=== PATIENT | female | born 1990 | race Caucasian/White ===

== ENCOUNTER 2022-08-28 17:07 | Emergency (ER) | payer OTHER, SELFPAY ==
[2022-08-28 17:15] VITALS: BP 135/104; PULSE 88; RESP 20; TEMP 36.6; O2SAT 98
--- NOTE | 2022-08-28 17:23 | XR_ITS ---
The [address] [address] Patient Name: CHAZ OLIVEIRA MRN: [id number] date: 1990 Sex: F Assigned Patient Location: ER Current Patient Location: ED.MAIN Accession/Order Number: [id number] Exam Date: 08/28/2022 17:28 Report Date: 08/28/2022 18:13 At the request of: GARY CABAN Procedure: XR toe LT min 2V EXAM: XR toe LT min 2V HISTORY: second toe COMPARISON: None. TECHNIQUE: 3 views of the left toe FINDINGS and impression: there is dislocation of the second middle phalanx with surrounding soft tissue edema. There is dorsal and lateral dislocation of the second middle phalanx relative to the first phalanx. No definite fracture. Electronically authenticated by: PETRONA CARDOSO Date: 08/28/2022 18:13
--- NOTE | 2022-08-28 18:44 | XR_ITS ---
The [address] [address] Patient Name: CHAZ OLIVEIRA MRN: [id number] date: 1990 Sex: F Assigned Patient Location: ER Current Patient Location: ER Accession/Order Number: [id number] Exam Date: 08/28/2022 18:40 Report Date: 08/28/2022 20:30 At the request of: GARY CABAN Procedure: XR toe LT min 2V IMAGES REVIEWED: XR toe LT min 2V COMPARISON: X-ray earlier same day. CLINICAL INDICATION: POST REDUCTION FINDINGS/IMPRESSION: Status post interval successful reduction of previously seen dorsal dislocation of the second proximal interphalangeal joint. On the prior there was a questionable small bony fragment measuring approximately 3 mm adjacent to the lateral aspect of the head of the second proximal phalanx on the frontal view. Possibly corresponding with an ossicle seen along the plantar aspect of the second interphalangeal joint on the lateral view, it is unclear if this is a sesamoid or fracture fragment. Electronically authenticated by: ROD GARCIA Date: 08/28/2022 20:30
--- NOTE | 2022-08-28 19:02 | PC.NURSE ---
toe put back in place by PA without difficulty.
--- NOTE | 2022-08-28 19:05 | ED_ITS ---
HPI - Extremity Injury (Lower) General Chief Complaint: Extremity Injury, Lower Stated Complaint: LEFT LEG INJURY Time Seen by Provider: 08/28/22 18:55 Source: patient Mode of arrival: Wheelchair Limitations: no limitations History of Present Illness HPI Narrative: 31-year-old female presents with chief complaint of stubbing her right toe. Obvious deformity noted to the 2nd phalanx on the right foot. Injury occurred when she was walking, accidentally kicked a hot tub cover. Deformity noted to the 2nd phalanx on the right toe. Related Data Home Medications Medication Instructions Recorded Confirmed No Known Home Medications 08/28/22 08/28/22 Allergies Allergy/AdvReac Type Severity Reaction Status Date / Time No Known Drug Allergies Allergy Verified 08/28/22 17:18 Review of Systems ROS Narrative All Systems are negative except as noted/marked. All systems reviewed and otherwise negative Exam Narrative Exam Narrative: Nurses note and vital signs reviewed and patient is not hypoxic. General: The patient appears well and in no apparent distress. Patient is resting comfortably on cart. Skin: Warm, dry, no pallor noted. There is no rash noted. Head: Normocephalic, atraumatic Musculoskeletal: Right 2nd digit deformity, dislocation neurovascularly intact, remainder extremity is unremarkable. The patient has no evidence of calf tenderness, no pitting edema, symmetrical pulses noted bilaterally Neurological: A&O x4, normal speech Psychiatric: Cooperative Constitutional Vital Signs - 24 hr 08/28/22 17:15 Temperature 98 F Pulse Rate [Monitor] 88 Respiratory Rate 20 Blood Pressure [Left Arm] 135/104 H Pulse Oximetry 98 Oxygen Delivery Method Room Air Course Course Hospital Course: Patient presented here with obvious deformity to the right 2nd digit. I was able to easily reduce the digit. Extremities neurovascular intact before and after. 1st x-ray showed obvious dislocation. 2nd repeat x-ray shows a question of avulsion fracture. Patient was treated as a fracture. Postop shoe and ousmane tape were applied by nursing staff. Patient will follow-up with Dr. Woods. Medicated here with Zofran and one Vermillion. Discharged home with pain medicine. Vital Signs Vital signs: Vital Signs Temperature 98 F 08/28/22 17:15 Pulse Rate 88 08/28/22 17:15 Respiratory Rate 20 08/28/22 17:15 Blood Pressure 135/104 H 08/28/22 17:15 Pulse Oximetry 98 08/28/22 17:15 Oxygen Delivery Method Room Air 08/28/22 17:15 Temperature 98 F 08/28/22 17:15 Pulse Rate 88 08/28/22 17:15 Respiratory Rate 20 08/28/22 17:15 Blood Pressure 135/104 H 08/28/22 17:15 Pulse Oximetry 98 08/28/22 17:15 Oxygen Delivery Method Room Air 08/28/22 17:15 MDM - Extremity Injury (Lower) MDM Narrative Medical decision making narrative: Toe fracture, dislocation Differential Diagnosis Differential diagnosis: Likely fracture of toe Discharge Plan Discharge Chief Complaint: Extremity Injury, Lower Clinical Impression: Closed dislocation of toe, Fracture of toe Patient Disposition: Home, Self-Care Time of Disposition Decision: 19:44 Condition: Good Prescriptions / Home Meds: No Action No Known Home Medications Instructions: Toe Fracture (ED), P.R.I.C.E. Treatment (ED) Stand Alone Forms: Portal Instructions Referrals: DOREEN MEJIA [Primary Care Provider] - 1 week Follow Up Appointments: dr woods
[2022-08-28] MEDS: HYDROCODONE/ACETAMINOPHEN 5-325 MG TABLET 1 TAB PO (19:19)
[2022-08-28] MEDS: ONDANSETRON 4 MG RAPDIS TABLET SL (19:19)
== END 2022-08-28 20:03 | disposition home or self-care (01) ==
PROVIDERS: Emergency Provider Emergency Medicine Emergency Medical Services; PCP Family Medicine
DX: S92.522A Displaced fracture of middle phalanx of left lesser toe(s), initial encounter for closed fracture (principal); W22.8XXA Striking against or struck by other objects, initial encounter
CPT/HCPCS: 28515; 73660; 99283

== ENCOUNTER 2023-01-17 10:40 | Outpatient (OUT) | payer OTHER, SELFPAY ==
[2023-01-17 11:05] LABS: Basophils Percent Auto 0.5 % (0.2-2.0); Eosinophils Percent Auto 0.3 % (0.9-7.0); Hematocrit 40.1 % (36.0-48.0); Hemoglobin 13.4 g/dL (12.0-16.0); Immature Granulocytes Abs Auto 0.01 10^3/uL (0.00-0.03); Immature Granulocytes Pct Auto 0.2 % (0.0-0.5); Lymphocytes Absolute Auto 1.6 10^3/uL (1.2-3.8); Lymphocytes Percent Auto 24.6 % (20.5-60.0); Mean Corpuscular HGB Conc 33.4 g/dL (29.9-35.2); Mean Corpuscular Hemoglobin 29.6 pg (26.7-34.0); Mean Corpuscular Volume 88.5 fL (81.0-99.0); Monocytes Absolute Auto 0.5 10^3/uL (0.3-0.8); Monocytes Percent Auto 6.9 % (1.7-12.0); Neutrophils Absolute Auto 4.4 10^3/uL (1.4-6.5); Neutrophils Percent Auto 67.5 % (43.0-75.0); Platelet Count 242 10^3/uL (150-450); Red Blood Count 4.53 10^6/uL (4.20-5.40); Red Cell Distribution Width 11.9 % (11.0-15.0); White Blood Count 6.5 10^3/uL (4.0-11.0)
[2023-01-17 11:47] LABS: BUN Creatinine Ratio 13.7; Calcium 10.2 mg/dL (8.5-10.1); Chloride 101 mmol/L (98-107); Estimated GFR (African America >60 (>=60); Estimated GFR (Non-African Ame >60 (>=60); Glucose 105 mg/dL (74-106); Sodium 137 mmol/L (136-145); Thyroid Stimulating Hormone 1.026 uIU/mL (0.358-3.740)
== END 2023-01-17 10:41 | disposition home or self-care (01) ==
PROVIDERS: PCP Family Medicine; Visit Provider Family Medicine
DX: Z00.00 Encounter for general adult medical examination without abnormal findings (principal); R63.4 Abnormal weight loss
CPT/HCPCS: 36415; 80048; 84443; 85025

== ENCOUNTER 2023-03-29 13:42 | Emergency (ER) | payer OTHER, SELFPAY ==
[2023-03-29] VITALS (7 sets, daily range): BP systolic 115–143; BP diastolic 75–95; PULSE 56–67; RESP 12–20; TEMP 36.6–36.9; O2SAT 97–99; BMI 15.6; BMI 17.2
--- OUTSIDE RECORDS SUMMARY | 2023-03-29 14:00 | XMS_ITS | CCD ---
Author Name Unknown Address [address] [place] [address] Organization [facility] Care Team Providers Care Machine Clothing Replacer Name Role Phone DR MOISES FIGUEROA Attending Unavailable DR MOISES FIGUEROA Consulting Unavailable DR MOISES FIGUEROA Admitting Unavailable DR KASEY LOWE Primary Care Unavailable GEOVANNI ARREAGA Consulting Unavailable Kasey Lowe Unavailable Allergies Allergy Classification Reported Allergen(s) Allergy Type Date of Onset Reaction(s) Facility (2 sources) Levamisole Drug Allergy 10-21-2013 Unknown [facility] Repository (2 sources) Nalbuphine Drug Allergy 10-21-2013 Unknown [facility] Medications Completed/Discontinued Medications Medication Drug Class(es) Dates Sig (Normalized) Sig (Original) Ketorolac (1 source) Nonsteroidal Anti-inflammatory Drug, Cyclooxygenase Inhibitor Start: 12-15-2012 Toradol per 15 mg 23 Nov, 2012 60 mg Problems Active Problems Problem Classification Problem Date Documented Da te Episodic/Chronic Headache; including migraine (1 source) Headache; Translations: [Headache, Unspecified] Episodic Other nutritional; endocrine; and metabolic disorders (1 source) Hypercalcemia; Translations: [Hypercalcemia] Chronic Other nutritional; endocrine; and metabolic disorders (1 source) Hypercalcemia Chronic Urinary tract infections (1 source) Urinary tract infectious disease; Translations: [Urinary Tract Infection] Episodic Past or Other Problems Problem Classification Problem Date Documented Da te Episodic/Chronic E Codes: Fall (1 source) Unspecified fall, initial encounter; Translations: [UNSPECIFIED FALL INITIAL ENCOUNTER] Onset: 05-05-2020 Episodic Other injuries and conditions due to external causes (3 sources) Unspecified injury of left foot, initial encounter; Translations: [UNSPECIFIED INJURY LT FOOT INITIAL] Onset: 05-04-2020 Episodic Screening and history of mental health and substance abuse codes (1 source) Personal history of nicotine dependence; Translations: [PERSONAL HISTORY OF NICOTINE DEPEND] Onset: 05-05-2020 Episodic Sprains and strains (1 source) Unspecified sprain of left foot, initial encounter; Translations: [UNSPECIFIED SPRAIN LT FOOT INITIAL] Onset: 05-05-2020 Episodic Superficial injury; contusion (1 source) Contusion of left foot, initial encounter; Translations: [CONTUSION LEFT FOOT INITIAL ENC] Onset: 05-05-2020 Episodic Encounters Encounter Date Encounter Type Care Provider Facility Start: 01-17-2023 End: 01-17-2023 ambulatory Kasey Lowe Other [facility] Other Start: 01-17-2023 Telephone encounter Kasey Lowe [facility] Start: 05-04-2020 End: 05-04-[address] MOISES FIGUEROA Facility: Payers Date Payer Category Payer Unknown [id number] 1957 Private Health Insurance [id number] Unknown [id number] Social History Date Type Detail Facility Unknown if ever smoked [facility] Other Sex Assigned At Sex Assigned At Bir th [facility] Other Evaluation note 01-17-2023 Note Date & Type Note Facility 01-17-2023 Evaluation note Encounter Date Diagnosis Assessment Notes Dec, Serum calcium elevated (ICD-10 - E83.52) [facility] Other History general Narrative - Reported Note Date & Type Note Facility History general Narrative - Reported Type Medical History hx of migraines Surgical History tonsillectomy Surgical History tubal ligation Hospitalization History childbirth [facility] Other Summary Purpose Family History No Family History Records Found Advance Directives No Advanced Directives Records Found Additional Source Comments INFORMATION SOURCE (unrecogn ized section and content) DATE CREATED AUTHOR 09/26/2021 [facility] REASON FOR VISIT (unrecogniz ed section and content) labs FOR RECORDS PERTAINING TO PATIENTS WHO ARE OR HAVE BEEN ENROLLED IN A CHEMICAL DEPENDENCY/SUBSTANCEABUSE PROGRAM, SOME INFORMATION MAY BE OMITTED. This clinical summary was aggregated from multiple sources. Caution should be exercised in using it in the provision of clinical care. This summary normalizes information from multiple sources, and as a consequence, information in this document may materially change the coding, format and clinical context of patient data. In addition, data may be omitted in some cases. CLINICAL DECISIONS SHOULD BE BASED ON THE PRIMARY CLINICAL RECORDS. [facility]. provides no warranty or guarantee of the accuracy or completeness of information in this document.
--- NOTE | 2023-03-29 14:06 | XR_ITS ---
The [address] [address] Patient Name: CHAZ OLIVEIRA MRN: [id number] date: 1990 Sex: F Assigned Patient Location: ER Current Patient Location: ER Accession/Order Number: [id number] Exam Date: 03/29/2023 14:30 Report Date: 03/29/2023 14:49 At the request of: THA AWAD Procedure: XR chest 1V EXAMINATION: XR chest 1V HISTORY: chesst pain COMPARISON: No relevant comparison available. TECHNIQUE: AP portable FINDINGS: LUNGS: No significant pulmonary parenchymal abnormalities. VASCULATURE: No increased pulmonary vasculature. PLEURA: No pneumothorax, effusion, or pleural thickening. CARDIAC: No cardiomegaly or cardiac silhouette abnormality. MEDIASTINUM: No visible mass or adenopathy. BONES: No fracture or visible bone lesion. OTHER: Negative. XR/XR chest 1V IMPRESSION: No acute disease. Electronically authenticated by: DARSHANA ANN Date: 03/29/2023 14:49
--- NOTE | 2023-03-29 14:06 | ECG_ITS ---
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
[2023-03-29] MEDS: KETOROLAC TROMETHAMINE 30 MG/ML VIAL IVP (14:10)
[2023-03-29 14:12] LABS: Internal Control Within Normal Limits; Strep A Antigen Screen Negative
[2023-03-29 14:15] LABS: Influenza Virus A Antigen Negative; Influenza Virus B Antigen Negative; Internal Control Within Normal Limits
[2023-03-29 14:16] LABS: SARS-CoV-2 Ag NEGATIVE (NEGATIVE)
[2023-03-29] MEDS: 0.9 % SODIUM CHLORIDE 1,000 ML 1000 ML IV ×2 (14:30→15:41)
[2023-03-29] MEDS: ONDANSETRON PF 4 MG/2 ML VIAL IV (14:31)
[2023-03-29 15:37] LABS: Basophils Percent Auto 0.3 % (0.2-2.0); Eosinophils Percent Auto 0.3 % (0.9-7.0); Hemoglobin 13.1 g/dL (12.0-16.0); Immature Granulocytes Abs Auto 0.02 10^3/uL (0.00-0.03); Immature Granulocytes Pct Auto 0.2 % (0.0-0.5); Lymphocytes Absolute Auto 1.3 10^3/uL (1.2-3.8); Lymphocytes Percent Auto 14.5 % (20.5-60.0); Mean Corpuscular HGB Conc 33.6 g/dL (29.9-35.2); Mean Corpuscular Hemoglobin 30.1 pg (26.7-34.0); Mean Corpuscular Volume 89.7 fL (81.0-99.0); Mean Platelet Volume 11.1 fL (9.5-13.5); Monocytes Absolute Auto 0.8 10^3/uL (0.3-0.8); Monocytes Percent Auto 9.5 % (1.7-12.0); Neutrophils Absolute Auto 6.6 10^3/uL (1.4-6.5); Neutrophils Percent Auto 75.2 % (43.0-75.0); Platelet Count 340 10^3/uL (150-450); Red Blood Count 4.35 10^6/uL (4.20-5.40); Red Cell Distribution Width 12.7 % (11.0-15.0); White Blood Count 8.8 10^3/uL (4.0-11.0)
[2023-03-29 15:43] LABS: Alanine Aminotransferase 63 U/L (14-59); Albumin Globulin Ratio 1.2; Albumin Level 4.1 g/dL (3.4-5.0); Alkaline Phosphatase 66 U/L (46-116); Anion Gap 9.9; Aspartate Amino Transferase 63 U/L (15-37); BUN Creatinine Ratio 12.3; Bilirubin Total 0.7 mg/dL (0.2-1.0); Calcium 10.8 mg/dL (8.5-10.1); Carbon Dioxide 31.8 mmol/L (21.0-32.0); Chloride 101 mmol/L (98-107); Estimated GFR (African America >60 (>=60); Estimated GFR (Non-African Ame >60 (>=60); Globulin 3.4 g/dL; Glucose 97 mg/dL (74-106); Potassium 3.7 mmol/L (3.5-5.1); Sodium 139 mmol/L (136-145); Total Protein 7.5 g/dL (6.4-8.2)
[2023-03-29 15:45] LABS: Troponin I High Sensitivity <4.0 pg/mL (4.0-51.3)
[2023-03-29 15:58] LABS: Bilirubin Urine NEGATIVE (NEGATIVE); Blood Urine SMALL (NEGATIVE); Clarity Urine CLEAR (CLEAR); Color Urine LT. YELLOW (YELLOW); Glucose Urine UA NEGATIVE (NEGATIVE); HCG Qualitative Urine* NEGATIVE (NEGATIVE); Ketones Urine TRACE mg/dL (NEGATIVE); Leukocyte Esterase Urine NEGATIVE (NEGATIVE); Nitrite Urine NEGATIVE (NEGATIVE); Protein Urine NEGATIVE (NEG/TRACE); Urobilinogen Urine 0.2 EU/dL (0.2-1.0)
[2023-03-29 16:00] LABS: Urine Microscopic Indicated YES
[2023-03-29 16:05] LABS: Bacteria Urine NONE SEEN #/HPF (NONE SEEN); Cast Seen? NONE SEEN #/LPF (NONE SEEN); Crystals Seen? None Seen #/HPF (None Seen); Mucus Urine NONE SEEN (NONE SEEN); RBC Urine NONE SEEN #/HPF (0-2); Squamous Epithelial Cell Urine RARE #/LPF (NONE/RARE); WBC Urine 0-2 #/HPF (NONE SEEN)
[2023-03-29 16:06] LABS: Urine Culture Indicated NO
--- NOTE | 2023-03-29 16:09 | ED_ITS ---
Documented by User: Enedelia Frank 03/29/23 16:16 HPI - General Adult General Chief complaint: Upper Respiratory Infection Stated complaint: CHEST PAIN/ SHORTNESS OF BREATH Time Seen by Provider: 03/29/23 13:59 Source: patient Mode of arrival: walk-in Limitations: no limitations History of Present Illness HPI narrative: 32-year-old female presents here with a chief complaint of weakness, nausea vomiting and weight loss. She states she is felt horrible for last 3-4 days. She complains of bodyaches fevers or chills. She is generally healthy. She does appear to not feel well today. She is tearful. He states she's also felt chest tightness with her anxiety. His vital signs are stable she is afebrile. Related Data Previous Rx's Medication Instructions Recorded hydroxyzine pamoate 25 mg capsule 25 mg PO TID PRN anxiey #20 caps 03/29/23 (Vistaril) ondansetron 4 mg disintegrating 4 mg PO Q8H PRN nausea and 03/29/23 tablet vomiting 5 days #10 tabs Allergies Allergy/AdvReac Type Severity Reaction Status Date / Time No Known Drug Allergies Allergy Verified 03/29/23 14:01 Review of Systems ROS Narrative All Systems are negative except as noted/marked. PFSH PFSH Social History Smoking status: Current every day smoker Exam Narrative Exam Narrative: Nurses note and vital signs reviewed and patient is not hypoxic. General: The patient appears ill, weak Skin: Warm, dry, no pallor noted. There is no rash noted. Head: Normocephalic, atraumatic Eye: Normal conjunctiva, no drainage, EOMI. PERRL Ears, Nose, Mouth, and Throat: oral mucosa is moist. Nares patent. Mouth without vesicles. Ear canals patent. Tm's without Erythema Cardiovascular: Regular Rate and Rhythm Respiratory: Patient is in no distress, no accessory muscle use, lungs are clear to auscultation, no wheezing, rales or rhonchi Back: non-tender, no CVA tenderness bilaterally to percussion. GI: Normal bowel sounds, no tenderness to palpation, no masses appreciated. No rebound, guarding, or rigidity noted. Musculoskeletal: The patient has no evidence of calf tenderness, no pitting edema, symmetrical pulses noted bilaterally Neurological: A&O x4, normal speech Psychiatric: Cooperative Constitutional Vital Signs, click to edit/add: Last Vital Signs Temp 98.5 F 03/29/23 14:02 Pulse 56 L 03/29/23 15:00 Resp 20 03/29/23 15:00 BP 115/75 03/29/23 15:00 Pulse Ox 99 03/29/23 15:00 O2 Del Method Room Air 03/29/23 14:06 Course Vital Signs Vital signs: Vital Signs Temperature 97.8 F 03/29/23 13:47 Pulse Rate 67 03/29/23 13:47 Respiratory Rate 18 03/29/23 13:47 Blood Pressure 140/88 03/29/23 13:47 Pulse Oximetry 99 03/29/23 13:47 Oxygen Delivery Method Room Air 03/29/23 13:47 Temperature 98.5 F 03/29/23 14:02 Pulse Rate 56 L 03/29/23 15:00 Respiratory Rate 20 03/29/23 15:00 Blood Pressure 115/75 03/29/23 15:00 Pulse Oximetry 99 03/29/23 15:00 Oxygen Delivery Method Room Air 03/29/23 14:06 Medical Decision Making MDM Narrative Medical decision making narrative: Patient presents with a chief complaint nausea vomiting and chills. Coban swab influenza swabs are negative. Rapid strep and urinalyssis also obtained and negative. Upon arrival to the emergency room patient did appear ill not feeling well. IV was established she's been given 2 L IV fluids Zofran and Toradol. She looks much improved after fluids and medications. She states she does feel better. Although been discussing discharge with her patient is tearful and admits that she has had increased anxiety with weight loss over last several months. Patient denies suicidal or homicidal ideation. Patient be discharged home with a small prescription of Viistaril to help with anxiety and insomnia. She will follow-up with Dr. Lowe. Patient verbalizes understanding agrees with plan of care Differential Diagnosis Differential Diagnosis: uri, flu, covid, nausea and vomiting Medical Records Medical records reviewed: Yes I reviewed the patient's medical records Lab Data Lab results reviewed: Yes I reviewed the patient's lab results Labs: Lab Results 03/29/23 03/29/23 03/29/23 Range/Units 13:50 14:10 15:40 WBC 8.8 (4.0-11.0) 10^3/uL RBC 4.35 (4.20-5.40) 10^6/uL Hgb 13.1 (12.0-16.0) g/dL Hct 39.0 (36.0-48.0) % MCV 89.7 (81.0-99.0) fL MCH 30.1 (26.7-34.0) pg MCHC 33.6 (29.9-35.2) g/dL RDW 12.7 (11.0-15.0) % Plt Count 340 (150-450) 10^3/uL MPV 11.1 (9.5-13.5) fL Neut % (Auto) 75.2 H (43.0-75.0) % Lymph % (Auto) 14.5 L (20.5-60.0) % Dickens % (Auto) 9.5 (1.7-12.0) % Eos % (Auto) 0.3 L (0.9-7.0) % Baso % (Auto) 0.3 (0.2-2.0) % Neut # (Auto) 6.6 H (1.4-6.5) 10^3/uL Lymph # (Auto) 1.3 (1.2-3.8) 10^3/uL Dickens # (Auto) 0.8 (0.3-0.8) 10^3/uL Eos # (Auto) 0.0 (0.0-0.7) 10^3/uL Baso # (Auto) 0.0 (0.0-0.1) 10^3/uL Abs Immat Gran (auto) 0.02 (0.00-0.03) 10^3/uL Imm/Tot Granulo (auto) 0.2 (0.0-0.5) % Sodium 139 (136-145) mmol/L Potassium 3.7 (3.5-5.1) mmol/L Chloride 101 (98-107) mmol/L Carbon Dioxide 31.8 (21.0-32.0) mmol/L Anion Gap 9.9 BUN 8.0 (7.0-18.0) mg/dL Creatinine 0.65 (0.55-1.02) mg/dL Est GFR ( Amer) >60 (>=60) Est GFR (Non-Af Amer) >60 (>=60) BUN/Creatinine Ratio 12.3 Glucose 97 (74-106) mg/dL Calcium 10.8 H (8.5-10.1) mg/dL Total Bilirubin 0.7 (0.2-1.0) mg/dL AST 63 H (15-37) U/L ALT 63 H (14-59) U/L Alkaline Phosphatase 66 (46-116) U/L Troponin I High Sens <4.0 L (4.0-51.3) pg/mL Total Protein 7.5 (6.4-8.2) g/dL Albumin 4.1 (3.4-5.0) g/dL Globulin 3.4 g/dL Albumin/Globulin Ratio 1.2 Urine Color Lt. yellow (YELLOW) Urine Clarity Clear (CLEAR) Urine pH 7.0 (5.0-9.0) Ur Specific [place] 1.010 (1.005-1.025) Urine Protein Negative (NEG/TRACE) mg/dL Urine Glucose (UA) Negative (NEGATIVE) mg/dL Urine Ketones Trace A (NEGATIVE) mg/dL Urine Occult Blood Small A (NEGATIVE) Urine Nitrite Negative (NEGATIVE) Urine Bilirubin Negative (NEGATIVE) Urine Urobilinogen 0.2 (0.2-1.0) EU/dL Ur Leukocyte Esterase Negative (NEGATIVE) Urine RBC None seen (0-2) #/HPF Urine WBC 0-2 A (NONE SEEN) #/HPF Ur Squamous Epith Cells Rare (NONE/RARE) #/LPF Urine Crystals None seen (None Seen) #/HPF Urine Bacteria None seen (NONE SEEN) #/HPF Urine Casts None seen (NONE SEEN) #/LPF Urine Mucus None seen (NONE SEEN) Ur Culture Indicated? No Urine HCG, Qual Negative (NEGATIVE) SARS-CoV-2 (PCR) Negative (NEGATIVE) Influenza Type A Ag Negative Influenza Type B Ag Negative Streptococcus Screen Negative Imaging Data Chest x-ray: Attestation: I have reviewed the pertinent imaging results. Radiologist's impression: ITS Impressions Chest X-Ray 03/29/23 14:06 IMPRESSION: No acute disease. Electronically authenticated by: DARSHANA ANN Date: 03/29/2023 14:49 ECG Data Attestation: ?I have reviewed the pertinent ECG results. Interpretation: 1401 Sinus bradycardia with a rate of 55 bpm, ME interval 103 ms, QRS duration 80 ms, no STEMI Discharge Plan Discharge Chief Complaint: Upper Respiratory Infection Clinical Impression: Upper respiratory infection, Anxiety, Nausea & vomiting Patient Disposition: Home, Self-Care Time of Disposition Decision: 16:06 Condition: Good Prescriptions / Home Meds: New hydroxyzine pamoate [Vistaril] 25 mg capsule 25 mg PO TID PRN (Reason: anxiey) Qty: 20 0RF Rx Instructions: 1-2 every 8 hours anxiety/ insomnia ondansetron 4 mg tablet,disintegrating 4 mg PO Q8H PRN (Reason: nausea and vomiting) 5 Days Qty: 10 0RF Instructions: Upper Respiratory Infection (ED), Acute Nausea and Vomiting (ED), Anxiety (ED) Stand Alone Forms: Portal Instructions Referrals: Kasey Lowe MD [Primary Care Provider] - 1 week Discharge Date/Time: 03/29/23 17:05 Documented by User: True Grace MD 03/29/23 20:55 HPI - General Adult General Chief complaint: Upper Respiratory Infection Stated complaint: CHEST PAIN/ SHORTNESS OF BREATH Time Seen by Provider: 03/29/23 13:59 Related Data Previous Rx's Medication Instructions Recorded hydroxyzine pamoate 25 mg capsule 25 mg PO TID PRN anxiey #20 caps 03/29/23 (Vistaril) ondansetron 4 mg disintegrating 4 mg PO Q8H PRN nausea and 03/29/23 tablet vomiting 5 days #10 tabs Allergies Allergy/AdvReac Type Severity Reaction Status Date / Time No Known Drug Allergies Allergy Verified 03/29/23 14:01 PFSH PFS Social History Smoking status: Current every day smoker Exam Constitutional Vital Signs, click to edit/add: Last Vital Signs Temp 98.5 F 03/29/23 14:02 Pulse 56 L 03/29/23 15:00 Resp 20 03/29/23 15:00 BP 115/75 03/29/23 15:00 Pulse Ox 99 01/05/24 15:00 O2 Del Method Room Air 03/29/23 14:06 Course Vital Signs Vital signs: Vital Signs Temperature 97.8 F 03/29/23 13:47 Pulse Rate 67 03/29/23 13:47 Respiratory Rate 18 03/29/23 13:47 Blood Pressure 140/88 03/29/23 13:47 Pulse Oximetry 99 03/29/23 13:47 Oxygen Delivery Method Room Air 03/29/23 13:47 Temperature 98.5 F 03/29/23 14:02 Pulse Rate 56 L 03/29/23 15:00 Respiratory Rate 20 03/29/23 15:00 Blood Pressure 115/75 03/29/23 15:00 Pulse Oximetry 99 03/29/23 15:00 Oxygen Delivery Method Room Air 03/29/23 14:06 Medical Decision Making MDM Narrative Medical decision making narrative: Patient presents with a chief complaint nausea vomiting and chills. Coban swab influenza swabs are negative. Rapid strep and urinalyssis also obtained and negative. Upon arrival to the emergency room patient did appear ill not feeling well. IV was established she's been given 2 L IV fluids Zofran and Toradol. She looks much improved after fluids and medications. She states she does feel better. Although been discussing discharge with her patient is tearful and admits that she has had increased anxiety with weight loss over last several months. Patient denies suicidal or homicidal ideation. Patient be discharged home with a small prescription of Viistaril to help with anxiety and insomnia. She will follow-up with Dr. Lowe. Patient verbalizes understanding agrees with plan of care I, Dr Grace, have reviewed the above progress note and course of action in the ER; agree with the above. I have personally seen and evaluated this patient, gone over history and physical, and discussed disposition and treatment plan with the patient. Lab Data Labs: Lab Results 03/29/23 03/29/23 03/29/23 Range/Units 13:50 14:10 15:40 WBC 8.8 (4.0-11.0) 10^3/uL RBC 4.35 (4.20-5.40) 10^6/uL Hgb 13.1 (12.0-16.0) g/dL Hct 39.0 (36.0-48.0) % MCV 89.7 (81.0-99.0) fL MCH 30.1 (26.7-34.0) pg MCHC 33.6 (29.9-35.2) g/dL RDW 12.7 (11.0-15.0) % Plt Count 340 (150-450) 10^3/uL MPV 11.1 (9.5-13.5) fL Neut % (Auto) 75.2 H (43.0-75.0) % Lymph % (Auto) 14.5 L (20.5-60.0) % Dickens % (Auto) 9.5 (1.7-12.0) % Eos % (Auto) 0.3 L (0.9-7.0) % Baso % (Auto) 0.3 (0.2-2.0) % Neut # (Auto) 6.6 H (1.4-6.5) 10^3/uL Lymph # (Auto) 1.3 (1.2-3.8) 10^3/uL Dickens # (Auto) 0.8 (0.3-0.8) 10^3/uL Eos # (Auto) 0.0 (0.0-0.7) 10^3/uL Baso # (Auto) 0.0 (0.0-0.1) 10^3/uL Abs Immat Gran (auto) 0.02 (0.00-0.03) 10^3/uL Imm/Tot Granulo (auto) 0.2 (0.0-0.5) % Sodium 139 (136-145) mmol/L Potassium 3.7 (3.5-5.1) mmol/L Chloride 101 (98-107) mmol/L Carbon Dioxide 31.8 (21.0-32.0) mmol/L Anion Gap 9.9 BUN 8.0 (7.0-18.0) mg/dL Creatinine 0.65 (0.55-1.02) mg/dL Est GFR ( Amer) >60 (>=60) Est GFR (Non-Af Amer) >60 (>=60) BUN/Creatinine Ratio 12.3 Glucose 97 (74-106) mg/dL Calcium 10.8 H (8.5-10.1) mg/dL Total Bilirubin 0.7 (0.2-1.0) mg/dL AST 63 H (15-37) U/L ALT 63 H (14-59) U/L Alkaline Phosphatase 66 (46-116) U/L Troponin I High Sens <4.0 L (4.0-51.3) pg/mL Total Protein 7.5 (6.4-8.2) g/dL Albumin 4.1 (3.4-5.0) g/dL Globulin 3.4 g/dL Albumin/Globulin Ratio 1.2 Urine Color Lt. yellow (YELLOW) Urine Clarity Clear (CLEAR) Urine pH 7.0 (5.0-9.0) Ur Specific [place] 1.010 (1.005-1.025) Urine Protein Negative (NEG/TRACE) mg/dL Urine Glucose (UA) Negative (NEGATIVE) mg/dL Urine Ketones Trace A (NEGATIVE) mg/dL Urine Occult Blood Small A (NEGATIVE) Urine Nitrite Negative (NEGATIVE) Urine Bilirubin Negative (NEGATIVE) Urine Urobilinogen 0.2 (0.2-1.0) EU/dL Ur Leukocyte Esterase Negative (NEGATIVE) Urine RBC None seen (0-2) #/HPF Urine WBC 0-2 A (NONE SEEN) #/HPF Ur Squamous Epith Cells Rare (NONE/RARE) #/LPF Urine Crystals None seen (None Seen) #/HPF Urine Bacteria None seen (NONE SEEN) #/HPF Urine Casts None seen (NONE SEEN) #/LPF Urine Mucus None seen (NONE SEEN) Ur Culture Indicated? No Urine HCG, Qual Negative (NEGATIVE) SARS-CoV-2 (PCR) Negative (NEGATIVE) Influenza Type A Ag Negative Influenza Type B Ag Negative Streptococcus Screen Negative Imaging Data Chest x-ray: Radiologist's impression: ITS Impressions Chest X-Ray 03/29/23 14:06 IMPRESSION: No acute disease. Electronically authenticated by: DARSHANA ANN Date: 03/29/2023 14:49 Discharge Plan Discharge Chief Complaint: Upper Respiratory Infection Clinical Impression: Upper respiratory infection, Anxiety, Nausea & vomiting Patient Disposition: Home, Self-Care Time of Disposition Decision: 16:06 Condition: Good Prescriptions / Home Meds: New hydroxyzine pamoate [Vistaril] 25 mg capsule 25 mg PO TID PRN (Reason: anxiey) Qty: 20 0RF Rx Instructions: 1-2 every 8 hours anxiety/ insomnia ondansetron 4 mg tablet,disintegrating 4 mg PO Q8H PRN (Reason: nausea and vomiting) 5 Days Qty: 10 0RF Instructions: Upper Respiratory Infection (ED), Acute Nausea and Vomiting (ED), Anxiety (ED) Stand Alone Forms: Portal Instructions Referrals: Kasey Lowe MD [Primary Care Provider] - 1 week Discharge Date/Time: 03/29/23 17:05
[2023-03-30 16:04] LABS: SARS-CoV-2 NAA NOT DETECTED (NOT DETECTE)
== END 2023-03-29 17:05 | disposition home or self-care (01) ==
PROVIDERS: Physician Assistant; Emergency Provider Emergency Medicine; PCP Family Medicine
DX: R11.2 Nausea with vomiting, unspecified (principal); J06.9 Acute upper respiratory infection, unspecified; F41.9 Anxiety disorder, unspecified; F17.210 Nicotine dependence, cigarettes, uncomplicated; Z20.822 Contact with and (suspected) exposure to COVID-19
CPT/HCPCS: 36415; 71045; 80053; 81001; 84484; 84703; 85025; 87070; 87635; 87804; 87811; 87880; 93005; 96361; 96374; 96375; 99285; J1885; J2405

== ENCOUNTER 2023-04-15 11:51 | Outpatient (OUT) | payer OTHER, SELFPAY ==
--- OUTSIDE RECORDS SUMMARY | 2023-04-15 12:02 | XMS_ITS | CCD ---
Author Name Unknown Address [address] [place] [address] Organization [facility] Care Team Providers Care Operations Business Partner Name Role Phone DR MOISES FIGUEROA Attending Unavailable CAROLINA, DR MOISES Melissa Consulting Unavailable DR MOISES FIGUEROA Admitting Unavailable DR KASEY LOWE Primary Care Unavailable GEOVANNI ARREAGA Consulting Unavailable Kasey Lowe Unavailable KASEY LOWE Referring Unavailable Allergies Allergy Classification Reported Allergen(s) Allergy Type Date of Onset Reaction(s) Facility (7 sources) Levamisole Drug Allergy 10-21-2013 Unknown [facility] (7 sources) Nalbuphine Drug Allergy 10-21-2013 Unknown [facility] Medications Current Medications Medication Drug Class(es) Dates Sig (Normalized) Sig (Original) ALPRAZolam 0.25 mg oral tablet (3 sources) Benzodiazepine Start: 04-09-2023 take 1 tablet by mouth every twelve hours ALPRAZolam 0.25 MG 1 tablet Orally Twice a day for 5 days Mar, Active Start: 04-02-2023 take 1 tablet by sal th every twelve hours ALPRAZolam 0.25 MG 1 tablet Orally Twice a day for 5 days Mar, Active citalopram 20 mg oral tablet (5 sources) Serotonin Reuptake Inhibitor Start: 04-01-2023 take 1 tablet by mouth every twenty-four hours Citalopram Hydrobromide 20 MG 1 tablet Orally Once a day for 30 day(s) Mar, Active hydrOXYzine hydrochloride 25 mg oral tablet (5 sources) Antihistamine hydrOXYzine HCl 25 MG 1 tablet q 8 hrs prn Active ondansetron 4 mg disintegrating oral tablet (5 sources) Serotonin-3 Receptor Antagonist take 1 tablet by mouth every twenty-four hours Ondansetron 4 MG 1 tablet once a day Active Completed/Discontinued Medications Medication Drug Class(es) Dates Sig (Normalized) Sig (Original) Ketorolac (6 sources) Nonsteroidal Anti-inflammatory Drug, Cyclooxygenase Inhibitor Start: 12-15-2012 Toradol per 15 mg Nov, 60 mg Problems Active Problems Problem Classification Problem Date Documented Da te Episodic/Chronic Abdominal pain (1 source) Left upper quadrant pain Episodic Anxiety disorders (6 sources) Generalized anxiety disorder; Translations: [Generalized anxiety disorder] Chronic Headache; including migraine (6 sources) Headache; Translations: [Headache, Unspecified] Episodic Other nutritional; endocrine; and metabolic disorders (6 sources) Hypercalcemia; Translations: [Hypercalcemia] Chronic Other nutritional; endocrine; and metabolic disorders (1 source) Hypercalcemia Chronic Other nutritional; endocrine; and metabolic disorders (1 source) Abnormal weight loss Episodic Residual codes; unclassified (1 source) Illness, unspecified Episodic Urinary tract infections (6 sources) Urinary tract infectious disease; Translations: [Urinary Tract Infection] Episodic Viral infection (1 source) Viral infection, unspecified Episodic Past or Other Problems Problem Classification [...] LEFT FOOT INITIAL ENC] Onset: 05-05-2020 Episodic Results Test Name Value Interpretation Reference Range Facil ity CT ABDOMEN PELVIS W IV CONTR Sascha 04-10-2023 CT ABDOMEN PELVIS W IV CONTRAST Examination: CT ABDOMEN PELVIS W IV CONTRAST Indication: LUQ Abdominal pain, weight loss Technique: Multiple serial axial images was performed through the abdomen and pelvis utilizing 100cc of Isovue 300 and the oral administration of contrast. Images were reconstructed in the axial and coronal and sagittal planes. Comparison: No comparison is available. Findings: The visualized basal lungs show no focal parenchymal abnormalities. The liver shows no focal parenchymal abnormality. No intrahepatic biliary dilatation. The gallbladder, spleen, pancreas, adrenals, kidneys are unremarkable. Large and small bowel show no sign of obstruction. There is stool scattered throughout the large bowel. The appendix is visualized. No periappendiceal stranding. No diverticulitis. No free air. No free fluid. The visualized abdominal aorta is of normal size and caliber. No significant retroperitoneal adenopathy. Bladder shows no wall thickening. No bladder calculi. Surgical clips in the right adnexal region and one within the left lower quadrant subjacent to the iliac's. Visualized osseous structures are grossly unremarkable. IMPRESSION: Impression: UNREMARKABLE CT SCAN OF THE ABDOMEN AND PELVIS All CT scans at this facility use dose modulation, iterative reconstruction, and/or weight based dosing when appropriate to reduce radiation dose to as low as reasonably achievable. ELECTRONICALLY SIGNED BY: True Barton MD Normal Not Available Vital Signs Date Time Vital Sign Value Performing Clinician Facility 04-01-2023 10:15-0500 Body height 160.02 cm Kasey Lowe Other [facility] Other 04-01-2023 10:15-0500 Body mass index (BMI) [Ratio] 17.68 kg/m2 Kasey Lowe Other [facility] Other 04-01-2023 10:15-0500 Body temperature 98.1 [degF] Kasey Lowe Other [facility] Other 04-01-2023 10:15-0500 Body weight 45.27 kg Kasey Lowe Other [facility] Other 04-01-2023 10:15-0500 Diastolic blood pressure 99 mm[Hg] Kasey Lowe Other [facility] Other 04-01-2023 10:15-0500 Systolic blood pressure 150 mm[Hg] Kasey Lowe Other [facility] Other 03-29-2023 13:150500 Body height 160.02 cm Kasey Lowe Other [facility] Other Encounters Encounter Date Encounter Type Care Provider Facility Start: 04-11-2023 End: 04-11-2023 ambulatory Kasey Lowe Other [facility] Other Start: 04-11-2023 Telephone encounter Kasey Lowe [facility] Start: 04-10-2023 End: 04-11-2023 ambulatory KASEY LOWE Not Available Start: 04-09-2023 End: 04-09-2023 ambulatory Kasey Lowe Other [facility] Other Start: 04-09-2023 Telephone encounter Kasey Lowe [facility] Start: 04-02-2023 End: 04-02-2023 ambulatory Kasey Lowe Other [facility] Other Start: 04-02-2023 Telephone encounter Kasey Lowe [facility] Start: 04-01-2023 End: 04-01-2023 ambulatory Kasey Lowe Other [facility] Other Start: 04-01-2023 Office outpatient vi sit 25 minutes Kasey Lowe [facility] Start: 03-29-2023 (Televisit) Televisit Kasey Lowe [facility] Start: 03-29-2023 End: 03-29-2023 ambulatory Kasey Lowe Other [facility] Other Start: 01-17-2023 End: 01-17-2023 ambulatory Kasey Lowe Other [facility] Other Start: 01-17-2023 Telephone encounter Kasey Lowe [facility] Start: 05-04-2020 End: 05-04-[address] MOISES FIGUEROA Facility: Payers Date Payer Category Payer Unknown [id number] 1992 Unknown [id number] 1992 Unknown [id number] 1959 Private Health Insurance [id number] Social History Date Type Detail Facility Unknown if ever smoked [facility] Other Sex Assigned At Sex Assigned At Bir th [facility] Other Evaluation note 04-01-2023 Note Date & Type Note Facility 04-01-2023 Evaluation note Encounter Date Diagnosis Assessment Notes Mar, Viral illness (ICD-10 - B34.9) LFTs elevated, check monotest Mar, Weight loss, unintentional (ICD-10 - R63.4) pt concerned about cancer. recheck thryoid (checked and normal in Dec) and CT Mar, LUQ abdominal pain (ICD-10 - R10.12) r/o pancreatitis Mar, Anxiety, generalized (ICD-10 - F41.1) start med and f/u in 1 month if not sooner. [facility] Other Evaluation note 03-29-2023 Note Date & Type Note Facility 03-29-2023 Evaluation note Encounter Date Diagnosis Assessment Notes Mar, Illness (ICD-10 - R69) I cannot diagnosis Molly's various symptoms into a specific diagnosis or treatment. She feels very poorly. Agreed to have her take her to the ER directly. If she came to office, I would send her for testing anyways. We discussed differential including heart issues or even pneumonia with dehydration. Pt expresses understanding. [facility] Other Evaluation note 01-17-2023 Note Date & Type Note Facility 01-17-2023 Evaluation note Encounter Date Diagnosis Assessment Notes Dec, Serum calcium elevated (ICD-10 - E83.52) [facility] Other Evaluation note Note Date & Type Note Facility Evaluation note No Information Local Matters Other History general Narrative - Reported Note Date & Type Note Facility History general Narrative - Reported Type Medical History hx of migraines Surgical History tonsillectomy Surgical History tubal ligation Hospitalization History childbirth Merged With [facility] Other Summary Purpose Family History No Family History Records FoundNo Family History Records Found Advance Directives No Advanced Directives Records FoundNo Advanced Directives Records Found Additional Source Comments INFORMATION SOURCE (unrecogn ized section and content) DATE CREATED AUTHOR 09/26/2021 [facility] DATE CREATED AUTHOR AUTHOR'S ORGANIZ ATION 04/14/2023 [facility] EPIC REASON FOR VISIT (unrecogniz ed section and content) labsPOSSIBLE COVID , IS TEST ING [phone] up labsmessageRefillCT result FOR RECORDS PERTAINING TO PATIENTS WHO ARE [...] BE BASED ON THE PRIMARY CLINICAL RECORDS. [employer] provides no warranty or guarantee of the accuracy or completeness of information in this document.
[2023-04-15 13:03] LABS: Alanine Aminotransferase 66 U/L (14-59); Albumin Globulin Ratio 1.1; Albumin Level 3.9 g/dL (3.4-5.0); Alkaline Phosphatase 67 U/L (46-116); Aspartate Amino Transferase 73 U/L (15-37); BUN Creatinine Ratio 26.8; Bilirubin Total 0.4 mg/dL (0.2-1.0); Calcium 10.3 mg/dL (8.5-10.1); Carbon Dioxide 29.5 mmol/L (21.0-32.0); Chloride 103 mmol/L (98-107); Estimated GFR (African America >60 (>=60); Estimated GFR (Non-African Ame >60 (>=60); Globulin 3.5 g/dL; Glucose 74 mg/dL (74-106); Potassium 3.5 mmol/L (3.5-5.1); Sodium 141 mmol/L (136-145); Thyroid Stimulating Hormone 2.231 uIU/mL (0.358-3.740); Total Protein 7.4 g/dL (6.4-8.2)
[2023-04-15 13:39] LABS: Mono Screen NEGATIVE (NEGATIVE)
== END 2023-04-15 11:52 | disposition home or self-care (01) ==
LOC: LAB 11:52
PROVIDERS: PCP Family Medicine; Visit Provider Family Medicine
DX: B34.9 Viral infection, unspecified (principal); R63.4 Abnormal weight loss; R10.12 Left upper quadrant pain
CPT/HCPCS: 36415; 80053; 83690; 84443; 86308

== ENCOUNTER 2023-05-03 08:47 | Outpatient (OUT) | payer OTHER, SELFPAY ==
--- OUTSIDE RECORDS SUMMARY | 2023-05-03 08:51 | XMS_ITS | CCD ---
Author Name Unknown Address [address] [place] [address] Organization [facility] Care Team Providers Care Batter Mixer Name Role Phone DR MOISES FIGUEROA Attending Unavailable CAROLINA, DR MOISES Melissa Consulting Unavailable DR MOISES FIGUEROA Admitting Unavailable DR KASEY MEJIA Primary Care Unavailable GEOVANNI ARREAGA Consulting Unavailable Kasey Mejia Unavailable Michelle Jones Unavailable [phone] KASEY MEJIA Referring Unavailable MICHELLE JONES Referring Unavailab KASEY Emanuel Referring Unavailable SATHISH OROZCO Attending Unavaila ble Allergies Allergy Classification Reported Allergen(s) Allergy Type Date of Onset Reaction(s) Facility (13 sources) Levamisole Drug Allergy 10-21-2013 Unknown [facility] Repository (13 sources) Nalbuphine Drug Allergy 10-21-2013 Unknown [facility] Medications Current Medications Medication Drug Class(es) Dates Sig (Normalized) Sig (Original) ALPRAZolam 0.25 mg oral tablet (9 sources) Benzodiazepine Start: 04-20-2023 take 1 tablet by mouth every twelve hours ALPRAZolam 0.25 MG 1 tablet Orally Twice a day for 30 days Mar, Active Start: 04-15-2023 take 1 tablet by sal th every twelve hours ALPRAZolam 0.25 MG 1 tablet Orally Twice a day for 5 days Mar, Active Start: 04-09-2023 take 1 tablet by sal th every twelve hours ALPRAZolam 0.25 MG 1 tablet Orally Twice a day for 5 days Mar, Active Start: 04-02-2023 take 1 tablet by sal th every twelve hours ALPRAZolam 0.25 MG 1 tablet Orally Twice a day for 5 days Mar, Active citalopram 20 mg oral tablet (11 sources) Serotonin Reuptake Inhibitor Start: 04-01-2023 take 1 tablet by mouth every twenty-four hours Citalopram Hydrobromide 20 MG 1 tablet Orally Once a day for 30 day(s) Mar, Active hydrOXYzine hydrochloride 25 mg oral tablet (11 sources) Antihistamine hydrOXYzine HCl 25 MG 1 tablet q 8 hrs prn Active methylPREDNISolone 4 mg oral tablet (5 sources) Corticosteroid Start: 04-17-2023 methylPREDNISolone 4 MG as directed Orally daily for 6 days Mar, Active ondansetron 4 mg disintegrating oral tablet (11 sources) Serotonin-3 Receptor Antagonist take 1 tablet by mouth every twenty-four hours Ondansetron 4 MG 1 tablet once a day Active Completed/Discontinued Medications Medication Drug Class(es) Dates Sig (Normalized) Sig (Original) Ketorolac (12 sources) Nonsteroidal Anti-inflammatory Drug, Cyclooxygenase Inhibitor Start: 12-15-2012 Toradol per 15 mg Nov, 60 mg Problems Active Problems Problem Classification Problem Date Documented Da te Episodic/Chronic Abdominal pain (1 source) Left upper quadrant pain Episodic Anxiety disorders (12 sources) Generalized anxiety disorder; Translations: [Generalized anxiety disorder] Chronic Cardiac dysrhythmias (2 sources) Tachycardia, unspecified Episodic Headache; including migraine (7 sources) Headache; Translations: [Headache, Unspecified] Episodic Other eye disorders (1 source) Unspecified disorder of eye and adnexa Episodic Other nutritional; endocrine; and metabolic disorders (12 sources) Hypercalcemia; Translations: [Hypercalcemia] Chronic Other nutritional; endocrine; and metabolic disorders (1 source) Hypercalcemia Chronic Other nutritional; endocrine; and metabolic disorders (1 source) Abnormal weight loss Episodic Residual codes; unclassified (1 source) Illness, unspecified Episodic Thyroid disorders (6 sources) Hyperthyroidism; Translations: [Thyrotoxicosis, unspecified without thyrotoxic crisis or storm] Chronic Urinary tract infections (7 sources) Urinary tract infectious disease; Translations: [Urinary Tract Infection] Episodic Viral infection (1 source) Viral infection, unspecified Episodic Past or Other Problems Problem Classification Problem Date Documented Da te Episodic/Chronic E Codes: Fall (1 source) Unspecified fall, initial encounter; Translations: [UNSPECIFIED FALL INITIAL ENCOUNTER] Onset: 05-05-2020 Episodic Headache; including migraine (1 source) Headache; including migraine Other injuries and conditions due to external [...] LEFT FOOT INITIAL ENC] Onset: 05-05-2020 Episodic Unclassified (1 source) Sensation of lump in throat R09.A2 Results Test Name Value Interpretation Reference Range Facil ity CNOVon 04-26-2023 CNOV Office Visit (ENWSTR ) CHAZ EWING ([id number]) 1990 F Date Time Provider Department 04/26/23 9:20 AM SATHISH OROZCO ENWSCECILY During your visit today, we recorded the following information about you: Temperature Pulse Blood pressure Weight 99.5 degrees 103/minute 140/80 46.8 kg Height Last Period 1.588 m 04/22/23 Sathish Orozco MD 04/26/2023 1:50 PM Addendum [facility] Initial Clinic Visit Note Referring Physician: Kasey Mejia MD My final recommendations will be communicated back to the requesting physician by way of shared medical record or letter via US mail. Subjective: Chaz Ewing is a 32 year old female self referred here for evaluation of thyroid function. She is here with her today She had TSH done on 04/15/23 within normal range She also reports difficulty swallowing due to which an US thyroid was done and was normal She reports she was sent to Endocrinology to assess her thyroid as she reports they were not able to figure out what is causing her symptoms In Dec 2022, she started losing weight, soon she started noticing watering of eyes, also gets rashes on eyes as showed in picture on her phone (medial side of eye lids are red) Has intermittent palpitations, sometimes feeling of going to passing out and feels like she is going to . Intermittent chest pain for the last 2 weeks - once heart rate starts going up she has chest pain nothing that triggers or alleviates palpitations She has been experiencing high BP in the recent past, Reports sweating intermittently On further questioning, headaches reported She reports no fever or sore throat preceding the onset of palpitations. No thyroid labs checked at that time. Reports no pain in neck, but steroids (medrol dose pack) reduced palpitations- but since she is off of the steroids she started having palpitations again. 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 No current facility-administered medications on file prior to visit. PAST MEDICAL HISTORY: No past medical history on file. PAST SURGICAL HISTORY: No past surgical history on file. FAMILY HISTORY: No family history on file. 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 Alert and oriented x3, no acute distress Eyes: Anicteric sclera. Extraocular motions intact, no exophthalmos, no lid lag, no rash on eye lids Neck supple, no cervical lymphadenopathy Thyroid: normal size, normal texture, no palpable nodules Lungs: Breathing unlabored, clear to auscultation. No wheezing, rhonchi, rales Heart regular rate and rhythm Musculoskeletal: Muscular strength intact, No joint swelling, deformity, or tenderness Extremities without edema, no deformities Skin: no rashes/ erythema LAB: 04/15/2023 Thyroid Stimulating Hormone 2.231 uIU/mL Normal 0.358-3.740 Imaging: Ultrasound thyroid: 04/22/2023 12:43 PM: EXAMINATION: THYROID ULTRASOUND HISTORY: Dysphagia. Weight loss TECHNIQUE: Sonography and Doppler imaging of the thyroid was performed. Images were obtained and stored in a permanent archive. COMPARISON: None. RESULT: RIGHT LOBE: 5.2 x 1.5 x 1.4 cm; homogeneous echogenicity, expected vascular flow LEFT LOBE: 4.3 x 1.3 x 1.1 cm; homogeneous echogenicity, expected vascular flow ISTHMUS: 0.2 cm Nodules: None Lymph nodes: No enlarged cervical lymph nodes. IMPRESSION: Unremarkable thyroid ultrasound ASSESSMENT/PLAN: This is a 32 year old female who is here on recommended by her PCP, for evaluation of palpitations assuming secondary to thyroid issues. I discussed with her and her that her thyroid labs are normal (US thyroid was normal as noted above for dysphagia evaluation). I discussed that palpitations, sweating, weight loss can be associated with hyperthyroidism but labs will be abnormal in that case. ?if she had thyroiditis which resolved with medrol dose pack, but she should not have these symptoms after resolution of thyroiditis and labs normalized if the symptoms were at that time related to thyroid, and discussed the same with them. I discussed that these symptoms can be associated with a less commonly encountered condition - Pheo or PG- ordered testing- patient is on Xanax at this time, which might not significantly alter the levels like how beta blockers for palpitations or clonidine for HTN does, but advised patient that the labs are only significant if they (more content not included)... [facility] US THYROIDon 04-22-2023 US THYROID EXAMINATION: THYROID ULTRASOUND HISTORY: Dysphagia. Weight loss TECHNIQUE: Sonography and Doppler imaging of the thyroid was performed. Images were obtained and stored in a permanent archive. COMPARISON: None. RESULT: RIGHT LOBE: 5.2 x 1.5 x 1.4 cm; homogeneous echogenicity, expected vascular flow LEFT LOBE: 4.3 x 1.3 x 1.1 cm; homogeneous echogenicity, expected vascular flow ISTHMUS: 0.2 cm Nodules: None Lymph nodes: No enlarged cervical lymph nodes. IMPRESSION: Unremarkable thyroid ultrasound. Please note that description of thyroid nodules in this report is based on the 2017 Thyroid Imaging, Reporting and Data System (TI- RADS) established by the [employer] to help provide guidance regarding management of thyroid nodules based on their appearance. These are offered in an attempt to assist the referring physician in their decision process and help address the current over diagnosis of thyroid cancer. These guidelines are considered recommendations and guidance and do not represent rules or absolute standards of care ELECTRONICALLY SIGNED BY: Farhad Christopher MD Normal Not Available CT ABDOMEN PELVIS W IV CONTR Sascha [...] Time Vital Sign Value Performing Clinician Facility 04-29-2023 09:15-0500 Body height 160.02 cm Kasey Mejia Other [facility] Other 04-29-2023 09:15-0500 Body mass index (BMI) [Ratio] 18.63 kg/m2 Kasey Mejia Other [facility] Other 04-29-2023 09:15-0500 Body weight 47.72 kg Kasey Mejia Other [facility] Other 04-29-2023 09:15-0500 Diastolic blood pressure 86 mm[Hg] Kasey Mejia Other [facility] Other 04-29-2023 09:15-0500 Systolic blood pressure 132 mm[Hg] Kasey Mejia Other [facility] Other 04-17-2023 14:00-0500 Body height 160.02 cm Michelle Jones Other [facility] Other 04-17-2023 14:00-0500 Body mass index (BMI) [Ratio] 18.78 kg/m2 Michelle Robert Other [facility] Other 04-17-2023 14:00-0500 Body weight 48.08 kg Michelle Jones Other [facility] Other 04-17-2023 14:00-0500 Diastolic blood pressure 86 mm[Hg] Michelle Robert Other [facility] Other 04-17-2023 14:00-0500 Systolic blood pressure 138 mm[Hg] Michelle Jones Other [facility] Other 04-01-2023 10:15-0500 Body height 160.02 cm Kasey Mejia Other [facility] Other 04-01-2023 10:15-0500 Body mass index (BMI) [Ratio] 17.68 kg/m2 Kasey Mejia Other [facility] Other 04-01-2023 10:15-0500 Body temperature 98.1 [degF] Kasey Mejia Other [facility] Other 04-01-2023 10:15-0500 Body weight 45.27 kg Kasey Mejia Other [facility] Other 04-01-2023 10:15-0500 Diastolic blood pressure 99 mm[Hg] Kasey Mejia Other [facility] Other 04-01-2023 10:15-0500 Systolic blood pressure 150 mm[Hg] Kasey Mejia Other [facility] Other 03-29-2023 13:15-0500 Body height 160.02 cm Kasey Mejia Other [facility] Other Encounters Encounter Date Encounter Type Care Provider Facility Start: 04-29-2023 End: 04-29-2023 ambulatory Kasey Mejia Other [facility] Other Start: 04-29-2023 Office outpatient visit 15 minutes Kasey Mejia [facility] Start: 04-26-2023 End: 04-26-2023 ambulatory KASEY MEJIA Facility:[facility] Start: 04-23-2023 End: 04-23-2023 ambulatory Michelle Jones Other [facility] Other Start: 04-23-2023 Telephone encounter Michelle Jiménez her [facility] Start: 04-22-2023 End: 04-23-2023 ambulatory MICHELLE JONES Not Available Start: 04-20-2023 End: 04-20-2023 ambulatory Kasey Mejia Other [facility] Start: 04-20-2023 Telephone encounter Kasey Mejia [facility] Start: 04-17-2023 End: 04-17-2023 ambulatory Kasey Mejia Other [facility] Other Start: 04-17-2023 Office outpatient visit 15 minutes Michelle Robert [facility] Start: 04-17-2023 Telephone encounter Kasey Mejia [facility] Start: 04-15-2023 End: 04-15-2023 ambulatory Kasey Mejia Other [facility] Start: 04-15-2023 Telephone encounter Kasey Mejia [facility] Start: 04-11-2023 End: 04-11-2023 ambulatory Kasey Mejia Other [facility] Other Start: 04-11-2023 Telephone encounter Kasey Mejia [facility] Start: 04-10-2023 End: 04-11-2023 ambulatory KASEY MEJIA Not Available Start: 04-09-2023 End: 04-09-2023 ambulatory Kasey Mejia Other [facility] Start: 04-09-2023 Telephone encounter Kasey Mejia [facility] Start: 04-02-2023 End: 04-02-2023 ambulatory Kasey Mejia Other [facility] Start: 04-02-2023 Telephone encounter Kasey Mejia [facility] Start: 04-01-2023 End: 04-01-2023 ambulatory Kasey Mejia Other [facility] Start: 04-01-2023 Office outpatient visit 25 minutes Kasey Mejia [facility] Start: 03-29-2023 (Televisit) Televisit Kasey Meyers [facility] Start: 03-29-2023 End: 03-29-2023 ambulatory Kasey Mejia Other [facility] Start: 01-17-2023 End: 01-17-2023 ambulatory Kasey Mejia Other [facility] Start: 01-17-2023 Telephone encounter Kasey Mejia [facility] Start: 05-04-2020 End: 05-04-[address] MOISES FIGUEROA Facility:[facility] Payers Date Payer Category Payer Unknown [id number] 1990 Unknown [id number] 1990 Unknown [id number] 1990 Unknown [id number] 1957 Private Health Insurance [id number] Social History Date Type Detail Facility Unknown if ever smoked [facility] Other Sex Assigned At Sex Assigned At Bir th [facility] Other Evaluation note 04-29-2023 Note Date & Type Note Facility 04-29-2023 Evaluation note Encounter Date Diagnosis Assessment Notes Apr, Acute nonintractable headache, unspecified headache type (ICD-10 - R51.9) Discussed MRI - r/o tumor or other cause of L yarsani pain, L nasal congestion Apr, Tachycardia (ICD-10 - R00.0) Pt will complete the labs ordered by endocrinology. Discussed possible cardio referral, Will check holter to gather information on the intermittent tachycardia. [facility] Other Progress note 04-26-2023 Note Date & Type Note Facility 04-26-2023 Note HNO ID: [id number] Author: SATHISH OROZCO MD Service: ? Author Type: Physician Type: Progress Notes Filed: 04/26/2023 13:50 Note Text: [facility] Initial Clinic Visit Note Referring Physician: Kasey Mejia MD My final recommendations will be communicated back to the requesting physician by way of shared medical record or letter via US mail. Subjective: Chaz Ewing is a 32 year old female self referred here for evaluation of thyroid function. She is here with her today She had TSH done on 04/15/23 within normal range She also reports difficulty swallowing due to which an US thyroid was done and was normal She reports she was sent to Endocrinology to assess her thyroid as she reports they were not able to figure out what is causing her symptoms In Dec 2022, she started losing weight, soon she started noticing watering of eyes, also gets rashes on eyes as showed in picture on her phone (medial side of eye lids are red) Has intermittent palpitations, sometimes feeling of going to passing out and feels like she is going to . Intermittent chest pain for the last 2 weeks - once heart rate starts going up she has chest pain nothing that triggers or alleviates palpitations She has been experiencing high BP in the recent past, Reports sweating intermittently On further questioning, headaches reported She reports no fever or sore throat preceding the onset of palpitations. No thyroid labs checked at that time. Reports no pain in neck, but steroids (medrol dose pack) reduced palpitations- but since she is off of the steroids she started having palpitations again. 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 No current facility-administered medications on file prior to visit. PAST MEDICAL HISTORY: No past medical history on file. PAST SURGICAL HISTORY: No past surgical history on file. FAMILY HISTORY: No family history on file. 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 Alert and oriented x3, no acute distress Eyes: Anicteric sclera. Extraocular motions intact, no exophthalmos, no lid lag, no rash on eye lids Neck supple, no cervical lymphadenopathy Thyroid: normal size, normal texture, no palpable nodules Lungs: Breathing unlabored, clear to auscultation. No wheezing, rhonchi, rales Heart regular rate and rhythm Musculoskeletal: Muscular strength intact, No joint swelling, deformity, or tenderness Extremities without edema, no deformities Skin: no rashes/ erythema LAB: 04/15/2023 Thyroid Stimulating Hormone 2.231 uIU/mL Normal 0.358-3.740 Imaging: Ultrasound thyroid: 04/22/2023 12:43 PM: EXAMINATION: THYROID ULTRASOUND HISTORY: Dysphagia. Weight loss TECHNIQUE: Sonography and Doppler imaging of the thyroid was performed. Images were obtained and stored in a permanent archive. COMPARISON: None. RESULT: RIGHT LOBE: 5.2 x 1.5 x 1.4 cm; homogeneous echogenicity, expected vascular flow LEFT LOBE: 4.3 x 1.3 x 1.1 cm; homogeneous echogenicity, expected vascular flow ISTHMUS: 0.2 cm Nodules: None Lymph nodes: No enlarged cervical lymph nodes. IMPRESSION: Unremarkable thyroid ultrasound ASSESSMENT/PLAN: This is a 32 year old female who is here on recommended by her PCP, for evaluation of palpitations assuming secondary to thyroid issues. I discussed with her and her that her thyroid labs are normal (US thyroid was normal as noted above for dysphagia evaluation). I discussed that palpitations, sweating, weight loss can be associated with hyperthyroidism but labs will be abnormal in that case. ?if she had thyroiditis which resolved with medrol dose pack, but she should not have these symptoms after resolution of thyroiditis and labs normalized if the symptoms were at that time related to thyroid, and discussed the same with them. I discussed that these symptoms can be associated with a less commonly encountered condition - Pheo or PG- ordered testing- patient is on Xanax at this time, which might not significantly alter the levels like how beta blockers for palpitations or clonidine for HTN does, but advised patient that the labs are only significant if they are atleast 2 to 4 times above normal. Small elevations are not accounted for these conditions. She will get labs done close to where she lives- hence print outs of the orders given- they will fax the results to us when received Advised possible need for cardiology work up to evaluate palpitations if these labs are normal (more content not included)... [facility] Evaluation note 04-17-2023 Note Date & Type Note Facility 04-17-2023 Evaluation note Encounter Date Diagnosis Assessment Notes Mar, Hyperthyroidism (ICD-10 - E05.90) [facility] Other Evaluation note 04-17-2023 Note Date & Type Note Facility 04-17-2023 Evaluation note Encounter Date Diagnosis Assessment Notes 24 Yordy, 2024 Allergic eye reaction (ICD-10 - H57.9) Will treat as allergy related at this time based on PE findings. Therefore, no abx is indicated for tx. Will trial a medrol dose alhaji. Take medication as prescribed. Complete all doses of medication, even if sx are no longer present. Pt instructed to take medication with food. Informed pt that medication may make pt feel jittery, hungry and give you extra energy. Medication may also increase blood pressure and increase blood sugar. Pt also advised not to take NSAIDs while using steroids.Support husam care as directed. May take a daily antihistamine. Rest and push fluids. Pt understood and agreed to treatment plan. Mar, Sensation of lump in throat (ICD-10 - R09.A2) Due to symptoms will rule out cause due to an enlarge thyroid or thyroid nodule. Ordered faxed to [facility]. Will call with results and furthter recommendations. Pt verbalizes understanding and agrees to plan of care. Mar, Increased heart rate (ICD-10 - R00.0) [facility] Other Evaluation note 04-01-2023 Note Date & [...] f/u in 1 month if not sooner. [facility] Other Evaluation note 03-29-2023 Note Date & Type Note Facility 03-29-2023 Evaluation note Encounter Date Diagnosis Assessment Notes Mar, Illness (ICD-10 - R69) I cannot diagnosis Chaz's various symptoms into a specific diagnosis or treatment. She feels very poorly. Agreed to have her take her to the ER directly. If she came to office, I would send her for testing anyways. We discussed differential including heart issues or even pneumonia with dehydration. Pt expresses understanding. [facility] Other Evaluation note 01-17-2023 Note Date & Type Note Facility 01-17-2023 Evaluation note Encounter Date Diagnosis Assessment Notes Dec, Serum calcium elevated (ICD-10 - E83.52) [facility] Other Evaluation note Note Date & Type Note Facility Evaluation note No Information [facility] [employer] Other History general Narrative - Reported Note Date & Type Note Facility History general Narrative - Reported Type Medical History hx of migraines Surgical History tonsillectomy Surgical History tubal ligation Hospitalization History childbirth [facility] Other Summary Purpose Family History No Family History Records FoundNo Family History Records FoundNo Family History Records Found Advance Directives No Advanced Directives Records FoundNo Advanced Directives Records FoundNo Advanced Directives Records Found Reason for Referral Reason *FU 04/26 tachycar geovani, weight loss, eye problems, thyroid US pending. Diagnosis 1 Hyperthyroidism (E05 .90) Referral Organization [facility], [facility] charline Referring Provider First Name Kasey Referring Provider Last Name Mynor Referring Provider Specialty Family [facility] Referred Organization [facility] [place] Address [address] [place] [place] Referred Provider Specialty Endocrinolog y Referral Priority Routine General Notes Yuliana Mcwilliams 06:26:22 AM >received today, attachments made, referral form filled out, notes locked, referral faxed Additional Source Comments INFORMATION SOURCE (unrecogn ized section and content) DATE CREATED AUTHOR 09/26/2021 [facility] DATE CREATED AUTHOR AUTHOR'S ORGANIZ ATION 04/27/2023 [facility] EPIC DATE CREATED AUTHOR AUTHOR'S ORGANIZ ATION 04/27/2023 [facility] REASON FOR VISIT (unrecogniz ed section and content) labsPOSSIBLE COVID , IS TEST ING [phone] up labsmessageRefillCT resultrefillNo InformationthyroidEyes-Swollen, WateryUS resultssame symptoms, results from endocrine FOR RECORDS PERTAINING TO PATIENTS WHO ARE [...] BE BASED ON THE PRIMARY CLINICAL RECORDS. [facility]. provides no warranty or guarantee of the accuracy or completeness of information in this document.
--- NOTE | 2023-05-03 08:52 | MR_ITS ---
The [address] [address] Patient Name: CHAZ OLIVEIRA MRN: [id number] date: 1990 Sex: F Assigned Patient Location: MRI Current Patient Location: MRI Accession/Order Number: [id number] Exam Date: 05/03/2023 09:00 Report Date: 05/03/2023 10:00 At the request of: DOREEN MEJIA Procedure: MR head/brain wo con MRI BRAIN WITHOUT CONTRAST; 05/03/2023 9:00 AM EST History:Acute Nonintractable Headache R51.9 Comparison: 2006 . SEQUENCES: Per routine unenhanced protocol STUDY QUALITY: Good On this unenhanced examination, there is no distinct evidence of intracranial mass or mass effect effect. No midline shift. No evidence of unexpected paramagnetic substance deposition. No evidence of acute infarction. No restricted diffusion. No evidence of white matter disease. VESSELS: Signal voids are present in the major intracranial blood vessels. BRAIN VOLUME: Normal for age. VENTRICLES: No hydrocephalus. ORBITS: No acute findings. SELLA/ SUPRASELLAR: No acute findings at relatively thick sections. CP ANGLES: No acute findings at relatively thick sections. UPPER CERVICAL: No acute findings. PARANASAL SINUSES: No air-fluid levels. Areas of minimal mucosal disease in the ethmoids MASTOIDS: Essentially clear at MRI CALVARIUM: No acute findings. OTHER: None. MR/MR head/brain wo con IMPRESSION: 1. No evidence of acute intracranial process on this unenhanced exam as described. Electronically authenticated by: ELLIOTT PAYAN Date: 05/03/2023 10:00
== END 2023-05-03 08:48 | disposition home or self-care (01) ==
LOC: MRI 08:48
PROVIDERS: PCP Family Medicine; Visit Provider Family Medicine
DX: R51.9 Headache, unspecified (principal); R00.0 Tachycardia, unspecified
CPT/HCPCS: 70551

== ENCOUNTER 2023-05-06 12:33 | Outpatient (OUT) | payer OTHER, SELFPAY ==
--- OUTSIDE RECORDS SUMMARY | 2023-05-06 12:37 | XMS_ITS | CCD ---
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 Name Role Phone DR MOISES FIGUEROA Attending Unavailable CAROLINA, DR MOISES Melissa Consulting Unavailable DR MOISES FIGUEROA Admitting Unavailable DR KASEY MEJIA Primary Care Unavailable GEOVANNI ARREAGA Consulting Unavailable Kasey Mejia Unavailable Michelle Jones Unavailable KASEY MEJIA Referring Unavailable MICHELLE JONES Referring Unavailab KASEY Emanuel Referring Unavailable SATHISH OROZCO Attending Unavaila ble Allergies Allergy Classification Reported Allergen(s) Allergy Type Date of Onset Reaction(s) Facility (13 sources) Levamisole Drug Allergy 10-21-2013 Unknown [facility] Repository (13 sources) Nalbuphine Drug Allergy 10-21-2013 Unknown [facility] Medications Current Medications Medication Drug Class(es) [...] CNOV Office Visit (ENWSTR ) CHAZ EWING ([id number]) 1990 F Date Time Provider Department 04/26/23 [...] having palpitations again. 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 Normal [facility] US THYROIDon 04-22-2023 US THYROID EXAMINATION: [...] Data System (TI- RADS) established by the [employer] to help provide guidance [...] Body height 160.02 cm Kasey Mejia Other [facility] Other 04-29-2023 09:15-0500 Body mass index (BMI) [Ratio] 18.63 kg/m2 Kasey Mejia Other [facility] Other 04-29-2023 09:15-0500 Body weight 47.72 kg Kasey Mejia Other [facility] Other 04-29-2023 09:15-0500 Diastolic blood pressure 86 mm[Hg] Kasey Mejia Other [facility] Other 04-29-2023 09:15-0500 Systolic blood pressure 132 mm[Hg] Kasey Mejia Other [facility] Other 04-17-2023 14:00-0500 Body height 160.02 cm Michelle Jones Other [facility] Other 04-17-2023 14:00-0500 Body mass index (BMI) [Ratio] 18.78 kg/m2 Michelle Robert Other [facility] Other 04-17-2023 14:00-0500 Body weight 48.08 kg Michelle Jones Other [facility] Other 04-17-2023 14:00-0500 Diastolic blood pressure 86 mm[Hg] Michelle Robert Other [facility] Other 04-17-2023 14:00-0500 Systolic blood pressure 138 mm[Hg] Michelle Jones Other [facility] Other 04-01-2023 10:15-0500 Body height 160.02 cm Kasey Mejia Other [facility] Other 04-01-2023 10:15-0500 Body mass index (BMI) [Ratio] 17.68 kg/m2 Kasey Mejia Other [facility] Other 04-01-2023 10:15-0500 Body temperature 98.1 [degF] Kasey Mejia Other [facility] Other 04-01-2023 10:15-0500 Body weight 45.27 kg Kasey Mejia Other [facility] Other 04-01-2023 10:15-0500 Diastolic blood pressure 99 mm[Hg] Kasey Mejia Other [facility] Other 04-01-2023 10:15-0500 Systolic blood pressure 150 mm[Hg] Kasey Mejia Other [facility] Other 03-29-2023 13:15-0500 Body height 160.02 cm Kasey Mejia Other [facility] Other Encounters Encounter Date Encounter Type Care Provider Facility Start: 04-29-2023 End: 04-29-2023 ambulatory Kasey Mejia Other [facility] Other Start: 04-29-2023 Office outpatient visit 15 minutes Kasey Mejia [facility] Start: 04-26-2023 End: 04-26-2023 ambulatory KASEY MEJIA Facility:[facility] Start: 04-23-2023 End: 04-23-2023 ambulatory Michelle Jones Other [facility] Other Start: 04-23-2023 Telephone encounter Michelle Jiménez her [facility] Start: 04-22-2023 End: 04-23-2023 ambulatory MICHELLE JONES Not Available Start: 04-20-2023 End: 04-20-2023 ambulatory Kasey Mejia Other [facility] Other Start: 04-20-2023 Telephone encounter Kasey Mejia [facility] Start: 04-17-2023 End: 04-17-2023 ambulatory Kasey Mejia Other [facility] Other Start: 04-17-2023 Office outpatient visit 15 minutes Michelle Robert [facility] Start: 04-17-2023 Telephone encounter Kasey Mejia [facility] Start: 04-15-2023 End: 04-15-2023 ambulatory Kasey Mejia Other [facility] Other Start: 04-15-2023 Telephone encounter Kasey Mejia [facility] Start: 04-11-2023 End: 04-11-2023 ambulatory Kasey Mejia Other [facility] Other Start: 04-11-2023 Telephone encounter Kasey Mejia [facility] Start: 04-10-2023 End: 04-11-2023 ambulatory KASEY MEJIA Not Available Start: 04-09-2023 End: 04-09-2023 ambulatory Kasey Mejia Other [facility] Other Start: 04-09-2023 Telephone encounter Kasey Mejia [facility] Start: 04-02-2023 End: 04-02-2023 ambulatory Kasey Mejia Other [facility] Other Start: 04-02-2023 Telephone encounter Kasey Mejia [facility] Start: 04-01-2023 End: 04-01-2023 ambulatory Kasey Mejia Other [facility] Other Start: 04-01-2023 Office outpatient visit 25 minutes Kasey Mejia [facility] Start: 03-29-2023 (Televisit) Televisit Kasey Meyers [facility] Start: 03-29-2023 End: 03-29-2023 ambulatory Kasey Mejia Other [facility] Other Start: 01-17-2023 End: 01-17-2023 ambulatory Kasey Mejia Other [facility] Other Start: 01-17-2023 Telephone encounter Kasey Mejia [facility] Start: 05-04-2020 End: 05-04-[address] MOISES FIGUEROA Facility:[facility] Payers Date Payer Category Payer Unknown [id number] 1990 Unknown [id number] 1990 Unknown [id number] 1990 Unknown [id number] 1957 Private Health Insurance [id number] Social History Date Type Detail Facility Unknown if ever smoked [facility] Other Sex Assigned At Sex Assigned At Bir th [facility] Other Evaluation note 04-29-2023 Note Date & Type Note Facility 04-29-2023 Evaluation note Encounter Date Diagnosis Assessment Notes Apr, Acute nonintractable headache, unspecified headache type (ICD-10 - R51.9) Discussed MRI - r/o tumor or other cause of L adventism pain, L nasal congestion Apr, Tachycardia (ICD-10 - R00.0) Pt will complete the labs ordered by endocrinology. Discussed possible cardio referral, Will check holter to gather information on the intermittent tachycardia. [facility] Other Progress note 04-26-2023 Note Date & Type Note Facility 04-26-2023 Note HNO ID: [id number] Author: SATHISH ROOZCO MD Service: ? Author Type: Physician Type: [...] having palpitations again. 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 [facility] Evaluation note 04-17-2023 Note Date & Type Note Facility 04-17-2023 Evaluation note Encounter Date Diagnosis Assessment Notes Mar, Hyperthyroidism (ICD-10 - E05.90) [facility] Other Evaluation note 04-17-2023 Note Date & [...] Mar, Increased heart rate (ICD-10 - R00.0) [facility] Other Evaluation note 04-01-2023 Note Date & [...] f/u in 1 month if not sooner. [facility] Other Evaluation note 03-29-2023 Note Date & [...] even pneumonia with dehydration. Pt expresses understanding. [facility] Other Evaluation note 01-17-2023 Note Date & Type Note Facility 01-17-2023 Evaluation note Encounter Date Diagnosis Assessment Notes Dec, Serum calcium elevated (ICD-10 - E83.52) [facility] Other Evaluation note Note Date & Type Note Facility Evaluation note No Information [facility] Other History general Narrative - Reported Note Date & Type Note Facility History general Narrative - Reported Type Medical History hx of migraines Surgical History tonsillectomy Surgical History tubal ligation Hospitalization History childbirth [facility] Other Summary Purpose Family History No Family History Records FoundNo Family History Records FoundNo Family History Records Found Advance Directives No Advanced Directives Records FoundNo Advanced Directives Records FoundNo Advanced Directives Records Found Reason for Referral Reason *FU 04/26 tachycar geovani, weight loss, eye problems, thyroid US pending. Diagnosis 1 Hyperthyroidism (E05 .90) Referral Organization [facility] Referring Provider First Name Kasey Referring Provider Last Name Mynor Referring Provider Specialty Family [facility] Referred Organization [facility] [place] [address] [place] Referred Provider Specialty Endocrinolog y Referral Priority Routine General Notes Yuliana Mcwilliams 06:26:22 AM >received today, attachments made, referral form filled out, notes locked, referral faxed Additional Source Comments INFORMATION SOURCE (unrecogn ized section and content) DATE CREATED AUTHOR 09/26/2021 [facility] DATE CREATED AUTHOR AUTHOR'S ORGANIZ ATION 04/27/2023 [facility] EPIC DATE CREATED AUTHOR AUTHOR'S ORGANIZ ATION 04/27/2023 [facility] REASON FOR VISIT (unrecogniz ed section and content) labsPOSSIBLE COVID , IS TEST ING [phone] up labsmessageRefillCT resultrefillNo InformationthyroidEyes-Swollen, WateryUS resultssame symptoms, [...] BE BASED ON THE PRIMARY CLINICAL RECORDS. [facility]. provides no warranty or guarantee of the accuracy or completeness of information in this document.
--- NOTE | 2023-05-06 12:56 | CA_ITS ---
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: : 1990 Requested By: DOREEN MEJIA Order Number: [id number] Reading MD: IVONNE STAPLES Interpretive Statements Predominant rhythm is sinus with average rate of 92 bpm Tachycardia - max rate of 182 bpm (sinus tachycardia) - longest episode of 2hour 2min 15sec with rates between 116-158bpm Bradycardia - min rate of 48 bpm - longest episode of 50sec with rates between 53-59 bpm Ventricular ectopy - 22 total (< 1%) - 22 PVC AV block - 1 episode of Type I AV block Patient triggered events:26 - no symptoms recorded - associated with rates of 134, 100, 103, 110, 143, 104, 109, 140, 121, 107, 127, 111, 144. 119, 145, 126, 121, 123, 126, 112 and 131 w/ remainder NSR. Impression: Predominant rhythm is sinus with average rate of 92 bpm Fastest rate of 182 bpm and slowest rate of 48 bpm 22 PVC 1 episode of second degree AV block, type I ST elevation noted on 05/12/23 at 0342 Electronically Signed On 05-22-2023 7:25:18 EST by IVONNE STAPLES
== END 2023-05-06 12:34 | disposition home or self-care (01) ==
LOC: CARD 12:34
PROVIDERS: PCP Family Medicine; Visit Provider Family Medicine
DX: R51.9 Headache, unspecified (principal); R00.0 Tachycardia, unspecified
CPT/HCPCS: 93246

== ENCOUNTER 2023-05-10 10:42 | Outpatient (OUT) | payer OTHER, SELFPAY ==
[2023-05-10 13:14] LABS: Erythrocyte Sedimentation Rate 3 mm/hr (<=20)
[2023-05-11 06:08] LABS: C-Reactive Protein, Cardiac 0.19 mg/L (0.00-3.00)
[2023-05-13 15:12] LABS: ANA Direct Negative (Negative)
== END 2023-05-10 10:43 | disposition home or self-care (01) ==
LOC: LAB 10:44
PROVIDERS: PCP Family Medicine; Visit Provider Family Medicine
DX: M35.9 Systemic involvement of connective tissue, unspecified (principal)
CPT/HCPCS: 36415; 85652; 86038; 86140

== ENCOUNTER 2023-05-17 22:51 | Emergency (ER) | payer OTHER, SELFPAY ==
--- OUTSIDE RECORDS SUMMARY | 2023-05-17 23:01 | XMS_ITS | CCD ---
Author Name Unknown Address [address] [place] [id number] Organization [facility] Care Team Providers Care Magento Developer Name Role Phone CAROLINA, DR MOISES Melissa Attending Unavailable CAROLINA, DR MOISES Melissa Consulting Unavailable DR MOISES FIGUEROA Admitting Unavailable DR KASEY MEJIA Primary Care Unavailable GEOVANNI ARREAGA Consulting Unavailable Kasey Mejia Unavailable Michelle Jones Unavailable [phone] KASEY MEJIA Referring Unavailable SATHISH OROZCO Attending Unavaila KASEY Hansen Referring Unavailable MICHELLE JONES Referring Unavailab MOHSEN Hernandez Attending Unavailable Allergies Allergy Classification Reported Allergen(s) Allergy Type Date of Onset Reaction(s) Facility (14 sources) Levamisole Drug Allergy 10-21-2013 Unknown [facility] Repository (14 sources) Nalbuphine Drug Allergy 10-21-2013 Unknown [facility] Rep[facility] (1 source) Nalbuphine Drug Allergy 05-10-[address] [facility] (1 source) Promethazine Drug Allergy 05-10-[address] [facility] Medications Current Medications Medication Drug Class(es) Dates Sig (Normalized) Sig (Original) ALPRAZolam 0.25 mg oral tablet (11 sources) Benzodiazepine Start: 05-10-2023 take 1 tablet by mouth twice daily Alprazolam Active 1 TAB PO Twice daily May 10, 2023 12:00am [employer] tablet Orally Twice a day; Note: Source Status: Refill; Refills: 0; Qty: 60 Tablet; Provider: Mynor Bettencourt Start: 04-20-2023 take 1 tablet by sal th every [...] Mar, Active citalopram 20 mg oral tablet (13 sources) Serotonin Reuptake Inhibitor Start: 05-10-2023 take 1 tablet by mouth once daily Citalopram Active 20 MG PO Daily May 10, 2023 12:00am [employer] tablet Orally Once a day; Note: Source Status: Taking; Provider: Mynor Bettencourt Start: 04-01-2023 take 1 tablet by sal th every twenty-four hours Citalopram Hydrobromide 20 MG 1 tablet Orally Once a day for 30 day(s) Mar, Active hydrOXYzine hydrochloride 25 mg oral tablet (13 sources) Antihistamine Start: 05-10-2023 take 1 tablet by mouth every eight hours as needed Hydroxyzine Hcl Active 25 MG PO Every 8 hours May 10, 2023 12:00am [employer] tablet q 8 hrs prn; Note: Source Status: Taking; Provider: Robert Martinez ( ) hydrOXYzine HCl 25 MG 1 tablet q 8 hrs prn Active Methylprednisolone (7 sources) Corticosteroid Start: 05-10-2023 take 1 mg by mouth once daily Methylprednisolone Active MG PO Daily May 10, 2023 12:00am FreeTextSig: as directed Orally daily; Note: Source Status: Start; Refills: 0; Provider: Robert Lynne Start: 04-17-2023 methylPREDNISo lone 4 MG as directed Orally daily for 6 days Mar, Active ondansetron 4 mg disintegrating oral tablet (13 sources) Serotonin-3 Receptor Antagonist Start: 05-10-2023 take 1 tablet by mouth once daily Ondansetron Active 4 MG PO Daily May 10, 2023 12:00am [employer] tablet once a day; Note: Source Status: Taking; Provider: Robert Martniez ( ) take 1 tablet by sal th every twenty-four hours Ondansetron 4 MG 1 tablet once a day Active Completed/Discontinued Medications Medication Drug Class(es) Dates Sig (Normalized) Sig (Original) Ketorolac (13 sources) Nonsteroidal Anti-inflammatory Drug, Cyclooxygenase Inhibitor Start: 12-15-2012 Toradol per 15 mg Nov, 60 mg Problems Active Problems Problem Classification Problem Date Documented Da te Episodic/Chronic Abdominal pain (1 source) Left upper quadrant pain Episodic Anxiety disorders (13 sources) Generalized anxiety disorder; Translations: [Generalized anxiety disorder] Chronic Cardiac dysrhythmias (2 sources) Tachycardia, unspecified Episodic Headache; including migraine (7 sources) Headache; Translations: [Headache, Unspecified] Episodic Other eye disorders (1 source) Unspecified disorder of eye and adnexa Episodic Other gastrointestinal disorders (1 source) Swallowing finding; Translations: [Dysphagia, unspecified] 05-10-2023 Episodic Other gastrointestinal disorders (1 source) Dysphagia, unspecified; Translations: [Dysphagia, unspecified] 05-10-2023 Episodic Other nutritional; endocrine; and metabolic disorders (13 sources) Hypercalcemia; Translations: [Hypercalcemia] Chronic Other nutritional; endocrine; and metabolic disorders (1 source) Hypercalcemia Chronic Other nutritional; endocrine; and metabolic disorders (1 source) Abnormal weight loss Episodic Residual codes; unclassified (1 source) Illness, unspecified Episodic Systemic lupus erythematosus and connective tissue disorders (2 sources) Autoimmune connective tissue disorder; 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 She takes care of [employer], denies any work related stress REVIEW OF [...] HISTORY: Lives with She takes care of [employer] PHYSICAL EXAM: BP 140/80 Pulse 103 Temp [...] if they (more content not included)... Normal [facility] US THYROIDon 04-22-2023 US THYROID EXAMINATION: [...] Data System (TI- RADS) established by the [employer] to help provide guidance [...] Time Vital Sign Value Performing Clinician Facility 05-10-2023 10:15-0500 Body height 160.02 cm [facility] 05-10-2023 10:01-0500 Body mass index (BMI) [Ratio] 19.1 kg/m2 [facility] 05-10-2023 10:01-0500 Body weight 49.12 kg [facility] 05-10-2023 10:01-0500 Diastolic blood pressure 98 mm[Hg] [facility] 05-10-2023 10:01-0500 Heart rate 98 /min [facility] 05-10-2023 10:01-0500 Systolic blood pressure 134 mm[Hg] [facility] 04-29-2023 09:15-0500 Body height 160.02 cm Kasey Mejia Other [facility] Other 04-29-2023 09:15-0500 Body mass index (BMI) [Ratio] 18.63 kg/m2 Kasey Mejia Other [facility] Other 04-29-2023 09:15-0500 Body weight 47.72 kg Kasey Mejia Other [facility] Other 04-29-2023 09:15-0500 Diastolic blood pressure 86 mm[Hg] aKsey Mejia Other [facility] Other 04-29-2023 09:15-0500 Systolic blood pressure 132 mm[Hg] Kasey Mejia Other [facility] Other 04-17-2023 14:00-0500 Body height 160.02 cm Michelle Jones Other [facility] 04-17-2023 14:00-0500 Body mass index (BMI) [Ratio] 18.78 kg/m2 Michelle Jones Other [facility] Other 04-17-2023 14:00-0500 Body weight 48.08 kg Michelle Jones Other [facility] 04-17-2023 14:00-0500 Diastolic blood pressure 86 mm[Hg] Michelle Jones Other [facility] 04-17-2023 14:00-0500 Systolic blood pressure 138 mm[Hg] Michelle Jones Other [facility] 04-01-2023 10:15-0500 Body height 160.02 cm Kasey Mejia Other [facility] 04-01-2023 10:15-0500 Body mass index (BMI) [Ratio] 17.68 kg/m2 Kasey Mejia Other [facility] Other 04-01-2023 10:15-0500 Body temperature 98.1 [degF] Kasey Mejia Other [facility] Other 04-01-2023 10:15-0500 Body weight 45.27 kg Kasey Mejia Other [facility] Other 04-01-2023 10:15-0500 Body weight 45.26 kg [facility] 04-01-2023 10:15-0500 Diastolic blood pressure 99 mm[Hg] Kasey Mejia Other [facility] 04-01-2023 10:15-0500 Systolic blood pressure 150 mm[Hg] Kasey Mejia Other [facility] 03-29-2023 13:15-0500 Body height 160.02 cm Kasey Mejia Other [facility] Encounters Encounter Date Encounter Type Care Provider Facility Start: 05-13-2023 End: 05-13-2023 ambulatory MOHSEN REDDZIO Not Available Start: 05-10-2023 End: 05-10-2023 ambulatory [facility] Work Phone: Start: 05-10-2023 End: 05-10-2023 Patient encounter procedure [facility] Work Phone: Start: 05-03-2023 End: 05-03-2023 ambulatory Kasey Mjeia Other [facility] Other Start: 05-03-2023 Telephone encounter Kasey Mejia [facility] Start: 04-29-2023 End: 04-29-2023 ambulatory Kasey Mejia Other [facility] Other Start: 04-29-2023 Office outpatient visit 15 minutes Kasey Mejia [facility] Start: 04-26-2023 End: 04-26-2023 ambulatory KASEY MEJIA Facility:[facility] Start: 04-23-2023 End: 04-23-2023 ambulatory Michelle Robert Other [facility] Other Start: 04-23-2023 Telephone encounter Michelle Jessy ovalles [facility] Start: 04-22-2023 End: 04-23-2023 ambulatory MICHELLE A ROBERT Not Available Start: 04-20-2023 End: 04-20-2023 ambulatory Kasey Mejia Other [facility] Other Start: 04-20-2023 Telephone encounter Kasey Mejia [facility] Start: 04-17-2023 End: 04-17-2023 ambulatory Kasey Mejia Other [facility] Other Start: 04-17-2023 Office outpatient visit 15 minutes Michelle Jones [facility] Start: 04-17-2023 Telephone encounter Kasey Mejia [facility] Start: 04-17-2023 End: 04-17-2023 Patient encounter procedure [facility]- Start: 04-15-2023 End: 04-15-2023 ambulatory Kasey Mejia Other [facility] Other Start: 04-15-2023 Telephone encounter Kasey Mejia [facility] Start: 04-11-2023 End: 04-11-2023 ambulatory Kasey Mejia Other [facility] Other Start: 04-11-2023 Telephone encounter Kasey Mejia [facility] Start: 04-10-2023 End: 04-11-2023 ambulatory KASEY MEJIA Not Available Start: 04-09-2023 End: 04-09-2023 ambulatory Kasey Mejia Other [facility] Other Start: 04-09-2023 Telephone encounter Kasey Mejia [facility] Start: 04-02-2023 End: 04-02-2023 ambulatory Kasey Mejia Other [facility] Other Start: 04-02-2023 Telephone encounter Kasey Mynor [facility] Start: 04-01-2023 End: 04-01-2023 ambulatory Kasey Mejia Other [facility] Other Start: 04-01-2023 Office outpatient visit 25 minutes Kasey Mejia [facility] Start: 04-01-2023 End: 04-01-2023 Patient encounter procedure [facility] Work Phone: Start: 03-29-2023 (Televisit) Televisit Kasey Mejia [facility] Start: 03-29-2023 End: 03-29-2023 ambulatory Kasey Mejia Other [facility] Other Start: 03-29-2023 End: 03-29-2023 Patient encounter procedure [facility] Work Phone: Start: 01-17-2023 End: 01-17-2023 ambulatory Kasey Mejia Other [facility] Other Start: 01-17-2023 Telephone encounter Kasey Mejia [facility] Start: 05-04-2020 End: 05-04-[address] MOISES FIGUEROA Facility: Plan of Treatment Date Care Activity Detail Author Cefuroxime free [Mas s/volume] in Serum or Plasma [facility] Payers Date Payer Category Payer Unknown [id number] 1990 Unknown [id number] 2.16.84 [id number] 1990 Unknown [id number] 2.16.84 [id number] 1990 Unknown [id number] 2.16.84 [id number] 1990 Unknown [id number] 2.16.84 [id number] 1957 Private Health Insurance [id number] Medicaid [employer] [id number] Private Health Insurance [id number] Self-pay Self Pay [id number] Social History Date Type Detail Facility Unknown if ever smoked [facility] Other Sex Assigned At Sex Assigned At Bir th [facility] Other Start: 05-09-2023 Tobacco smoking status NHIS Smoker (finding) [facility] Start: 1990 Sex Assigned At Female F [facility] Evaluation note 04-29-2023 Note Date & Type Note Facility 04-29-2023 Evaluation note Encounter Date Diagnosis Assessment Notes Apr, Acute nonintractable headache, unspecified headache type (ICD-10 - R51.9) Discussed MRI - r/o tumor or other cause of L spiritism pain, L nasal congestion Apr, Tachycardia (ICD-10 - R00.0) Pt will complete the labs ordered by endocrinology. Discussed possible cardio referral, Will check holter to gather information on the intermittent tachycardia. [facility] Other Progress note 04-26-2023 Note Date & Type Note Facility 04-26-2023 Note HNO ID: [id number] Author: SATHISH OROZCO MD Service: ? Author [...] having palpitations again. She takes care of [employer], denies any work related stress REVIEW OF [...] HISTORY: Lives with She takes care of [employer] PHYSICAL EXAM: BP 140/80 Pulse 103 Temp [...] labs are normal (more content not included)... [facility] Evaluation note 04-17-2023 Note Date & Type Note Facility 04-17-2023 Evaluation note Encounter Date Diagnosis Assessment Notes Mar, Hyperthyroidism (ICD-10 - E05.90) [facility] Other Evaluation note 04-17-2023 Note Date & Type Note Facility 04-17-2023 Evaluation note Encounter Date Diagnosis Assessment Notes Mar, Allergic eye reaction (ICD-10 - H57.9) Will [...] to NOMs. [facility] call with [facility] and [facility]. Pt verbalizes understanding and agrees to plan of care. Mar, Increased heart rate (ICD-10 - R00.0) [facility] Other Evaluation note 04-01-2023 Note Date & [...] f/u in 1 month if not sooner. [facility] Other Evaluation note 03-29-2023 Note Date & [...] even pneumonia with dehydration. Pt expresses understanding. [facility] Other Evaluation note 01-17-2023 Note Date & Type Note Facility 01-17-2023 Evaluation note Encounter Date Diagnosis Assessment Notes Dec, Serum calcium elevated (ICD-10 - E83.52) [facility] Other Evaluation note Note Date & Type Note Facility Evaluation note No Information [facility] [facility] Other Evaluation note Note Date & Type Note Facility Evaluation note Diagnosis Onset Date Autoimmune connective tissue disorder acute Swallowing dysfunction [facility] Work Phone: History general Narrative - Reported Note Date & Type Note Facility History general Narrative - Reported Type Medical History hx of migraines Surgical History tonsillectomy Surgical History tubal ligation Hospitalization History childbirth [facility] Other Summary Purpose Family History No Family History Records Found Relationship Condition Age at Onset Recorded Date/T mignon father Hypertension Unknown Advance Directives No Advanced Directives Records Found Advance Directive Response Recorded Date/ Time Advance Directives No April 9:53am Reason for Referral Reason *FU 04/26 tachycar geovani, weight loss, eye problems, thyroid US pending. Diagnosis 1 Hyperthyroidism (E05 .90) Referral Organization [facility] Hetal olivier Referring Provider First Name Kasey Referring Provider Last Name Mynor Referring Provider Specialty Family [facility] Referred Organization [facility] Referred Address [address] [place], [place],[address] Referred Provider Specialty Endocrinolog y Referral Priority Routine General Notes Yuliana Mcwilliams 06:26:22 AM >received today, attachments made, referral form filled out, notes locked, referral faxed Chief Complaint and Reason for Visit Chief Complaint Possible Covid , Is Testing [phone] Follow Up Labs Eyes-Swollen, Watery On-Going Symptoms Reason for Visit Autoimmune connectiv e tissue disorder Swallowing dysfunction Additional Source Comments INFORMATION SOURCE (unrecogn ized section and content) DATE CREATED AUTHOR 09/26/2021 [facility] DATE CREATED AUTHOR AUTHOR'S ORGANIZ ATION 04/27/2023 [facility] DATE CREATED AUTHOR AUTHOR'S ORGANIZ ATION 05/14/2023 [facility] EPIC REASON FOR VISIT (unrecogniz ed section and content) labsPOSSIBLE COVID , IS TEST ING [phone] up labsmessageRefillCT resultrefillNo InformationthyroidEyes-Swollen, WateryUS resultssame symptoms, results from endocrineMRI Care Teams (unrecognized sec tion and content) Team Status: Active Member Role Status Dates Enedelia Walker MD Primary Care Provider Active Team Status: Inactive Member Role Status Dates Kasey Mejia MD Attending Provider Active St art: March 29, 2023 End: March 29, 2023 Team Status: Inactive Member Role Status Dates Kasey Mejia MD Attending Provider Active St art: April 01, 2023 End: April 01, 2023 Team Status: Inactive Member Role Status Dates Michelle Jones APRN [employer] Attending Provider Act husam Start: April 17, 2023 End: April 17, 2023 Team Status: Inactive Member Role Status Dates Enedelia Walker MD Primary Care Provider Active S tart: May 10, 2023 End: May 10, 2023 Kasey Mejia MD Attending Provider Active St art: May 10, 2023 End: May 10, 2023 Goals (unrecognized section and content) Goals may be documented in a n alternate section FOR RECORDS PERTAINING TO PATIENTS WHO ARE [...] BE BASED ON THE PRIMARY CLINICAL RECORDS. [employer] [facility]. provides no warranty or guarantee of the accuracy or completeness of information in this document.
[2023-05-17 23:08] VITALS: BP 159/104; PULSE 100; RESP 18; TEMP 36.4; O2SAT 100; BMI 20.2
[2023-05-17 23:14] VITALS: O2SAT 100
--- NOTE | 2023-05-17 23:15 | CT_ITS ---
The [address] [address] Patient Name: CHAZ OLIVEIRA MRN: [id number] date: 1990 Sex: F Assigned Patient Location: ER Current Patient Location: ER Accession/Order Number: [id number] Exam Date: 05/17/2023 23:30 Report Date: 05/18/2023 00:18 At the request of: BANDAR MÉNDEZ Procedure: CT soft tissue neck w con EXAM: CT soft tissue neck w con HISTORY: dysphagia COMPARISON: None. TECHNIQUE: CT neck with contrast. Axial scans with reformatted coronal and sagittal images. FINDINGS: No mass or adenopathy noted. Scattered small lymph nodes. Normal-appearing tissues in the tongue, nasopharynx and peritonsillar area. Salivary glands unremarkable. Subcutaneous tissues homogeneous without stranding or inflammation or fluid. Normal enhancement of vascular structures. Lower neck including larynx and thyroid are unremarkable. Normal-appearing epiglottis, no airway encroachment. No foreign body. No abnormality in the area of the esophagus. Visualized brain sinuses unremarkable. Orbital tissues unremarkable. Upper chest and mediastinum unremarkable. CT/CT soft tissue neck w con IMPRESSION: Negative study. No mass or foreign body noted. No airway encroachment. Electronically authenticated by: TALHA DIAZ Date: 05/18/2023 00:18
--- NOTE | 2023-05-17 23:15 | PC.NURSE ---
pt denies having anything stuck in throat, states just feels like this. pt drinking water and keeping this down and able to finish complete sentences with no problem.
--- NOTE | 2023-05-17 23:22 | ED.GENADUL1 ---
HPI - General Adult General Chief complaint: Upper Respiratory Infection Stated complaint: Difficulty Swallowing Time Seen by Provider: 05/17/23 23:00 Source: patient Mode of arrival: walk-in History of Present Illness HPI narrative: Patient states that for the last two months she has been experiencing the sensation of something caught in the middle of her throat. She is able to eat and drink and keep food and fluid down. She occasionally has the sensation that food or pills get stuck but never vomits. She said that her mouth is dry . She admits to pain with swallowing not in the back of my throat but deep down . She said that she has been eating a healthy amount of food and drinking lots and lots of water . On questioning she admits to reflux type symptoms but has never had EGD and has never been prescribed PPI. She tried to schedule with an ENT but has not been able to be seen - Dr De La Garza' office has yet to call her back to schedule an appointment. Her told me that the patient sometimes will get a racing heart when this sensation is at its worse. She takes medication for anxiety but sometimes she feels like she is going to pass out when her heart races. Patient is frustrated because she has experienced numerous issues for which her PCP has been getting out-patient testing. Holter monitor for tachycardia and near-syncope. CT abd/pelvis due to elevated liver enzymes. Numerous blood tests. None of them are revealing the cause of the patient's symptoms. And meanwhile the patient has increased thirst, dry mouth and frequent urination without evidence of diabetes. Related Data Previous Rx's Medication Instructions Recorded hydroxyzine pamoate 25 mg capsule 25 mg PO TID PRN anxiey #20 caps 03/29/23 (Vistaril) ondansetron 4 mg disintegrating 4 mg PO Q8H PRN nausea and 03/29/23 tablet vomiting 5 days #10 tabs pantoprazole 40 mg tablet,delayed 40 mg PO DAILY 4 weeks #28 tabs 05/18/23 release (Protonix) Allergies Allergy/AdvReac Type Severity Reaction Status Date / Time No Known Drug Allergies Allergy Verified 03/29/23 14:01 [facility] Social History Smoking status: Current every day smoker Exam Narrative Exam Narrative: Nurses notes and vital signs reviewed and patient is not hypoxic. afebrile General: Well-appearing and in no apparent distress. Skin: Warm, dry, no pallor noted. Head: Normocephalic, atraumatic. Neck: Supple, non-tender. No palpable mass or cervical lymphadenopathy. Eye: Pupils are equal, round and EOMI. No scleral icterus. Ears, Nose, Mouth, and Throat: TM are clear, no posterior oropharynx erythema or nasal mucosal hypertrophy, uvula is mid-line. Oral mucosa is slightly dry. Cardiovascular: Tachycardia. Respiratory: No accessory muscle use or respiratory distress. Lungs are clear to auscultation, no wheezing, rales or rhonchi GI: Abdomen is soft, non-distended. Normal bowel sounds. No tenderness to palpation. No rebound, guarding, or rigidity noted. Neurological: A&O x4. No cranial nerve dysfunction observed. No truncal ataxia. Moves all extremities. Sensation intact. Psychiatric: Cooperative and interactive. Normal mood and affect. Constitutional Vital Signs, click to edit/add: Last Vital Signs Temp 97.5 F L 05/17/23 23:08 Pulse 100 H 05/17/23 23:08 Resp 18 05/17/23 23:08 BP 132/80 05/17/23 23:59 Pulse Ox 100 05/17/23 23:14 O2 Del Method Room Air 05/17/23 23:14 Course Vital Signs Vital signs: Vital Signs Temperature 97.5 F L 05/17/23 23:08 Pulse Rate 100 H 05/17/23 23:08 Respiratory Rate 18 05/17/23 23:08 Blood Pressure 159/104 H 05/17/23 23:08 Pulse Oximetry 100 05/17/23 23:08 Temperature 97.5 F L 05/17/23 23:08 Pulse Rate 100 H 05/17/23 23:08 Respiratory Rate 18 05/17/23 23:08 Blood Pressure 132/80 05/17/23 23:59 Pulse Oximetry 100 05/17/23 23:14 Oxygen Delivery Method Room Air 05/17/23 23:14 Medical Decision Making MDM Narrative Medical decision making narrative: Peripheral IV established. The patient ordered to receive a liter of normal saline IV fluid and IV Solu-Medrol. She was sent for CT scanning of the soft tissue of the neck with IV contrast. CT ST neck was unremarkable. Patient given GI cocktail before discharge. Patient and I talked at length in the presence of her about causes of dysphagia and also potential causes of her other symptoms. I gave her reassurance that Dr Lowe is ordering the correct tests and encouraged her that hopefully she will get some answers soon. She was referred to Dr Caballero for follow up for possible EGD to evaluate her dysphagia and was prescribed Protonix in the meantime. ED return if she develops intractable vomiting or any other worrisome symptoms. Imaging Data ct soft tissue neck: Attestation: I have reviewed the pertinent imaging results. Radiologist's impression: ITS Impressions Soft Tissue Neck CT 05/17/23 23:15 IMPRESSION: Negative study. No mass or foreign body noted. No airway encroachment. Electronically authenticated by: TALHA DIAZ Date: 05/18/2023 00:18 Discharge Plan Discharge Chief Complaint: Upper Respiratory Infection Clinical Impression: Dysphagia Patient Disposition: Home, Self-Care Time of Disposition Decision: 00:55 Prescriptions / Home Meds: New pantoprazole [Protonix] 40 mg tablet,delayed release (DR/EC) 40 mg PO DAILY 28 Days Qty: 28 0RF No Action hydroxyzine pamoate [Vistaril] 25 mg capsule 25 mg PO TID PRN (Reason: anxiey) Qty: 20 0RF Rx Instructions: 1-2 every 8 hours anxiety/ insomnia ondansetron 4 mg tablet,disintegrating 4 mg PO Q8H PRN (Reason: nausea and vomiting) 5 Days Qty: 10 0RF Instructions: Dysphagia (ED) Stand Alone Forms: Portal Instructions Referrals: Kasey Lowe MD [Primary Care Provider] - 1 week Yassine Caballero MD [Physician] - As soon as possible
[2023-05-17] MEDS: 0.9 % SODIUM CHLORIDE 1,000 ML 1000 ML IV (23:57)
[2023-05-17] MEDS: METHYLPREDNISOLONE SOD SUCC PF 125 MG/2 ML VIAL IVP (23:57)
[2023-05-17 23:59] VITALS: BP 132/80
[2023-05-18] MEDS: lidocaine HCL 15 ML, MAG HYDROX/ALUMINUM HYD/SIMETH 30 ML, HYOSCYAMINE SULFATE 0.25 MG PO (01:11)
[2023-05-18 01:25] VITALS: BP 133/82; PULSE 87; RESP 16; O2SAT 100
== END 2023-05-18 01:26 | disposition home or self-care (01) ==
PROVIDERS: Emergency Provider Emergency Medicine; PCP Family Medicine
DX: R13.10 Dysphagia, unspecified (principal); F41.9 Anxiety disorder, unspecified; F17.200 Nicotine dependence, unspecified, uncomplicated
CPT/HCPCS: 70491; 96374; 99284; J2930; Q9967

== ENCOUNTER 2023-05-22 12:49 | Outpatient (OUT) | payer OTHER, SELFPAY ==
--- NOTE | 2023-05-22 12:56 | US_ITS ---
Patient Name: CHAZ OLIVEIRA MR#: [id number] : 1990 Exam Date: 05/22/2023 Ordering Doctor: DR Josh Rojas . RADIOLOGY REPORT PROCEDURE: MM TOMOSYNTHESIS DIAGNOSTIC BI, 05/22/2023, 13:00 US BREAST BI LIMITED, 05/22/2023, 13:19 COMPARISON: None. INDICATIONS: fibrocystic breast disease, mass of left and right breast Calculator Name NCI Breast Cancer Risk Assessment Tool 5 Year Breast Cancer Risk Not Applicable. Lifetime Breast Cancer Risk Not Applicable. Personal Breast Cancer No Personal Ovarian Cancer No Treatments None Family Cancers Grandmother-maternal with breast cancer at age 40. LOCATION: [facility] BREAST COMPOSITION: Extremely dense, which lowers the sensitivity of mammography. FINDINGS: DIAGNOSTIC CATEGORY 2--BENIGN FINDING: Extremely dense nodular parenchymal pattern limits diagnostic sensitivity. RIGHT BREAST: No significant suspicious finding. No mammographic or ultrasound abnormality to correspond to patient's palpable abnormality upper-outer quadrant, mid breast LEFT BREAST: No significant suspicious finding. In the region of the patient's palpable abnormality, a normal-appearing rib was observed by ultrasound. No additional mammographic or ultrasound abnormality to correspond to the patient's palpable abnormality, upper inner quadrant, posterior breast. RECOMMENDATIONS: CLINICAL EVALUATION. PLEASE NOTE: A NORMAL MAMMOGRAM DOES NOT EXCLUDE THE POSSIBILITY OF BREAST CANCER. A CLINICALLY SUSPICIOUS PALPABLE LUMP SHOULD BE BIOPSIED. Dictated by: José Miguel Melgar MD on 05/22/2023 at 13:39 Approved by: José Miguel Melgar MD on 05/22/2023 at 13:42
--- OUTSIDE RECORDS SUMMARY | 2023-05-22 13:12 | XMS_ITS | CCD ---
Author Name Unknown Address [address] [place] [address] Organization [facility] Care Team Providers Care Battery Starter Name Role Phone DR MOISES FIGUEROA Attending Unavailable CAROLINA, DR MOISES Melissa Consulting Unavailable CAROLINA, DR MOISES Melissa Admitting Unavailable DR KASEY MEJIA Primary Care Unavailable GEOVANNI ARREAGA Consulting Unavailable Kasey Mejia Unavailable Michelle Jones Unavailable KASEY MEJIA Referring Unavailable SATHISH OROZCO Attending Unavaila ble KASEY MEJIA Referring Unavailable MICHELLE JONES Referring Unavailab MOHSEN Hernandez Attending Unavailable Allergies Allergy Classification Reported Allergen(s) Allergy Type Date of Onset Reaction(s) Facility (14 sources) Levamisole Drug Allergy 10-21-2013 Unknown [facility] (14 sources) Nalbuphine Drug Allergy 10-21-2013 Unknown [facility] (1 source) Nalbuphine Drug Allergy 05-10-2023 [facility] (1 source) Promethazine Drug Allergy 05-10-2023 [facility] Medications Current Medications Medication Drug Class(es) [...] day; Note: Source Status: Taking; Provider: Robert Martinez ( ) take 1 tablet by sal [...] Test Name Value Interpretation Reference Range Facil itte JACOVon 04-26-2023 [facility] Office Visit (ENWSTR ) CHAZ EWING ([id number]) 1990 F Date Time Provider Department 04/26/23 9:20 AM SATHISH OROZCO During your visit today, we recorded the [...] having palpitations again. She takes care of [employer], denies any work related stress REVIEW OF [...] HISTORY: Lives with She takes care of [employer] PHYSICAL EXAM: BP 140/80 Pulse 103 Temp [...] if they (more content not included)... Normal [facility] US THYROIDon 04-22-2023 US THYROID EXAMINATION: [...] Data System (TI- RADS) established by the [place] [employer] to help provide guidance [...] Facility 05-10-2023 10:15-0500 Body height 160.02 cm [facility] 05-10-2023 10:01-0500 Body mass index (BMI) [Ratio] 19.1 kg/m2 [facility] 05-10-2023 10:01-0500 Body weight 49.12 kg [facility] 05-10-2023 10:01-0500 Diastolic blood pressure 98 mm[Hg] [facility] 05-10-2023 10:01-0500 Heart rate 98 /min [facility] 05-10-2023 10:01-0500 Systolic blood pressure 134 mm[Hg] [facility] 04-29-2023 09:15-0500 Body height 160.02 cm Kasey Mejia Other [facility] [employer] Other 04-29-2023 09:15-0500 Body mass index (BMI) [Ratio] 18.63 kg/m2 Kasey Mejia Other [facility] [employer] Other 04-29-2023 09:15-0500 Body weight 47.72 kg Kasey Mejia Other [facility] [employer] Other 04-29-2023 09:15-0500 Diastolic blood pressure 86 mm[Hg] Kasey Mejia Other [facility] [employer] Other 04-29-2023 09:15-0500 Systolic blood pressure 132 mm[Hg] Kasey Mejia Other [facility] [employer] Other 04-17-2023 14:00-0500 Body height 160.02 cm Michelle Jones Other [facility] 04-17-2023 14:00-0500 Body mass index (BMI) [Ratio] 18.78 kg/m2 Michelle Jones Other [facility] [employer] Other 04-17-2023 14:00-0500 Body weight 48.08 kg Michelle Jones Other [facility] 04-17-2023 14:00-0500 Diastolic blood pressure 86 mm[Hg] Michelle Jones Other [facility] 04-17-2023 14:00-0500 Systolic blood pressure 138 mm[Hg] Michelle Jones Other [facility] 04-01-2023 10:15-0500 Body height 160.02 cm Kasey Mejia Other [facility] 04-01-2023 10:15-0500 Body mass index (BMI) [Ratio] 17.68 kg/m2 Kasey Mejia Other [employer] Other 04-01-2023 10:15-0500 Body temperature 98.1 [degF] Kasey Mejia Other [employer] Other 04-01-2023 10:15-0500 Body weight 45.27 kg Kasey Mejia Other [employer] Other 04-01-2023 10:15-0500 Body weight 45.26 kg [facility] 04-01-2023 10:15-0500 Diastolic blood pressure 99 mm[Hg] Kasey Mejia Other [facility] 04-01-2023 10:15-0500 Systolic blood pressure 150 mm[Hg] Kasey Mejia Other [facility] 03-29-2023 13:15-0500 Body height 160.02 cm Kasey Mejia Other [facility] Encounters Encounter Date Encounter Type Care Provider Facility Start: 05-13-2023 End: 05-13-2023 ambulatory MOHSEN EDEN Not Available Start: 05-10-2023 End: 05-10-2023 ambulatory [facility] Work Phone: Start: 05-10-2023 End: 05-10-2023 Patient encounter procedure [facility] Work Phone: Start: 05-03-2023 End: 05-03-2023 ambulatory Kasey Mejia Other [employer] Other Start: 05-03-2023 Telephone encounter Kasey Mejia [facility] Start: 04-29-2023 End: 04-29-2023 ambulatory Kasey Mejia Other [employer] Other Start: 04-29-2023 Office outpatient visit 15 minutes Kasey Mejia [facility] Start: 04-26-2023 End: 04-26-2023 ambulatory KASEY MEJIA Facility:[facility] Start: 04-23-2023 End: 04-23-2023 ambulatory Michelle Robert Other [employer] Other Start: 04-23-2023 Telephone encounter Michelle Jessy ovalles [facility] Start: 04-22-2023 End: 04-23-2023 ambulatory MICHELLE A ROBERT Not Available Start: 04-20-2023 End: 04-20-2023 ambulatory Ksaey Mejia Other [employer] Other Start: 04-20-2023 Telephone encounter Kasey Mejia [facility] Start: 04-17-2023 End: 04-17-2023 ambulatory Kasey Mejia Other [employer] Other Start: 04-17-2023 Office outpatient visit 15 minutes Michelle Robert [facility] Start: 04-17-2023 Telephone encounter Kasey Mynor [facility] Start: 04-17-2023 End: 04-17-2023 Patient encounter procedure [facility]- Start: 04-15-2023 End: 04-15-2023 ambulatory Kasey Mejia Other [employer] Other Start: 04-15-2023 Telephone encounter Kasey Mynor [facility] Start: 04-11-2023 End: 04-11-2023 ambulatory Kasey Mejia Other [employer] Other Start: 04-11-2023 Telephone encounter Kasey Mynor [facility] Start: 04-10-2023 End: 04-11-2023 ambulatory KASEY MEJIA Not Available Start: 04-09-2023 End: 04-09-2023 ambulatory Kasey Mejia Other [employer] Other Start: 04-09-2023 Telephone encounter Kasey Mejia [facility] Start: 04-02-2023 End: 04-02-2023 ambulatory Kasey Mejia Other [employer] Other Start: 04-02-2023 Telephone encounter Kasey Mynor [facility] Start: 04-01-2023 End: 04-01-2023 ambulatory Kasey Mejia Other [employer] Other Start: 04-01-2023 Office outpatient visit 25 minutes Kasey Mejia [facility] Start: 04-01-2023 End: 04-01-2023 Patient encounter procedure [facility] Work Phone: Start: 03-29-2023 (Televisit) Televisit Kasey Mejia [facility] Start: 03-29-2023 End: 03-29-2023 ambulatory Kasey Mejia Other [employer] Other Start: 03-29-2023 End: 03-29-2023 Patient encounter procedure [facility] Work Phone: Start: 01-17-2023 End: 01-17-2023 ambulatory Kasey Mejia Other [employer] Other Start: 01-17-2023 Telephone encounter Kasey Mejia [facility] Start: 05-04-2020 End: 05-04-[address] MOISES FIGUEROA Facility: Plan of Treatment Date Care Activity Detail Author Cefuroxime free [Mas s/volume] in Serum or Plasma [facility] Payers Date Payer Category Payer Unknown [id number] 1990 Unknown [id number] [id number] [id number] 1990 Unknown [id number] [id number] 1990 Unknown [id number] [id number] [id number] 1990 Unknown [id number] 1957 Private Health Insurance [id number] Medicaid [employer] [id number] Private Health Insurance [id number] Self-pay Self Pay [id number] Social History Date Type Detail Facility Unknown if ever smoked [employer] Other Sex Assigned At Sex Assigned At Bir th [employer] Other Start: 05-09-2023 Tobacco smoking status NHIS Smoker (finding) [facility] Start: 1990 Sex Assigned At Female F [facility] Evaluation note 04-29-2023 Note Date & Type Note Facility 04-29-2023 Evaluation note Encounter Date Diagnosis Assessment Notes Apr, Acute nonintractable headache, unspecified headache type (ICD-10 - R51.9) Discussed MRI - r/o tumor or other cause of L christian pain, L nasal congestion Apr, Tachycardia (ICD-10 - R00.0) Pt will complete the labs ordered by [facility]. Discussed possible cardio referral, Will check holter to gather information on the intermittent tachycardia. [employer] Other Progress note 04-26-2023 Note Date & Type Note Facility 04-26-2023 Note HNO ID: [id number] Author: SATHISH OROZCO MD Service: ? Author [...] having palpitations again. She takes care of [employer], denies any work related stress REVIEW OF [...] HISTORY: Lives with She takes care of [employer] PHYSICAL EXAM: BP 140/80 Pulse 103 Temp [...] labs are normal (more content not included)... [facility] Evaluation note 04-17-2023 Note Date & Type Note Facility 04-17-2023 Evaluation note Encounter Date Diagnosis Assessment Notes Mar, Hyperthyroidism (ICD-10 - E05.90) [employer] Other Evaluation note 04-17-2023 Note Date & [...] to NOMs. [facility]. Pt verbalizes understanding and agrees to plan of care. Mar, Increased heart rate (ICD-10 - R00.0) [employer] Other Evaluation note 04-01-2023 Note Date & [...] f/u in 1 month if not sooner. [employer] Other Evaluation note 03-29-2023 Note Date & [...] even pneumonia with dehydration. Pt expresses understanding. 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 [facility] Work Phone: History general Narrative - Reported Note Date & Type Note Facility History general Narrative - Reported Type Medical History hx of migraines Surgical History tonsillectomy Surgical History tubal ligation Hospitalization History childbirth [employer] Other Summary Purpose Family History No Family History Records Found Relationship Condition Age at Onset Recorded Date/T mignon father Hypertension Unknown Advance Directives No Advanced Directives Records Found Advance Directive Response Recorded Date/ Time Advance Directives No April 9:53am Reason for Referral Reason *FU 04/26 tachycar geovani, weight loss, eye problems, thyroid US pending. Diagnosis 1 Hyperthyroidism (E05 .90) Referral Organization [facility] charline Referring Provider First Name Kasey Referring Provider Last Name Mynor Referring Provider Specialty Family [facility] Referred Organization [facility] Referred Address [address] [place], [place],[address] Referred Provider Specialty Endocrinolog y Referral Priority Routine General Notes Yuliana Mcwilliams 06:26:22 AM >received today, attachments made, referral form filled out, notes locked, referral faxed Chief Complaint and Reason for Visit Chief Complaint Possible Covid , Is Testing [phone] Follow Up Labs Eyes-Swollen, Watery On-Going Symptoms Reason for Visit Autoimmune connectiv e tissue disorder Swallowing dysfunction Additional Source Comments INFORMATION SOURCE (unrecogn ized section and content) DATE CREATED AUTHOR 09/26/2021 [facility] DATE CREATED AUTHOR AUTHOR'S ORGANIZ ATION 04/27/2023 [facility] DATE CREATED AUTHOR AUTHOR'S ORGANIZ ATION 05/14/2023 [facility] EPIC REASON FOR VISIT (unrecogniz [...] Member Role Status Dates Michelle Jones APRN CREPING MACHINE OPERATOR HELPER-C Attending Provider Act husam Start: April 17, [...] BE BASED ON THE PRIMARY CLINICAL RECORDS. [facility]. provides no warranty or guarantee of the accuracy or completeness of information in this document.
== END 2023-05-22 12:50 | disposition home or self-care (01) ==
LOC: MAMMO 12:50
PROVIDERS: PCP Family Medicine; Visit Provider Obstetrics & Gynecology
DX: N60.19 Diffuse cystic mastopathy of unspecified breast (principal); N63.20 Unspecified lump in the left breast, unspecified quadrant; N63.10 Unspecified lump in the right breast, unspecified quadrant; N64.9 Disorder of breast, unspecified; Z80.3 Family history of malignant neoplasm of breast
CPT/HCPCS: 76642; 77066; G0279

== ENCOUNTER 2023-06-10 09:30 | Outpatient (OUT) | payer OTHER, SELFPAY ==
--- NOTE | 2023-06-10 09:37 | FL_ITS ---
[address] [address] Patient Name: CHAZ OLIVEIRA MRN: [id number] date: 1990 Sex: F Assigned Patient Location: [place] Current Patient Location: [place] Accession/Order Number: [id number] Exam Date: 06/10/2023 09:50 Report Date: 06/10/2023 11:12 At the request of: ALTHEA UMANA Procedure: FL barium swallow EXAMINATION: FL barium swallow, FL cineradiography HISTORY: dysphagia R13.14 COMPARISON: No relevant comparison available. TECHNIQUE: A swallowing evaluation was performed with fluoroscopy in the usual manner. Standard level fluoroscopic mode of operation utilized. FINDINGS: ORAL PHASE: Normal deglutition. PHARYNGEAL PHASE: Normal swallowing. ASPIRATION: None. STRUCTURE: Normal. No visible obstruction, stricture, or dilatation. OTHER: Negative. FL/FL barium swallow IMPRESSION: Normal exam Electronically authenticated by: DARSHANA ANN Date: 06/10/2023 11:12
--- OUTSIDE RECORDS SUMMARY | 2023-06-10 09:49 | XMS_ITS | CCD ---
Author Name Unknown Address [address] [place] [address] Organization [facility] Care Team Providers Care Almond Grinder Name Role Phone DR MOISES FIGUEROA Attending Unavailable CAROLINA, DR MOISES Melissa Consulting Unavailable CAROLINA, DR MOISES Melissa Admitting Unavailable DR KASEY MEJIA Primary Care Unavailable GEOVANNI ARREAGA Consulting Unavailable Kasey Mejia Unavailable Michelle Jones Unavailable KASEY MEJIA Referring Unavailable SATHISH OROZCO Attending Unavaila ble KASEY MEJIA Referring Unavailable MICHELLE JONES Referring Unavailab MOHSEN Hernandez Attending Unavailable THERESE BARBER Attending Unavailable KIMMY SMITH Referring Unavailable Allergies Allergy Classification Reported Allergen(s) Allergy Type Date of Onset Reaction(s) Facility (14 sources) Levamisole Drug Allergy 10-21-2013 Unknown [facility] Rep[facility] (14 sources) Nalbuphine Drug Allergy 10-21-2013 Unknown [facility] Rep[facility] (1 source) Nalbuphine Drug Allergy 05-10-2023 [...] Refills: 0; Qty: 60 Tablet; Provider: Mynor Bettnecourt Start: 04-20-2023 take 1 tablet by sal [...] CNOV Office Visit (ENWSTR ) CHAZ EWING ([id number]) 1990 F Date Time Provider Department 04/26/23 [...] having palpitations again. She takes care of Verisim, denies any work related stress REVIEW OF [...] HISTORY: Lives with She takes care of Verisim PHYSICAL EXAM: BP 140/80 Pulse 103 Temp [...] if they (more content not included)... Normal [facility] US THYROIDon 04-22-2023 US THYROID EXAMINATION: THYROID [...] Data System (TI- RADS) established by the [employer] to help provide guidance [...] Facility 05-10-2023 10:15-0500 Body height 160.02 cm [facility] 05-10-2023 10:01-0500 Body mass index (BMI) [Ratio] 19.1 kg/m2 [facility] 05-10-2023 10:01-0500 Body weight 49.12 kg [facility] 05-10-2023 10:01-0500 Diastolic blood pressure 98 mm[Hg] [facility] 05-10-2023 10:01-0500 Heart rate 98 /min [facility] 05-10-2023 10:01-0500 Systolic blood pressure 134 mm[Hg] [facility] 04-29-2023 09:15-0500 Body height 160.02 cm Kasey Mejia Other [facility] Project [facility] Other 04-29-2023 09:15-0500 Body mass index (BMI) [Ratio] 18.63 kg/m2 Kasey Mejia Other [facility] Project [facility] Other 04-29-2023 09:15-0500 Body weight 47.72 kg Kasey Mejia Other [facility] Project [facility] Other 04-29-2023 09:15-0500 Diastolic blood pressure 86 mm[Hg] Kasey Mejia Other [facility] Project [facility] Other 04-29-2023 09:15-0500 Systolic blood pressure 132 mm[Hg] Kasey Mejia Other [facility] Project Manager Other 04-17-2023 14:00-0500 Body height 160.02 cm Michelle Jones Other [facility] 04-17-2023 14:00-0500 Body mass index (BMI) [Ratio] 18.78 kg/m2 Michelle Jones Other [facility] Project Manager Other 04-17-2023 14:00-0500 Body weight 48.08 kg Michelle Jones Other [facility] 04-17-2023 14:00-0500 Diastolic blood pressure 86 mm[Hg] Michelle Jones Other [facility] 04-17-2023 14:00-0500 Systolic blood pressure 138 mm[Hg] Michelle Jones Other [facility] 04-01-2023 10:15-0500 Body height 160.02 cm Kasey Mejia Other [facility] 04-01-2023 10:15-0500 Body mass index (BMI) [Ratio] 17.68 kg/m2 Kasey Mejia Other [facility] Other 04-01-2023 10:15-0500 Body temperature 98.1 [degF] Kasey Mejia Other [facility] Other 04-01-2023 10:15-0500 Body weight 45.27 kg Kasey Mejia Other [facility] Other 04-01-2023 10:15-0500 Body weight 45.26 kg [facility] 04-01-2023 10:15-0500 Diastolic blood pressure 99 mm[Hg] Kasey Mejia Other [facility] 04-01-2023 10:15-0500 Systolic blood pressure 150 mm[Hg] Kasey Mejia Other [facility] 03-29-2023 13:15-0500 Body height 160.02 cm Kasey Mejia Other [facility] Encounters Encounter Date Encounter Type Care Provider Facility Start: 05-23-2023 End: 05-23-2023 ambulatory THERESE M SUNIL Not Available Start: 05-13-2023 End: 05-13-2023 ambulatory MOHSEN HARMON Not Available Start: 05-10-2023 End: 05-10-2023 ambulatory [facility] Work Phone: Start: 05-10-2023 End: 05-10-2023 Patient encounter procedure [facility] Work Phone: Start: 05-03-2023 End: 05-03-2023 ambulatory Kasey Mejia Other [facility] Other Start: 05-03-2023 Telephone encounter Kasey Mejia [facility] Start: 04-29-2023 End: 04-29-2023 ambulatory Kasey Mejia Other [facility] Other Start: 04-29-2023 Office outpatient visit 15 minutes Kasey Mejia [facility] Start: 04-26-2023 End: 04-26-2023 ambulatory KASEY MEJIA Facility:[facility] Start: 04-23-2023 End: 04-23-2023 ambulatory Michelle Jones Other [facility] Other Start: 04-23-2023 Telephone encounter Michelle Jessy ovalles [facility] Start: 04-22-2023 End: 04-23-2023 ambulatory MICHELLE JONES Not Available Start: 04-20-2023 End: 04-20-2023 ambulatory Kasey Mejia Other [facility] Other Start: 04-20-2023 Telephone encounter Kasey Mejia [facility] Start: 04-17-2023 End: 04-17-2023 ambulatory Kasey Mejia Other [facility] Other Start: 04-17-2023 Office outpatient visit 15 minutes Michelle Robert [facility] Start: 04-17-2023 Telephone encounter Kasey Mejia [facility] Start: 04-17-2023 End: 04-17-2023 Patient encounter procedure [facility]- Start: 04-15-2023 End: 04-15-2023 ambulatory Kasey Mejia Other [facility] Other Start: 04-15-2023 Telephone encounter Kasey Mejia [facility] Start: 04-11-2023 End: 04-11-2023 ambulatory Kasey Mejia Other [facility] Other Start: 04-11-2023 Telephone encounter Kasey Mejia [facility] Start: 04-10-2023 End: 04-11-2023 ambulatory KASEY MEJIA Not Available Start: 04-09-2023 End: 04-09-2023 ambulatory Kasey Mynor Other [facility] Other Start: 04-09-2023 Telephone encounter Kasey Mynor [facility] Start: 04-02-2023 End: 04-02-2023 ambulatory Kasey Mejia Other [facility] Other Start: 04-02-2023 Telephone encounter Kasey Mynor [facility] Start: 04-01-2023 End: 04-01-2023 ambulatory Kasey Mejia Other [facility] Other Start: 04-01-2023 Office outpatient visit 25 minutes Kasey Mejia [facility] Start: 04-01-2023 End: 04-01-2023 Patient encounter procedure [facility] Work Phone: Start: 03-29-2023 (Televisit) Televisit Kasey Mynor [facility] Start: 03-29-2023 End: 03-29-2023 ambulatory Kasey Mynor Other [facility] Other Start: 03-29-2023 End: 03-29-2023 Patient encounter procedure [facility] Work Phone: Start: 01-17-2023 End: 01-17-2023 ambulatory Kasey Mynor Other [facility] Other Start: 01-17-2023 Telephone encounter Kasey Mynor [facility] Start: 05-04-2020 End: 05-04-[address] MOISES FIGUEROA Facility:[facility] Plan of Treatment Date Care Activity Detail Author Cefuroxime free [Mas s/volume] in Serum or Plasma [facility] enter [facility] Payers Date Payer Category Payer Private Health Insurance [id number] 2023 Unknown [id number] 2. [id number] 1990 Unknown [id number] 2.16.84 [id number] 1990 Unknown [id number] 2.16.84 [id number] 1990 Unknown [id number] 2.16.84 [id number] 1990 Unknown [id number] 2.16.84 [id number] 1990 Unknown [id number] 2.16.84 [id number] 1957 Private Health Insurance [id number] Medicaid [employer] [id number] Private Health Insurance [id number] Self-pay Self Pay [id number] Social History Date Type Detail Facility Unknown if ever smoked [facility] Other Sex Assigned At Sex Assigned At Bir th [facility] Other Start: 05-09-2023 Tobacco smoking status NHIS Smoker (finding) [facility] Start: 1990 Sex Assigned At Female F [facility] Evaluation note 04-29-2023 Note Date & Type Note Facility 04-29-2023 Evaluation note Encounter Date Diagnosis Assessment Notes Apr, Acute nonintractable headache, unspecified headache type (ICD-10 - R51.9) Discussed MRI - r/o tumor or other cause of L roman catholic pain, L nasal congestion Apr, Tachycardia (ICD-10 - R00.0) Pt will complete the labs ordered by [facility]. Discussed possible cardio referral, Will check holter to gather information on the intermittent tachycardia. [facility] Other Progress note 04-26-2023 Note Date & Type Note Facility 04-26-2023 Note HNO ID: [id number] Author: SATHISH OROZCO MD Service: ? Author [...] having palpitations again. She takes care of Verisim, denies any work related stress REVIEW OF [...] HISTORY: Lives with She takes care of Verisim PHYSICAL EXAM: BP 140/80 Pulse 103 Temp [...] labs are normal (more content not included)... [facility] Evaluation note 04-17-2023 Note Date & Type Note Facility 04-17-2023 Evaluation note Encounter Date Diagnosis Assessment Notes Mar, Hyperthyroidism (ICD-10 - E05.90) [facility] Other Evaluation note 04-17-2023 Note Date & [...] Mar, Increased heart rate (ICD-10 - R00.0) [facility] Other Evaluation note 04-01-2023 Note Date & [...] f/u in 1 month if not sooner. [facility] Other Evaluation note 03-29-2023 Note Date & [...] even pneumonia with dehydration. Pt expresses understanding. 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 [facility] Work Phone: History general Narrative - Reported Note Date & Type Note Facility History general Narrative - Reported Type Medical History hx of migraines Surgical History tonsillectomy Surgical History tubal ligation Hospitalization History childbirth [facility] Other Summary Purpose Family History No Family History Records Found Relationship Condition Age at Onset Recorded Date/T mignon father Hypertension Unknown Advance Directives No Advanced Directives Records Found Advance Directive Response Recorded Date/ Time Advance Directives No April 9:53am Reason for Referral Reason *FU 04/26 tachycar geovani, weight loss, eye problems, thyroid US pending. Diagnosis 1 Hyperthyroidism (E05 .90) Referral Organization [facility] Hetal olivier Referring Provider First Name Kasey Referring Provider Last Name Mynor Referring Provider Specialty Family [facility] cine Referred Organization [facility] Referred Address [address] [place], [place],[address] Referred Provider Specialty Endocrinolog y Referral Priority Routine General Notes Yuliana Mcwilliams 06:26:22 AM >received today, attachments made, referral form filled out, notes locked, referral faxed Chief Complaint and Reason for Visit Chief Complaint Possible Covid , Is Testing [id number] Follow Up Labs Eyes-Swollen, Watery On-Going Symptoms Reason for Visit Autoimmune connectiv e tissue disorder Swallowing dysfunction Additional Source Comments INFORMATION SOURCE (unrecogn ized section and content) DATE CREATED AUTHOR 09/26/2021 [facility] DATE CREATED AUTHOR AUTHOR'S ORGANIZ ATION 04/27/2023 [facility] DATE CREATED AUTHOR AUTHOR'S ORGANIZ ATION 05/26/2023 [facility] EPIC REASON FOR VISIT (unrecogniz ed section and content) labsPOSSIBLE COVID , IS TEST ING [id number] up labsmessageRefillCT resultrefillNo InformationthyroidEyes-Swollen, WateryUS resultssame symptoms, [...] Member Role Status Dates Michelle Jones APRN [employer] Attending Provider Act husam Start: April 17, [...] BE BASED ON THE PRIMARY CLINICAL RECORDS. [facility] [employer] [facility]. provides no warranty or guarantee of the accuracy or completeness of information in this document.
== END 2023-06-10 09:31 | disposition home or self-care (01) ==
LOC: FL 09:32
PROVIDERS: PCP Family Medicine; Visit Provider Otolaryngology
DX: R13.14 Dysphagia, pharyngoesophageal phase (principal)
CPT/HCPCS: 74220; 76120

== ENCOUNTER 2023-06-11 20:31 | Outpatient (REF) | payer OTHER, SELFPAY ==
--- OUTSIDE RECORDS SUMMARY | 2023-06-11 20:36 | XMS_ITS | CCD ---
Author Organization [facility] Care Team Providers Care Trimming Machine Set Up Operator Name Role Phone DR MOISES FIGUEROA Attending [...] sources) Levamisole Drug Allergy 10-21-2013 Unknown [facility] (14 sources) Nalbuphine Drug Allergy 10-21-2013 Unknown [facility] (1 source) Nalbuphine Drug Allergy 05-10-2023 [facility] (1 source) Promethazine Drug Allergy 05-10-2023 [facility] Medications Current Medications Medication Drug Class(es) Dates [...] CNOV Office Visit (ENWSTR ) CHAZ EWING ([id number]) 1990 F Date Time Provider Department 04/26/23 [...] having palpitations again. She takes care of Aireum, denies any work related stress REVIEW OF [...] HISTORY: Lives with She takes care of Aireum PHYSICAL EXAM: BP 140/80 Pulse 103 Temp [...] Data System (TI- RADS) established by the [employer] to help provide guidance [...] Facility 05-10-2023 10:15-0500 Body height 160.02 cm [facility] 05-10-2023 10:01-0500 Body mass index (BMI) [Ratio] 19.1 kg/m2 [facility] 05-10-2023 10:01-0500 Body weight 49.12 kg [facility] 05-10-2023 10:01-0500 Diastolic blood pressure 98 mm[Hg] [facility] 05-10-2023 10:01-0500 Heart rate 98 /min [facility] 05-10-2023 10:01-0500 Systolic blood pressure 134 mm[Hg] [facility] 04-29-2023 09:15-0500 Body height 160.02 cm Kasey Mejia Other [facility] Other 04-29-2023 09:15-0500 Body mass index (BMI) [Ratio] 18.63 kg/m2 Kasey Mejia Other [facility] Other 04-29-2023 09:15-0500 Body weight 47.72 kg Kasey Mejia Other [facility] Other 04-29-2023 09:15-0500 Diastolic blood pressure 86 mm[Hg] Kasey Mejia Other [facility] Other 04-29-2023 09:15-0500 Systolic blood pressure 132 mm[Hg] Kasey Mejia Other [facility] Other 04-17-2023 14:00-0500 Body height 160.02 cm Michelle Jones Other [facility] 04-17-2023 14:00-0500 Body mass index (BMI) [Ratio] 18.78 kg/m2 Michelle Jones Other [facility] Other 04-17-2023 14:00-0500 Body weight 48.08 kg Michelle Jones Other [facility] 04-17-2023 14:00-0500 Diastolic blood pressure 86 mm[Hg] Michelle Jones Other [facility] 04-17-2023 14:00-0500 Systolic blood pressure 138 mm[Hg] Michelle Jones Other [facility] 04-01-2023 10:15-0500 Body height 160.02 cm Kasey Mejia Other [facility] 04-01-2023 10:15-0500 Body mass index (BMI) [Ratio] 17.68 kg/m2 Kasey Mejia Other [facility] Other 04-01-2023 10:15-0500 Body temperature 98.1 [degF] Kasey Mejia Other [facility] Other 04-01-2023 10:15-0500 Body weight 45.27 kg Kasey Mejia Other [facility] Other 04-01-2023 10:15-0500 Body weight 45.26 kg [facility] 04-01-2023 10:15-0500 Diastolic blood pressure 99 mm[Hg] Kasey Mejia Other [facility] 04-01-2023 10:15-0500 Systolic blood pressure 150 mm[Hg] Kasey Mejia Other [facility] 03-29-2023 13:15-0500 Body height 160.02 cm Kasey Mejia Other [facility] Encounters Encounter Date Encounter Type Care Provider Facility Start: 05-23-2023 End: 05-23-2023 ambulatory THERESE Maribel BARBER Not Available Start: 05-13-2023 End: 05-13-2023 ambulatory MOHSEN HARMON Not Available Start: 05-10-2023 End: 05-10-2023 ambulatory [facility] Work Phone: Start: 05-10-2023 End: 05-10-2023 Patient encounter procedure [facility] Work Phone: Start: 05-03-2023 End: 05-03-2023 ambulatory Kasey Mejia Other [facility] Other Start: 05-03-2023 Telephone encounter Kasey Mejia [facility] Start: 04-29-2023 End: 04-29-2023 ambulatory Kasey Mejia Other [facility] Other Start: 04-29-2023 Office outpatient visit 15 minutes Kasey Mejia [facility] Start: 04-26-2023 End: 04-26-2023 ambulatory KASEY MEJIA Facility:[facility] Start: 04-23-2023 End: 04-23-2023 ambulatory Michelle Robert Other [facility] Other Start: 04-23-2023 Telephone encounter Michelle Jessy ovalles [facility] Start: 04-22-2023 End: 04-23-2023 ambulatory MICHELLE A ROBERT Not Available Start: 04-20-2023 End: 04-20-2023 ambulatory Kasey Mejia Other [facility] Other Start: 04-20-2023 Telephone encounter Kasey Mejia [facility] Start: 04-17-2023 End: 04-17-2023 ambulatory Kasey Mejia Other [facility] Other Start: 04-17-2023 Office outpatient visit 15 minutes Michelleguillaume Jones [facility] Start: 04-17-2023 Telephone encounter Kasey Mejia [facility] Start: 04-17-2023 End: 04-17-2023 Patient encounter procedure [facility] Start: 04-15-2023 End: 04-15-2023 ambulatory Kasey Mejia Other [facility] Other Start: 04-15-2023 Telephone encounter Kasey Mejia [facility] Start: 04-11-2023 End: 04-11-2023 ambulatory Kasey Mejia Other [facility] Other Start: 04-11-2023 Telephone encounter Kasey Mejia [facility] Start: 04-10-2023 End: 04-11-2023 ambulatory KASEY MEJIA Not Available Start: 04-09-2023 End: 04-09-2023 ambulatory Kasey Mejia Other [facility] Other Start: 04-09-2023 Telephone encounter Kasey Mejia [facility] Start: 04-02-2023 End: 04-02-2023 ambulatory Kasey Mejia Other [facility] Other Start: 04-02-2023 Telephone encounter Kasey Meija [facility] Start: 04-01-2023 End: 04-01-2023 ambulatory Kasey Mejia Other [facility] Other Start: 04-01-2023 Office outpatient visit 25 minutes Kasey Mejia [facility] Start: 04-01-2023 End: 04-01-2023 Patient encounter procedure [facility] Work Phone: Start: 03-29-2023 (Televisit) Televisit Kasey Mejia [facility] Start: 03-29-2023 End: 03-29-2023 ambulatory Kasey Mejia Other [facility] Other Start: 03-29-2023 End: 03-29-2023 Patient encounter procedure [facility] Work Phone: Start: 01-17-2023 End: 01-17-2023 ambulatory Kasey Mejia Other [facility] Other Start: 01-17-2023 Telephone encounter Kasey Mejia [facility] Start: 05-04-2020 End: 05-04-[address] MOISES FIGUEROA Facility: Plan of Treatment Date Care Activity Detail Author Cefuroxime free [Mas s/volume] in Serum or Plasma [facility] Payers Date Payer Category Payer Private Health Insurance [id number] 2023 Unknown [id number] 1990 Unknown [id number] 2.16.84 [id number] 1990 Unknown [id number] 2.16.84 [id number] 1990 Unknown [id number] 2.16.84 [id number] 1990 Unknown [id number] 2.16.84 [id number] 1990 Unknown [id number] 2.16.84 [id number] 1957 Private Health Insurance [id number] Medicaid [employer] [id number] Private Health Insurance [id number] Self-pay Self Pay [id number] Social History Date Type Detail Facility Unknown if ever smoked [facility] Other Sex Assigned At Sex Assigned At Bir th [facility] Other Start: 05-09-2023 Tobacco smoking status DEIS Smoker (finding) [facility] Start: 1990 Sex Assigned At Female F [facility] Evaluation note 04-29-2023 Note Date & Type Note Facility 04-29-2023 Evaluation note Encounter Date Diagnosis Assessment Notes Apr, Acute nonintractable headache, unspecified headache type (ICD-10 - R51.9) Discussed MRI - r/o tumor or other cause of L uatsdin pain, L nasal congestion Apr, Tachycardia (ICD-10 - R00.0) Pt will complete the labs ordered by [facility]. Discussed possible cardio referral, Will check holter to gather information on the intermittent tachycardia. [facility] Other Progress note 04-26-2023 Note Date & Type Note Facility 04-26-2023 Note HNO ID: [id number] Author: SATHISH OROZCO MD Service: ? Author [...] having palpitations again. She takes care of Aireum, denies any work related stress REVIEW OF [...] HISTORY: Lives with She takes care of Aireum PHYSICAL EXAM: BP 140/80 Pulse 103 Temp [...] Assessment Notes Mar, Hyperthyroidism (ICD-10 - E05.90) [facility] Other Evaluation note 04-17-2023 Note Date & [...] Mar, Increased heart rate (ICD-10 - R00.0) [facility] Other Evaluation note 04-01-2023 Note Date & [...] f/u in 1 month if not sooner. [facility] Other Evaluation note 03-29-2023 Note Date & [...] even pneumonia with dehydration. Pt expresses understanding. 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 [facility] Work Phone: History general Narrative - Reported Note Date & Type Note Facility History general Narrative - Reported Type Medical History hx of migraines Surgical History tonsillectomy Surgical History tubal ligation Hospitalization History childbirth [facility] Other Summary Purpose Family History No Family History Records Found Relationship Condition Age at Onset Recorded Date/T mignon father Hypertension Unknown Advance Directives No Advanced Directives Records Found Advance Directive Response Recorded Date/ Time Advance Directives No April 9:53am Reason for Referral Reason *FU 04/26 tachycar geovani, weight loss, eye problems, thyroid US pending. Diagnosis 1 Hyperthyroidism (E05 .90) Referral Organization Counts include [facility] beds at the [facility] charline Referring Provider First Name Kasey Referring Provider Last Name Mynor Referring Provider Specialty Family [facility] Referred Organization [facility] Referred Address [address] [place], [place],[address] Referred Provider Specialty Endocrinolog y Referral Priority Routine General Notes Yuliana Mcwilliams 06:26:22 AM >received today, attachments made, referral form filled out, notes locked, referral faxed Chief Complaint and Reason for Visit Chief Complaint Possible Covid , Is Testing [phone] Follow Up Labs Eyes-Swollen, Watery On-Going Symptoms Reason for Visit Autoimmune connectiv e tissue disorder Swallowing dysfunction Additional Source Comments INFORMATION SOURCE (unrecogn ized section and content) DATE CREATED AUTHOR 09/26/2021 [facility] DATE CREATED AUTHOR AUTHOR'S ORGANIZ ATION 04/27/2023 [facility] DATE CREATED AUTHOR AUTHOR'S ORGANIZ ATION 05/26/2023 [facility] REASON FOR VISIT (unrecogniz ed section and content) labsPOSSIBLE COVID , IS TEST ING [id number] up labsmessageRefillCT resultrefillNo InformationthyroidEyes-Swollen, WateryUS resultssame symptoms, [...] Member Role Status Dates Michelle Jones APRN TRANSFER OPERATOR-C Attending Provider Act husam Start: April 17, [...] BE BASED ON THE PRIMARY CLINICAL RECORDS. [employer] provides no warranty or guarantee of the accuracy or completeness of information in this document.
[2023-06-15 03:08] LABS: Age Gdln ACOG Testing Note (.); HPV Aptima Positive (Negative); HPV Genotype 16 Negative (Negative); HPV Genotype 18,45 Negative (Negative); IGP, Aptima HPV, rfx 16/18,45 Note (.)
== END 2023-06-11 20:32 | disposition home or self-care (01) ==
LOC: LAB 20:31
PROVIDERS: PCP Family Medicine; Visit Provider Obstetrics & Gynecology
DX: Z01.419 Encounter for gynecological examination (general) (routine) without abnormal findings (principal)
CPT/HCPCS: 87624; G0145

== ENCOUNTER 2023-07-04 12:10 | Outpatient (OUT) | payer OTHER, SELFPAY ==
--- OUTSIDE RECORDS SUMMARY | 2023-07-04 12:31 | XMS_ITS | CCD ---
Author Organization [facility] Care Team Providers Care Kennel Staff Member Name Role Phone DR MOISES FIGUEROA Attending Unavailable CAROLINA, DR MOISES Melissa Consulting Unavailable CAROLINA, DR MOISES Melissa Admitting Unavailable JACKIE, DR KASEY Bettencourt Primary Care Unavailable GEOVANNI ARREAGA Consulting Unavailable Kasey Mejia Unavailable Michelle Jones Unavailable KASEY MEJIA Referring Unavailable SATHISH OROZCO Attending Unavaila KASEY Hansen Referring Unavailable MICHELLE JONES Referring Unavailab MOHSEN Hernandez Attending Unavailable THERESE BARBER Attending Unavailable KIMMY SMITH Referring Unavailable ALTHEA UMANA Attending Unavailable KASEY MEJIA Referring Unavailable MOHSEN HARMON Attending Unavailable MD Kasey Mejia Primary Care Provider MD Mariah Hardin Attending Provider Mariah Hardin Attending Unavailable Mariah Hardin Admitting Unavailable Kasey Mejia Primary Care Unavailable Allergies Allergy Classification Reported Allergen(s) Allergy Type Date of Onset Reaction(s) Facility (14 sources) Levamisole Drug Allergy 10-21-2013 Unknown [facility] Repository (14 sources) Nalbuphine Drug Allergy 10-21-2013 Unknown [facility] (5 sources) Nalbuphine; Translations: [nalbuphine] Drug Allergy 05-10-2023 [facility] (5 sources) Promethazine; Translations: [promethazine] Drug Allergy 05-10-2023 [facility] Medications Current Medications Medication Drug Class(es) Dates Sig (Normalized) Sig (Original) ALPRAZolam 0.25 mg oral tablet (20 sources) Benzodiazepine Start: 05-10-2023 End: 06-19-2023 take 0.25 mg by mouth twice daily Alprazolam Active 0.25 MG PO Twice daily 40 June 19, 2023 4:40pm Start: 04-20-2023 take 1 tablet by sal [...] a day for 5 days Mar, Active famotidine 20 mg oral tablet (3 sources) Histamine-2 Receptor Antagonist Start: 06-03-2023 take 20 mg by mouth once daily at bedtime Famotidine Active 20 MG PO Daily at bedtime June 03, 2023 12:00am pantoprazole 40 mg delayed release oral tablet (5 sources) Proton Pump Inhibitor Start: 06-13-2023 End: 06-13-2023 take 40 mg by mouth once Pantoprazole Active 40 MG PO Once June 13, 2023 12:50pm propranolol hydrochloride 10 mg oral tablet (2 sources) beta-Adrenergic Radha Start: 06-13-2023 take 10 mg by mouth twice daily Propranolol Active 10 MG PO Twice daily 60 June 13, 2023 12:00am Completed/Discontinued Medications Medication Drug Class(es) Dates Sig (Normalized) Sig (Original) citalopram 20 mg oral tablet (16 sources) Serotonin Reuptake Inhibitor Start: 05-10-2023 End: 06-03-2023 take 1 tablet by mouth once daily Citalopram Discontinued 20 MG PO Daily May 10, 2023 1:00am June 03, 2023 9:39am FreeTextSi tablet Orally Once a day; Note: Source Status: Taking; Provider: Jackie Bettencourt Start: 04-01-2023 take 1 tablet by sal th every twenty-four hours Citalopram Hydrobromide 20 MG 1 tablet Orally Once a day for 30 day(s) Mar, Active hydrOXYzine hydrochloride 25 mg oral tablet (16 sources) Antihistamine Start: 05-10-2023 End: 06-03-2023 take 1 tablet by mouth every eight hours as needed Hydroxyzine Hcl Discontinued 25 MG PO Every 8 hours May 10, 2023 1:00am June 03, 2023 9:39am [employer]TextSi tablet q 8 hrs prn; Note: Source Status: Taking; Provider: Robert Martinez ( ) hydrOXYzine HCl 25 MG 1 tablet q 8 hrs prn Active Ketorolac (13 sources) Nonsteroidal Anti-inflammatory Drug, Cyclooxygenase Inhibitor Start: 12-15-2012 Toradol per 15 mg Nov, 60 mg Methylprednisolone (10 sources) Corticosteroid Start: 05-10-2023 End: 06-03-2023 take 1 mg by mouth once daily Methylprednisolone Discontinued MG PO Daily May 10, 2023 1:00am June 03, 2023 9:38am FreeTextSig: as directed Orally daily; Note: Source Status: Start; Refills: 0; Provider: Robert Lynne Start: 05-10-2023 take 1 mg by mouth o nce daily Methylprednisolone Active MG PO Daily May 10, 2023 12:00am FreeTextSig: as directed Orally daily; Note: Source Status: Start; Refills: 0; Provider: Robert Lynne Start: 04-17-2023 methylPREDNISo lone 4 MG as directed Orally daily for 6 days Mar, Active ondansetron 4 mg disintegrating oral tablet (16 sources) Serotonin-3 Receptor Antagonist Start: 05-10-2023 End: 06-13-2023 take 1 tablet by mouth once daily Ondansetron Discontinued 4 MG PO Daily May 10, 2023 1:00am June 13, 2023 9:33am FreeTextSi tablet once a day; Note: Source Status: Taking; Provider: Robert Martinez ( ) take 1 tablet by sal th every twenty-four hours Ondansetron 4 MG 1 tablet once a day Active Problems Active Problems Problem Classification Problem Date Documented Da te Episodic/Chronic Abdominal pain (1 source) Left upper quadrant pain Episodic Anxiety disorders (17 sources) Generalized anxiety disorder; Translations: [Generalized anxiety disorder] Chronic Cardiac dysrhythmias (10 sources) Tachycardia, unspecified; Translations: [Tachycardia] Onset: 06-13-2023 Episodic Headache; including migraine (7 sources) Headache; Translations: [Headache, Unspecified] Episodic Heart valve disorders (3 sources) Heart murmur; Translations: [Cardiac murmur, unspecified] 06-13-2023 Episodic Other eye disorders (1 source) Unspecified disorder of eye and adnexa Episodic Other gastrointestinal disorders (4 sources) Swallowing finding; Translations: [Dysphagia, unspecified] 05-10-2023 Episodic Other gastrointestinal disorders (5 sources) Dysphagia, unspecified; Translations: [Dysphagia, unspecified] 05-10-2023 Episodic Other nutritional; endocrine; and metabolic disorders (13 sources) Hypercalcemia; Translations: [Hypercalcemia] Chronic Other nutritional; endocrine; and metabolic disorders (1 source) Hypercalcemia Chronic Other nutritional; endocrine; and metabolic disorders (5 sources) Abnormal weight loss; Translations: [Loss of weight] Episodic Other nutritional; endocrine; and metabolic disorders (3 sources) Unintentional weight loss; Translations: [Abnormal weight loss] 05-13-2023 Episodic Residual codes; unclassified (1 source) Illness, unspecified Episodic Systemic lupus erythematosus and connective tissue disorders (12 sources) Autoimmune connective tissue disorder; 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 Human papilloma virus 16+18+ 31+33+35+39+45+51+52+56+58+59+66+68 DNA [Presence] in [place] 06-11-2023 HPV 16+18+31+33+35+39+45+ 51+52+56+58+59+66+68 DNA Probe+sig amp Ql (Cvx) Positive Negative [facility] Comment on above: This nucleic acid am plification test detects fourteen high- risk HPV types (16,18,31,33,35,39,45,51,52,56,58,59,66,68)without differentiation. No Panel Informationon 06-10 HPV Genotype 18/45 (PCR) Negative Negative [facility] Comment on above: Performed at: =G - [facility] [address] [id number] Director: Cyndi Ramírez MD, Phone: [phone] at: WB - [facility] [address] [id number] Director: Cyndi Ramírez MD, Phone: [phone] HPV High Risk Other Comment Note . [facility] Comment on above: TESTS RESULT FLAG UN ITS REF RANGE LAB D IAGNOSIS: 02 NEGATIVE FOR INTRAEPITHELIAL LESION OR MALIGNANCY.Specimen adequacy: 02 Satisfactory for evaluation. Endocervical and/or squamous metaplastic cells (endocervical component) are present.Performed by: 02 Brittany Romero, Mergers And Acquisitions Attorney ([facility]). 02Note: Note 02 The Pap smear is a screening test designed to aid in the detection of premalignant and malignant conditions of the uterine cervix. It is not a diagnostic procedure and should not be used as the sole means of detecting cervical cancer. Both false-positive and false-negative reports do occur.Test Methodology: Note 02 This liquid based ThinPrep(R) pap test was screened with the use of an image guided system.HPV Genotype Reflex Note 02 Criteria met, see HPV Genotype results. ---- FLAG LEGEND: L-Low Normal,H-High Normal,LL-Alert Low,HH-Alert High <-Panic Low,>-Panic High,A-Abnormal,AA-Critical Abnormal ----Performed at:02 WB [facility] [address] [place] [address] Cyndi Ramírez MD, Reference Lab Test Patient Age Note . [facility] Comment on above: TESTS RESULT FLAG UN ITS REF RANGE LAB Clinician Provided Cytology Information Source.............Cervix;Endocervix No. of containers..01 ThinPrep VialAge Jeffo SAMMIE Yesica... FLAG LEGEND: L-Low Normal,H-High Normal,LL-Alert Low,HH-Alert High <-Panic Low,>-Panic High,A-Abnormal,AA-Critical Abnormal ----Performed at:01 =G [facility] [address] [address] Cyndi Ramírez MD, Laboratory - Hematology and Cell countson 05-10-2023 ESR (Bld) [Velocity] 3 mm/h <=20 [facility] No Panel Informationon 05-10 Cardiac C-Reactive Protein 0.19 mg/L 0.00-3.[address] [facility] Comment on above: Relative Risk for Fu ture Cardiovascular Event Low <1.00 Average 1.00 - 3.00 High >3.00Performed at: [email or web address] - [facility] [address] [id number] Director: Ryan Richardson PhD, Phone: [phone] Serum or plasma free cefurox mignon measurement (mass/volume)on 05-10-2023 Cefuroxime free [Mass/Vol] Negative Negative [facility] Comment on above: Performed at: [email or web address] - [facility] [address] [id number] Director: Ryan Richardson PhD, Phone: [phone] CNOVon 04-26-2023 CNOV Office Visit (ENWSTR ) CHAZ OLIVEIRA ([id number]) 1990 F Date Time Provider Department 04/26/23 [...] or letter via US mail. Subjective: Chaz Oliveira is a 32 year old female self [...] having palpitations again. 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 Normal [facility] US THYROIDon 04-22-2023 US THYROID EXAMINATION: THYROID [...] Data System (TI- RADS) established by the [employer] to help provide guidance [...] Time Vital Sign Value Performing Clinician Facility 06-13-2023 09:45-0400 Diastolic blood pressure 76 mm[Hg] MD Kasey Mejia Work Phone: [facility] 06-13-2023 09:45-0400 Heart rate 106 /min MD Kasey Mejia Work Phone: [facility] 06-13-2023 09:45-0400 Systolic blood pressure 138 mm[Hg] MD Kasey Mejia Work Phone: [facility] 06-13-2023 09:39-0400 Body height 160.02 cm MD Kasey Mejia Work Phone: [facility] 06-13-2023 09:39-0400 Body mass index (BMI) [Ratio] 20.5 kg/m2 MD Kasey Mejia Work Phone: [facility] 06-13-2023 09:39-0400 Body weight 52.61 kg MD Kasey Mejia Work Phone: [facility] 06-13-2023 09:39-0400 Respiratory rate 18 /min MD Kasey Mejia Work Phone: [facility] 06-13-2023 09:39-0400 SaO2% (BldA) [Mass fraction] 99 % MD Kasey Mejia Work Phone: [facility] 06-03-2023 09:32-0400 Body height 160.02 cm MD Kasey Mejia Work Phone: [facility] 06-03-2023 09:32-0400 Body mass index (BMI) [Ratio] 20.5 kg/m2 MD Kasey Mejia Work Phone: [facility] 06-03-2023 09:32-0400 Body weight 52.73 kg MD Kasey Mejia Work Phone: [facility] 06-03-2023 09:32-0400 Diastolic blood pressure 90 mm[Hg] MD Kasey Mejia Work Phone: [facility] 06-03-2023 09:32-0400 Heart rate 111 /min MD Kasey Mejia Work Phone: [facility] 06-03-2023 09:32-0400 Systolic blood pressure 132 mm[Hg] MD Kasey Mejia Work Phone: [facility] 05-10-2023 10:15-0500 Body height 160.02 cm [facility] 05-10-2023 10:01-0500 Body mass index (BMI) [Ratio] 19.1 kg/m2 [facility] 05-10-2023 10:01-0500 Body weight 49.12 kg [facility] 05-10-2023 10:01-0500 Diastolic blood pressure 98 mm[Hg] [facility] 05-10-2023 10:01-0500 Heart rate 98 /min [facility] 05-10-2023 10:01-0500 Systolic blood pressure 134 mm[Hg] [facility] 04-29-2023 09:15-0500 Body height 160.02 cm Kasey Mejia Other [facility] [place] Other 04-29-2023 09:15-0500 Body mass index (BMI) [Ratio] 18.63 kg/m2 Kasey Mejia Other [employer] [facility] [place] Other 04-29-2023 09:15-0500 Body weight 47.72 kg Kasey Mejia Other [employer] [facility] [place] Other 04-29-2023 09:15-0500 Diastolic blood pressure 86 mm[Hg] Kasey Mejia Other [employer] [facility] [place] Other 04-29-2023 09:15-0500 Systolic blood pressure 132 mm[Hg] Kasey Mejia Other [facility] [place] Other 04-17-2023 14:00-0500 Body height 160.02 cm Michelle Robert Other [facility] 04-17-2023 14:00-0500 Body mass index (BMI) [Ratio] 18.78 kg/m2 Michelle Robert Other [facility] [place] Other 04-17-2023 14:00-0500 Body weight 48.08 kg Michelle Robert Other [facility] 04-17-2023 14:00-0500 Diastolic blood pressure 86 mm[Hg] Michelle Robert Other [facility] 04-17-2023 14:00-0500 Systolic blood pressure 138 mm[Hg] Michelle Robert Other [facility] 04-01-2023 10:15-0500 Body height 160.02 cm Kasey Mejia Other [facility] 04-01-2023 10:15-0500 Body mass index (BMI) [Ratio] 17.68 kg/m2 Kasey Mejia Other [facility] [place] Other 04-01-2023 10:15-0500 Body temperature 98.1 [degF] Kasey Mejia Other [facility] [place] Other 04-01-2023 10:15-0500 Body weight 45.27 kg Kasey Mejia Other [facility] [place] Other 04-01-2023 10:15-0500 Body weight 45.26 kg [facility] 04-01-2023 10:15-0500 Diastolic blood pressure 99 mm[Hg] Kasey Mejia Other [facility] 04-01-2023 10:15-0500 Systolic blood pressure 150 mm[Hg] Kasey Mejia Other [facility] 03-29-2023 13:15-0500 Body height 160.02 cm Kasey Mejia Other [facility] Encounters Encounter Date Encounter Type Care Provider Facility Start: 06-21-2023 End: 06-21-2023 ambulatory MD Kasey Mejia Work Phone: [facility] Work Phone: Start: 06-21-2023 End: 06-21-2023 Patient encounter procedure MD Kasey Mejia Work Phone: [facility] Work Phone: Start: 06-13-2023 End: 06-13-2023 ambulatory Mariah Wilfred Facility:[facility] Start: 06-13-2023 End: 06-13-2023 ambulatory MD Kasey Mejia Work Phone: [facility] Work Phone: Start: 06-13-2023 End: 06-13-2023 Patient encounter procedure MD Kasey Mejia Work Phone: [facility] Work Phone: Start: 06-11-2023 End: 06-11-2023 ambulatory MOHSEN HARMON Not Available Start: 06-11-2023 Non-patient / Non-visit MD Kasey Mejia Work Phone: [facility] Work Phone: Start: 06-03-2023 End: 06-03-2023 Patient encounter procedure MD Kasey Mejia Work Phone: [facility] Work Phone: Start: 05-28-2023 End: 05-28-2023 ambulatory ALTHEA UMANA Not Available Start: 05-23-2023 End: 05-23-2023 ambulatory THERESE BARBER Not Available Start: 05-20-2023 Non-patient / Non-visit MD Kasey Mejia Work Phone: [facility] Work Phone: Start: 05-13-2023 End: 05-13-2023 ambulatory MOHSEN HARMON Not Available Start: 05-10-2023 End: 05-10-2023 ambulatory [facility] Work Phone: Start: 05-10-2023 End: 05-10-2023 Patient encounter procedure [facility] Work Phone: Start: 05-03-2023 End: 05-03-2023 ambulatory Kasey Mejia Other [employer] Other Start: 05-03-2023 Telephone encounter Kasey Mejia [facility] Start: 04-29-2023 End: 04-29-2023 ambulatory Kasey Mejia Other [employer] Other Start: 04-29-2023 Office outpatient visit 15 minutes Kasey Mejia [facility] Start: 04-26-2023 End: 04-26-2023 ambulatory KASEY MEJIA Facility:[facility] Start: 04-23-2023 End: 04-23-2023 ambulatory Michelle Jones Other [employer] Other Start: 04-23-2023 Telephone encounter Michelle Jiménez her [facility] Start: 04-22-2023 End: 04-23-2023 ambulatory MIHCELLE JONES Not Available Start: 04-20-2023 End: 04-20-2023 ambulatory Kasey Mejia Other [employer] Other Start: 04-20-2023 Telephone encounter Kasey Mejia [facility] Start: 04-17-2023 End: 04-17-2023 ambulatory Kasey Mejia Other [employer] Other Start: 04-17-2023 Office outpatient visit 15 minutes Michelle Jones [facility] Start: 04-17-2023 Telephone encounter Kaseyguy Mejia [facility] Start: 04-17-2023 End: 04-17-2023 Patient encounter procedure [facility]- Start: 04-15-2023 End: 04-15-2023 ambulatory Kasey Mejia Other [employer] Other Start: 04-15-2023 Telephone encounter Kasey Mejia [facility] Start: 04-11-2023 End: 04-11-2023 ambulatory Kasey Mejia Other [employer] Other Start: 04-11-2023 Telephone encounter Kasey Mejia [facility] Start: 04-10-2023 End: 04-11-2023 ambulatory KASEY MEJIA Not Available Start: 04-09-2023 End: 04-09-2023 ambulatory Kasey Mejia Other [employer] Other Start: 04-09-2023 Telephone encounter Kasey Jackie [facility] Start: 04-02-2023 End: 04-02-2023 ambulatory Kasey Mejia Other [employer] Other Start: 04-02-2023 Telephone encounter Kasey Jackie [facility] Start: 04-01-2023 End: 04-01-2023 ambulatory Kasey Mejia Other [employer] Other Start: 04-01-2023 Office outpatient visit 25 minutes Kasey Mejia [facility] Start: 04-01-2023 End: 04-01-2023 Patient encounter procedure [facility] Work Phone: Start: 03-29-2023 (Televisit) Televisit Kasey Mejia [facility] Start: 03-29-2023 End: 03-29-2023 ambulatory Kasey Mejia Other [employer] Other Start: 03-29-2023 End: 03-29-2023 Patient encounter procedure [facility] Work Phone: Start: 01-17-2023 End: 01-17-2023 ambulatory Kasey Mejia Other [employer] Other Start: 01-17-2023 Telephone encounter Kasey Mejia [facility] Start: 05-04-2020 End: 05-04-[address] MOISES FIGUEROA Facility: Plan of Treatment Date Care Activity Detail Author Start: 06-13-2023 EKG 12 channel panel [facility] Start: 06-03-2023 Patient referral [facility] Work Phone: Cefuroxime free [Mas s/volume] in Serum or Plasma [facility] Patient referral [facility] Work Phone: [facility] Payers Date Payer Category Payer Self-pay [id number] 2023 Private Health Insurance [id number] 2023 Unknown [id number] 1990 Unknown [id number] 1990 Unknown [id number] .16.84 [id number] 1992 Unknown [id number] .16.84 [id number] 1992 Unknown [id number] .16.84 [id number] 1992 Unknown [id number] .16.84 [id number] 1992 Unknown [id number] 2.16.84 [id number] 1990 Unknown [id number] 2.16.84 [id number] 1959 Private Health Insurance [id number] Medicaid [employer] [id number] Private Health Insurance [id number] Unknown [id number] 2.16.8 [id number] Social History Date Type Detail Facility Unknown if ever smoked [facility] [place] Other Sex Assigned At Sex Assigned At Bir th [facility] [place] Other Start: 05-09-2023 Tobacco smoking status [facility] Smoker (finding) [facility] Start: 1990 Sex Assigned At Female F [facility] Start: 06-13-2023 Tobacco smoking status [facility] Ex-smoker (finding) [facility] Clinical Notes 01-17-2023 to 04-29-2023 Note Date & Type Note Facility 04-29-2023 Evaluation note Encounter Date Diagnosis Assessment Notes Apr, Acute nonintractable headache, unspecified headache type (ICD-10 - R51.9) Discussed MRI - r/o tumor or other cause of L yazidi pain, L nasal congestion Apr, Tachycardia (ICD-10 - R00.0) Pt will complete the labs ordered by [facility]. Discussed possible cardio referral, Will check holter to gather information on the intermittent tachycardia. [employer] [facility] [place] Other 02-02-2024 NoteHNO ID: [id number] Author: SATHISH OROZCO MD Service: ? Author Type: Physician Type: Progress Notes Filed: 04/26/2023 13:50 Note Text: [facility] Initial Clinic Visit Note Referring Physician: Kasey Mejia MD My final recommendations will be communicated back to the requesting physician by way of shared medical record or letter via US mail. Subjective: Chaz Oliveira is a 32 year old female self [...] having palpitations again. She takes care of [employer], denies any work related stress REVIEW OF [...] HISTORY: Lives with She takes care of [employer] PHYSICAL EXAM: BP 140/80 Pulse 103 Temp [...] these labs are normal (more content not included)...[facility] 04-17-2023 Evaluation note* Encounter Date Diagnosis Assessment Notes Treatment Notes Treatment Clinical Notes Mar, Hyperthyroidism (ICD-10 - E05.90) [employer] Other 01-24-2024 Evaluation note* Encounter Date Diagnosis Assessment Notes Treatment Notes Treatment Clinical Notes Mar, Allergic eye reaction (ICD-10 - [...] advised not to take NSAIDs while using steroids.Supportive care as directed. May take a daily antihistamine. Rest and push fluids. Pt understood and agreed to treatment plan. Mar, Sensation of lump in throat (ICD-10 - R09.A2) Due to symptoms will rule out cause due to an enlarge thyroid or thyroid nodule. Ordered faxed to [facility]. Will call with results and [facility]. Pt verbalizes understanding and agrees to plan of care. Mar, Increased heart rate (ICD-10 - R00.0) [employer] Other 01-08-2024 Evaluation note* Encounter Date Diagnosis Assessment Notes Treatment Notes Treatment Clinical Notes Mar, Viral illness (ICD-10 - B34.9) LFTs elevated, check monotest Mar, Weight loss, unintentional (ICD-10 - R63.4) pt concerned about cancer. recheck thryoid (checked and normal in Dec) and CT Mar, LUQ abdominal pain (ICD-10 - R10.12) r/o pancreatitis Mar, Anxiety, generalized (ICD-10 - F41.1) start med and f/u in 1 month if not sooner. [employer] Other 01-05-2024 Evaluation note* Encounter Date Diagnosis Assessment Notes Treatment Notes Treatment Clinical Notes Mar, Illness (ICD-10 - R69) I cannot diagnosis Chaz's various symptoms into a specific diagnosis or treatment. She feels very poorly. Agreed to have her take her to the ER directly. If she came to office, I would send her for testing anyways. We discussed differential including heart issues or even pneumonia with dehydration. Pt expresses understanding. [employer] Other [id number] Evaluation note* Encounter Date Diagnosis Assessment Notes Treatment Notes Treatment Clinical Notes Dec, Serum calcium elevated (ICD-10 - E83.52) [employer] Other Evaluation noteNo [facility] [place] Other Evaluation note* Diagnosis Onset Date Resolution Status Autoimmune connective tissue disorder acute Swallowing dysfunction acute [facility] Work Phone: Evaluation note* Diagnosis Onset Date Resolution Status Autoimmune connective tissue disorder acute Swallowing dysfunction acute Weight loss, non-intentional acute Autoimmune connective tissue disorder acute Tachycardia acute [facility] Work Phone: Evaluation note* Diagnosis Onset Date Resolution Status Autoimmune connective tissue disorder acute Swallowing dysfunction acute Weight loss, non-intentional acute Autoimmune connective tissue disorder acute Tachycardia acute Anxiety, generalized acute Autoimmune connective tissue disorder acute Cardiac murmur acute Swallowing dysfunction acute Tachycardia acute Weight loss, non-intentional acute [facility] Work Phone: History general Narrative - Reported* Type Description Date Medical History hx of migraines Surgical History tonsillectomy Surgical History tubal ligation Hospitalization History childbirth [facility] [place] Other Summary Purpose Family History Relationship Condition Age at Onset Recorded Date/T mignon father Hypertension Unknown Advance Directives Advance Directive Response Recorded Date/ Time Advance Directives No April 9:53am Advance Directive Response Recorded Date/ Time Advance Directives No April 10:53am Reason for Referral Reason *FU 04/26 tachycar geovani, weight loss, eye problems, thyroid US pending. Diagnosis 1 Hyperthyroidism (E05 .90) Referral Organization [facility] charline Referring Provider First Name Kasey Referring Provider Last Name Jackie Referring Provider Specialty Family [facility] Referred Organization [facility] Referred Address [address] [place], [place],[address] Referred Provider Specialty Endocrinolog y Referral Priority Routine General Notes Yuliana Mcwilliams 06:26:22 AM >received today, attachments made, referral form filled out, notes locked, referral faxed Chief Complaint and Reason for Visit Chief Complaint Possible Covid , Is Testing [phone] Follow Up Labs Eyes-Swollen, Watery On-Going Symptoms Reason for Visit Autoimmune connectiv e tissue disorder Swallowing dysfunction Chief Complaint Possible Covid , Is Testing [phone] Follow Up Labs Eyes-Swollen, Watery On-Going Symptoms Amb Documentation FOLLOW UP Tachycardia Reason for Visit Autoimmune connectiv e tissue disorder Swallowing dysfunction Weight loss, non-intentional Autoimmune connective tissue disorder Tachycardia Chief Complaint Possible Covid , Is Testing [phone] Follow Up Labs Eyes-Swollen, Watery On-Going Symptoms Amb Documentation FOLLOW UP Tachycardia R00.0 R01.1 M35.9 Reason for Visit Autoimmune connectiv e tissue disorder Swallowing dysfunction Weight loss, non-intentional Autoimmune connective tissue disorder Tachycardia Anxiety, generalized Autoimmune connective tissue disorder Cardiac murmur Swallowing dysfunction Tachycardia Weight loss, non-intentional Additional Source Comments INFORMATION SOURCE (unrecogn ized section and content) DATE CREATED AUTHOR 09/26/2021 [facility] DATE CREATED AUTHOR AUTHOR'S ORGANIZ ATION 04/27/2023 [facility] DATE CREATED AUTHOR AUTHOR'S ORGANIZ ATION 06/12/2023 [facility] DATE CREATED AUTHOR AUTHOR'S ORGANIZ ATION 06/16/2023 [facility] REASON FOR VISIT (unrecogniz ed section and content) labsPOSSIBLE COVID , IS TEST ING [id number] up labsmessageRefillCT resultrefillNo InformationthyroidEyes-Swollen, WateryUS resultssame symptoms, results from endocrineMRI Care Teams (unrecognized sec tion and content) Team Status: Active Member Role Status Dates Kasey Mejia MD Primary Care Provider Active Team Status: Inactive Member Role Status Dates Kasey Mejia MD Attending Provider Active St art: March 29, 2023 End: March 29, 2023 Team Status: Inactive Member Role Status Dates Kasey Mejia MD Attending Provider Active St art: April 01, 2023 End: April 01, 2023 Team Status: Inactive Member Role Status Dates Michelle Jones APRN [employer] Attending Provider Act husam Start: April 17, 2023 End: April 17, 2023 Team Status: Inactive Member Role Status Dates Enedelia Walker MD Primary Care Provider Active S tart: May 10, 2023 End: May 10, 2023 Kasey Mejia MD Attending Provider Active St art: May 10, 2023 End: May 10, 2023 Team Status: Active Member Role Status Dates Enedelia Walker MD Primary Care Provider Active S tart: May 20, 2023 MYLENE Stephens Attending Provider Active Start : May 20, 2023 Team Status: Inactive Member Role Status Dates Kasey Mejia MD Primary Care Provide r, Attending Provider Active Start: June 03, 2023 End: June 03, 2023 Team Status: Inactive Member Role Status Dates Kasey Mejia MD Primary Care Provider Active Start: June 13, 2023 End: June 13, 2023 Mariah Hardin MD Attending Provider Active Sta rt: June 13, 2023 End: June 13, 2023 Team Status: Active Member Role Status Dates Kasey Mejai MD Primary Care Provider Active Start: June 13, 2023 Mariah Hardin MD Attending Provider Active Sta rt: June 13, 2023 Team Status: Active Member Role Status Dates Enedelia Walker MD Primary Care Provider Active Team Status: Active Member Role Status Dates Kasey Mejia MD Primary Care Provide r, Attending Provider Active Start: June 11, 2023 Team Status: Inactive Member Role Status Carlos Mejia MD Primary Care Provider Active Start: June 21, 2023 End: June 21, 2023 Mariah Hardin MD Attending Provider Active Sta rt: June 21, 2023 End: June 21, 2023 Goals (unrecognized section and content) Goals [...] BE BASED ON THE PRIMARY CLINICAL RECORDS. [facility]. provides no warranty or guarantee of the accuracy or completeness of information in this document.
[2023-07-04 12:47] LABS: Basophils Percent Auto 0.5 % (0.2-2.0); Eosinophils Absolute Auto 0.1 10^3/uL (0.0-0.7); Eosinophils Percent Auto 1.5 % (0.9-7.0); Hematocrit 35.8 % (36.0-48.0); Hemoglobin 12.2 g/dL (12.0-16.0); Immature Granulocytes Abs Auto 0.01 10^3/uL (0.00-0.03); Immature Granulocytes Pct Auto 0.1 % (0.0-0.5); Lymphocytes Absolute Auto 1.6 10^3/uL (1.2-3.8); Lymphocytes Percent Auto 19.2 % (20.5-60.0); Mean Corpuscular HGB Conc 34.1 g/dL (29.9-35.2); Mean Corpuscular Hemoglobin 29.6 pg (26.7-34.0); Mean Corpuscular Volume 86.9 fL (81.0-99.0); Monocytes Absolute Auto 0.5 10^3/uL (0.3-0.8); Monocytes Percent Auto 6.2 % (1.7-12.0); Neutrophils Percent Auto 72.5 % (43.0-75.0); Platelet Count 251 10^3/uL (150-450); Red Blood Count 4.12 10^6/uL (4.20-5.40); Red Cell Distribution Width 11.9 % (11.0-15.0); White Blood Count 8.3 10^3/uL (4.0-11.0)
[2023-07-04 13:48] LABS: Percent Iron Saturation 10.9 %
[2023-07-04 13:52] LABS: Free T4 0.85 ng/dL (0.76-1.46)
[2023-07-04 13:57] LABS: Anion Gap 12.9; Carbon Dioxide 27.1 mmol/L (21.0-32.0); Chloride 105 mmol/L (98-107); Estimated GFR (African America >60 (>=60); Estimated GFR (Non-African Ame >60 (>=60); Glucose 108 mg/dL (74-106); Sodium 141 mmol/L (136-145); Thyroid Stimulating Hormone 1.348 uIU/mL (0.358-3.740)
== END 2023-07-04 12:11 | disposition home or self-care (01) ==
LOC: LAB 12:10
PROVIDERS: PCP Family Medicine
DX: R01.1 Cardiac murmur, unspecified (principal); R00.0 Tachycardia, unspecified; R63.4 Abnormal weight loss; F41.1 Generalized anxiety disorder
CPT/HCPCS: 36415; 80048; 83540; 83550; 84439; 84443; 85025

== ENCOUNTER 2023-07-05 22:28 | Emergency (ER) | payer OTHER, SELFPAY ==
[2023-07-05] VITALS (8 sets, daily range): BP systolic 146; BP diastolic 97; PULSE 68–84; TEMP 36.6; O2SAT 97–100; BMI 20.7
--- OUTSIDE RECORDS SUMMARY | 2023-07-05 22:40 | XMS_ITS | CCD ---
Author Organization [facility] Care Team Providers Care Blade Aligner Name Role Phone DR MOISES FIGUEROA Attending [...] Hardin Attending Provider Mariah Hardin Attending Unavailable Kasey Mejia Primary Care Unavailable Mariah Hardin Admitting Unavailable Mariah Hardin Attending Unavailable Kasey Mejia Primary Care Unavailable Mariah Hardin Admitting Unavailable Allergies Allergy Classification Reported Allergen(s) Allergy Type Date of Onset Reaction(s) Facility (14 sources) Levamisole Drug Allergy 10-21-2013 Unknown [facility] Repository (14 sources) Nalbuphine Drug Allergy 10-21-2013 Unknown [facility]ository (5 sources) Nalbuphine; Translations: [nalbuphine] Drug Allergy 05-10-2023 [facility] (5 sources) Promethazine; Translations: [promethazine] Drug Allergy 05-10-2023 [facility] Medications Current Medications Medication Drug Class(es) Dates [...] Translations: [Headache, Unspecified] Episodic Heart valve disorders (4 sources) Heart murmur; Translations: [Cardiac murmur, unspecified] Onset: 06-21-2023 06-13-2023 Episodic Other eye disorders (1 source) [...] Systemic lupus erythematosus and connective tissue disorders (13 sources) Autoimmune connective tissue disorder; 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, unspecified] Onset: 06-21-2023 05-10-2023 Chronic Thyroid disorders (7 sources) Hyperthyroidism; [...] Test Name Value Interpretation Reference Range Facility [facility] echo transthoracicon [facility] echo transthoracic [facility] [place] [address] Echocardiogram Signed Patient: Chaz Oliveira MR#: [id number] : 1990 Acct:[id number] Age/Sex: 32 / F ADM Date: 06/21/23 Loc: Room: Type: [facility] Attending Dr: Mariah Hardin MD Ordering Provider: Mariah Hardin MD Date of Service: 06/21/23 [facility] echo transthoracic: R00.0 - Tachycardia, unspecified Copies to: MD Marcelo Brooks MD Weight: 115 lb Performed By: NORY Jasso BSA: 1.5 m2 BP: 117/93 mmHg HR: 98 Reason For Study: R00.0 - Tachycardia, unspecified History: vape use Interpretation Summary Mild concentric left ventricular hypertrophy. Ejection Fraction = 60-65%. A variety of Doppler measurements indicate normal left ventricular diastolic function. Procedure/Quality: A two-dimensional transthoracic echocardiogram with color flow and Doppler was performed. The study was technically good in quality. Left Ventricle: The left ventricular size is normal. Mild concentric left ventricular hypertrophy. Ejection Fraction = 60-65%. A variety of Doppler measurements indicate normal left ventricular diastolic function. No left ventricular thrombus or mass is seen. Left Atrium: The left atrium appears normal in size. The atrial septum appears normal. Right Atrium: The right atrium appears normal in size. Right Ventricle: The right ventricular size, thickness and function are normal. Aortic Valve: The aortic valve is normal in structure and function. Mitral Valve: The mitral valve is normal in structure. Tricuspid Valve: The tricuspid valve is normal in structure and function. Pulmonic Valve: The pulmonic valve is not well visualized. Arteries: The aortic root is normal size. The aortic arch was visualized and no abnormalities were seen. Pericardium/Pleura: No pericardial effusion seen. There is no pleural effusion. IVC/Hepatic Veins: The inferior vena cava is normal in size, with a normal collapsibility index. Measurements with Normals IVSd: 1.3 cm (0.7-1.1 cm)LVIDd: 3.7 cm (3.7-5.4 cm) LVPWd: 1.2 cm (0.7-1.1 cm)LVIDs: 2.6 cm (2.3-3.6 cm) LA dimension: 2.6 cm (2.3-4.0 cm)Ao root diam: 2.6 cm(2.0-3.6 cm) asc Aorta Diam: 2.9 cm(2.1-3.4cm) Doppler with Normals LV V1 max: 99.4 cm/sec (0.7-1.7m/s)MV E max alex: 75.0 cm/sec(0.8-1.3m/s) MV A max alex: 76.3 cm/sec(0.0-0.0m/s) MV E/A: 0.98 (<1.5) MMode/2D Measurements Calculations TAPSE: 2.4 cm FS: 30.6 % Ao root area: LVOT diam: 2.0 cm RV S Alex: EDV(Teich): 5.4 cm2 LVOT area: 3.0 cm2 11.7 cm/sec 59.4 ml ESV(Teich): 24.4 ml EF(Teich): 58.9 % __ LVLd ap4: 7.2 cm SV(MOD-sp4): LAV(MOD-sp4): LA A2 area: 8.1 cm2 EDV(MOD-sp4): 33.5 ml 15.1 ml 56.5 ml LAV(MOD-sp2): LA A4 area: 9.3 cm2 LVLs ap4: 5.7 cm 14.5 ml LA length (vol): ESV(MOD-sp4): 4.4 cm 23.0 ml LA vol: 14.6 ml EF(MOD-sp4): 59.3 % LA vol index: 9.7 ml/m2 Doppler Measurements Calculations MV dec time: E/E' lat: MV dec slope: Ao V2 max: 0.14 sec 6.1 126.9 cm/sec E/E' med: 546.0 cm/sec2 Ao max P.4 mmHg 7.1 Ao mean P.1 mmHg Ao V2 mean: 98.7 cm/sec Ao V2 VTI: 22.4 cm ROBER(I,D): 2.6 cm2 ROBER(V,D): 2.4 cm2 __ LV V1 max P.0 mmHg LV V1 mean P.3 mmHg LV V1 mean: 70.8 cm/sec LV V1 VTI: 19.4 cm Transcribed By: SCV Performed At: 06/21/23 1253 Signed By: Marcelo Hazel MD 06/21/23 1634 Normal [facility] ECG 12 lead ECGon 06-13-2023 ECG 12 lead ECG [facility] [place] [address] Electrocardiograph Report Signed Patient: Chaz Oliveira MR#: [id number] : 1990 Acct:[id number] Age/Sex: 32 / F ADM Date: 06/13/23 Loc: EKGCARDIO Room: Type: [facility] Attending Dr: Mariah Hardin MD Ordering Provider: Mariah Hardin MD Date of Service: 06/13/23 ECG/ECG 12 lead ECG: R00.0 - Tachycardia, unspecified Copies to: Test Reason : Blood Pressure : / mmHG Vent. Rate : 088 BPM Atrial Rate : 088 BPM P-R Int : 152 ms QRS Dur : 086 ms QT Int : 344 ms P-R-T Axes : 065 068 067 degrees QTc Int : 416 ms Normal sinus rhythm Normal ECG No previous ECGs available Confirmed by Presley Ceja ([id number]) on 07/03/2023 5:46:47 PM Referred By: Electronically Signed By:Presley Ceja Transcribed By: MUS Signed By Presley Ceja MD 07/03/23 1746 Normal [facility] Human papilloma virus 16 DNA [Presence] in Cervix by Probe with signal amplificationon 06-11-2023 HPV 16 DNA Probe+sig amp Ql (Cvx) Negative Negative [facility] Human papilloma virus 16+18+ 31+33+35+39+45+51+52+56+58+59+66+68 DNA [Presence] in [place] 06-11-2023 HPV 16+18+31+33+35+39+45+ 51+52+56+58+59+66+68 DNA Probe+sig amp Ql (Cvx) Positive Negative [facility] Comment on above: This nucleic acid am plification test detects fourteen high- risk HPV types (16,18,31,33,35,39,45,51,52,56,58,59,66,68)without differentiation. No Panel Informationon 06-10 HPV Genotype 18/45 (PCR) Negative Negative [facility] Comment on above: Performed at: =G - [facility] [address] [id number] Director: Cyndi Ramírez MD, Phone: [phone] at: WB - [facility] [address] [id number] Director: Cyndi Ramírez MD, Phone: [phone] HPV High Risk Other Comment Note . [facility] Comment on above: TESTS RESULT FLAG UN ITS REF RANGE LAB D IAGNOSIS: 02 NEGATIVE FOR INTRAEPITHELIAL LESION OR MALIGNANCY.Specimen adequacy: 02 Satisfactory for evaluation. Endocervical and/or squamous metaplastic cells (endocervical component) are present.Performed by: 02 Brittany Romero, Prep Person ([facility]). 02Note: Note 02 The Pap [...] High <-Panic Low,>-Panic High,A-Abnormal,AA-Critical Abnormal ----Performed at:[address] [address] Cyndi Ramírez MD, Reference Lab Test Patient Age Note . [facility] Comment on above: TESTS RESULT FLAG UN ITS REF RANGE LAB Clinician Provided Cytology Information Source.............Cervix;Endocervix No. of containers..01 ThinPrep VialAge Jeffchad ANDREWOG Yesica... 30-65 FLAG LEGEND: L-Low Normal,H-High Normal,LL-Alert Low,HH-Alert High <-Panic Low,>-Panic High,A-Abnormal,AA-Critical Abnormal ----Performed at:01 =[facility] [employer] [address] [address] Cyndi Ramírez MD, Laboratory - Hematology and Cell countson 05-10-2023 ESR (Bld) [Velocity] 3 mm/h <=20 [facility] No Panel Informationon 05-10 Cardiac C-Reactive Protein 0.19 mg/L 0.00-3.00 [facility] Comment on above: Relative Risk for Fu ture Cardiovascular Event Low <1.00 Average 1.00 - 3.00 High >3.00Performed at: [employer] [id number] Director: Ryan Richardson PhD, Phone: [phone] Serum or plasma free cefurox mignon measurement (mass/volume)on 05-10-2023 Cefuroxime free [Mass/Vol] Negative Negative [facility] Comment on above: Performed at: [employer] [address] [id number] Director: Ryan Richardson PhD, Phone: [phone] CNOVon 04-26-2023 CNOV Office Visit (ENWSTR ) CHAZ OLIVEIRA ([id number]) 1990 F Date Time Provider Department 04/26/23 [...] HISTORY: Lives with She takes care of [employer] PHYSICAL EXAM: BP 140/80 Pulse 103 Temp [...] if they (more content not included)... Normal [facility] US THYROIDon 04-22-2023 US THYROID EXAMINATION: [...] Data System (TI- RADS) established by the [employer] to help provide guidance [...] 76 mm[Hg] MD Kasey Mejia Work Phone: [facility] 06-13-2023 09:45-0400 Heart rate 106 /min MD Kasey Mejia Work Phone: [facility] 06-13-2023 09:45-0400 Systolic blood pressure 138 mm[Hg] MD Kasey Mejia Work Phone: [facility] 06-13-2023 09:39-0400 Body height 160.02 cm MD Kasey Mejia Work Phone: [facility] 06-13-2023 09:39-0400 Body mass index (BMI) [Ratio] 20.5 kg/m2 MD Kasey Mejia Work Phone: [facility] 06-13-2023 09:39-0400 Body weight 52.61 kg MD Kasey Mejia Work Phone: [facility] 06-13-2023 09:39-0400 Respiratory rate 18 /min MD Kasey Mejia Work Phone: [facility] 06-13-2023 09:39-0400 SaO2% (BldA) [Mass fraction] 99 % MD Kasey Mejia Work Phone: [facility] 06-03-2023 09:32-0400 Body height 160.02 cm MD Kasey Mejia Work Phone: [facility] 06-03-2023 09:32-0400 Body mass index (BMI) [Ratio] 20.5 kg/m2 MD Kasey Mejia Work Phone: [facility] 06-03-2023 09:32-0400 Body weight 52.73 kg MD Kasey Mejia Work Phone: [facility] 06-03-2023 09:32-0400 Diastolic blood pressure 90 mm[Hg] MD Kasey Mejia Work Phone: [facility] 06-03-2023 09:32-0400 Heart rate 111 /min MD Kasey Mejia Work Phone: [facility] 06-03-2023 09:32-0400 Systolic blood pressure 132 mm[Hg] MD Kasey Mejia Work Phone: [facility] 05-10-2023 10:15-0500 Body height 160.02 cm [facility] 05-10-2023 10:01-0500 Body mass index (BMI) [Ratio] 19.1 kg/m2 [facility] 05-10-2023 10:01-0500 Body weight 49.12 kg [facility] 05-10-2023 10:01-0500 Diastolic blood pressure 98 mm[Hg] [facility] 05-10-2023 10:01-0500 Heart rate 98 /min [facility] 05-10-2023 10:01-0500 Systolic blood pressure 134 mm[Hg] [facility] 04-29-2023 09:15-0500 Body height 160.02 cm Kasey Mejia Other [facility] [employer] Other 04-29-2023 09:15-0500 Body mass index (BMI) [Ratio] 18.63 kg/m2 Kasey Mejia Other [employer] [facility] [employer] Other 04-29-2023 09:15-0500 Body weight 47.72 kg Kasey Mejia Other [employer] [facility] [employer] Other 04-29-2023 09:15-0500 Diastolic blood pressure 86 mm[Hg] Kasey Mejia Other [employer] [facility] [employer] Other 04-29-2023 09:15-0500 Systolic blood pressure 132 mm[Hg] Kasey Mejia Other [employer] Other 04-17-2023 14:00-0500 Body height 160.02 cm Michelle Floresadarsh Other [facility] 04-17-2023 14:00-0500 Body mass index (BMI) [Ratio] 18.78 kg/m2 Michelle Floresadarsh Other [facility] [employer] Other 04-17-2023 14:00-0500 Body weight 48.08 kg Michelle Floresadarsh Other [facility] 04-17-2023 14:00-0500 Diastolic blood pressure 86 mm[Hg] Michelle Robert Other [facility] 04-17-2023 14:00-0500 Systolic blood pressure 138 mm[Hg] Michelle Robert Other [facility] 04-01-2023 10:15-0500 Body height 160.02 cm Kasey Mejia Other [facility] 04-01-2023 10:15-0500 Body mass index (BMI) [Ratio] 17.68 kg/m2 Kasey Mejia Other [employer] [facility] [employer] Other 04-01-2023 10:15-0500 Body temperature 98.1 [degF] Kasey Mejia Other [employer] Other 04-01-2023 10:15-0500 Body weight 45.27 kg Kasey Mejia Other [employer] Other 04-01-2023 10:15-0500 Body weight 45.26 kg [facility] 04-01-2023 10:15-0500 Diastolic blood pressure 99 mm[Hg] Kasey Mejia Other [facility] 04-01-2023 10:15-0500 Systolic blood pressure 150 mm[Hg] Kasey Mejia Other [facility] 03-29-2023 13:15-0500 Body height 160.02 cm Kasey Mejia Other [facility] Encounters Encounter Date Encounter Type Care Provider Facility Start: 06-21-2023 End: 06-21-2023 ambulatory [facility] Facility:[facility] Start: 06-21-2023 End: 06-21-2023 ambulatory MD Kasey Mejia Work Phone: [facility] Work Phone: Start: 06-21-2023 End: 06-21-2023 Patient encounter procedure MD Kasey Mejia Work Phone: [facility] Work Phone: Start: 06-13-2023 End: 06-13-2023 ambulatory [facility] Facility:[facility] Start: 06-13-2023 End: 06-13-2023 ambulatory MD Kasey Mejia Work Phone: [facility] Work Phone: Start: 06-13-2023 End: 06-13-2023 Patient encounter procedure MD Kasey Mejia Work Phone: [facility] Work Phone: Start: 06-11-2023 End: 06-11-2023 ambulatory MOHSEN EDEN Not Available Start: 06-11-2023 Non-patient / Non-visit MD Kasey Mejia Work Phone: [facility] Work Phone: Start: 06-03-2023 End: 06-03-2023 Patient encounter procedure MD Kasey Mejia Work Phone: [facility] Work Phone: Start: 05-28-2023 End: 05-28-2023 ambulatory ALTHEA UMANA Not Available Start: 05-23-2023 End: 05-23-2023 ambulatory THERESE BARBER Not Available Start: 05-20-2023 Non-patient / Non-visit MD Kasey Mejia Work Phone: [facility] Work Phone: Start: 05-13-2023 End: 05-13-2023 ambulatory MOHSEN HARMON Not Available Start: 05-10-2023 End: 05-10-2023 ambulatory [facility] Work Phone: Start: 05-10-2023 End: 05-10-2023 Patient encounter procedure [facility] Work Phone: Start: 05-03-2023 End: 05-03-2023 ambulatory Kasey Mejia Other [employer] Other Start: 05-03-2023 Telephone encounter Kasey Mejia [facility] Start: 04-29-2023 End: 04-29-2023 ambulatory Kasey Mejia Other [employer] Other Start: 04-29-2023 Office outpatient visit 15 minutes Kasey Mejia [facility] Start: 04-26-2023 End: 04-26-2023 ambulatory KASEY MEJIA Facility:[facility] Start: 04-23-2023 End: 04-23-2023 ambulatory Michelle Jones Other [employer] Other Start: 04-23-2023 Telephone encounter Michelle Jiménez her [facility] Start: 04-22-2023 End: 04-23-2023 ambulatory MICHELLE JONES Not Available Start: 04-20-2023 End: 04-20-2023 ambulatory Kasey Mejia Other [employer] Other Start: 04-20-2023 Telephone encounter Kasey Mejia [facility] Start: 04-17-2023 End: 04-17-2023 ambulatory Kasey Jackie Other [employer] Other Start: 04-17-2023 Office outpatient visit 15 minutes Michelle Robert [facility] Start: 04-17-2023 Telephone encounter Kasey Mejia [facility] Start: 04-17-2023 End: 04-17-2023 Patient encounter procedure [facility]- Start: 04-15-2023 End: 04-15-2023 ambulatory Kasey Jackie Other [employer] Other Start: 04-15-2023 Telephone encounter Kasey Mejia [facility] Start: 04-11-2023 End: 04-11-2023 ambulatory Kasey Jackie Other [facility] Other Start: 04-11-2023 Telephone encounter Kasey Mejia [facility] Start: 04-10-2023 End: 04-11-2023 ambulatory KASEY JACKIE Not Available Start: 04-09-2023 End: 04-09-2023 ambulatory Kasey Jackie Other [employer] Other Start: 04-09-2023 Telephone encounter Kasey Mejia [facility] Start: 04-02-2023 End: 04-02-2023 ambulatory Kasey Jackie Other [facility] Other Start: 04-02-2023 Telephone encounter Kasey Mejia [facility] Start: 04-01-2023 End: 04-01-2023 ambulatory Kasey Jackie Other [employer] Other Start: 04-01-2023 Office outpatient visit 25 minutes Kasey Mejia [facility] Start: 04-01-2023 End: 04-01-2023 Patient encounter procedure [facility] Work Phone: Start: 03-29-2023 (Televisit) Televisit Kasey Meyers [facility] Start: 03-29-2023 End: 03-29-2023 ambulatory Kasey Mejia Other [employer] Other Start: 03-29-2023 End: 03-29-2023 Patient encounter procedure [facility] Work Phone: Start: 01-17-2023 End: 01-17-2023 ambulatory Kasye Mejia Other [employer] Other Start: 01-17-2023 Telephone encounter Kasey Mejia [facility] Start: 05-04-2020 End: 05-04-[address] MOISES FIGUEROA Facility: Plan of Treatment Date Care Activity Detail Author Start: 06-13-2023 EKG 12 channel panel [facility] Start: 06-03-2023 Patient referral [facility] Work Phone: Cefuroxime free [Mas s/volume] in Serum or Plasma [facility] Patient referral [facility] Work Phone: US Heart Transthoracic [facility] Payers Date Payer Category Payer Self-pay [id number] 2023 Private Health Insurance [id number] 2023 Unknown [id number] 2. [id number] 1990 Unknown [id number] 2.16.84 [id number] 1990 Unknown [id number] 2.16.84 [id number] 1990 Unknown [id number] 2.16.84 [id number] 1990 Unknown [id number] 2.16.84 [id number] 1990 Unknown [id number] 2.16.84 [id number] 1990 Unknown [id number] 2.16.84 [id number] 1990 Unknown [id number] 2.16.84 [id number] 1957 Private Health Insurance [id number] Medicaid [employer] [id number] Private Health Insurance [id number] Unknown [id number] 2.16.8 [id number] Unknown [id number] 2.16.8 [id number] Social History Date Type Detail Facility Unknown if ever smoked [facility] Other Sex Assigned At Sex Assigned At Bir th [employer] Other Start: 05-09-[address] [facility] Smoker (finding) [facility] Start: 1990 Sex Assigned At Female F [facility] Start: 06-13-[address] [facility] Ex-smoker (finding) [facility] Clinical Notes 01-17-2023 to 04-29-2023 Note Date & Type Note Facility 04-29-2023 Evaluation note Encounter Date Diagnosis Assessment Notes Apr, Acute nonintractable headache, unspecified headache type (ICD-10 - R51.9) Discussed MRI - r/o tumor or other cause of L episcopalian pain, L nasal congestion Apr, Tachycardia (ICD-10 - R00.0) Pt will complete the labs ordered by [facility]. Discussed possible cardio referral, Will check holter to gather information on the intermittent tachycardia. [employer] Other 02-02-2024 NoteHNO ID: [id number] Author: SATHISH OROZCO MD Service: ? Author [...] having palpitations again. 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 Will call with results and [facility]. Pt verbalizes understanding and agrees to plan of care. Mar, Increased heart rate (ICD-10 - R00.0) [facility] Other 01-08-2024 Evaluation note* Encounter Date Diagnosis [...] f/u in 1 month if not sooner. [facility] Other 01-05-2024 Evaluation note* Encounter Date Diagnosis [...] even pneumonia with dehydration. Pt expresses understanding. [employer] Other [id number] Evaluation note* Encounter Date Diagnosis Assessment Notes Treatment Notes Treatment Clinical Notes Dec, Serum calcium elevated (ICD-10 - E83.52) [employer] Other Evaluation noteNo [employer] Other Evaluation note* Diagnosis Onset Date Resolution Status Autoimmune connective tissue disorder acute Swallowing dysfunction acute [facility] Work Phone: Evaluation note* Diagnosis Onset Date Resolution Status Autoimmune connective tissue disorder acute Swallowing dysfunction acute Weight loss, non-intentional acute Autoimmune connective tissue disorder acute Tachycardia acute [facility] Work Phone: Evaluation note* Diagnosis Onset Date Resolution Status Autoimmune connective tissue disorder acute Swallowing dysfunction acute Weight loss, non-intentional acute Autoimmune connective tissue disorder acute Tachycardia acute Anxiety, generalized acute Autoimmune connective tissue disorder acute Cardiac murmur acute Swallowing dysfunction acute Tachycardia acute Weight loss, non-intentional acute [facility] Work Phone: History general Narrative - Reported* Type Description Date Medical History hx of migraines Surgical History tonsillectomy Surgical History tubal ligation Hospitalization History childbirth [employer] Other Summary Purpose Family History No Family [...] Diagnosis 1 Hyperthyroidism (E05 .90) Referral Organization [facility] charline Referring Provider First Name Kasey Referring Provider Last Name Jackie Referring Provider Specialty Family [facility] Referred Organization [facility] Referred Address [address] [place], [place],[address] Referred Provider Specialty Endocrinolog y Referral Priority [...] DATE CREATED AUTHOR AUTHOR'S ORGANIZ ATION 04/27/2023 [facility] DATE CREATED AUTHOR AUTHOR'S ORGANIZ ATION 06/12/2023 [facility] EPIC DATE CREATED AUTHOR AUTHOR'S ORGANIZ ATION 07/05/2023 [facility] REASON FOR VISIT (unrecogniz ed section and content) labsPOSSIBLE COVID , IS TEST ING [id number] up labsmessageRefillCT resultrefillNo InformationthyroidEyes-Swollen, WateryUS resultssame symptoms, [...] Member Role Status Dates Michelle Jones APRN NIGHT AUDITORMaikel Attending Provider Act husam Start: April 17, 2023 End: April 17, 2023 Team Status: Inactive Member Role Status Carlos Walker MD Primary Care Provider Active S [...] 2023 Team Status: Active Member Role Status Carlos Mejia MD Primary Care Provider Active Start: June 13, 2023 Mariah Hardin MD Attending Provider Active Sta rt: June 13, 2023 Team Status: Active Member Role Status Carlos Walker MD Primary Care Provider Active Team [...] BE BASED ON THE PRIMARY CLINICAL RECORDS. [employer] [facility]. provides no warranty or guarantee of the accuracy or completeness of information in this document.
--- NOTE | 2023-07-05 22:46 | ED.GENADUL1 ---
HPI HPI - General Adult General Chief complaint: Chest Pain Stated complaint: cp Time Seen by Provider: 07/05/23 22:41 Source: patient Mode of arrival: walk-in Limitations: no limitations History of Present Illness HPI narrative: presents complaining of tachycardia. States recurrent problem for past 4 months. Followed by cardiology and was started on Inderal. States heart was racing again tonight at home. Arrives here and the tachycardia has resolved. Also complains of constipation. No vomiting or diarrhea. Last BM this AM but was small Related Data Home Medications ?Medication ?Instructions ?Recorded ?Confirmed alprazolam 0.25 mg tablet 0.25 mg PO BID PRN anxiety 07/05/23 07/05/23 famotidine 20 mg tablet 20 mg PO DAILY 07/05/23 07/05/23 propranolol 10 mg tablet 10 mg PO Q12H 07/05/23 07/05/23 Previous Rx's ?Medication ?Instructions ?Recorded pantoprazole 40 mg tablet,delayed 40 mg PO DAILY 4 weeks #28 tabs 05/18/23 release (Protonix) Allergies Allergy/AdvReac Type Severity Reaction Status Date / Time No Known Drug Allergies Allergy Verified 07/05/23 22:30 Opioid HPI Opioid Management Most Recent Opioid Data: No Data to Display Review of Systems ROS Status of ROS 10 or more systems reviewed and unremarkable except as noted in history and below PFSH PFSH Social History Smoking status: Current every day smoker Exam Constitutional Vital Signs, click to edit/add: Last Vital Signs Temp 97.8 F 07/05/23 22:31 Pulse 70 07/05/23 23:50 Resp 18 07/05/23 22:31 BP 146/97 H 07/05/23 22:32 Pulse Ox 99 07/05/23 23:50 O2 Del Method Room Air 07/05/23 22:31 Common normals: no apparent distress, average body habitus, oriented x3, no limitations, healthy appearing, alert and well nourished [facility] Common normals: normocephalic and head/scalp atraumatic Eye Common normals: EOMs intact bilaterally and conjunctivae normal Respiratory Common normals: normal respiratory effort, no retractions, no use of accessory muscles and clear to auscultation bilaterally Cardio Common normals: regular rate, regular rhythm, S1 normal heart sound and S2 normal heart sound GI Common normals: Normal to inspection, nondistended, normoactive bowel sounds present, soft to palpation and non-tender Extremity Common normals: normal to inspection and full ROM Neuro Common normals: oriented x3, CN's II-XII intact bilaterally, moves all extremities and no focal motor deficits Psych Mood and affect: anxious Course Vital Signs Vital signs: Vital Signs Temperature 97.8 F 07/05/23 22:31 Pulse Rate 84 07/05/23 22:31 Respiratory Rate 18 07/05/23 22:31 Blood Pressure 146/97 H 07/05/23 22:31 Pulse Oximetry 100 07/05/23 22:31 Oxygen Delivery Method Room Air 07/05/23 22:31 Temperature 97.8 F 07/05/23 22:31 Pulse Rate 70 07/05/23 23:50 Respiratory Rate 18 07/05/23 22:31 Blood Pressure 146/97 H 07/05/23 22:32 Pulse Oximetry 99 07/05/23 23:50 Oxygen Delivery Method Room Air 07/05/23 22:31 Medical Decision Making MDM Narrative Medical decision making narrative: presents with concern for tachycardia. States heart rate was rapid at home. Normal heart rate here. She was also concerned about constipation. EKG with incomplete RBBB and NSR. Cardiac troponin not detectable. cxray and abdominal films neg. Normal stool burden. 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 controls specialist Lab Data Labs: Lab Results 07/05/23 Range/Units 23:01 WBC 6.1 (4.0-11.0) 10^3/uL RBC 3.86 L (4.20-5.40) 10^6/uL Hgb 11.3 L (12.0-16.0) g/dL Hct 33.7 L (36.0-48.0) % MCV 87.3 (81.0-99.0) fL MCH 29.3 (26.7-34.0) pg MCHC 33.5 (29.9-35.2) g/dL RDW 12.0 (11.0-15.0) % Plt Count 208 (150-450) 10^3/uL MPV 11.1 (9.5-13.5) fL Neut % (Auto) 49.1 (43.0-75.0) % Lymph % (Auto) 35.4 (20.5-60.0) % [place] % (Auto) 12.0 (1.7-12.0) % Eos % (Auto) 2.5 (0.9-7.0) % Baso % (Auto) 0.7 (0.2-2.0) % Neut # (Auto) 3.0 (1.4-6.5) 10^3/uL Lymph # (Auto) 2.2 (1.2-3.8) 10^3/uL [place] # (Auto) 0.7 (0.3-0.8) 10^3/uL Eos # (Auto) 0.2 (0.0-0.7) 10^3/uL Baso # (Auto) 0.0 (0.0-0.1) 10^3/uL Abs Immat Gran (auto) 0.02 (0.00-0.03) 10^3/uL Imm/Tot Granulo (auto) 0.3 (0.0-0.5) % Sodium 140 (136-145) mmol/L Potassium 3.9 (3.5-5.1) mmol/L Chloride 105 (98-107) mmol/L Carbon Dioxide 28.1 (21.0-32.0) mmol/L Anion Gap 10.8 BUN 9.0 (7.0-18.0) mg/dL Creatinine 0.57 (0.55-1.02) mg/dL Est GFR ( Amer) >60 (>=60) Est GFR (Non-Af Amer) >60 (>=60) BUN/Creatinine Ratio 15.8 Glucose 102 (74-106) mg/dL Calcium 10.0 (8.5-10.1) mg/dL Troponin I High Sens <4.0 L (4.0-51.3) pg/mL Discharge Plan Discharge Stand Alone Forms: Portal Instructions Chief Complaint: Chest Pain Clinical Impression: Tachycardia Patient Disposition: Home, Self-Care Prescriptions / Home Meds: No Action pantoprazole [Protonix] 40 mg tablet,delayed release (DR/EC) 40 mg PO DAILY 28 Days Qty: 28 0RF alprazolam 0.25 mg tablet 0.25 mg PO BID PRN (Reason: anxiety) famotidine 20 mg tablet 20 mg PO DAILY propranolol 10 mg tablet 10 mg PO Q12H Print Language: Hungarian Instructions: Tachycardia (ED) Additional Instructions: follow up with your project controls specialist Referrals: Kasey Lowe MD [Primary Care Provider] - 1 week
--- NOTE | 2023-07-05 22:53 | ECG_ITS ---
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
--- NOTE | 2023-07-05 22:53 | XR_ITS ---
The [address] [address] Patient Name: CHAZ OLIVEIRA MRN: [id number] date: 1990 Sex: F Assigned Patient Location: ER Current Patient Location: ER Accession/Order Number: [id number] Exam Date: 07/05/2023 23:40 Report Date: 07/06/2023 00:03 At the request of: CANDY DENNIS Procedure: XR abdomen min 2V XR abdomen min 2V 07/05/2023 11:40 PM EDT CLINICAL INDICATION: Constipation COMPARISON: CT abdomen and pelvis 12/04/2017 TECHNIQUE: Supine and erect AP view of abdomen and pelvis FINDINGS: There are no tubes or implants noted. No definite free intraperitoneal air, portal venous gas or pneumatosis intestinalis. Small foci of air seen in the left upper quadrant and a supine view likely represent small foci of air seen in the left upper quadrant likely represent gas within the stomach. No dilated small bowel loops are identified. The regional bones are within normal limits. XR/XR abdomen min 2V IMPRESSION: Nonspecific bowel gas pattern. Small foci of air seen in the left upper quadrant and a supine view likely represent small foci of air seen in the left upper quadrant likely represent gas within the stomach. Unremarkable stool burden. CT for further evaluation as clinically warranted. Electronically authenticated by: MAGALYS GONZALEZ Date: 07/06/2023 00:03
--- NOTE | 2023-07-05 22:53 | XR_ITS ---
The [place] [id number] Patient Name: CHAZ OLIVEIRA MRN: [id number] date: 1990 Sex: F Assigned Patient Location: ER Current Patient Location: ER Accession/Order Number: [id number] Exam Date: 07/05/2023 23:40 Report Date: 07/05/2023 23:59 At the request of: CANDY DENNIS Procedure: XR chest 1V XR chest 1V 07/05/2023 11:40 PM EDT CLINICAL INDICATION: Tachycardia COMPARISON: 03/29/2023 TECHNIQUE: Portable semiupright AP view of the chest. FINDINGS: There are no tubes or implants noted. The cardiomediastinal silhouette and pulmonary vasculature are within normal limits. No focal parenchymal opacities. No pneumothorax or pleural effusion. No displaced rib fractures. Osseous structures demonstrate degenerative changes. Soft tissues are grossly normal. XR/XR chest 1V IMPRESSION: No acute cardiopulmonary abnormality. Electronically authenticated by: MAGALYS GONZALEZ Date: 07/05/2023 23:59
[2023-07-05 23:09] LABS: Basophils Percent Auto 0.7 % (0.2-2.0); Eosinophils Absolute Auto 0.2 10^3/uL (0.0-0.7); Eosinophils Percent Auto 2.5 % (0.9-7.0); Hematocrit 33.7 % (36.0-48.0); Hemoglobin 11.3 g/dL (12.0-16.0); Immature Granulocytes Abs Auto 0.02 10^3/uL (0.00-0.03); Immature Granulocytes Pct Auto 0.3 % (0.0-0.5); Lymphocytes Absolute Auto 2.2 10^3/uL (1.2-3.8); Lymphocytes Percent Auto 35.4 % (20.5-60.0); Mean Corpuscular HGB Conc 33.5 g/dL (29.9-35.2); Mean Corpuscular Hemoglobin 29.3 pg (26.7-34.0); Mean Corpuscular Volume 87.3 fL (81.0-99.0); Mean Platelet Volume 11.1 fL (9.5-13.5); Monocytes Absolute Auto 0.7 10^3/uL (0.3-0.8); Neutrophils Percent Auto 49.1 % (43.0-75.0); Platelet Count 208 10^3/uL (150-450); Red Blood Count 3.86 10^6/uL (4.20-5.40); White Blood Count 6.1 10^3/uL (4.0-11.0)
[2023-07-05 23:26] LABS: Anion Gap 10.8; BUN Creatinine Ratio 15.8; Carbon Dioxide 28.1 mmol/L (21.0-32.0); Chloride 105 mmol/L (98-107); Estimated GFR (African America >60 (>=60); Estimated GFR (Non-African Ame >60 (>=60); Glucose 102 mg/dL (74-106); Potassium 3.9 mmol/L (3.5-5.1); Sodium 140 mmol/L (136-145); Troponin I High Sensitivity <4.0 pg/mL (4.0-51.3)
== END 2023-07-06 00:26 | disposition home or self-care (01) ==
PROVIDERS: Emergency Provider Internal Medicine; PCP Family Medicine
DX: R00.0 Tachycardia, unspecified (principal); Z79.899 Other long term (current) drug therapy; F17.210 Nicotine dependence, cigarettes, uncomplicated
CPT/HCPCS: 36415; 71045; 74019; 80048; 84484; 85025; 93005; 99285

== ENCOUNTER 2023-08-12 09:34 | Outpatient (OUT) | payer OTHER, SELFPAY ==
[2023-08-13 12:12] LABS: Lyme Total Antibody CIA Negative (Negative)
[2023-08-14 07:13] LABS: QuantiFERON-TB Gold Plus Negative (Negative)
== END 2023-08-12 09:35 | disposition home or self-care (01) ==
LOC: LAB 09:36
PROVIDERS: PCP Family Medicine; Visit Provider Internal Medicine
DX: R63.4 Abnormal weight loss (principal); J40 Bronchitis, not specified as acute or chronic; K21.9 Gastro-esophageal reflux disease without esophagitis; A69.29 Other conditions associated with Lyme disease
CPT/HCPCS: 36415; 86480; 86618

== ENCOUNTER 2024-01-28 11:12 | Outpatient (OUT) | payer OTHER, SELFPAY ==
--- OUTSIDE RECORDS SUMMARY | 2024-01-28 11:23 | XMS_ITS | CCD ---
Author Organization [facility]Sym[facility] Care Team Providers Care Foundry Manager Name Role Phone DR MOISES CLEMONS Attending Unavailable CAROLINA, DR MOISES Melissa Consulting Unavailable DR MOISES CLEMONS Admitting Unavailable DR DOREEN MEJIA Primary Care Unavailable GEOVANNI ARREAGA Consulting Unavailable Doreen Mejia Unavailable Michelle Jones Unavailable MD Doreen Mejia Primary Care Provider [phone] MD Mariah Hardin Attending Provider DOREEN MEJIA Referring Unavailable MICHELLE JONES Referring Unavailab MOHSEN Hernandez Attending Unavailable THERESE BARBER Attending Unavailable KIMMY SMITH Referring Unavailable ALTHEA UMANA Attending Unavailable DOREEN MEJIA Referring Unavailable MOHSEN HARMON Attending Unavailable ALTHEA UMANA Attending Unavailable Doreen Mejia MD Unavailable Doreen Mejia MD Unavailable [phone] Doreen Mejia MD Primary Care Provider MD Mariah Hardin Referring Provider SATHISH OROZCO Referring Unavaila DOREEN Hansen Primary Care Unavailable , RANJITH Attending Unavailable DOREEN MEJIA Referring Unavailable DOREEN MEJIA Primary Care Unavailable SATHISH OROZCO Attending Unavaila DOREEN Hansen Referring Unavailable MD Doreen Mejia Primary Care Provider MD Mariah Hardin Attending Provider [phone] Mariah Hardin Attending Unavailable Mariah Hardin Admitting Unavailable Doreen Mejia Primary Care Unavailable Mariah Hardin Attending Unavailable Doreen Mejia Primary Care Unavailable Mariah Hardin Admitting Unavailable Mariah Hardin Attending Unavailable Mariah Hardin Referring Unavailable Mariah Hardin Admitting Unavailable Doreen Mejia Primary Care Unavailable Mariah Hardin Admitting Unavailable Mariah Hardin Attending Unavailable Doreen Mejia Primary Care Unavailable MARIAH HARDIN Referring Unavailab le GENERIC PROVIDER, NO ASSIGNED PCP Primary Care Unavailable Allergies Allergy Classification Reported Allergen(s) Allergy Type Date of Onset Reaction(s) Facility (16 sources) Levamisole Drug Allergy 4 Unknown [facility] Repository (14 sources) Nalbuphine Drug Allergy 4 Unknown [facility] Repository (15 sources) Nalbuphine; Translations: [NALBUPHINE] Drug Allergy 4 [facility], Other: See [facility] (15 sources) Promethazine; Translations: [PROMETHAZINE] Drug Allergy 4 [facility] (1 source) Levamisole; Translations: [LEVAMISOLE] Drug Allergy 4 [facility] Repository (1 source) ALLERGIES NOT ON FILE; Translations: [ALLERGIES NOT ON FILE] Propensity to adverse reactions (disorder) [facility] Repository Medications Current Medications Medication Drug Class(es) Dates Sig (Normalized) Sig (Original) busPIRone hydrochloride 10 mg oral tablet (1 source) Start: 01-21-2024 take 10 mg by mouth twice daily Buspirone Active 10 MG PO Twice daily 60 January 21, 2024 12:00am propranolol hydrochloride 20 mg oral tablet (20 sources) beta-Adrenergic Radha Start: 08-09-2023 End: 12-10-2023 take 20 mg by mouth three times daily Propranolol Active 20 MG PO Three times daily 270 90 December 10, 2023 11:38am Start: 07-12-2023 take 1 tablet by sal th every twelve hours propranolol (INDERAL) 20 mg tablet Take 1 tablet by mouth every 12 hours. 0 07/12/2023 Active Start: 07-12-2023 End: 07-12-2023 take 10 mg by mouth twice daily Propranolol Discontinu ed 10 MG PO Twice daily July 12, 2023 9:11am July 12, 2023 10:03am Start: 07-12-2023 End: 08-09-2023 take 20 mg by mouth twice daily Propranolol Discontinu ed 20 MG PO Twice daily 180 90 July 12, 2023 12:00am August 09, 2023 10:18am Start: 07-04-2023 End: 07-12-2023 take 20 mg by mouth once daily at bedtime Propranolol Discontinued 20 MG PO Daily at bedtime 60 July 04, 2023 8:39am July 12, 2023 9:11am Start: 06-13-2023 End: 07-04-2023 take 10 mg by mouth twice daily Propranolol Discontinu ed 10 MG PO Twice daily 60 June 13, 2023 12:00am July 04, 2023 8:42am Completed/Discontinued Medications Medication Drug Class(es) Dates Sig (Normalized) Sig (Original) ALPRAZolam 0.25 mg oral tablet (20 sources) Benzodiazepine Start: 04-20-2023 End: 07-17-2023 take 1 tablet by mouth every twelve hours ALPRAZolam (XANAX) 0.25 mg tablet Take 1 tablet by mouth every 12 hours. 0 04/20/2023 07/17/2023 Discontinued Start: 04-02-2023 End: 01-14-2024 take 0.25 mg by mouth twice daily Alprazolam Discontinued 0.25 MG PO Twice daily 60 30 May 20, 2023 1:00am June 19, 2023 4:42pm Azithromycin (7 sources) Macrolide Antimicrobial Start: 07-08-2023 End: 07-12-2023 Azithromycin Discontinued 0 PO .COMPLEX July 08, 2023 12:00am July 12, 2023 9:10am For 250 mg dose pack: take 500 mg today (day 1), then 250 mg for 4 days (days 2-5) PO Start: 07-08-2023 Azithromycin A ctive 0 PO .COMPLEX July 08, 2023 12:00am For 250 mg dose pack: take 500 mg today (day 1), then 250 mg for 4 days (days 2-5) PO citalopram 20 mg oral tablet (20 sources) Serotonin Reuptake Inhibitor Start: 05-10-2023 End: 06-03-2023 take 1 tablet by mouth once daily Citalopram Discontinued 20 MG PO Daily May 10, 2023 1:00am June 03, 2023 9:39am FreeTextSi tablet Orally Once a day; Note: Source Status: Taking; Provider: Mynor Bettencourt Start: 04-01-2023 End: 07-17-2023 citalopram (CELEXA) 20 mg ta blet Take by mouth every 24 hours. 0 04/01/2023 07/17/2023 Discontinued Start: 04-01-2023 take 1 tablet by sal th every twenty-four hours Citalopram Hydrobromide 20 MG 1 tablet Orally Once a day for 30 day(s) Mar, Active famotidine 20 mg oral tablet (11 sources) Histamine-2 Receptor Antagonist Start: 05-28-2023 End: 07-17-2023 take 20 mg by mouth once daily at bedtime Famotidine Discontinued 20 MG PO Daily at bedtime June 03, 2023 12:00am July 08, 2023 1:29pm hydrOXYzine hydrochloride 25 mg oral tablet (20 sources) Antihistamine Start: 05-10-2023 End: 06-03-2023 take 1 tablet by mouth every eight hours as needed Hydroxyzine Hcl Discontinued 25 MG PO Every 8 hours May 10, 2023 1:00am June 03, 2023 9:39am FreeTextSi tablet q 8 hrs prn; Note: Source Status: Taking; Provider: Robert Martinez ( ) Start: 03-29-2023 End: 07-17-2023 take 1 capsule by mouth every eight hours as needed hydrOXYzine pamoate (VISTARIL) 25 mg capsule TAKE 1 TO 2 CAPSULES BY MOUTH EVERY 8 HOURS NEEDED FOR ANXIETY/ INSOMNIA 0 03/29/2023 07/17/2023 Discontinued hydrOXYzine HCl 25 MG 1 tablet q 8 hrs prn Active Ketorolac (13 sources) Nonsteroidal Anti-inflammatory Drug, Cyclooxygenase Inhibitor Start: 12-15-2012 Toradol per 15 mg Nov, 60 mg Methylprednisolone (20 sources) Corticosteroid Start: 09-16-2023 End: 01-09-2024 Methylprednisolone Discontinued 0 PO per package directions September 16, 2023 12:00am January 09, 2024 9:05am PO PER PKG DIR for 6 days Start: 09-16-2023 Methylpredniso lone Active 0 PO per package directions September 16, 2023 12:00am PO PER PKG DIR for 6 days Start: 05-10-2023 End: 06-03-2023 take 1 mg [...] Refills: 0; Provider: Robert Lynne Start: 04-17-2023 End: 07-17-2023 methylPREDNISolone (MEDROL D OSE-PACK) 4 mg Dose-Pack TAKE 6 TABLETS ON DAY 1 DIRECTED ON PACKAGE AND DECREASE BY 1 TAB EACH DAY FOR A TOTAL OF 6 DAYS 0 04/17/2023 07/17/2023 Discontinued Start: 04-17-2023 methylPREDNISo lone 4 MG as directed Orally daily for 6 days Mar, Active 24 hr metoprolol succinate 100 mg extended release oral tablet (3 sources) beta-Adrenergic Radha Start: 08-12-2023 End: 09-16-2023 take 100 mg by mouth once Metoprolol Succinate Discontinued 100 MG PO Once 1 August 12, 2023 12:00am September 16, 2023 12:01pm one hour prior to testing. ondansetron 4 mg disintegrating oral tablet (20 sources) Serotonin-3 Receptor Antagonist Start: 05-10-2023 End: 06-13-2023 take 1 tablet by mouth once daily Ondansetron Discontinued 4 MG PO Daily May 10, 2023 1:00am June 13, 2023 9:33am FreeTextSi tablet once a day; Note: Source Status: Taking; Provider: Robert Martinez ( ) Start: 03-29-2023 End: 07-17-2023 take 1 tablet by mouth every eight hours as needed for nausea and vomiting ondansetron orally disintegrating (ZOFRAN ODT) 4 mg disintegrating tablet DISSOLVE 1 TABLET UNDER TONGUE EVERY 8 HOURS NEEDED FOR NAUSEA AND VOMITING FOR 5 DAYS 0 03/29/2023 07/17/2023 Discontinued take 1 tablet by sal th every twenty-four hours Ondansetron 4 MG 1 tablet once a day Active pantoprazole 40 mg delayed release oral tablet (20 sources) Proton Pump Inhibitor Start: 05-18-2023 End: 01-06-2024 take 40 mg by mouth once Pantoprazole Discontinued 40 MG PO Once June 13, 2023 12:00am June 13, 2023 12:50pm Problems Active Problems Problem Classification Problem Date Documented Da te Episodic/Chronic Abdominal pain (1 source) Left upper quadrant pain Episodic Anxiety disorders (20 sources) Generalized anxiety disorder; Translations: [Generalized anxiety disorder] Chronic Cardiac dysrhythmias (20 sources) Tachycardia, unspecified; Translations: [Tachycardia] Onset: Episodic Chronic obstructive pulmonary disease and bronchiectasis (14 sources) Bronchitis; Translations: [Bronchitis, not specified as acute or chronic] 07-09-2023 Episodic Esophageal disorders (14 sources) Laryngopharyngeal reflux; Translations: [Gastro-esophageal reflux disease without esophagitis] 07-09-2023 Chronic Headache; including migraine (7 sources) Headache; Translations: [Headache, Unspecified] Episodic Heart valve disorders (20 sources) Heart murmur; Translations: [Cardiac murmur, unspecified] Onset: 4 06-13-2023 Episodic Malaise and fatigue (1 source) Malaise and fatigue; Translations: [Other malaise] 07-17-2023 Episodic Nonspecific chest pain (5 sources) Other chest pain; Translations: [Other chest pain] Onset: 4 08-09-2023 Episodic Other and ill-defined heart disease (4 sources) Cardiomegaly; Translations: [Cardiomegaly] Onset: 4 08-09-2023 Chronic Other eye disorders (1 source) Unspecified disorder of eye and adnexa Episodic Other eye disorders (2 sources) Disorder of eyelid; Translations: [Unspecified disorder of eyelid] 09-18-2023 Episodic Other gastrointestinal disorders (11 sources) Swallowing finding; Translations: [Dysphagia, unspecified] 05-10-2023 Episodic Other gastrointestinal disorders (19 sources) Dysphagia, unspecified; Translations: [Dysphagia, unspecified] 05-10-2023 Episodic Other infections; including parasitic (4 sources) Other conditions associated with Lyme disease; Translations: [Lyme Disease] 08-09-2023 Episodic Other nutritional; endocrine; and metabolic disorders (13 sources) Hypercalcemia; Translations: [Hypercalcemia] Chronic Other nutritional; endocrine; and metabolic disorders (1 source) Hypercalcemia Chronic Other nutritional; endocrine; and metabolic disorders (20 sources) Abnormal weight loss; Translations: [Loss of weight] Onset: 4 Episodic Other nutritional; endocrine; and metabolic disorders (10 sources) Unintentional weight loss; Translations: [Abnormal weight loss] 05-13-2023 Episodic Residual codes; unclassified (1 source) Illness, unspecified Episodic Systemic lupus erythematosus and connective tissue disorders (20 sources) Autoimmune connective tissue disorder; 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, unspecified] Onset: 4 05-10-2023 Chronic Thyroid disorders (7 sources) Hyperthyroidism; [...] Test Name Value Interpretation Reference Range Facility CT heart angio w/scoreon CT heart angio w/score [facility] [place] [address] [place], [place] [id number] CT Scan Report Signed Patient: Molly Oliveira MR#: [id number] : 1990 Acct:[id number] Age/Sex: 32 / F ADM Date: 09/20/23 Loc: CT Room: Type: [facility] Attending Dr: Mariah Hardin MD Copies to: Mariah Hardin MD Ordering Provider: Mariah Hardin MD Date of Service: 09/20/23 CT/CT heart angio w/score: R01.1 - Cardiac murmur, unspecified CLINICAL INDICATION: Patient Age: 32 years Patient Gender: Female Indication: Evaluation of coronary arteries for atherosclerosis or coronary anomalies TECHNIQUE: Image Acquisition: A i[employer] View 128 was used for data acquisition. Bolus tracking in the descending aorta with a threshold of 150 HU media was performed. Immediately afterwards, ECG synchronized Cardiac CT was then performed from cardiac base to apex using Trigger Method: retrospective gating with ECG tube current modulation. A total of 80 mL of Omnipaque 350 mgl/mL contrast media was administered at 5 mL/sec followed by a saline flush using a biphasic injection protocol. Tube voltage 100 kVp. Heart rate was controlled with metoprolol, as needed. Coronary vasodilation was facilitated with sublingual nitroglycerin. The average heart rate at the time of acquisition was 54 bpm and regular. Image Reconstruction: Transaxial images were reconstructed at 0.63 mm slice thickness. Data was reviewed interactively on an advanced workstation capable of 2 and 3 dimensional displays in all conventional reconstruction formats including multiplanar reformations, maximum intensity projections, curved multiplanar reformations, and volume rendered reconstructions. Selected routine images displaying relevant coronary anatomy and pathology were saved and sent to PACS. Complications: None Technical Quality: Overall image quality is Excellent. Coronary artery opacification is Excellent and the images are free of significant artifact. Total DLP (Dose-Length Product): 694 mGy.cm). (9.7 mSv). Please note: The reported value represents the total of one or more individual components during the CT acquisition on this date and at this time, and as such, the same value may appear in more than one CT report depending on the interpreting/reporting physicians. FINDINGS: -CT Coronary Calcium Scoring- LMA= 0 LAD= 0 LCX= 0 RCA= 0 Total calcium score = 0 using the AJ-130 method. Other Calcification: No other significant intracardiac calcification. -Coronary CT Angiography- Coronary Arteries: The coronaries have normal origin and proximal course. Note: Stenosis is reported as maximum percentage diameter stenosis. Stenosis grading is reported using the following scheme. Quantitative Stenosis Grading: CAD-RADS 0: 0% - No visible stenosis CAD-RADS 1: 1-24% - Minimal stenosis CAD-RADS 2: 25-49% - Mild stenosis CAD-RADS 3: 50-69% - Moderate stenosis CAD-RADS 4A: 70-99% - Severe stenosis in 1-2 vessels CAD-RADS 4B: Left main >50%, or 3 vessel >70% CAD-RADS 5: 100% - Occluded Left Main: CAD-RADS 0: The left main bifurcates into the left anterior descending artery and left circumflex artery. The left main has no visible stenosis. LAD: CAD-RADS 0. The LAD courses along the anterior interventricular grove as it gives off diagonal arteries. No significant stenosis of the LAD. LCx and Obtuse Marginals: CAD-RADS 0. The left circumflex courses along the left AV groove as it gives off obtuse marginal arteries. No significant stenosis of the left circumflex artery. RCA: CAD-RADS 0. The right coronary artery originates from the right cusp and courses along the right AV groove as it gives off acute marginal arteries. Distally provides the right PDA. No significant stenosis of the RCA. The coronary arterial system is right dominant. Non Coronary Cardiac Findings: Normal cardiac chamber sizes. Unremarkable pericardium. Normal interatrial and interventricular septum, aortic valve, mitral valve. Visually normal LVEF > 55%. Extra Cardiac Structures: The pulmonary veins and imaged central veins are unremarkable. Partially imaged thoracic aorta and pulmonary arteries are unremarkable. See radiologist report for chest CT interpretation. CT/CT heart angio w/score IMPRESSION: 1. No coronary calcification with an Agatston score = CAC score of 0 using the AJ-130 method. 2. No evidence of epicardial coronary artery disease. 3. CAD-RADS 0: Management recommendations: Reassurance. Consider non-atherosclerotic causes of chest pain. 4. Normal cardiac chamber sizes. Visually normal LVEF >55%. Impression dictated by: Presley Ceja M.D.09/20/2023 4:34 PM Dictation Location: [id number] Transcribed By: QUINTIN 09/20/23 1634 Dictated By: Presley Ceja MD (more content not included)... Normal [facility] MR CARDIAC MORPHOLOGY AND FU NCTION W AND WO IV CONTRASTon 09-13-2023 MR CARDIAC MORPHOLOGY AND FUNCTION W AND WO IV CONTRAST Interpreted By: Danilo Lazo, STUDY: MR CARDIAC MORPHOLOGY AND FUNCTION W AND WO IV CONTRAST; MR CARDIAC RESONANCE IMAGING FOR VELOCITY FLOW MAPPING; 09/13/2023 11:28 am INDICATION: Signs/Symptoms:UNINTENDE D WEIGHT LOSS BRONCHITIS TACHYCARDIA; Signs/Symptoms:Tachycard ia. This study is performed to assess myocardial viability and damage, and to quantitate left ventricular and valvular function. COMPARISON: None. ACCESSION NUMBER(S): [id number]; [id number] ORDERING CLINICIAN: MARIAH HARDIN TECHNIQUE: Briones 1.5 Mary Kate MRI scanner. Turbo spin echo and balanced steady state free precession (bSSFP) imaging for anatomic definition. Dynamic cine bSSFP for cardiac chamber and wall-motion analysis, and valvular analysis. Flow quantification sequences for hemodynamics. Delayed gadolinium enhancement analysis after injection of 22 mL Dotarem. FINDINGS: CARDIAC CHAMBERS Normal atrioventricular and ventriculoarterial concordance LEFT ATRIUM Normal size (Area-18.2 cm2) RIGHT ATRIUM Normal size (Area-15.2 cm2) INTERATRIAL SEPTUM Intact. LEFT VENTRICLE The left ventricle is normal in size and shape, and has normal global systolic function. There are no segmental wall motion abnormalities. Quantitative left ventricular functional values are as follows: EDV = 128 cc; EDVi = 82 cc/m2 ESV = 57 cc; ESVi = 37 cc/m2 Stroke volume = 71 cc; SVi = 46 cc/m2 LVEF = 56 % Absolute Cardiac Output = 3.98 l/min.; COi = 2.56 l/min/m2 LV mass = 115 gm; LVMi = 74 gm/m2 *Santy SILVA et al. Normalized left ventricular systolic and diastolic function by steady state free precession cardiovascular magnetic resonance. J Cardiovasc Magn Reson 2006; 8:417-26. Delayed-enhancement imaging reveals uniformly nulled myocardium, signifying that there has been no prior ischemic myocardial damage. There is also no definite evidence of interstitial fibrosis to suggest an infiltrative process. RIGHT VENTRICLE The right ventricle appears normal in size, shape, and has normal qualitative systolic function. No segmental wall motion abnormalities. EDV = 131 cc; EDVi = 84 cc/m2 ESV = 68 cc; ESVi = 44 cc/m2 Stroke volume = 63 cc; SVi = 40 cc/m2 RVEF = 48 % Absolute Cardiac Output = 3.52 l/min.; COi = 2.26 l/min/m2 No abnormal delayed enhancement in the myocardium. INTERVENTRICULAR SEPTUM Intact. AORTIC VALVE There is no aortic regurgitation. Flow quantification through the ascending aorta: Forward volume =78 cc/beat Reverse volume = 0 cc/beat Net forward volume = 78 cc/beat Aortic regurgitant fraction = 0 % MITRAL VALVE There is no mitral regurgitation. TRICUSPID VALVE There is qualitative no tricuspid regurgitation. THORACIC AORTA The thoracic aorta appears normal in course, caliber, and contour. There is no evidence for acute aortic pathology. The arch vessel branching pattern is normal. All the arch branch vessels appear widely patent in their proximal portions. PULMONARY ARTERIES The central pulmonary arteries appear normal. SYSTEMIC AND PULMONARY VEINS Normal systemic venous and pulmonary venous return. The SVC and IVC are of normal caliber. Normal pulmonary venous anatomy. CHEST The chest wall is normal. No significant lymphadenopathy or mass is seen in limited images of the mediastinum. Limited imaging through the lungs reveals no gross abnormalities. No pleural effusion. UPPER ABDOMEN Limited imaging through the upper abdomen reveals no abnormalities of the visualized organs. IMPRESSION: 1. The left ventricle is normal in size, shape, and has normal global systolic function. LVEF = 56%. There are no segmental wall motion abnormalities. Quantitative values are as noted above. The right ventricle is normal in size, shape, and has low normal to mildly reduced global systolic function. RVEF = 48%. There are no segmental wall motion abnormalities. Quantitative values are as noted above. 2. There are no findings to suggest prior ischemic damage or an infiltrative process. 3. Normal aortic, mitral, and tricuspid valve function. MACRO: None Signed by: Danilo Lazo 09/13/2023 1:23 PM Dictation workstation: [id number] [facility] MR CARDIAC RESONANCE IMAGING FOR VELOCITY FLOW MAPPINGon 09-13-2023 MR CARDIAC RESONANCE IMAGING FOR VELOCITY FLOW MAPPING Interpreted By: Danilo Lazo, STUDY: MR CARDIAC MORPHOLOGY AND FUNCTION W AND WO IV CONTRAST; MR CARDIAC RESONANCE IMAGING FOR VELOCITY FLOW MAPPING; 09/13/2023 11:28 am INDICATION: Signs/Symptoms:UNINTENDE D WEIGHT LOSS BRONCHITIS TACHYCARDIA; Signs/Symptoms:Tachycard ia. This study is performed to assess myocardial viability and damage, and to quantitate left ventricular and valvular function. COMPARISON: None. ACCESSION NUMBER(S): [id number]; [id number] ORDERING CLINICIAN: MARIAH HARDIN TECHNIQUE: Briones 1.5 Mary Kate MRI scanner. Turbo spin echo and balanced steady state free precession (bSSFP) imaging for anatomic definition. Dynamic cine bSSFP for cardiac chamber and wall-motion analysis, and valvular analysis. Flow quantification sequences for hemodynamics. Delayed gadolinium enhancement analysis after injection of 22 mL Dotarem. FINDINGS: CARDIAC CHAMBERS Normal atrioventricular and ventriculoarterial concordance LEFT ATRIUM Normal size (Area-18.2 cm2) RIGHT ATRIUM Normal size (Area-15.2 cm2) INTERATRIAL SEPTUM Intact. LEFT VENTRICLE The left ventricle is normal in size and shape, and has normal global systolic function. There are no segmental wall motion abnormalities. Quantitative left ventricular functional values are as follows: EDV = 128 cc; EDVi = 82 cc/m2 ESV = 57 cc; ESVi = 37 cc/m2 Stroke volume = 71 cc; SVi = 46 cc/m2 LVEF = 56 % Absolute Cardiac Output = 3.98 l/min.; COi = 2.56 l/min/m2 LV mass = 115 gm; LVMi = 74 gm/m2 *Santy AM et al. Normalized left ventricular systolic and diastolic function by steady state free precession cardiovascular magnetic resonance. J Cardiovasc Magn Reson 2006; 8:417-26. Delayed-enhancement imaging reveals uniformly nulled myocardium, signifying that there has been no prior ischemic myocardial damage. There is also no definite evidence of interstitial fibrosis to suggest an infiltrative process. RIGHT VENTRICLE The right ventricle appears normal in size, shape, and has normal qualitative systolic function. No segmental wall motion abnormalities. EDV = 131 cc; EDVi = 84 cc/m2 ESV = 68 cc; ESVi = 44 cc/m2 Stroke volume = 63 cc; SVi = 40 cc/m2 RVEF = 48 % Absolute Cardiac Output = 3.52 l/min.; COi = 2.26 l/min/m2 No abnormal delayed enhancement in the myocardium. INTERVENTRICULAR SEPTUM Intact. AORTIC VALVE There is no aortic regurgitation. Flow quantification through the ascending aorta: Forward volume =78 cc/beat Reverse volume = 0 cc/beat Net forward volume = 78 cc/beat Aortic regurgitant fraction = 0 % MITRAL VALVE There is no mitral regurgitation. TRICUSPID VALVE There is qualitative no tricuspid regurgitation. THORACIC AORTA The thoracic aorta appears normal in course, caliber, and contour. There is no evidence for acute aortic pathology. The arch vessel branching pattern is normal. All the arch branch vessels appear widely patent in their proximal portions. PULMONARY ARTERIES The central pulmonary arteries appear normal. SYSTEMIC AND PULMONARY VEINS Normal systemic venous and pulmonary venous return. The SVC and IVC are of normal caliber. Normal pulmonary venous anatomy. CHEST The chest wall is normal. No significant lymphadenopathy or mass is seen in limited images of the mediastinum. Limited imaging through the lungs reveals no gross abnormalities. No pleural effusion. UPPER ABDOMEN Limited imaging through the upper abdomen reveals no abnormalities of the visualized organs. IMPRESSION: 1. The left ventricle is normal in size, shape, and has normal global systolic function. LVEF = 56%. There are no segmental wall motion abnormalities. Quantitative values are as noted above. The right ventricle is normal in size, shape, and has low normal to mildly reduced global systolic function. RVEF = 48%. There are no segmental wall motion abnormalities. Quantitative values are as noted above. 2. There are no findings to suggest prior ischemic damage or an infiltrative process. 3. Normal aortic, mitral, and tricuspid valve function. MACRO: None Signed by: Danilo Lazo 09/13/2023 1:23 PM Dictation workstation: [id number] [facility] [place] 08-16-2023 NADINE Telephone (ENWSTR) -------- MOLLY OLIVEIRA ([id number]) 1990 F Date Time Provider Department 08/16/23 GUSTABO SATHISHALANIS BUCHANAN During your visit today, we recorded the following information about you: Sybil aMtta RN 08/16/2023 10:04 AM Signed Left message to return call to office. This is to let patient know the following message from Dr. Orozco: Hi, Labs reviewed for patient. Let her know that the metanephrine levels are slightly higher than normal, but not significantly. We spoke on her visit about few medications causing levels to go up and I see that she started propranolol before doing labs which can cause that. Please correct me if this is incorrect. If she has any questions or concerns, please advise her to follow up Thanks, Dr. Tiffanie Matta RN August 16, 2023 10:03 AM Michelle Pinon MA 08/16/2023 10:32 AM Signed Relayed message as below. Patient voiced understanding and had no further questions. Michelle Pinon MA Allergies As of Date: 08/16/2023 Noted Allergy Reaction LEVAMISOLE 10/21/2013 16 - Unknown NALBUPHINE 10/21/2013 4 - Hives 14 - Other: See Comments PROMETHAZINE 07/12/2023 4 - Hives Date Reviewed: 07/17/2023 Reviewed by: Jenise Medina MA - Fully Assessed Reason for Visit: Results [95] Prescriptions as of 08/16/2023 - pantoprazole DR (PROTONIX) 40 mg tablet TAKE 1 TABLET BY MOUTH EVERY DAY FOR 4 WEEKS - ALPRAZolam (XANAX) 0.25 mg tablet Twice daily - propranolol (INDERAL) 20 mg tablet Take 1 tablet by mouth every 12 hours. Problem List As Of Date: 08/16/2023 (None) Encounter Status:Closed by SYBIL MATTA on 08/16/23 Normal [facility] Blood Mycobacterium tubercul osis tuberculin stimulated gamma interferon detectionon 08-12-2023 M. tuberculosis tuberculin stim IFN-g Ql (Bld) Comment . [facility] Comment on above: QuantiFERON-TB Gold Plus is a qualitative indirect test forM tuberculosis infection (including disease) and isintended for use in conjunction with risk assessment,radiography, and other medical and diagnostic evaluations.The QuantiFERON-TB Gold Plus result is determined bysubtracting the Nil value from either TB antigen (Ag)value. The Mitogen tube serves as a control for the test. M. tuberculosis tuberculin stim IFN-g Ql (Bld) 0.05 [IU]/mL . [facility] M. tuberculosis tuberculin stim IFN-g Ql (Bld) 0.06 [IU]/mL . [facility] Blood mitogen stimulated brady ma interferon measurement (units/volume)on 08-12-2023 Mitogen stimulated gamma interferon Qn (Bld) >10.00 [IU]/mL . [facility] Borrelia burgdorferi IgG+IgM Ab [Presence] in Serum by Immunoassayon 08-12-2023 B. burgdorferi IgG+IgM IA Ql (S) Negative Negative [facility] Comment on above: Lyme antibodies not detected. Reflex testing is notindicated.No laboratory evidence of infection with B. burgdorferi(Lyme disease). Negative results may occur in patientsrecently infected (less than or equal to 14 days) with B.burgdorferi. If recent infection is suspected, repeattesting on a new sample collected in 7 to 14 days isrecommended.Performed at: [facility] [place], [place] [id number] Director: Ryan Richardson PhD, Phone: [phone] Mycobacterium tuberculosis s timulated gamma interferon [Interpretation] in Blood Qualon 08-12-2023 M. tuberculosis stim IFN-g Ql (Bld) [Interp] Negative Negative [facility] Comment on above: No response to M tub erculosis antigens detected.Infection with M tuberculosis is unlikely, but high riskindividuals should be considered for additional testing(ATS/IDSA/CDC Clinical Practice Guidelines, 2017). Thereference range is an Antigen minus Nil result of <0.35IU/mL.Chemiluminescence immunoassay methodologyPerformed at: [facility] [place], [place] [id number] Director: Ryan Richardson PhD, Phone: [phone] No Panel Informationon 08-11 TB Test (QFT) Incubation See comment . [facility] Comment on above: Incubation performed . Reference Range: . Whole blood measurement of M ycobacterium tuberculosis stimulated gamma interferon relon 08-12-2023 M. tuberculosis stim IFN-g by CD4+ CD8+ T-cells corrected for background Qn (Bld) 0.09 [IU]/mL . [facility] STR cardiac stress/regularon 07-29-2023 STR cardiac stress/regular [facility] [place] [address] Cardiac Stress Test Signed Patient: Molly Oliveira MR#: [id number] : 1990 Acct:[id number] Age/Sex: 32 / F ADM Date: 07/29/23 Loc: Room: Type: [facility] Attending Dr: Mariah Hardin MD Copies to: MD Oseas Brooks MD Ordering Provider: Mariah Hardin MD Date of Service: 07/29/23 STR/STR cardiac stress/regular: R00.0 - Tachycardia, unspecified REFERRING PHYSICIAN: Mariah Hardin MD REASON FOR STUDY: Tachycardia. PROCEDURE: The patient underwent graded exercise stress test with the Navin protocol. She was able to exercise for a total of 10 minutes 51 seconds, achieving workload of 13.1 METS. Maximum heart rate was 190 beats per minute, corresponding to 100% of maximum predicted heart rate. Maximum blood pressure was 144/88. The test terminated secondary to fatigue. During the test, the patient described vague atypical chest pain and palpitation.which improved with exercise, but returned into recovery. Baseline ECG showed normal sinus rhythm. No ST-T changes. At peak exercise, no diagnostic changes were seen. CONCLUSION: 1. Graded exercise stress test without diagnostic ST-T changes for ischemia. 2. No provoked arrhythmia. 3. The patient reported atypical chest pain during early stage of stress and during recovery, but reported improvement at peak exercise, clearly atypical. 4. Appropriate hemodynamic response to exercise. 5. Good exercise tolerance. 6. Normal heart rate recovery phase. 7. This is considered a low-risk stress test. Transcribed By: SOREN 07/29/232019 Dictated By: Oseas Hess MD 07/29/23 1536 Signed By: 07/30/23 0918 Normal [facility] CNCOon 07-18-2023 CNCO Letter Text Normal [facility] CATECHOLAMINES FRAon 024 CATECHOLAMINE INTERPRETATION PLASMA See Note Normal [facility] Comment on above: Order Comment: Speci men Type: BLOOD SPECIMEN Ordering Facility: [facility] Address: [address] [place] [address] Result Comment: INTE RPRETIVE INFORMATION: Catecholamines Panel, Plasma Small increases in catecholamines (less than 2 times the upper reference limit) are usually the result of physiological stimuli, drugs, or improper specimen collection. Significant elevation of one or more catecholamines (2 or more times the upper reference limit) is associated with an increased probability of a neuroendocrine tumor. Measurement of plasma or urine fractionated metanephrines provides better diagnostic sensitivity than measurement of catecholamines. Lower catecholamine concentrations are observed in specimens collected from supine adults. To convert to picograms per milliliter (pg/mL), multiply the reported concentration for Dopamine by 0.153, Epinephrine by 0.183, and Norepinephrine by 0.169. Access complete set of age- and/or gender-specific reference intervals for this test in the [facility] Test Directory ([employer]). This test was developed and its performance characteristics determined by [facility]. It has not been cleared or approved by the US Food and Drug Administration. This test was performed in a CLIA certified laboratory and is intended for clinical purposes. Performed By: [facility] [address] [place] [address] Cargo Worker: Carlton Rodriguez MD, PhD CLIA Number: [id number] Performed By: #### 2 9374-6, 01956-5, 01262-4, 41071-2, 01330-4, 77181-0, 27360-6, 59485-2 #### [facility] CLIA [id number] [address] [place] [address] [id number] [place] [address] [place] DOPAMINE <130 Normal <=240 [facility] Comment on above: Order Comment: Speci men Type: BLOOD SPECIMEN Ordering Facility: [facility] Address: [address] [place] [address] Result Comment: INTE RPRETIVE INFORMATION: Dopamine Seated (15 min) less than or equal to 240 pmol/L Supine (30 min) less than or equal to 240 pmol/L Performed By: #### 2 9374-6, 84084-5, 20302-6, 35508-2, 64128-2, 33514-2, 25261-7, 58574-6 #### [facility] CLIA [id number] [address] [place] [address] [place] EPINEPHRINE (P) 309 pmol/L Normal <=330 [facility] Comment on above: Order Comment: Speci men Type: BLOOD SPECIMEN Ordering Facility: [facility] Address: [address] [place] [address] Result Comment: INTE RPRETIVE INFORMATION:Epinephrine Seated (15 min) less than or equal to 330 pmol/L Supine (30 min) less than or equal to 265 pmol/L Performed By: #### 2 9374-6, 62862-0, 82121-7, 31079-8, 28018-1, 77849-3, 09587-4, 95157-9 #### [facility] CLIA [id number] [address] [place] [address] [place] NOREPINEPHRINE 3139 pmol/L Normal 0166-0062 [facility] Comment on above: Order Comment: Speci men Type: BLOOD SPECIMEN Ordering Facility: [facility] Address: [address] [place] [address] Result Comment: INTE RPRETIVE INFORMATION: Norepinephrine Seated (15 min) 1050 - 4800 pmol/L Supine (30 min) 680 - 3100 pmol/L Performed By: #### 2 9374-6, 45823-6, 26116-4, 79081-9, 68679-6, 93936-3, 89033-6, 82410-0 #### [facility] CLIA [id number] [address] [place] [address] [place] CK SerPl-cCncon 07-17-2023 CK [Catalytic activity/Vol] 43 U/L Normal 42-196 [facility] Comment on above: Order Comment: Speci men Type: BLOOD SPECIMEN Ordering Facility: [facility] Address: [address] [place], [place] [id number] Performed By: #### 2 9374-6, 33865-0, 31755-9, 37456-7, 56266-5, 53581-6, 05649-8, 12781-8 #### [facility] CLIA [id number] [address] [place] [address] [id number] [id number] [place] CNCOon 07-17-2023 CNCO Letter Text Normal [facility] CNOVon 07-17-2023 CNOV Office Visit (RHEUIN ) -------- MOLLY OLIVEIRA ([id number]) 1990 F Date Time Provider Department 07/17/23 12:00 PM RANJITH MIGUEL During your visit today, we recorded the following information about you: Pulse Blood pressure Weight 74/minute 132/84 54 kg Ranjith Miguel MD 07/17/2023 12:35 PM Signed Rheumatology CONSULTATION Date of Service: 07/17/[address] Doreen Mejia MD for an opinion regarding assessment for a rheum condition. My final recommendations will be communicated back to the requesting physician by way of shared medical record or letter via US mail [facility] [id number] chief complaint Assess for rheum condition Multiple complaints No outside records I have reviewed the patient's medical record in detail. HPI: 32 year old female She has been seeing multiple doctors since . This is her last step. She is here for a w/up for rheum disease. She feels cold Her hands get pale and bluish but not in sequence. She has eye sicca. She sees patient care director, uses drops. She has iron deficiency anemia. She has racing heart. She is on a medication. She has a lot of fatigue. She has dysphagia and dry mouth, she is dizzy. She has GERD. Grandmother had arthritis Mother thyroid Father kidney disease Outside labs on her phone 07/16 Nl wsr/crp Kishor neg Cbc cmp ok Tsh ok Patient reports No Raynauds, No photosensitivity, Yes oral sores, Yes sicca syndrome, No alopecia, No eye inflammation, No psoriasis, No inflammatory bowel disease History reviewed. No pertinent past medical history. PAST SURGICAL HISTORY Procedure Laterality Date TONSILLECTOMY AND ADENOIDECTOMY There is no problem list on file for this patient. Social History Tobacco Use Smoking status: Former Types: Cigarettes Smokeless tobacco: Never Vaping Use Vaping Use: Some days Substances: Nicotine Devices: Disposable Substance Use Topics Alcohol use: Yes Comment: socially Drug use: Not Currently FAMILY HISTORY Problem Relation Age of Onset Thyroid Mother Hypertension Father Kidney Disease Father Diabetes Maternal Grandmother Thyroid Cancer Paternal Grandmother Current Outpatient Medications Medication Sig pantoprazole DR (PROTONIX) 40 mg tablet TAKE 1 TABLET BY MOUTH EVERY DAY FOR 4 WEEKS ALPRAZolam (XANAX) 0.25 mg tablet Twice daily propranolol (INDERAL) 20 mg tablet Take 1 tablet by mouth every 12 hours. No current facility-administered medications for this visit. ALLERGIES Allergen Reactions Levamisole Unknown Nalbuphine Hives, Other: See Comments Promethazine Hives REVIEW OF SYSTEMS Skin: negative for rash, itching, hair and nail chainges. Resp: No cough, hemoptysis, asthma, recent chest infection, wheezing Cardio: palpitations racing GI: dysphagia or odynophagia, dry mouth : No burning with urination, blood in urine or incontinence Musculoskeletal: Morning stiffness, no and Joint Pain no Energy: low Fatigue: in am Neuro: Numbness or tingling of hands and dizzy Psych: negative Carmelo: anemia, weight loss Endo: negative, had TSH checked, no DM PHYSICAL EXAMINATION: BP 132/84 Pulse 74 Wt 119 lb 0.8 oz (54.0kg) LMP 04/22/2023 General appearance: Well appearing, alert, in no acute distress, well-hydrated, well nourished. Skin: Skin color, texture, turgor normal, no suspicious rashes or lesions Neck: Supple, no adenopathy Back: no pain to palpation, good flexion and extension Lungs: Lungs clear to auscultation. No wheezing, rhonchi, rales Heart: RRR without murmur Abdomen: soft, NT, no masses Extremities: no edema Musculoskeletal: no synovitis Neuro: Gait normal. No muscle weakness. Sensation grossly intact. Impression (M35.00) Sicca, unspecified type (HCC) (primary encounter diagnosis) (R53.81, R53.83) Malaise and fatigue Comment: eyes and mouth/most likely nonspecific Doubt has Sjogren's with nl esr and neg KISHOR Will check full serologic panel Plan: RHEUMATOID FACTOR, CCP ANTIBODY IGG, ANTI KENDRA ID, DNA AB DS + CONF BLD, CREATINE KINASE/CK Rv prn results pending I spent a total of 45 minutes on the date of the service which included preparing to see the patient, [id number] patient care, completing clinical documentation, obtaining and/or reviewing separately obtained history, performing a medically appropriate examination, counseling and educating the patient/family/caregiver , and ordering medications, tests, or procedures. Ranjith Miguel MD Referring Provider: DOREEN MEJIA [[id number]] Allergies As of Date: 07/17/2023 Noted Allergy Reaction LEVAMISOLE 10/21/2013 16 - Unknown NALBUPHINE 10/21/2013 4 - Hives 14 - Other: See Comments PROMETHAZINE 07/12/2023 4 - Hives Date Reviewed: 07/17/2023 Reviewed by: Jenise Medina MA - Fully Assessed Reason for Visit: Consult [173 (more content not included)... Normal [facility] Centromere Ab IF Ql (S)on Centromere Ab Qn (S) <0.2 Normal <1.0 [facility] Comment on above: Order Comment: Speci men Type: BLOOD SPECIMEN Ordering Facility: [facility] Address: [address] [place] [address] Result Comment: Anti -centromere antibody is used as in aid in diagnosis of systemic sclerosis. Clinical correlation is required. Test Methodology: Multiplex flow immunoassay. Performed By: #### 2 9374-6, 32846-2, 30171-6, 10178-1, 89116-8, 85018-9, 18294-9, 87116-2 #### [facility] CLIA [id number] [address] [place] [address] [place] CENTROMERE AB QUAL Negative Normal Negative [facility] Comment on above: Order Comment: Speci men Type: BLOOD SPECIMEN Ordering Facility: [facility] Address: [address] [place] [address] Performed By: #### 2 9374-6, 11323-9, 98722-0, 11052-4, 11014-5, 55985-6, 39002-9, 16261-1 #### [facility] CLIA [id number] [address] [place] [address] [place] Chromatin Ab Qnon 07-17-2023 CHROMATIN AB QUAL Negative Normal Negative [facility] Comment on above: Order Comment: Speci men Type: BLOOD SPECIMEN Ordering Facility: [facility] Address: [address] [place] [address] Performed By: #### 2 9374-6, 62745-8, 44932-3, 42051-2, 34755-5, 57665-2, 53076-1, 51347-4 #### [facility] CLIA [id number] [address] [place] [address] [place] Chromatin Ab SerPl-aCncon Chromatin Ab Qn <0.2 Normal <1.0 [facility] Comment on above: Order Comment: Speci men Type: BLOOD SPECIMEN Ordering Facility: [facility] Address: [address] [place] [address] Result Comment: Test Methodology: Multiplex flow immunoassay. Performed By: #### 2 9374-6, 48720-0, 98918-0, 01438-6, 74355-0, 19410-2, 14348-0, 31973-2 #### [facility] CLIA [id number] [address] [place] [address] [place] Cyclic citrullinated peptide IgG Qnon 07-17-2023 CCP ANTIBODY IGG QUALITATIVE Negative Normal Negative [facility] Comment on above: Order Comment: Speci men Type: BLOOD SPECIMEN Ordering Facility: [facility] Address: [address] [place] [address] Performed By: #### 2 9374-6, 02241-1, 89598-6, 10094-7, 97145-6, 17175-4, 89957-9, 65841-1 #### [facility] CLIA [id number] [address] [place] [address] [place] DNA double strand Ab IA Qn ( S)on 07-17-2023 DNA ANTIBODY 9 IU/mL Normal <=200 [facility] Comment on above: Order Comment: Speci men Type: BLOOD SPECIMEN Ordering Facility: [facility] Address: [address] [place] [address] Result Comment: Nega tive: <200 IU/mL Equivocal: 201-300 IU/mL Moderate Positive: 301-800 IU/mL Strong Positive: >801 IU/mL Performed By: #### 3 2677-7 #### [facility] CLIA [id number] [address] [place] [address] [place] DNA ANTIBODY QUALITATIVE INTERPRETATION Negative Normal Negative [facility] Comment on above: Order Comment: Speci men Type: BLOOD SPECIMEN Ordering Facility: [facility] Address: [address] [place] [address] Performed By: #### 3 2677-7 #### [facility] CLIA [id number] [address] [place] [address] [place] KENDRA Jo1 Ab Ser-aCncon 2023 Lizzeth-1 extractable nuclear Ab Qn (S) <0.2 Normal <1.0 [facility] Comment on above: Order Comment: Speci men Type: BLOOD SPECIMEN Ordering Facility: [facility] Address: [address] [place] [address] Performed By: #### 2 9374-6, 74513-4, 06740-2, 83924-5, 29957-8, 55221-8, 68514-3, 70770-1 #### [facility] CLIA [id number] [address] [place] [address] [place] KENDRA DIRECTOR TALENT ACQUISITION Ab Ser-aCncon 2023 Ribonucleoprotein extractable nuclear Ab Qn (S) <0.2 Normal <1.0 [facility] Comment on above: Order Comment: Speci men Type: BLOOD SPECIMEN Ordering Facility: [facility] Address: [address] [place] [address] Performed By: #### 2 9374-6, 75403-2, 66756-7, 92870-3, 82142-0, 01412-1, 28247-1, 45721-3 #### [facility] CLIA [id number] [address] [place] [address] [place] Ribonucleoprotein extractable nuclear Ab Qn (S) 0.4 AI Normal <1.0 [facility] Comment on above: Order Comment: Speci men Type: BLOOD SPECIMEN Ordering Facility: [facility] Address: [address] [place] [address] Performed By: #### 2 9374-6, 97880-2, 42887-8, 33532-0, 87905-7, 70131-9, 57895-8, 38433-5 #### [facility] CLIA [id number] [address] [place] [address] [place] KENDRA SM IgG Ser-aCncon 2023 Clemons extractable nuclear IgG Qn (S) <0.2 Normal <1.0 [facility] Comment on above: Order Comment: Speci men Type: BLOOD SPECIMEN Ordering Facility: [facility] Address: [address] [place] [address] Performed By: #### 2 9374-6, 09159-7, 20320-0, 38176-3, 41507-0, 76283-9, 92025-2, 81136-1 #### [facility] CLIA [id number] [address] [place] [address] [place] KENDRA SS-A Ab Ser-aCncon 07-16 Sjogrens syndrome-A extractable nuclear Ab Qn (S) <0.2 Normal <1.0 [facility] Comment on above: Order Comment: Specjossie coronado Type: BLOOD SPECIMEN Ordering Facility: [facility] Address: [address] [place] [address] Result Comment: Test Methodology: Multiplex flow immunoassay. Performed By: #### 2 9374-6, 16020-3, 90766-9, 04653-0, 98659-4, 08783-7, 58819-5, 31086-7 #### [facility] CLIA [id number] [address] [place] [address] [place] KENDRA SS-B Ab Ser-aCncon 07-16 Sjogrens syndrome-B extractable nuclear Ab Qn (S) <0.2 Normal <1.0 [facility] Comment on above: Order Comment: Sylvia coronado Type: BLOOD SPECIMEN Ordering Facility: [facility] Address: [address] [place] [address] Result Comment: Anti -SSB (anti-La) antibody is used as an aid in diagnosis of a variety of systemic autoimmune diseases, especially for Sjogren's syndrome and systemic lupus erythematosus. Clinical correlation is required. Test Methodology: Multiplex flow immunoassay. Performed By: #### 2 9374-6, 39270-2, 17129-7, 72667-5, 86373-9, 50562-5, 82428-3, 63068-1 #### [facility] CLIA [id number] [address] [place] [address] [place] Lizzeth-1 extractable nuclear Ab Qn (S)on 07-17-2023 LIZZETH 1 ANTIBODY QUAL Negative Normal Negative [facility] Comment on above: Order Comment: Slyvia coronado Type: BLOOD SPECIMEN Ordering Facility: [facility] Address: [address] [place] [address] Result Comment: Anti -LIZZETH-1 antibody is used as an aid in diagnosis of polymyositis and dermatomyositis especially with pulmonary involvement. A negative result cannot rule out polymyositis or dermatomyositis. Clinical correlation is required. Test Methodology: Multiplex flow immunoassay. Performed By: #### 2 9374-6, 24989-5, 47282-6, 25567-6, 85291-3, 41436-6, 86079-7, 66010-0 #### [facility] CLIA [id number] [address] [place] [address] [place] Laboratory - Chemistry and C hemistry - challengeon 07-17-2023 CK [Catalytic activity/Vol] 43 U/L 42-196 [facility] METANEPHRINES, FREE PLASMAon 07-17-2023 METANEPHRINE, PLASMA 66 pg/mL Normal 12-67 [facility] Comment on above: Order Comment: Speci men Type: BLOOD SPECIMEN Ordering Facility: [facility] Address: [address] [place] [address] Result Comment: Refe rence Ranges: Hypertensive adult > or = 18 yrs old: 12-72 pg/mL Normotensive adult > or = 18 yrs old: 12-67 pg/mL Normotensive children < 18 yrs old: 10-95 pg/mL Performed By: #### 2 9374-6, 26054-0, 38362-0, 24033-0, 18797-6, 46818-1, 87560-0, 16665-5 #### [facility] CLIA [id number] [address] [place] [address] [place] NORMETANEPHRINE, PLASMA 174 pg/mL High 18-101 [facility] Comment on above: Order Comment: Sylvia men Type: BLOOD SPECIMEN Ordering Facility: [facility] Address: [address] [place] [address] Result Comment: Refe rence Ranges: Hypertensive adult > or = 18 yrs old: 24-145 pg/mL Normotensive adult > or = 18 yrs old: 18-101 pg/mL Normotensive children < 18 yrs old: 22-83 pg/mL Methyldopa may cause false elevation of normetanephrine levels in this assay. If patient is on methyldopa, interpret results with caution. Performed By: #### 2 9374-6, 03067-6, 90580-4, 91217-9, 51382-7, 89172-2, 47804-1, 33742-6 #### [facility] CLIA [id number] [address] [place] [address] [place] No Panel Informationon 07-16 Anti-Centromere Ab Interpretation Negative Negative [facility] Anti-Double Strand DNA Antibody 9 [IU]/mL <=200 [facility] Comment on above: Negative: <200 IU/mL Equivocal: 201-300 IU/mLModerate Positive: 301-800 IU/mLStrong Positive: >801 IU/mL Anti-ds DNA IgG Ab (Crithidia) Negative Negative [facility] Anti-Clemons Antibody Interpretation Negative Negative [facility] Comment on above: Anti-Sm (Clemons) anti body is used as an aid in diagnosis of systemic lupus erythematosus and its presence is associated with renal disease. A negative result cannot rule out systemic lupus erythematosus. Clinical correlation is required. Test Methodology: Multiplex flow immunoassay. Chromatin Qualitative Negative Negative [facility] Cyclic Citrullinated Peptide IgG Ab <15 Units <20 [facility] Cyclic Citrullinated Peptide Interp Negative Negative [facility] LIZZETH-1 Antibody Interpretation Negative Negative [facility] Comment on above: Anti-LIZZETH-1 antibody i s used as an aid in diagnosis of polymyositis and dermatomyositis especially with pulmonary involvement. A negative result cannot rule out polymyositis or dermatomyositis. Clinical correlation is required.Test Methodology: Multiplex flow immunoassay. Miscellaneous Test Comment See Note [facility] Comment on above: INTERPRETIVE INFORMA TION: Catecholamines Panel, PlasmaSmall increases in catecholamines (less than 2 times the upper reference limit) are usually the result of physiological stimuli, drugs, or improper specimen collection. Significant elevation of one or more catecholamines (2 or more times the upper reference limit) is associated with an increased probability of a neuroendocrine tumor. Measurement of plasma or urine fractionated metanephrines provides better diagnostic sensitivity than measurement of catecholamines.Lower catecholamine concentrations are observed in specimens collected from supine adults. To convert to picograms per milliliter (pg/mL), multiply the reported concentration for Dopamine by 0.153, Epinephrine by 0.183, and Norepinephrine by 0.169.Access complete set of age- and/or gender-specific reference intervals for this test in the [facility] Laboratory Test Directory (DeepRockDrive).This test was developed and its performance characteristics determined by [facility]. It has not been cleared or approved by the [place] Food and Drug Administration. This test was performed in a CLIA certified laboratory and is intended for clinical purposes.Performed By: [facility] [place] [address] [id number] Director: Carlton Rodriguez MD, PhDCLIA Number: [id number] Plasma Normetanephrine 174 pg/mL 18-101 [facility] Comment on above: Reference Ranges:Hyp ertensive adult > or = 18 yrs old: 24-145 pg/mLNormotensive adult > or = 18 yrs old: 18-101 pg/mLNormotensive children < 18 yrs old: 22-83 pg/mLMethyldopa may cause false elevation of normetanephrine levels in this assay. If patient is on methyldopa, interpret results with caution. DIRECTOR TALENT ACQUISITION Antibody <0.2 AI <1.0 [facility] DIRECTOR TALENT ACQUISITION Antibody Interpretation Negative Negative [facility] Scl-70 (Scleroderma) Antibody <0.2 AI <1.0 [facility] Comment on above: Scl-70/Scleroderma a ntibody test is used as an aid in diagnosis of systemic sclerosis especially the diffuse cutaneous form. A negative result cannot rule out systemic sclerosis. The final interpretation should consider clinical picture and other test results such as anti-centromere antibody. Test Methodology: Multiplex flow immunoassay. Scl-[address] [facility] SS-A Antibody Interpretation Negative Negative [facility] SS-B Antibody Interpretation Negative Negative [facility] Plasma epinephrine measureme nt (mass/volume)on 07-17-2023 EPINEPHrine (P) [Mass/Vol] 309 pmol/L <=330 [facility] Comment on above: INTERPRETIVE INFORMA TION:EpinephrineSeated (15 min) less than or equal to 330 pmol/LSupine (30 min) less than or equal to 265 pmol/L Plasma norepinephrine measur ement (mass/volume)on 07-17-2023 Norepinephrine (P) [Mass/Vol] 3139 pmol/L 7146-2284 [facility] Comment on above: INTERPRETIVE INFORMA TION: NorepinephrineSeated (15 min) 1050 - 4800 pmol/LSupine (30 min) 680 - 3100 pmol/L Rheumatoid fact SerPl-aCncon 07-17-2023 Rheumatoid factor Qn [IU]/mL Normal <16 [facility] Comment on above: Order Comment: Sylvia coronado Type: BLOOD SPECIMEN Ordering Facility: [facility] Address: [address] [place] [address] Performed By: #### 2 9374-6, 43555-2, 25834-1, 39298-1, 69036-3, 64788-8, 26356-4, 75336-6 #### [facility] CLIA [id number] [address] [place] [address] [place] Ribonucleoprotein extractabl e nuclear Ab Qn (S)on 07-17-2023 ANTI-DIRECTOR TALENT ACQUISITION QUAL Negative Normal Negative [facility] Comment on above: Order Comment: Speci ivonne Type: BLOOD SPECIMEN Ordering Facility: [facility] Address: [address] [place] [address] Performed By: #### 2 9374-6, 48757-6, 35830-2, 86810-2, 15900-5, 84455-7, 49116-3, 95195-5 #### [facility] CLIA [id number] [address] [place] [address] [place] RIBOSOMAL DIRECTOR TALENT ACQUISITION QUAL Negative Normal Negative [facility] Comment on above: Order Comment: Sylvia coronado Type: BLOOD SPECIMEN Ordering Facility: [facility] Address: [address] [place] [address] Result Comment: Anti -Ribosomal RNA (Ribosomal P) antibody is used as an aid in diagnosis of systemic autoimmune diseases especially systemic lupus erythematosus and mixed connective tissue disease. Cross-reactivity with Anti-clemons antibody is not uncommon. Clinical correlation is required. Test Methodology: Multiplex flow immunoassay. Performed By: #### 2 9374-6, 89966-6, 09890-2, 52995-3, 92141-0, 91941-5, 63930-5, 89957-5 #### [facility] CLIA [id number] [address] [place] [address] [place] Ribosomal P Ab [Units/volume ] in Serumon 07-17-2023 Ribosomal P Ab Qn (S) Negative Negative [facility] Comment on above: Anti-Ribosomal RNA ( Ribosomal P) antibody is used as an aid in diagnosis of systemic autoimmune diseases especially systemic lupus erythematosus and mixed connective tissue disease. Cross-reactivity with Anti-clemons antibody is not uncommon. Clinical correlation is required. Test Methodology: Multiplex flow immunoassay. SCL-70 extractable nuclear I gG IA Qn (S)on 07-17-2023 SCLERODERMA AB QUAL Negative Normal Negative [facility] Comment on above: Order Comment: Speci men Type: BLOOD SPECIMEN Ordering Facility: [facility] Address: [address] [place] [address] Performed By: #### 2 9374-6, 30409-3, 38786-5, 21186-7, 51093-0, 13204-0, 06494-7, 72534-1 #### [facility] CLIA [id number] [address] [place] [address] [place] SCLERODERMA IGG AB <0.2 Normal <1.0 [facility] Comment on above: Order Comment: Jci ivonne Type: BLOOD SPECIMEN Ordering Facility: [facility] Address: [address] [place] [address] Result Comment: Scl- 70/Scleroderma antibody test is used as an aid in diagnosis of systemic sclerosis especially the diffuse cutaneous form. A negative result cannot rule out systemic sclerosis. The final interpretation should consider clinical picture and other test results such as anti-centromere antibody. Test Methodology: Multiplex flow immunoassay. Performed By: #### 2 9374-6, 71938-3, 92811-7, 16057-1, 70433-0, 44617-0, 83193-1, 42727-0 #### [facility] CLIA [id number] [address] [place] [address] [place] Serum Lizzeth-1 extractable nucle ar antibody assay (units/volume)on 07-17-2023 Lizzeth-1 extractable nuclear Ab Qn (S) <0.2 AI <1.0 [facility] Serum Sjogrens syndrome-A ex tractable nuclear antibody assay (units/volume)on 07-17-2023 Sjogrens syndrome-A extractable nuclear Ab Qn (S) <0.2 AI <1.0 [facility] Comment on above: Test Methodology: Mu ltiplex flow immunoassay. Serum Sjogrens syndrome-B ex tractable nuclear antibody assay (units/volume)on 07-17-2023 Sjogrens syndrome-B extractable nuclear Ab Qn (S) <0.2 AI <1.0 [facility] Comment on above: Anti-SSB (anti-La) a ntibody is used as an aid in diagnosis of a variety of systemic autoimmune diseases, especially for Sjogren's syndrome and systemic lupus erythematosus. Clinical correlation is required. Test Methodology: Multiplex flow immunoassay. Serum Clemons extractable nucl ear antigen (KENDRA) antibody assay (units/volume)on 07-17-2023 Clemons extractable nuclear Ab Qn (S) <0.2 AI <1.0 [facility] Serum centromere protein B a ntibody assay (units/volume)on 07-17-2023 Centromere protein B Ab Qn (S) <0.2 AI <1.0 [facility] Comment on above: Anti-centromere anti body is used as in aid in diagnosis of systemic sclerosis. Clinical correlation is required. Test Methodology: Multiplex flow immunoassay. Serum or plasma chromatin an tibody assay (units/volume)on 07-17-2023 Chromatin Ab Qn <0.2 [address] <[address]0 [facility] Comment on above: Test Methodology: Mu ltiplex flow immunoassay. Serum or plasma dopamine dorie surement (mass/volume)on 07-17-2023 DOPamine [Mass/Vol] <130 pmol/L <=240 [facility] Comment on above: INTERPRETIVE INFORMA TION: DopamineSeated (15 min) less than or equal to 240 pmol/LSupine (30 min) less than or equal to 240 pmol/L Serum or plasma free metanep hrine measurement (mass/volume)on 07-17-2023 Metanephrine Free [Mass/Vol] 66 pg/mL [facility] Comment on above: Reference Ranges:Hyp ertensive adult > or = 18 yrs old: 12-72 pg/mLNormotensive adult > or = 18 yrs old: 12-67 pg/mLNormotensive children < 18 yrs old: 10-95 pg/mL Serum or plasma rheumatoid f actor measurement (units/volume)on 07-17-2023 Rheumatoid factor Qn [IU]/mL <16 [facility] Sjogrens syndrome-A extracta ble nuclear Ab Qn (S)on 07-17-2023 SSA ANTIBODY QUAL Negative Normal Negative [facility] Comment on above: Order Comment: Speci men Type: BLOOD SPECIMEN Ordering Facility: [facility] Address: [address] [place] [address] Performed By: #### 2 9374-6, 50186-6, 92022-7, 06554-0, 33423-6, 10948-1, 79286-2, 03449-2 #### [facility] CLIA [id number] [address] [place] [address] [place] Sjogrens syndrome-B extracta ble nuclear Ab Qn (S)on 07-17-2023 SSB ANTIBODY QUAL Negative Normal Negative [facility] Comment on above: Order Comment: Sylvia coornado Type: BLOOD SPECIMEN Ordering Facility: [facility] Address: [address] [place] [address] Performed By: #### 2 9374-6, 31970-5, 07139-9, 85039-0, 04108-7, 01070-8, 90932-0, 94002-5 #### [facility] CLIA [id number] [address] [place] [address] [place] Clemons extractable nuclear Ig G Qn (S)on 07-17-2023 SM ANTIBODY QUAL Negative Normal Negative [facility] Comment on above: Order Comment: Sylvia coronado Type: BLOOD SPECIMEN Ordering Facility: [facility] Address: [address] [place] [address] Result Comment: Anti -Sm (Clemons) antibody is used as an aid in diagnosis of systemic lupus erythematosus and its presence is associated with renal disease. A negative result cannot rule out systemic lupus erythematosus. Clinical correlation is required. Test Methodology: Multiplex flow immunoassay. Performed By: #### 2 9374-6, 37814-5, 45114-6, 88443-1, 01403-2, 39692-3, 60070-6, 26430-2 #### [facility] CLIA [id number] [address] [place] [address] [place] cCP IgG SerPl-aCncon 024 Cyclic citrullinated peptide IgG Qn <15 Normal <20 [facility] Comment on above: Order Comment: Speci men Type: BLOOD SPECIMEN Ordering Facility: [facility] Address: [address] [place] [address] Performed By: #### 2 9374-6, 78716-9, 70569-5, 75930-1, 62164-0, 33728-0, 73698-2, 95983-3 #### [facility] CLIA [id number] [address] [place] [address] [place] Basophils Auto (Bld) [#/Vol] on 07-05-2023 Basophils (Bld) [#/Vol] 0.0 10 3/uL 0.0-0.1 [facility] Basophils/100 WBC Auto (Bld) on 07-05-2023 Basophils/100 WBC (Bld) 0.7 % 0.2-2.0 [facility] Eosinophils/100 WBC Auto (Bl d)on 07-05-2023 Eosinophils/100 WBC (Bld) 2.5 % 0.9-7.0 [facility] Erythrocyte distribution wid th Auto (RBC) [Ratio]on 07-05-2023 Erythrocyte distribution width (RBC) [Ratio] 12.0 % 11.0-15.0 [facility] Estimated glomerular filtrat ion rate (GFR) non- Americanon 07-05-2023 GFR/1.73 sq M.predicted among non-blacks MDRD (S/P/Bld) [Vol rate/Area] mL/min/{1.73_m2} >=60 [facility] Hematocrit Auto (Bld) [Volum e fraction]on 07-05-2023 Hematocrit (Bld) [Volume fraction] 33.7 % 36.0-48.0 [facility] Hemoglobin [Mass/volume] in Bloodon 07-05-2023 Hemoglobin (Bld) [Mass/Vol] 11.3 g/dL 12.0-16.0 [facility] Laboratory - Chemistry and C hemistry - challengeon 07-05-2023 Calcium [Mass/Vol] 10.0 mg/dL 8.5-10.1 [facility] Chloride [Moles/Vol] 105 mmol/L 98-107 [facility] CO2 [Moles/Vol] 28.1 mmol/L 21.0-32.0 [facility] Creatinine [Mass/Vol] 0.57 mg/dL 0.55-1.02 [facility] GFR/1.73 sq M.predicted MDRD (S/P/Bld) [Vol rate/Area] mL/min/{1.73_m2} >=60 [facility] Glucose [Mass/Vol] 102 mg/dL 74-106 [facility] Potassium [Moles/Vol] 3.9 mmol/L 3.5-5.1 [facility] Sodium [Moles/Vol] 140 mmol/L 136-145 [facility] Urea nitrogen [Mass/Vol] 9.0 mg/dL 7.0-18.0 [facility] Urea nitrogen/Creatinine [Mass ratio] 15.8 mg/mg [facility] - Hematology and Cell countson 07-05-2023 Immature granulocytes/100 WBC (Bld) 0.3 % 0.0-0.5 [facility] Leukocytes [#/volume] correc josefa for nucleated erythrocytes in Blood by Automated counon 07-05-2023 WBC corrected for nucl RBC Auto (Bld) [#/Vol] 6.1 10 3/uL 4.0-11.0 [facility] Lymphocytes Auto (Bld) [#/Vo l]on 07-05-2023 Lymphocytes (Bld) [#/Vol] 2.2 10 3/uL 1.2-3.8 [facility] Lymphocytes/100 WBC Auto (Bl d)on 07-05-2023 Lymphocytes/100 WBC (Bld) 35.4 % 20.5-60.0 [facility] MCH Auto (RBC) [Entitic mass ]on 07-05-2023 MCH (RBC) [Entitic mass] 29.3 pg 26.7-34.0 [facility] MCHC Auto (RBC) [Mass/Vol]on 07-05-2023 MCHC (RBC) [Mass/Vol] 33.5 g/dL 29.9-35.2 [facility] MCV Auto (RBC) [Entitic vol] on 07-05-2023 MCV (RBC) [Entitic vol] 87.3 fL 81.0-99.0 [facility] Monocytes Auto (Bld) [#/Vol] on 07-05-2023 Monocytes (Bld) [#/Vol] 0.7 10 3/uL 0.3-0.8 [facility] Monocytes/100 WBC Auto (Bld) on 07-05-2023 Monocytes/100 WBC (Bld) 12.0 % 1.7-12.0 [facility] Neutrophils Auto (Bld) [#/Vo l]on 07-05-2023 Neutrophils (Bld) [#/Vol] 3.0 10 3/uL 1.4-6.5 [facility] Neutrophils/100 WBC Auto (Bl d)on 07-05-2023 Neutrophils/100 WBC (Bld) 49.1 % 43.0-75.0 [facility] No Panel Informationon 07-04 Eosinophils # (Auto) 0.2 10 3/uL 0.0-0.7 [facility] Immature Granulocyte # (Auto) 0.02 10 3/uL 0.00-0.03 [facility] Troponin I High Sensitivity <4.0 pg/mL 4.0-51.3 [facility] Comment on above: CUT-OFF POINTS HAVE BEEN ESTABLISHED BASED ON THE FOURTHUNIVERSAL DEFINITION OF MYOCARDIAL INFARCTION. THE UPPERREFERENCE LIMIT (URL) OF TROPONIN, DEFINED THE 99THPERCENTILE OF cTnI DISTRIBUTION IN A REFERENCE POPULATION,HAS BEEN CONFIRMED THE DECISION THRESHOLD FOR MIDIAGNOSIS.99TH PERCENTILE = 51.4 PG/MLNOTE: HIGH-SENSITIVITY TROPONIN ASSAY IS NOT INTENDED TO BEUSED IN ISOLATION BUT SHOULD BE INTERPRETED IN CONJUNCTIONWITH OTHER DIAGNOSTIC AND CLINICAL INFORMATION. Platelet mean volume Auto (B ld) [Entitic vol]on 07-05-2023 Platelet mean volume (Bld) [Entitic vol] 11.1 fL 9.5-13.5 [facility] Platelets Auto (Bld) [#/Vol] on 07-05-2023 Platelets (Bld) [#/Vol] 208 10 3/uL 150-450 [facility] RBC Auto (Bld) [#/Vol]on RBC (Bld) [#/Vol] 3.86 10 6/uL 4.20-5.40 [facility] Serum or plasma anion gap de terminationon 07-05-2023 Anion gap [Moles/Vol] 10.8 mmol/L Fi [facility] Basophils Auto (Bld) [#/Vol] on 07-04-2023 Basophils (Bld) [#/Vol] 0.0 10 3/uL 0.0-0.1 [facility] Basophils/100 WBC Auto (Bld) on 07-04-2023 Basophils/100 WBC (Bld) 0.5 % 0.2-2.0 [facility] Eosinophils/100 WBC Auto (Bl d)on 07-04-2023 Eosinophils/100 WBC (Bld) 1.5 % 0.9-7.0 [facility] Erythrocyte distribution wid th Auto (RBC) [Ratio]on 07-04-2023 Erythrocyte distribution width (RBC) [Ratio] 11.9 % 11.0-15.0 [facility] Estimated glomerular filtrat ion rate (GFR) non- Americanon 07-04-2023 GFR/1.73 sq M.predicted among non-blacks MDRD (S/P/Bld) [Vol rate/Area] mL/min/{1.73_m2} >=60 [facility] Hematocrit Auto (Bld) [Volum e fraction]on 07-04-2023 Hematocrit (Bld) [Volume fraction] 35.8 % 36.0-48.0 [facility] Hemoglobin [Mass/volume] in Bloodon 07-04-2023 Hemoglobin (Bld) [Mass/Vol] 12.2 g/dL 12.0-16.0 [facility] Iron binding capacity [Mass/ volume] in Serum or Plasmaon 07-04-2023 Iron binding capacity [Mass/Vol] 422.0 ug/dL 250.0-450.0 [facility] Iron saturation [Mass Fracti on] in Serum or Plasmaon 07-04-2023 Iron saturation [Mass fraction] 10.9 % [facility] - Chemistry and C hemistry - challengeon 07-04-2023 Calcium [Mass/Vol] 10.0 mg/dL 8.5-10.1 [facility] Chloride [Moles/Vol] 105 mmol/L 98-107 [facility] CO2 [Moles/Vol] 27.1 mmol/L 21.0-32.0 [facility] Creatinine [Mass/Vol] 0.55 mg/dL 0.55-1.02 [facility] Free T4 [Mass/Vol] 0.85 ng/dL 0.76-1.46 [facility] GFR/1.73 sq M.predicted MDRD (S/P/Bld) [Vol rate/Area] mL/min/{1.73_m2} >=60 [facility] Glucose [Mass/Vol] 108 mg/dL 74-106 [facility] Iron [Mass/Vol] 46.0 ug/dL 50.0-170.0 [facility] Potassium [Moles/Vol] 4.0 mmol/L 3.5-5.1 [facility] Sodium [Moles/Vol] 141 mmol/L 136-145 [facility] TSH Qn 1.348 m[IU]/L 0.358-3.740 [facility] Urea nitrogen [Mass/Vol] 11.0 mg/dL 7.0-18.0 [facility] Urea nitrogen/Creatinine [Mass ratio] 20.0 mg/mg [facility] - Hematology and Cell countson 07-04-2023 Immature granulocytes/100 WBC (Bld) 0.1 % 0.0-0.5 [facility] Leukocytes [#/volume] correc josefa for nucleated erythrocytes in Blood by Automated counon 07-04-2023 WBC corrected for nucl RBC Auto (Bld) [#/Vol] 8.3 10 3/uL 4.0-11.0 [facility] Lymphocytes Auto (Bld) [#/Vo l]on 07-04-2023 Lymphocytes (Bld) [#/Vol] 1.6 10 3/uL 1.2-3.8 [facility] Lymphocytes/100 WBC Auto (Bl d)on 07-04-2023 Lymphocytes/100 WBC (Bld) 19.2 % 20.5-60.0 [facility] MCH Auto (RBC) [Entitic mass ]on 07-04-2023 MCH (RBC) [Entitic mass] 29.6 pg 26.7-34.0 [facility] MCHC Auto (RBC) [Mass/Vol]on 07-04-2023 MCHC (RBC) [Mass/Vol] 34.1 g/dL 29.9-35.2 [facility] MCV Auto (RBC) [Entitic vol] on 07-04-2023 MCV (RBC) [Entitic vol] 86.9 fL 81.0-99.0 [facility] Monocytes Auto (Bld) [#/Vol] on 07-04-2023 Monocytes (Bld) [#/Vol] 0.5 10 3/uL 0.3-0.8 [facility] Monocytes/100 WBC Auto (Bld) on 07-04-2023 Monocytes/100 WBC (Bld) 6.2 % 1.7-12.0 [facility] Neutrophils Auto (Bld) [#/Vo l]on 07-04-2023 Neutrophils (Bld) [#/Vol] 6.0 10 3/uL 1.4-6.5 [facility] Neutrophils/100 WBC Auto (Bl d)on 07-04-2023 Neutrophils/100 WBC (Bld) 72.5 % 43.0-75.0 [facility] No Panel Informationon 07-03 Eosinophils # (Auto) 0.1 10 3/uL 0.0-0.7 [facility] Immature Granulocyte # (Auto) 0.01 10 3/uL 0.00-0.03 [facility] Platelet mean volume Auto (B ld) [Entitic vol]on 07-04-2023 Platelet mean volume (Bld) [Entitic vol] 11.0 fL 9.5-13.5 [facility] Platelets Auto (Bld) [#/Vol] on 07-04-2023 Platelets (Bld) [#/Vol] 251 10 3/uL 150-450 [facility] RBC Auto (Bld) [#/Vol]on RBC (Bld) [#/Vol] 4.12 10 6/uL 4.20-5.40 [facility] Serum or plasma anion gap de terminationon 07-04-2023 Anion gap [Moles/Vol] 12.9 mmol/L [facility] ECH echo transthoracicon [facility] echo transthoracic [facility] [place] [address] Echocardiogram Signed Patient: Molly Oliveira MR#: [id number] : 1990 Acct:[id number] Age/Sex: 32 / F ADM Date: 06/21/23 Loc: Room: Type: [facility] Attending Dr: Mariah Hardin MD Ordering Provider: Mariah Hardin MD Date of Service: 06/21/23 [facility] echo transthoracic: R00.0 - Tachycardia, unspecified Copies [...] V1 max: 99.4 cm/sec (0.7-1.7m/s)MV E max jillian: 75.0 cm/sec(0.8-1.3m/s) MV A max jillian: 76.3 cm/sec(0.0-0.0m/s) MV E/A: 0.98 (<1.5) MMode/2D Measurements Calculations TAPSE: 2.4 cm FS: 30.6 % Ao root area: LVOT diam: 2.0 cm RV S Jillian: EDV(Teich): 5.4 cm2 LVOT area: 3.0 cm2 [...] Marcelo Hazel MD 06/21/23 1634 Normal [facility] ECG 12 lead ECGon 06-13-2023 ECG 12 lead ECG [facility] [place] [address] Electrocardiograph Report Signed Patient: Molly Oliveira MR#: [id number] : 1990 Acct:[id number] Age/Sex: 32 / F ADM Date: 06/13/23 [...] previous ECGs available Confirmed by Presley Ceja ([id number]) on 07/03/2023 5:46:47 PM Referred By: Electronically Signed By:Presley Ceja Transcribed By: MUS Signed By Presley Ceja MD 07/03/23 1746 Normal [facility] Human papilloma virus 16 DNA [Presence] in Cervix by Probe with signal amplificationon 06-11-2023 HPV 16 DNA Probe+sig amp Ql (Cvx) Negative Negative [facility] Human papilloma virus 16+18+ 31+33+35+39+45+51+52+56+58+59+66+68 DNA [Presence] in [place] 06-11-2023 HPV 16+18+31+33+35+39+45+ 51+52+56+58+59+66+68 DNA Probe+sig amp Ql (Cvx) Positive Negative [facility] Comment on above: This nucleic acid am plification test detects fourteen high- risk HPV types (16,18,31,33,35,39,45,51,52,56,58,59,66,68)without differentiation. No Panel Informationon 06-10 HPV Genotype 18/45 (PCR) Negative Negative [facility] Comment on above: Performed at: =G - L [facility] [address] [id number] Director: Cyndi Ramírez MD, Phone: [phone] at: WB - [facility] [address] [id number] Director: Cyndi Ramírez MD, Phone: [phone] HPV High Risk Other Comment Note . [facility] Comment on above: TESTS RESULT FLAG UN ITS REF RANGE LAB D IAGNOSIS: 02 NEGATIVE FOR INTRAEPITHELIAL LESION OR MALIGNANCY.Specimen adequacy: 02 Satisfactory for evaluation. Endocervical and/or squamous metaplastic cells (endocervical component) are present.Performed by: 02 Brittany Romero, Record Clerk ([facility]). 02Note: Note 02 The Pap smear is [...] High <-Panic Low,>-Panic High,A-Abnormal,AA-Critical Abnormal ----Performed at:[address] [facility] [place] [address] Cyndi Ramírez MD, Reference Lab Test Patient Age Note . [facility] Comment on above: TESTS RESULT FLAG UN ITS REF RANGE LAB Clinician Provided Cytology Information Source.............Cervix;Endocervix No. of containers..01 ThinPrep VialAge Saman COCHRAN Yesica... 30-65 01 FLAG LEGEND: L-Low Normal,H-High Normal,LL-Alert Low,HH-Alert High <-Panic Low,>-Panic High,A-Abnormal,AA-Critical Abnormal ----Performed at:01 =G [facility] [address] [address] Cyndi Ramírez MD, Laboratory - Hematology and Cell countson 05-10-2023 ESR (Bld) [Velocity] 3 mm/h <=20 [facility] No Panel Informationon 05-10 Cardiac C-Reactive Protein 0.19 mg/L 0.00-3.00 [facility] Comment on above: Relative Risk for Fu ture Cardiovascular Event Low <1.00 Average 1.00 - 3.00 High >3.00Performed at: [employer] [facility] [id number] Director: Ryan Richardson PhD, Phone: [phone] Serum or plasma free cefurox mignon measurement (mass/volume)on 05-10-2023 Cefuroxime free [Mass/Vol] Negative Negative [facility] Comment on above: Performed at: [employer] [id number] [place], [place] [id number] Director: Ryan Richardson PhD, Phone: [phone] CNOVon 04-26-2023 CNOV Office Visit (ENWSTR ) -------- MOLLY OLIVEIRA ([id number]) 1990 F Date Time Provider Department 04/26/23 9:20 AM SATHISH OROZCOWSCECILY During your visit today, we recorded the following information about you: Temperature Pulse Blood pressure Weight 99.5 degrees 103/minute 140/80 46.8 kg Height Last Period 1.588 m 04/22/23 Sathish Orozco MD 04/26/2023 1:50 PM Addendum [facility] Initial Clinic Visit Note Referring Physician: Doreen Mejia MD My final recommendations will be communicated back to the requesting physician by way of shared medical record or letter via US mail. 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 Normal [facility] US THYROIDon 04-22-2023 US THYROID EXAMINATION: THYROID [...] Data System (TI- RADS) established by the [employer] [employer] to help provide guidance [...] Time Vital Sign Value Performing Clinician Facility 01-21-2024 10:44-0400 Body height 160.02 cm [facility] 01-21-2024 10:44-0400 Body mass index (BMI) [Ratio] 24.6 kg/m2 [facility] 01-21-2024 10:44-0400 Body weight 63.04 kg [facility] 01-21-2024 10:44-0400 Diastolic blood pressure 80 mm[Hg] [facility] 01-21-2024 10:44-0400 Heart rate 63 /min [facility] 01-21-2024 10:44-0400 Systolic blood pressure 122 mm[Hg] [facility] 01-09-2024 09:10-0400 Body height 160.02 cm [facility] 01-09-2024 09:10-0400 Body mass index (BMI) [Ratio] 24.4 kg/m2 [facility] 01-09-2024 09:10-0400 Body weight 62.59 kg [facility] 01-09-2024 09:10-0400 Diastolic blood pressure 70 mm[Hg] [facility] 01-09-2024 09:10-0400 Heart rate 66 /min [facility] 01-09-2024 09:10-0400 Respiratory rate 18 /min [facility] 01-09-2024 09:10-0400 Systolic blood pressure 110 mm[Hg] [facility] 09-16-2023 11:57-0400 Body height 167.64 cm MD Doreen Mejia Work Phone: [facility] 09-16-2023 11:57-0400 Body mass index (BMI) [Ratio] 19.7 kg/m2 MD Doreen Mejia Work Phone: [facility] 09-16-2023 11:57-0400 Body weight 55.33 kg MD Doreen Mejia Work Phone: [facility] 09-16-2023 11:57-0400 Diastolic blood pressure 82 mm[Hg] MD Doreen Mejia Work Phone: [facility] 09-16-2023 11:57-0400 Heart rate 69 /min MD Doreen Mejia Work Phone: [facility] 09-16-2023 11:57-0400 Systolic blood pressure 121 mm[Hg] MD Doreen Mejia Work Phone: [facility] 08-09-2023 09:26-0400 Body height 160.02 cm MD Doreen Mejia Work Phone: [facility] 08-09-2023 09:26-0400 Body mass index (BMI) [Ratio] 21 kg/m2 MD Doreen Mejia Work Phone: [facility] 08-09-2023 09:26-0400 Body weight 53.97 kg MD Doreen Mejia Work Phone: [facility] 08-09-2023 09:26-0400 Diastolic blood pressure 70 mm[Hg] MD Doreen Mejia Work Phone: [facility] 08-09-2023 09:26-0400 Heart rate 77 /min MD Doreen Mejia Work Phone: [facility] 08-09-2023 09:26-0400 Respiratory rate 18 /min MD Doreen Mejia Work Phone: [facility] 08-09-2023 09:26-0400 SaO2% (BldA) [Mass fraction] 99 % MD Doreen Mejia Work Phone: [facility] 08-09-2023 09:26-0400 Systolic blood pressure 110 mm[Hg] MD Doreen Mejia Work Phone: [facility] 07-17-2023 11:58-0400 Body mass index (BMI) [Ratio] 21.43 kg/m2 Ranjith Miguel MD Work Phone: [facility] 07-17-2023 11:58-0400 Body weight 54 kg Ranjith Miguel MD Work Phone: [facility] 07-17-2023 11:58-0400 Diastolic blood pressure 84 mm[Hg] Ranjith Miguel MD Work Phone: [facility] 07-17-2023 11:58-0400 Heart rate 74 /min Ranjith Miguel MD Work Phone: [facility] 07-17-2023 11:58-0400 Systolic blood pressure 132 mm[Hg] Ranjith Miguel MD Work Phone: [facility] 07-12-2023 09:13-0400 Body height 160.02 cm MD Doreen Mejia Work Phone: [facility] 07-12-2023 09:13-0400 Body mass index (BMI) [Ratio] 21 kg/m2 MD Doreen Mejia Work Phone: [facility] 07-12-2023 09:13-0400 Body weight 53.97 kg MD Doreen Mejia Work Phone: [facility] 07-12-2023 09:13-0400 Diastolic blood pressure 74 mm[Hg] MD Doreen Mejia Work Phone: [facility] 07-12-2023 09:13-0400 Heart rate 83 /min MD Doreen Mejia Work Phone: [facility] 07-12-2023 09:13-0400 Respiratory rate 18 /min MD Doreen Mejia Work Phone: [facility] 07-12-2023 09:13-0400 SaO2% (BldA) [Mass fraction] 97 % MD Doreen Mejia Work Phone: [facility] 07-12-2023 09:13-0400 Systolic blood pressure 118 mm[Hg] MD Doreen Mejia Work Phone: [facility] 07-08-2023 13:06-0400 Body height 160.02 cm MD Doreen Mejia Work Phone: [facility] 07-08-2023 13:06-0400 Body mass index (BMI) [Ratio] 20.5 kg/m2 MD Doreen Mejia Work Phone: [facility] 07-08-2023 13:06-0400 Body temperature 98.6 [degF] MD Doreen Mejia Work Phone: [facility] 07-08-2023 13:06-0400 Body weight 52.38 kg MD Doreen Mejia Work Phone: [facility] 07-08-2023 13:06-0400 Diastolic blood pressure 91 mm[Hg] MD Doreen Mejia Work Phone: [facility] 07-08-2023 13:06-0400 Heart rate 86 /min MD Doreen Mejia Work Phone: [facility] 07-08-2023 13:06-0400 Systolic blood pressure 133 mm[Hg] MD Doreen Mejia Work Phone: [facility] 06-13-2023 09:45-0400 Diastolic blood pressure 76 mm[Hg] MD Doreen Mejia Work Phone: [facility] 06-13-2023 09:45-0400 Heart rate 106 /min MD Doreen Mejia Work Phone: [facility] 06-13-2023 09:45-0400 Systolic blood pressure 138 mm[Hg] MD Doreen Mejia Work Phone: [facility] 06-13-2023 09:39-0400 Body height 160.02 cm MD Doreen Mejia Work Phone: [facility] 06-13-2023 09:39-0400 Body mass index (BMI) [Ratio] 20.5 kg/m2 MD Doreen Mejia Work Phone: [facility] 06-13-2023 09:39-0400 Body weight 52.61 kg MD Doreen Mejia Work Phone: [facility] 06-13-2023 09:39-0400 Respiratory rate 18 /min MD Doreen Mejia Work Phone: [facility] 06-13-2023 09:39-0400 SaO2% (BldA) [Mass fraction] 99 % MD Doreen Mejia Work Phone: [facility] 06-03-2023 09:32-0400 Body height 160.02 cm MD Doreen Mejia Work Phone: [facility] 06-03-2023 09:32-0400 Body mass index (BMI) [Ratio] 20.5 kg/m2 MD Doreen Mejia Work Phone: [facility] 06-03-2023 09:32-0400 Body weight 52.73 kg MD Doreen Mejia Work Phone: [facility] 06-03-2023 09:32-0400 Diastolic blood pressure 90 mm[Hg] MD Doreen Mejia Work Phone: [facility] 06-03-2023 09:32-0400 Heart rate 111 /min MD Doreen Mejia Work Phone: [facility] 06-03-2023 09:32-0400 Systolic blood pressure 132 mm[Hg] MD Doreen Mejia Work Phone: [facility] 05-10-2023 10:15-0500 Body height 160.02 cm [facility] 05-10-2023 10:01-0500 Body mass index (BMI) [Ratio] 19.1 kg/m2 [facility] 05-10-2023 10:01-0500 Body weight 49.12 kg [facility] 05-10-2023 10:01-0500 Diastolic blood pressure 98 mm[Hg] [facility] 05-10-2023 10:01-0500 Heart rate 98 /min [facility] 05-10-2023 10:01-0500 Systolic blood pressure 134 mm[Hg] [facility] 04-29-2023 09:15-0500 Body height 160.02 cm Doreen Mejia Other [employer] Other 04-29-2023 09:15-0500 Body mass index (BMI) [Ratio] 18.63 kg/m2 Doreen Mejia Other [employer] Other 04-29-2023 09:15-0500 Body weight 47.72 kg Doreen Mejia Other [employer] Other 04-29-2023 09:15-0500 Diastolic blood pressure 86 mm[Hg] Doreen Mejia Other [employer] Other 04-29-2023 09:15-0500 Systolic blood pressure 132 mm[Hg] Doreen Mejia Other [employer] [facility] [employer] Other 04-17-2023 14:00-0500 Body height 160.02 cm Michelle Jones Other [facility] 04-17-2023 14:00-0500 Body mass index (BMI) [Ratio] 18.78 kg/m2 Michelle Jones Other [facility] [employer] Other 04-17-2023 14:00-0500 Body weight 48.08 kg Michelle Jones Other [facility] 04-17-2023 14:00-0500 Diastolic blood pressure 86 mm[Hg] Michelle Jones Other [facility] 04-17-2023 14:00-0500 Systolic blood pressure 138 mm[Hg] Michelle Jones Other [facility] 04-01-2023 10:15-0500 Body height 160.02 cm Doreen Mejia Other [facility] 04-01-2023 10:15-0500 Body mass index (BMI) [Ratio] 17.68 kg/m2 Doreen Mejia Other [facility] [employer] Other 04-01-2023 10:15-0500 Body temperature 98.1 [degF] Doreen Mejia Other [facility] [employer] Other 04-01-2023 10:15-0500 Body weight 45.27 kg Doreen Mejia Other [facility] [employer] Other 04-01-2023 10:15-0500 Body weight 45.26 kg [facility] 04-01-2023 10:15-0500 Diastolic blood pressure 99 mm[Hg] Doreen Mejia Other [facility] 04-01-2023 10:15-0500 Systolic blood pressure 150 mm[Hg] Doreen Mejia Other [facility] 03-29-2023 13:15-0500 Body height 160.02 cm Doreen Mejia Other [facility] Encounters Encounter Date Encounter Type Care Provider Facility Start: 01-21-2024 End: 01-21-2024 ambulatory [facility] Work Phone: Start: 01-21-2024 End: 01-21-2024 Patient encounter procedure [facility] Work Phone: Start: 01-09-2024 End: 01-09-2024 ambulatory [facility] Work Phone: Start: 01-09-2024 End: 01-09-2024 Patient encounter procedure [facility] Work Phone: Start: 09-20-2023 End: 09-20-2023 ambulatory Mariah Hardin Facility:[facility] Start: 09-16-2023 End: 09-16-2023 ambulatory MD Doreen Mejia Work Phone: [facility] Work Phone: Start: 09-16-2023 End: 09-16-2023 Patient encounter procedure MD Doreen Mejia Work Phone: [facility] Work Phone: Start: 09-13-2023 End: 09-13-2023 ambulatory [facility] Start: 08-16-2023 Telephone encounter Sathish Orozco MD Work Phone: Endocrinology Comment on above: Results Start: 08-12-2023 Non-patient / Non-visit MD Doreen Mejia Work Phone: [facility] Work Phone: Start: 08-09-2023 End: 08-09-2023 ambulatory MD Doreen Mejia Work Phone: [facility] Work Phone: Start: 08-09-2023 End: 08-09-2023 Patient encounter procedure MD Doreen Mejia Work Phone: [facility] Work Phone: Start: 07-29-2023 End: 07-29-2023 Patient encounter procedure MD Doreen Mejia Work Phone: [facility] Work Phone: Start: 07-29-2023 End: 07-29-2023 ambulatory MD Doreen Mejia Work Phone: [facility] Work Phone: Start: 07-17-2023 End: 07-17-2023 ambulatory RANJITH MODEL Facility[facility] Start: 07-17-2023 Non-patient / Non-visit MD Doreen Mejia Work Phone: [facility] Work Phone: Start: 07-17-2023 End: 07-17-2023 Patient encounter procedure Ranjith Miguel MD Work Phone: Rheumatology Comment on above: Sicca, unspecified t ype (HCC) (Primary Dx); Malaise and fatigue Start: 07-12-2023 End: 07-12-2023 ambulatory MD Doreen Mejia Work Phone: [facility] Work Phone: Start: 07-12-2023 End: 07-12-2023 Patient encounter procedure MD Doreen Mejia Work Phone: [facility] Work Phone: Start: 07-09-2023 End: 07-09-2023 ambulatory ALTHEA UMANA Not Available Start: 07-08-2023 End: 07-08-2023 ambulatory MD Doreen Mejia Work Phone: [facility] Work Phone: Start: 07-08-2023 End: 07-08-2023 Patient encounter procedure MD Doreen Mejia Work Phone: [facility] Work Phone: Start: 07-05-2023 Non-patient / Non-visit MD Doreen Mejia Work Phone: [facility] Work Phone: Start: 07-04-2023 Non-patient / Non-visit MD Doreen Mejia Work Phone: [facility] Work Phone: Start: 06-21-2023 End: 06-21-2023 Patient encounter procedure MD Doreen Mejia Work Phone: [facility] Work Phone: Start: 06-21-2023 End: 06-21-2023 ambulatory MD Doreen Mejia Work Phone: [facility] Work Phone: Start: 06-13-2023 End: 06-13-2023 ambulatory MD Doreen Mejia Work Phone: [facility] Work Phone: Start: 06-13-2023 End: 06-13-2023 Patient encounter procedure MD Doreen Mejia Work Phone: [facility] Work Phone: Start: 06-11-2023 End: 06-11-2023 ambulatory MOHSEN EDEN Not Available Start: 06-11-2023 Non-patient / Non-visit MD Doreen Mejia Work Phone: [facility] Work Phone: Start: 06-03-2023 End: 06-03-2023 Patient encounter procedure MD Doreen Mejia Work Phone: [facility] Work Phone: Start: 05-28-2023 End: 05-28-2023 ambulatory ALTHEA UMANA Not Available Start: 05-23-2023 End: 05-23-2023 ambulatory THERESE BARBER Not Available Start: 05-20-2023 Non-patient / Non-visit MD Doreen Mejia Work Phone: [facility] Work Phone: Start: 05-13-2023 End: 05-13-2023 ambulatory MOHSEN EDEN Not Available Start: 05-10-2023 End: 05-10-2023 ambulatory [facility] Work Phone: Start: 05-10-2023 End: 05-10-2023 Patient encounter procedure [facility] Work Phone: Start: 05-03-2023 End: 05-03-2023 ambulatory Doreen Mejia Other [facility] [employer] Other Start: 05-03-2023 Telephone encounter Doreen Mejia [facility] Start: 04-29-2023 End: 04-29-2023 ambulatory Doreen Mejia Other [employer] Other Start: 04-29-2023 Office outpatient visit 15 minutes Doreen Mejia [facility] Start: 04-26-2023 End: 04-26-2023 ambulatory SATHISH OROZCO Facility[facility] Start: 04-23-2023 End: 04-23-2023 ambulatory Michelle Jones Other [employer] Other Start: 04-23-2023 Telephone encounter Michelle Jessy ovalles [facility] Start: 04-22-2023 End: 04-23-2023 ambulatory MICHELLE JONES Not Available Start: 04-20-2023 End: 04-20-2023 ambulatory Doreen Mejia Other [employer] Other Start: 04-20-2023 Telephone encounter Doreen Mejia [facility] Start: 04-17-2023 End: 04-17-2023 ambulatory Doreen Mejia Other [employer] Other Start: 04-17-2023 Office outpatient visit 15 minutes Michelle Robert [facility] Start: 04-17-2023 Telephone encounter Doreen Mejia [facility] Start: 04-17-2023 End: 04-17-2023 Patient encounter procedure [facility]- Start: 04-15-2023 End: 04-15-2023 ambulatory Doreen Mejia Other [employer] Other Start: 04-15-2023 Telephone encounter Doreen Mejia [facility] Start: 04-11-2023 End: 04-11-2023 ambulatory Doreen Mejia Other [employer] Other Start: 04-11-2023 Telephone encounter Doreen Mejia [facility] Start: 04-10-2023 End: 04-11-2023 ambulatory DOREEN MEJIA Not Available Start: 04-09-2023 End: 04-09-2023 ambulatory Doreen Mejia Other [employer] Other Start: 04-09-2023 Telephone encounter Doreen Mynor [facility] Start: 04-02-2023 End: 04-02-2023 ambulatory Doreen Mynor Other [employer] Other Start: 04-02-2023 Telephone encounter Doreen Mynor [facility] Start: 04-01-2023 End: 04-01-2023 ambulatory Doreen Mynor Other [employer] Other Start: 04-01-2023 Office outpatient visit 25 minutes Doreen Mejia [facility] Start: 04-01-2023 End: 04-01-2023 Patient encounter procedure [facility] Work Phone: Start: 03-29-2023 (Televisit) Televisit Doreen Mejia [facility] Start: 03-29-2023 End: 03-29-2023 ambulatory Doreen Mynor Other [employer] Other Start: 03-29-2023 End: 03-29-2023 Patient encounter procedure [facility] Work Phone: Start: 01-17-2023 End: 01-17-2023 ambulatory Doreen Mejia Other [employer] Other Start: 01-17-2023 Telephone encounter Doreen Mynor [facility] Start: 05-04-2020 End: 05-04-[address] MOISES CLEMONS Facility: Plan of Treatment Date Care Activity Detail Author Start: 11-24-2023 Influenza vaccination Influenz a Vaccine (Season Ended) [facility] Start: 07-17-2023 End: 10-16-2023 Creatine kinase [Enzymatic activity/volume] in Serum or Plasma [facility] Comment on above: Expected: 07/17/2023 , Expires: 10/16/2023 Start: 07-17-2023 End: 07-16-2024 Cyclic citrullinated peptide IgG Ab [Units/volume] in Serum or Plasma [facility] Comment on above: Expected: 07/17/2023 , Expires: 07/16/2024 Start: 07-17-2023 End: 10-16-2023 DNA double strand Ab [Units/volume] in Serum by Immunoassay [facility] Comment on above: Expected: 07/17/2023 , Expires: 10/16/2023 Start: 07-17-2023 End: 10-16-2023 Extractable nuclear Ab panel - Serum [facility] Comment on above: Expected: 07/17/2023 , Expires: 10/16/2023 Start: 07-17-2023 End: 07-16-2024 Rheumatoid factor [Units/volume] in Serum or Plasma [facility] Work Phone: Comment on above: Expected: 07/17/2023 , Expires: 07/16/2024 Start: 06-13-2023 EKG 12 channel panel [facility] Start: 06-03-2023 Patient referral [facility] Work Phone: Start: 03-25-2023 Behavioral Health Screening Behavioral Health Screening [facility] Start: 11-23-2022 Covid-19 Vaccine ( season) Covid-19 Vaccine () [facility] Start: 2022 Screening for malign ant neoplasm of cervix HPV Testing [facility] Start: 2013 Screening for malign ant neoplasm of cervix Pap Testing [facility] Start: 11-19-2011 Hepatitis B Vaccine (1 of 3 - 19+ 3-dose series) Hepatitis B Vaccine (1 of 3 - 19+ 3-dose series) [facility] Start: 11-19-2011 Urine microalbumin profile DTaP,Tdap,Td Vaccine (1 - Tdap) [facility] Start: 2010 Hepatitis C screening Hepatitis C Sc reening [facility] Start: 2010 HIV screening HIV Screening [facility] Cardiovascular stres s testing [facility] Cefuroxime free [Mass/volume] in Serum or Plasma [facility] Patient referral [facility] Work Phone: [facility] Payers Date Payer Category Payer Self-pay [id number] 2023 Private Health Insurance [id number] 2023 Private Health Insurance [facility] SUREST [id number] 2023-Present [phone] [address] [place] [address] PPO [id number] 2021 Unknown [id number] 1990 Unknown [id number]. 593 1990 Unknown [id number] [id number]. 1259 1990 Unknown [id number] [id number]. 1259 1990 Unknown [id number] [id number]. 1259 1990 Unknown [id number] 2.16.840.1.222389.3.579.2. 1259 1990 Unknown [id number] 2.16.840.1.409379.3.579.2. 1259 1990 Unknown [id number] 2.16.840.1.047281.3.579.2. 1259 1990 Unknown [id number] 2.16.840.1.601856.3.579.2. 1259 1990 Unknown [id number] [id number]. 1246 1957 Private Health Insurance [id number] Medicaid [id number] Private Health Insurance [id number] Unknown [id number]. 531 Unknown [id number] [id number]. 531 Unknown [id number] [id number]. 531 Unknown [id number]. 531 Social History Date Type Detail Facility Unknown if ever smoked [facility] [employer] Other Start: 04-26-2023 End: 07-17-[address] [facility] [employer] Other Start: 05-09-2023 Tobacco smoking status [facility] Smoker (finding) [facility] Start: 1990 Sex Assigned At Female F [facility] Start: 06-13-2023 End: 01-09-2024 Tobacco smoking status [facility] Ex-smoker (finding) [facility] History of tobacco use Cigarette Smoker [facility] Start: 04-26-2023 Tobacco use and exposure Smokeless tobacco non-user [facility] Start: 07-17-2023 Alcohol intake Current drinke r of alcohol (finding) [facility] Start: 04-26-2023 End: 07-17-2023 History of Social function [facility] National Score (1-100), lower number is lower risk 61 [facility] Start: 04-26-2023 Alcohol Comment socially [facility] Start: 1990 Sex Assigned At Not on file C [facility] Clinical Notes 01-17-2023 to 08-16-2023 Telephone Encounter - Michelle Pinon MA - 08/16/2023 10:30 AM EDTTelephone Encounter - Michelle Pinon MA - 08/16/2023 10:30 AM Ranjith Costello MD - 07/17/2023 11:52 AM EDT Note Date & Type Note Facility 08-16-2023 Telephone encounter Note Relayed message as below. Patient voiced understanding and had no further questions. Michelle Pinon MA [facility] 08-16-2023 Miscellaneous Notes Relayed message as below. Patient voiced understanding and had no further questions. Michelle Pinon MA Left message to return call to office. This is to let patient know the following message from Dr. Orozco: Hi, Labs reviewed for patient. Let her know that the metanephrine levels are slightly higher than normal, but not significantly. We spoke on her visit about few medications causing levels to go up and I see that she started propranolol before doing labs which can cause that. Please correct me if this is incorrect. If she has any questions or concerns, please advise her to follow up Thanks, Dr. Tiffanie Matta RN August 16, 2023 10:03 AM documented in this encounter [facility] 08-16-2023 Telephone encounter Note Left message to return call to office. This is to let patient know the following message from Dr. Orozco: Hi, Labs reviewed for patient. Let her know that the metanephrine levels are slightly higher than normal, but not significantly. We spoke on her visit about few medications causing levels to go up and I see that she started propranolol before doing labs which can cause that. Please correct me if this is incorrect. If she has any questions or concerns, please advise her to follow up ThanksDr. Tiffanie RN August 16, 2023 10:03 AM [facility] 07-17-2023 Note HNO ID: [id number] Author: RANJITH MIGUEL MD Service: ? Author Type: Physician Type: Progress Notes Filed: 07/17/2023 12:35 Note Text: Rheumatology CONSULTATION Date of Service: 07/17/[address] Doreen Mejia MD for an opinion regarding assessment for a rheum condition. My final recommendations will be communicated back to the requesting physician by way of shared medical record or letter via US mail [address] [facility] [id number] chief complaint Assess for rheum condition Multiple complaints No outside records I have reviewed the patient's medical record in detail. HPI: 32 year old female She has been seeing multiple doctors since . This is her last step. She is here for a w/up for rheum disease. She feels cold Her hands get pale and bluish but not in sequence. She has eye sicca. She sees patient care director, uses drops. She has iron deficiency anemia. She has racing heart. She is on a medication. She has a lot of fatigue. She has dysphagia and dry mouth, she is dizzy. She has GERD. Grandmother had arthritis Mother thyroid Father kidney disease Outside labs on her phone 07/16 Nl wsr/crp Kishor neg Cbc cmp ok Tsh ok Patient reports No Raynauds, No photosensitivity, Yes oral sores, Yes sicca syndrome, No alopecia, No eye inflammation, No psoriasis, No inflammatory bowel disease History reviewed. No pertinent past medical history. PAST SURGICAL HISTORY Procedure Laterality Date TONSILLECTOMY AND ADENOIDECTOMY There is no problem list on file for this patient. Social History Tobacco Use Smoking status: Former Types: Cigarettes Smokeless tobacco: Never Vaping Use Vaping Use: Some days Substances: Nicotine Devices: Disposable Substance Use Topics Alcohol use: Yes Comment: socially Drug use: Not Currently FAMILY HISTORY Problem Relation Age of Onset Thyroid Mother Hypertension Father Kidney Disease Father Diabetes Maternal Grandmother Thyroid Cancer Paternal Grandmother Current Outpatient Medications Medication Sig pantoprazole DR (PROTONIX) 40 mg tablet TAKE 1 TABLET BY MOUTH EVERY DAY FOR 4 WEEKS ALPRAZolam (XANAX) 0.25 mg tablet Twice daily propranolol (INDERAL) 20 mg tablet Take 1 tablet by mouth every 12 hours. No current facility-administered medications for this visit. ALLERGIES Allergen Reactions Levamisole Unknown Nalbuphine Hives, Other: See Comments Promethazine Hives REVIEW OF SYSTEMS Skin: negative for rash, itching, hair and nail chainges. Resp: No cough, hemoptysis, asthma, recent chest infection, wheezing Cardio: palpitations racing GI: dysphagia or odynophagia, dry mouth : No burning with urination, blood in urine or incontinence Musculoskeletal: Morning stiffness, no and Joint Pain no Energy: low Fatigue: in am Neuro: Numbness or tingling of hands and dizzy Psych: negative Carmelo: anemia, weight loss Endo: negative, had TSH checked, no DM PHYSICAL EXAMINATION: BP 132/84 Pulse 74 Wt 119 lb 0.8 oz (54.0kg) LMP 04/22/2023 General appearance: Well appearing, alert, in no acute distress, well-hydrated, well nourished. Skin: Skin color, texture, turgor normal, no suspicious rashes or lesions Neck: Supple, no adenopathy Back: no pain to palpation, good flexion and extension Lungs: Lungs clear to auscultation. No wheezing, rhonchi, rales Heart: RRR without murmur Abdomen: soft, NT, no masses Extremities: no edema Musculoskeletal: no synovitis Neuro: Gait normal. No muscle weakness. Sensation grossly intact. Impression (M35.00) Sicca, unspecified type (HCC) (primary encounter diagnosis) (R53.81, R53.83) Malaise and fatigue Comment: eyes and mouth/most likely nonspecific Doubt has Sjogren's with nl esr and neg KISHOR Will check full serologic panel Plan: RHEUMATOID FACTOR, CCP ANTIBODY IGG, ANTI KENDRA ID, DNA AB DS + CONF BLD, CREATINE KINASE/CK Rv prn results pending I spent a total of 45 minutes on the date of the service which included preparing to see the patient, [id number] patient care, completing clinical documentation, obtaining and/or reviewing separately obtained history, performing a medically appropriate examination, counseling and educating the patient/family/caregiver, and ordering medications, tests, or procedures. Ranjith Miguel MD [facility] 07-17-2023 History of Presen t illness Narrative Images from the original note were not included. Rheumatology CONSULTATION Date of Service: 07/17/[address] Doreen Mejia MD for an opinion regarding assessment for a rheum condition. My final recommendations will be communicated back to the requesting physician by way of shared medical record or letter via US mail [address] [facility] [id number] chief complaint Assess for rheum condition Multiple complaints No outside records I have reviewed the patient's medical record in detail. HPI: 32 year old female She has been seeing multiple doctors since . This is her last step. She is here for a w/up for rheum disease. She feels cold Her hands get pale and bluish but not in sequence. She has eye sicca. She sees patient care director, uses drops. She has iron deficiency anemia. She has racing heart. She is on a medication. She has a lot of fatigue. She has dysphagia and dry mouth, she is dizzy. She has GERD. Grandmother had arthritis Mother thyroid Father kidney disease Outside labs on her phone 07/16 Nl wsr/crp Kishor neg Cbc cmp ok Tsh ok Patient reports No Raynauds, No photosensitivity, Yes oral sores, Yes sicca syndrome, No alopecia, No eye inflammation, No psoriasis, No inflammatory bowel disease History reviewed. No pertinent past medical history. PAST SURGICAL HISTORY Procedure Laterality Date TONSILLECTOMY & ADENOIDECTOMY <AGE 14 There is no problem list on file for this patient. Social History Tobacco Use Smoking status: Former Types: Cigarettes Smokeless tobacco: Never Vaping Use Vaping Use: Some days Substances: Nicotine Devices: Disposable Substance Use Topics Alcohol use: Yes Comment: socially Drug use: Not Currently FAMILY HISTORY Problem Relation Age of Onset Thyroid Mother Hypertension Father Kidney Disease Father Diabetes Maternal Grandmother Thyroid Cancer Paternal Grandmother Current Outpatient Medications Medication Sig pantoprazole DR (PROTONIX) 40 mg tablet TAKE 1 TABLET BY MOUTH EVERY DAY FOR 4 WEEKS ALPRAZolam (XANAX) 0.25 mg tablet Twice daily propranolol (INDERAL) 20 mg tablet Take 1 tablet by mouth every 12 hours. No current facility-administered medications for this visit. ALLERGIES Allergen Reactions Levamisole Unknown Nalbuphine Hives, Other: See Comments Promethazine Hives REVIEW OF SYSTEMS Skin: negative for rash, itching, hair and nail chainges. Resp: No cough, hemoptysis, asthma, recent chest infection, wheezing Cardio: palpitations racing GI: dysphagia or odynophagia, dry mouth : No burning with urination, blood in urine or incontinence Musculoskeletal: Morning stiffness, no and Joint Pain no Energy: low Fatigue: in am Neuro: Numbness or tingling of hands and dizzy Psych: negative Carmelo: anemia, weight loss Endo: negative, had TSH checked, no DM PHYSICAL EXAMINATION: BP 132/84 Pulse 74 Wt 119 lb 0.8 oz (54.0kg) LMP 04/22/2023 General appearance: Well appearing, alert, in no acute distress, well-hydrated, well nourished. Skin: Skin color, texture, turgor normal, no suspicious rashes or lesions Neck: Supple, no adenopathy Back: no pain to palpation, good flexion and extension Lungs: Lungs clear to auscultation. No wheezing, rhonchi, rales Heart: RRR without murmur Abdomen: soft, NT, no masses Extremities: no edema Musculoskeletal: no synovitis Neuro: Gait normal. No muscle weakness. Sensation grossly intact. Impression (M35.00) Sicca, unspecified type (HCC) (primary encounter diagnosis) (R53.81, R53.83) Malaise and fatigue Comment: eyes and mouth/most likely nonspecific Doubt has Sjogren's with nl esr and neg KISHOR Will check full serologic panel Plan: RHEUMATOID FACTOR, CCP ANTIBODY IGG, ANTI KENDRA ID, DNA AB DS + CONF BLD, CREATINE KINASE/CK Rv prn results pending I spent a total of 45 minutes on the date of the service which included preparing to see the patient, [id number] patient care, completing clinical documentation, obtaining and/or reviewing separately obtained history, performing a medically appropriate examination, counseling and educating the patient/family/caregiver, and ordering medications, tests, or procedures. Ranjith Miguel MD documented in this encounter [facility] 04-29-2023 Evaluation note Encounter Date Diagnosis Assessment Notes Apr, Acute nonintractable headache, unspecified headache type (ICD-10 - R51.9) Discussed MRI - r/o tumor or other cause of L bahai pain, L nasal congestion Apr, Tachycardia (ICD-10 - R00.0) Pt will complete the labs ordered by [facility]in[facility]. Discussed possible cardio referral, Will check holter to gather information on the intermittent tachycardia. [facility] Other 02-02-2024 NoteHNO ID: [id number] Author: SATHISH OROZCO MD Service: ? Author Type: Physician Type: Progress Notes Filed: 04/26/2023 13:50 Note Text: [facility] Initial Clinic Visit Note Referring Physician: Doreen Mejia MD My final recommendations will be communicated back to the requesting physician by way of shared medical record or letter via US mail. Subjective: Molly Oliveira is a 32 year old female [...] having palpitations again. She takes care of [employer], denies any work related stress REVIEW OF [...] HISTORY: Lives with She takes care of [employer] PHYSICAL EXAM: BP 140/80 Pulse 103 Temp [...] these labs are normal (more content not included)...[facility] 04-17-2023 Evaluation note* Encounter Date Diagnosis Assessment Notes Treatment Notes Treatment Clinical Notes Mar, Hyperthyroidism (ICD-10 - E05.90) [facility] Other 01-24-2024 Evaluation note* Encounter Date Diagnosis [...] Mar, Increased heart rate (ICD-10 - R00.0) [facility] Other 01-08-2024 Evaluation note* Encounter Date Diagnosis [...] f/u in 1 month if not sooner. [facility] Other 01-05-2024 Evaluation note* Encounter Date Diagnosis [...] even pneumonia with dehydration. Pt expresses understanding. [facility] Other 10-26-2023 Evaluation note* Encounter Date Diagnosis Assessment Notes Treatment Notes Treatment Clinical Notes Dec, Serum calcium elevated (ICD-10 - E83.52) [facility] Other Evaluation noteNo InformationNort [place] Other Evaluation note* Diagnosis Onset Date Resolution Status Autoimmune connective tissue disorder acute Swallowing dysfunction acute [facility] Work Phone: Evaluation note* Diagnosis Onset Date Resolution Status Autoimmune connective tissue disorder acute Swallowing dysfunction acute Weight loss, non-intentional acute Autoimmune connective tissue disorder acute Tachycardia acute [facility] Work Phone: Evaluation note* Diagnosis Onset Date Resolution Status Autoimmune connective tissue disorder acute Swallowing dysfunction acute Weight loss, non-intentional acute Autoimmune connective tissue disorder acute Tachycardia acute Anxiety, generalized acute Autoimmune connective tissue disorder acute Cardiac murmur acute Swallowing dysfunction acute Tachycardia acute Weight loss, non-intentional acute [facility] Work Phone: Evaluation note* Diagnosis Onset Date Resolution Status Autoimmune connective tissue disorder acute Swallowing dysfunction acute Weight loss, non-intentional acute Autoimmune connective tissue disorder acute Tachycardia acute Anxiety, generalized acute Autoimmune connective tissue disorder acute Cardiac murmur acute Swallowing dysfunction acute Tachycardia acute Weight loss, non-intentional acute Bronchitis acute LPRD (laryngopharyngeal reflux disease) acute Tachycardia acute Anxiety, generalized acute Autoimmune connective tissue disorder acute Cardiac murmur acute Swallowing dysfunction acute Tachycardia acute Weight loss, non-intentional acute [facility] Work Phone: Evaluation note* Diagnosis Sicca, unspecified type (HCC)- Primary Malaise and fatigue Other malaise and fatigue documented in this encounter [facility] Diagnosis Onset Date Resolution Status Autoimmune connective tissue disorder acute Tachycardia acute Anxiety, generalized acute Autoimmune connective tissue disorder acute Cardiac murmur acute Swallowing dysfunction acute Tachycardia acute Weight loss, non-intentional acute Bronchitis acute LPRD (laryngopharyngeal reflux disease) acute Tachycardia acute Anxiety, generalized acute Autoimmune connective tissue disorder acute Cardiac murmur acute Swallowing dysfunction acute Tachycardia acute Weight loss, non-intentional acute Bronchitis acute LPRD (laryngopharyngeal reflux disease) acute Weight loss, non-intentional acute Lyme carditis noneactive [facility] Work Phone: Evaluation note* Diagnosis Onset Date Resolution Status Bronchitis acute LPRD (laryngopharyngeal reflux disease) acute Tachycardia acute Anxiety, generalized acute Autoimmune connective tissue disorder acute Cardiac murmur acute Swallowing dysfunction acute Tachycardia acute Weight loss, non-intentional acute Anxiety, generalized acute Autoimmune connective tissue disorder acute Bronchitis acute Cardiac murmur acute LPRD (laryngopharyngeal reflux disease) acute Swallowing dysfunction acute Tachycardia acute Weight loss, non-intentional acute Lyme carditis noneactive LVH (left ventricular hypertrophy) noneactive Chest pressure noneactive [facility] Work Phone: Evaluation note* Diagnosis Onset Date Resolution Status Anxiety, generalized acute Autoimmune connective tissue disorder acute Bronchitis acute Cardiac murmur acute LPRD (laryngopharyngeal reflux disease) acute Swallowing dysfunction acute Tachycardia acute Weight loss, non-intentional acute Lyme carditis noneactive LVH (left ventricular hypertrophy) noneactive Chest pressure noneactive [facility] Work Phone: History general Narrative - Reported* Type Description Date Medical History hx of migraines Surgical History tonsillectomy Surgical History tubal ligation Hospitalization History childbirth [facility] Other Summary Purpose Family History Relationship Condition Age at Onset Recorded Date/T mignon father Hypertension Unknown Advance Directives Advance Directive Response Recorded Date/ Time Advance Directives No April 9:53am Advance Directive Response Recorded Date/ Time Advance Directives No April 10:53am Reason for Referral Reason *FU 04/26 tachycar geovani, weight loss, eye problems, thyroid US pending. Diagnosis 1 Hyperthyroidism (E05 .90) Referral Organization [facility] charline Referring Provider First Name Doreen Referring Provider Last Name Mynor Referring Provider Specialty [facility] Referred Organization [facility] Referred Address [address] [place] [address] [place], [place],[address] Referred Provider Specialty Endocrinolog y Referral Priority [...] murmur Swallowing dysfunction Tachycardia Weight loss, non-intentional Chief Complaint Eyes-Swollen, Watery On-Going Symptoms Amb Documentation FOLLOW UP Tachycardia R00.0 R01.1 M35.9 tbh er follow up Reason for Visit Autoimmune connectiv e tissue disorder Swallowing dysfunction Weight loss, non-intentional Autoimmune connective tissue disorder Tachycardia Anxiety, generalized Autoimmune connective tissue disorder Cardiac murmur Swallowing dysfunction Tachycardia Weight loss, non-intentional Chief Complaint Eyes-Swollen, Watery On-Going Symptoms Amb Documentation FOLLOW UP Tachycardia R00.0 R01.1 M35.9 tbh er follow up moved up appt from 07/[address] Mejia Reason for Visit Autoimmune connectiv e tissue disorder Swallowing dysfunction Weight loss, non-intentional Autoimmune connective tissue disorder Tachycardia Anxiety, generalized Autoimmune connective tissue disorder Cardiac murmur Swallowing dysfunction Tachycardia Weight loss, non-intentional Bronchitis LPRD (laryngopharyngeal reflux disease) Tachycardia Anxiety, generalized Autoimmune connective tissue disorder Cardiac murmur Swallowing dysfunction Tachycardia Weight loss, non-intentional Chief Complaint On-Going Symptoms Amb Documentation FOLLOW UP Tachycardia R00.0 R01.1 M35.9 tb er follow up moved up appt from 07/[address] Mejia R00.0 R07.9 Reason for Visit Autoimmune connectiv e tissue disorder Swallowing dysfunction Weight loss, non-intentional Autoimmune connective tissue disorder Tachycardia Anxiety, generalized Autoimmune connective tissue disorder Cardiac murmur Swallowing dysfunction Tachycardia Weight loss, non-intentional Bronchitis LPRD (laryngopharyngeal reflux disease) Tachycardia Anxiety, generalized Autoimmune connective tissue disorder Cardiac murmur Swallowing dysfunction Tachycardia Weight loss, non-intentional Chief Complaint Amb Documentation FOLLOW UP Tachycardia R00.0 R01.1 M35.9 tb er follow up moved up appt from 07/[address] Mejia R00.0 R07.9 4 Weeks Reason for Visit Autoimmune connectiv e tissue disorder Tachycardia Anxiety, generalized Autoimmune connective tissue disorder Cardiac murmur Swallowing dysfunction Tachycardia Weight loss, non-intentional Bronchitis LPRD (laryngopharyngeal reflux disease) Tachycardia Anxiety, generalized Autoimmune connective tissue disorder Cardiac murmur Swallowing dysfunction Tachycardia Weight loss, non-intentional Bronchitis LPRD (laryngopharyngeal reflux disease) Weight loss, non-intentional Lyme carditis Chief Complaint R00.0 R01.1 M35.9 tb er follow up moved up appt from 07/[address] Mejia R00.0 R07.9 4 Weeks puffy eyes for couple days Reason for Visit Bronchitis LPRD (laryngopharyngeal reflux disease) Tachycardia Anxiety, generalized Autoimmune connective tissue disorder Cardiac murmur Swallowing dysfunction Tachycardia Weight loss, non-intentional Anxiety, generalized Autoimmune connective tissue disorder Bronchitis Cardiac murmur LPRD (laryngopharyngeal reflux disease) Swallowing dysfunction Tachycardia Weight loss, non-intentional Lyme carditis LVH (left ventricular hypertrophy) Chest pressure Chief Complaint follow up Reason for Visit Anxiety, generalized Autoimmune connective tissue disorder Bronchitis Cardiac murmur LPRD (laryngopharyngeal reflux disease) Swallowing dysfunction Tachycardia Weight loss, non-intentional Lyme carditis LVH (left ventricular hypertrophy) Chest pressure Chief Complaint follow up Med f/u Reason for Visit Anxiety, generalized Autoimmune connective tissue disorder Bronchitis Cardiac murmur LPRD (laryngopharyngeal reflux disease) Swallowing dysfunction Tachycardia Weight loss, non-intentional Lyme carditis LVH (left ventricular hypertrophy) Chest pressure Additional Source Comments INFORMATION SOURCE (unrecogn ized section and content) DATE CREATED AUTHOR 09/26/2021 [facility] DATE CREATED AUTHOR AUTHOR'S ORGANIZ ATION 07/10/2023 [facility] DATE CREATED AUTHOR AUTHOR'S ORGANIZ ATION 08/18/2023 [facility] DATE CREATED AUTHOR AUTHOR'S ORGANIZ ATION 09/22/2023 [facility] DATE CREATED AUTHOR AUTHOR'S ORGANIZ ATION 10/24/2023 [facility] REASON FOR VISIT (unrecogniz ed section and content) Reason Comments Consult Reason Comments Results Care Teams (unrecognized sec tion and content) Team Status: Active Member Role Status Dates Doreen Mejia MD Primary Care Provider Active Team Status: Active Member Role Status Dates Enedelia Walker MD Primary Care Provider Active S tart: May 20, 2023 MYLENE Stephens Attending Provider Active Start : May 20, 2023 Team Status: Inactive Member Role Status Dates Doeren Mejia MD Primary Care Provide r, Attending Provider Active Start: June 03, 2023 End: June 03, 2023 Team Status: Active Member Role Status Dates Doreen Mejia MD Primary Care Provide r, Attending Provider Active Start: June 11, 2023 Team Status: Inactive Member Role Status Dates Doreen Mejia MD Primary Care Provider Active Start: June 13, 2023 End: June 13, 2023 Mariah Hardin MD Attending Provider Active Sta rt: June 13, 2023 End: June 13, 2023 Team Status: Inactive Member Role Status Dates Doreen Mejia MD Primary Care Provider Active Start: June 21, 2023 End: June 21, 2023 Mariah Hardin MD Attending Provider Active Sta rt: June 21, 2023 End: June 21, 2023 Team Status: Active Member Role Status Dates Doreen Mejia MD Primary Care Provider Active Start: July 04, 2023 Mariah Hardin MD Attending Provider Active Sta rt: July 04, 2023 Team Status: Active Member Role Status Dates Doreen Mejia MD Primary Care Provide r, Attending Provider Active Start: July 05, 2023 Team Status: Inactive Member Role Status Dates Doreen Mejia MD Primary Care Provide r, Attending Provider Active Start: July 08, 2023 End: July 08, 2023 Team Status: Inactive Member Role Status Dates Doreen Mejia MD Primary Care Provider Active Start: July 12, 2023 End: July 12, 2023 Mariah Hardin MD Attending Provider Active Sta rt: July 12, 2023 End: July 12, 2023 Team Status: Active Member Role Status Dates Doreen Mejia MD Primary Care Provider Active Start: July 17, 2023 Ranjith Miguel MD Attending Provider Active Start: July 17, 2023 Team Status: Inactive Member Role Status Dates Doreen Mejia MD Primary Care Provider Active Start: July 29, 2023 End: July 29, 2023 Mariah Hardin MD Attending Provider, Referring Provider Active Start: July 29, 2023 End: July 29, 2023 Team Status: Inactive Member Role Status Dates Doreen Mejia MD Primary Care Provider Active Start: August 09, 2023 End: August 09, 2023 Mariah Hardin MD Attending Provider Active Sta rt: August 09, 2023 End: August 09, 2023 Team Status: Inactive Member Role Status Dates Doreen Mejia MD Attending Provider Active St art: March 29, 2023 End: March 29, 2023 Team Status: Inactive Member Role Status Dates Doreen Mejia MD Attending Provider Active St art: April 01, 2023 End: April 01, 2023 Team Status: Inactive Member Role Status Dates Michelle Jones APRN COTA-C Attending Provider Act husam Start: April 17, 2023 End: April 17, 2023 Team Status: Inactive Member Role Status Dates Enedelia Walker MD Primary Care Provider Active S tart: May 10, 2023 End: May 10, 2023 Doreen Mejia MD Attending Provider Active St art: May 10, 2023 End: May 10, 2023 Team Status: Active Member Role Status Dates Doreen Mejia MD Primary Care Provider Active Start: June 13, 2023 Mariah Hardin MD Attending Provider Active Sta rt: June 13, 2023 Team Status: Active Member Role Status Dates Enedelia Walker MD Primary Care Provider Active 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 Start Date End Date Doreen Mejia MD [address] [place] [address] PCP - General Family Medicine 06/07/23 Doreen Mejia MD [address] [place] [address] Referring Family Medicine 04/21/23 Doreen Mejia MD [address] [place] [id number] Referring Family Medicine 06/07/23 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 [place] [address] [place] [id number] PCP - General Family Medicine 06/07/23 [place] [address] [place] [phone] Referring Family Medicine 04/21/23 Doreen Mejia MD [address] [place] [id number] Referring Family Medicine 06/07/23 Team Status: Active Member Role Status Dates Mariah Hardin MD [employer] Certified Concierge Active Doreen Mejia MD Primary Care Provider Active Team Status: Active Member Role Status Dates Doreen Mejia MD Primary Care Provider Active Start: August 12, 2023 Mariah Hardin MD Attending Provider Active Sta rt: August 12, 2023 Team Status: Inactive Member Role Status Dates Doreen Mejia MD Primary Care Provide r, Attending Provider Active Start: September 16, 2023 End: September 16, 2023 Team Status: Inactive Member Role Status Dates Doreen Mejia MD Primary Care Provider Active Start: January 09, 2024 End: January 09, 2024 Mariah Hardin MD Attending Provider Active Sta rt: January 09, 2024 End: January 09, 2024 Team Status: Inactive Member Role Status Dates Doreen Mejia MD Primary Care Provide r, Attending Provider Active Start: January 21, 2024 End: January 21, 2024 Goals (unrecognized section and content) Goals may be documented in a n alternate section Source Comments (unrecognize d section and content) In the event this informatio n is protected by the Federal Confidentiality of Alcohol and Drug Abuse Patient Records regulations: The Federal rules restrict any use of the information to criminally investigate or prosecute any alcohol or drug abuse patient.[facility] the event this information is protected by the Federal Confidentiality of Alcohol and Drug Abuse Patient Records regulations: The Federal rules restrict any use of the information to criminally investigate or prosecute any alcohol or drug abuse patient.[facility] FOR RECORDS PERTAINING TO PATIENTS WHO ARE [...] BE BASED ON THE PRIMARY CLINICAL RECORDS. [facility]. provides no warranty or guarantee of the accuracy or completeness of information in this document.
[2024-01-28 14:39] LABS: Anion Gap 13.5; BUN Creatinine Ratio 12.9; Calcium 10.1 mg/dL (8.5-10.1); Carbon Dioxide 27.6 mmol/L (21.0-32.0); Chloride 104 mmol/L (98-107); Cholesterol 203 mg/dL (<=200); Estimated GFR (African America >60 (>=60 mL/min/1.73m^2); Estimated GFR (Non-African Ame >60 (>=60 mL/min/1.73m^2); Glucose 84 mg/dL (74-106); HDL Cholesterol 67 mg/dL (40-60); Potassium 4.1 mmol/L (3.5-5.1); Sodium 141 mmol/L (136-145); Triglycerides 79 mg/dL (<=150); VLDL CHOLESTEROL 15.8 mg/dL
== END 2024-01-28 11:13 | disposition home or self-care (01) ==
LOC: LAB 11:13
PROVIDERS: PCP Family Medicine; Visit Provider Family Medicine
DX: Z00.00 Encounter for general adult medical examination without abnormal findings (principal)
CPT/HCPCS: 36415; 80048; 80061

== ENCOUNTER 2025-02-02 11:05 | Outpatient (OUT) | payer OTHER, SELFPAY ==
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
--- OUTSIDE RECORDS SUMMARY | 2025-02-02 11:14 | XMS_ITS | Clinical Summary ---
Author Organization [facility] Address [address] [place] [address] Care Team Providers Care Support Team Member Name Role Phone Kasey Lowe MD Primary Care Provider [phone] Allergies No known active allergies Medications MedicationSigDispense QuantityRefillsLast FilledStart DateEnd DateStatus ALPRAZolam (Xanax) 0.25 MG tablet Take 1 tablet by mouth every 12 (twelve) hours04/20/2023ctive pantoprazole (ProtoNix) 40 MG EC tablet TAKE 1 TABLET BY MOUTH EVERY DAY FOR 4 WEEKS05/18/2023ctive famotidine (Pepcid) 20 MG tablet Indications:LPRD (laryngopharyngeal reflux disease)Take 1 tablet (20 mg) by mouth at bedtime 90 tablet 05/28/2023ctive propranolol (Inderal) 10 MG tablet Take 10 mg by mouth in the morning and 10 mg before bedtime.07/04/2023ctive Active Problems ProblemNoted DateDiagnosed DateLPRD (laryngopharyngeal reflux disease)05/28/2023 Ypqszsbkfzpqlsq12/29/2024GAD (generalized anxiety disorder)05/23/2023ysphagia 05/23/2023 Family History Medical HistoryRelationNameCommentsHypertensionFatherCataractsMaternal GrandmotherAnnice robinsonMacular degenerationMaternal GrandmotherAnnice robinsonThyroid diseaseMotherLisaRelationNameStatusCommentsDaughterAliveFather AliveMaternal GrandmotherAnnice robinsonMotherLisaAliveSonAlive Social History Tobacco UseTypesPacks/DayYears UsedDateSmoking Tobacco: Every DayCigarettes Smokeless Tobacco: Never Tobacco Cessation:Ready to Q uit: Not Asked; Counseling Given: Not Answered Alcohol UseStandard Drinks/WeekCommentsNot Currently0 (1 standard drink = 0.6 oz pure alcohol)CommentsUnknownSex and Gender InformationValueDate Recorded Sex Assigned at AuilsOkubdu05/15/2024 9:55 AM ESTLegal TzoDxisal73/15/2023 11:14 PM EDTGender HpneyqzhZbxrpk07/15/2024 9:55 AM ESTSexual OrientationStraight 04/08/2023 9:55 AM EST Last Filed Vital Signs Vital SignReadingTime TakenCommentsBlood Sdylkngl408/4427307/09/2023 9:09 AM EDT Pulse--Temperature--Respiratory Rate--Oxygen Saturation--Inhaled Oxygen Concentration--Ouvjrw96 kg (119 lb)07/09/2023 9:09 AM RRETwclkf727 cm (5' 3 ) 07/09/2023 9:09 AM EDTBody Mass Index21.0807/09/2023 9:09 AM EDT Plan of Treatment Not on file Insurance Care Teams Team MemberRelationshipSpecialtyStart DateEnd Date Kasey Lowe MD PCP - [facility]05/20/23
--- OUTSIDE RECORDS SUMMARY | 2025-02-02 11:14 | XMS_ITS | Encounter Summary ---
Author Organization [facility] Address [address] [place] [address] Care Team Providers Care Industrial Hygiene Engineer Name Role Phone Kasey Lowe MD Primary Care Provider [phone] Encounter Details DateTypeDepartmentCare Team (Latest Contact Info)Pqniskcupme37/28/2024Clinisync Result Encounter [facility] External Department Unsolicited Josh Rojas, DO [address] [place] [place], [place] [id number] Social History Tobacco UseTypesPacks/DayYears UsedDateSmoking Tobacco: NeverSmokeless Tobacco: NeverCommentsUnknownSex and Gender InformationValueDate RecordedSex Assigned at BqnnhTmgtin70/15/2024 9:55 AM ESTLegal IcrRtxmgt80/15/2023 11:14 PM EDTGender HorfcffcZhfvac62/15/2024 9:55 AM ESTSexual OrientationStraight 04/08/2023 9:55 AM ESTdocumented as of this encounter Plan of Treatment Not on file documented as of this encounter Procedures Procedure NamePriorityDate/TimeAssociated DiagnosisCommentsMM TOMOSYNTHESIS DIAGNOSTIC BI05/22/2023 1:43 PM EST documented in this encounter Results * MM TOMOSYNTHESIS DIAGNOSTIC BI (05/22/2023 1:43 PM EST)Anatomical Region LateralityModalityOtherSpecimen (Source)Anatomical Location / Laterality Collection Method / VolumeCollection TimeReceived Time05/22/2023 1:43 PM EST Narrative 05/22/2023 1:44 PM EST [facility] ?[address] ? [place] [address] ? Mammography Report ? Signed ? Patient: STRECKER,MOLLY E ?MR#: [id number] ?? : 1990 ?Acct:[id number] ?? Age/Sex: 32 / F ?ADM Date: 05/22/ ?? Loc: MAMMO ? Attending Dr: Josh Rojas D.O. ? Ordering Physician: Josh Rojas D.O. ?Results: ? Date of Service: 05/22/23 ?Follow Up: ? Procedure(s): MM tomosynthesis diagnostic BI ?? Accession Number(s): [id number] ? cc: Kasey Lowe M.D.; Josh Rojas D.O. ? Patient Name: ? MOLLYJosse EWING ? MR#: [id number] ? : 1990 ? Exam Date: 05/22/2023 ?? Ordering Doctor: DR Josh Rojas . ? RADIOLOGY REPORT ? PROCEDURE: ? MM TOMOSYNTHESIS DIAGNOSTIC BI, 05/22/2023, 13:00 ?? US BREAST BI LIMITED, 05/22/2023, 13:19 ? COMPARISON: ? None. ? INDICATIONS: ? fibrocystic breast disease, mass of left and right breast ? Calculator Name ? NCI Breast Cancer Risk Assessment Tool ?? 5 Year Breast Cancer Risk ? Not Applicable. ?? Lifetime Breast Cancer Risk ? Not Applicable. ?? Personal Breast Cancer ?No ?? Personal Ovarian Cancer ? No ?? Treatments ? None ?? Family Cancers ? Grandmother-maternal with breast cancer at age 40. ? LOCATION: ? [facility] ? BREAST COMPOSITION: ? Extremely dense, which lowers the sensitivity of ?? mammography. ? FINDINGS: ? DIAGNOSTIC CATEGORY 2--BENIGN FINDING: ? Extremely dense nodular parenchymal pattern limits diagnostic sensitivity. ? RIGHT BREAST: ??No significant suspicious finding. ??No mammographic or ?? ultrasound abnormality to correspond to patient's palpable abnormality ?? upper-outer quadrant, mid breast ? LEFT BREAST: ??No significant suspicious finding. ??In the region of the ?? patient's palpable abnormality, a normal-appearing rib was observed by ?? ultrasound. ??No additional mammographic or ultrasound abnormality to ?? correspond to the patient's palpable abnormality, upper inner quadrant, ?? posterior breast. ? RECOMMENDATIONS: ? CLINICAL EVALUATION. ? PLEASE NOTE: ??A NORMAL MAMMOGRAM DOES NOT EXCLUDE THE POSSIBILITY OF BREAST ?? CANCER. ??A CLINICALLY SUSPICIOUS PALPABLE LUMP SHOULD BE BIOPSIED. ? Dictated by: José Miguel Melgar MD on 05/22/2023 at 13:39 ? Approved by: José Miguel Melgar MD on 05/22/2023 at 13:42 ? Dictated By: ?José Miguel Melgar M.D. ? Signed By: ?05/22/23 1344 ? DD/ 1343 ? TD/TT: ? Jewelry Estimator: Procedure Note Radiology, Radiologist, MD - 05/22/2023 [place] [address] Mammography Report Signed Patient: MOLLY EWING EMR#: [id number] : 1990Acct:[id number] Age/Sex: 32 / FADM Date: 05/22/23 Loc: MAMMO Attending Dr: Josh Rojas D.O. Ordering Physician: Josh Rojas D.O.Results: Date of Service: 05/22/23Follow Up: Procedure(s): MM tomosynthesis diagnostic BI Accession Number(s): [id number] cc: Kasey Lowe M.D.; Josh Rojas D.O. Patient Name: MOLLY EWING MR#: [id number] : 1990 Exam Date: 05/22/2023 Ordering Doctor: DR Josh Rojas . RADIOLOGY REPORT PROCEDURE: MM TOMOSYNTHESIS DIAGNOSTIC BI, 05/22/2023, 13:00 US BREAST BI LIMITED, 05/22/2023, 13:19 COMPARISON: None. INDICATIONS: fibrocystic breast disease, mass of left and right breast Calculator Name NCI Breast Cancer Risk Assessment Tool 5 Year Breast Cancer Risk Not Applicable. Lifetime Breast Cancer Risk Not Applicable. Personal Breast Cancer No Personal Ovarian Cancer No Treatments None Family Cancers Grandmother-maternal with breast cancer at age 40. LOCATION: [facility] BREAST COMPOSITION: Extremely dense, which lowers the sensitivity of mammography. FINDINGS: DIAGNOSTIC CATEGORY 2--BENIGN FINDING: Extremely dense nodular parenchymal pattern limits diagnostic sensitivity. RIGHT BREAST: No significant suspicious finding. No mammographic or ultrasound abnormality to correspond to patient's palpable abnormality upper-outer quadrant, mid breast LEFT BREAST: No significant suspicious finding. In the region of the patient's palpable abnormality, a normal-appearing rib was observed by ultrasound. No additional mammographic or ultrasound abnormality to correspond to the patient's palpable abnormality, upper inner quadrant, posterior breast. RECOMMENDATIONS: CLINICAL EVALUATION. PLEASE NOTE: A NORMAL MAMMOGRAM DOES NOT EXCLUDE THE POSSIBILITY OFBREAST CANCER. A CLINICALLY SUSPICIOUS PALPABLE LUMP SHOULD BE BIOPSIED. Dictated by: José Miguel Melgar MD on 05/22/2023 at 13:39 Approved by: José Miguel Melgar MD on 05/22/2023 at 13:42 Dictated By: José Miguel Melgar M.D. Signed By:05/22/23 1344 DD/ 1343 TD/TT: Jewelry Estimator: Authorizing ProviderResult TypeResult StatusCorey Crystal DOCLINISYNC IMAGINGFinal Result documented in this encounter Visit Diagnoses Not on filedocumented in this encounter Care Teams Team MemberRelationshipSpecialtyStart DateEnd Date Kasey Lowe MD PCP - GeneralFamily Medicine05/20/23documented as of this encounter
--- OUTSIDE RECORDS SUMMARY | 2025-02-02 11:14 | XMS_ITS | Encounter Summary ---
Author Organization [facility] Address [address] [place] [address] Care Team Providers Care Range Ecologist Name Role Phone Kasey Lowe MD Primary Care Provider [phone] Encounter Details DateTypeDepartmentCare Team (Latest Contact Info)Kwqfcligstj37/28/2024Clinisync Result Encounter [facility] External Department Unsolicited Josh Rojas, DO [address] [place] [place], [place] [id number] Social History Tobacco UseTypesPacks/DayYears UsedDateSmoking Tobacco: NeverSmokeless Tobacco: NeverCommentsUnknownSex and Gender InformationValueDate RecordedSex Assigned at MzhtnIgsvpq49/15/2024 9:55 AM ESTLegal RsmQibgea33/15/2023 11:14 PM EDTGender IjpdwuzwCadape44/15/2024 9:55 AM ESTSexual OrientationStraight 04/08/2023 9:55 AM ESTdocumented as of this encounter Plan of Treatment Not on file documented as of this encounter Procedures Procedure NamePriorityDate/TimeAssociated DiagnosisCommentsUS BREAST BI LIMITED 05/22/2023 1:43 PM EST documented in this encounter Results * US BREAST BI LIMITED (05/22/2023 1:43 PM EST)Anatomical RegionLaterality ModalityOtherSpecimen (Source)Anatomical Location / LateralityCollection Method / VolumeCollection TimeReceived Time05/22/2023 1:43 PM EST Narrative 05/22/2023 1:44 PM EST [facility] ?[address] ? [place] [address] ? Ultrasound Report ? Signed ? Patient: STRECKER,MOLLY E ?MR#: [id number] ?? : 1990 ?Acct:[id number] ?? Age/Sex: 32 / F ?ADM Date: 05/22/ ?? Loc: MAMMO ? Attending Dr: Josh Rojas D.O. ? Ordering Physician: Josh Rojas D.O. ?? Date of Service: 05/22/23 ?? Procedure(s): US breast BI limited ?? Accession Number(s): [id number] ? cc: Kasey Lowe M.D.; Josh Rojas D.O. ? Patient Name: ? MOLLY EWING ? MR#: [id number] ? : 1990 ? Exam Date: 05/22/2023 [...] 42. ? LOCATION: ? [facility] ? BREAST COMPOSITION: ? Extremely [...] ?José Miguel Melgar M.D. ? Signed By: ?05/22/234 ? DD/ 1343 ? TD/TT: ? [employer] Assistant Manager: Procedure Note Radiology, Radiologist, MD - 05/22/2023 [place] [address] Ultrasound Report Signed Patient: MOLLY EWING EMR#: [id number] : 1990Acct:[id number] Age/Sex: 32 / FADM Date: 05/22/23 Loc: MAMMO Attending Dr: Josh Rojas D.O. Ordering Physician: Josh Rojas D.O. Date of Service: 05/22/23 Procedure(s): US breast BI limited Accession Number(s): [id number] cc: Kasey Lowe M.D.; Josh Rojas D.O. Patient Name: MOLLY EWING MR#: [id number] : 1990 Exam Date: 05/22/2023 Ordering Doctor: [...] at age 42. LOCATION: [facility] BREAST COMPOSITION: Extremely dense, which [...] M.D. Signed By:05/22/23 1344 DD/ 1343 TD/TT: [employer] Assistant Manager: Authorizing ProviderResult TypeResult StatusCorey Crystal DOCLINISYNC IMAGINGFinal Result documented in this encounter Visit Diagnoses Not on filedocumented in this encounter Care Teams Team MemberRelationshipSpecialtyStart DateEnd Date Kasey Lowe MD PCP - GeneralFamily Medicine05/20/23documented as of this encounter
--- OUTSIDE RECORDS SUMMARY | 2025-02-02 11:14 | XMS_ITS | Clinical Summary ---
Author Organization [facility] Address [address] [place] [address] Care Team Providers Care Metallographer Name Role Phone Kasey Lowe MD Unavailable [phone] Kasey Lowe MD Unavailable [phone] Kasey Lowe MD Primary Care Provider [phone] Allergies Active AllergyReactionsCriticalityNoted AtvbKzcnzilyInszskeqoxHfmbvvv76/30/2014 NalbuphineHives,Other: See Qekomcvy82/30/2770HunwtwynemrxIpbwn70/19/2024 Medications MedicationSigDispense QuantityRefillsLast FilledStart DateEnd DateStatus pantoprazole DR (PROTONIX) 40 mg tablet TAKE 1 TABLET BY MOUTH EVERY DAY FOR 4 WEEKS05/18/2023ctive ALPRAZolam (XANAX) 0.25 mg tablet Twice daily04/02/2023ctive propranolol (INDERAL) 20 mg tablet Take 1 tablet by mouth every 12 hours.07/12/2023ctive Active Problems No known active problems Family History Medical HistoryRelationCommentsHypertensionFatherKidney DiseaseFatherDiabetes Maternal GrandmotherThyroidMotherThyroid CancerPaternal GrandmotherRelation StatusCommentsFatherMaternal GrandmotherMotherPaternal Grandmother Social History Tobacco UseTypesPacks/DayYears UsedDateSmoking Tobacco: FormerCigarettes Smokeless Tobacco: Never Tobacco Cessation:Counseling Given: No Alcohol UseStandard Drinks/WeekCommentsYes0 (1 standard drink = 0.6 oz pure alcohol)sociallyArea Deprivation IndexAnswerDate RecordedNational Score (1-100), lower number is lower zafe4047/02/2024State Score (1-10), lower number is lower risi807ata from: https://www.neighborhoodatlas.medicine.[facility]/. Last address used for [address]04/26/2023CommentsNoSex and Gender InformationValueDate RecordedSex Assigned at BirthNot on fileLegal Sex Kazynk8404/21/2023 9:39 PM ESTGender IdentityNot on fileSexual OrientationNot on file Last Filed Vital Signs Vital SignReadingTime TakenCommentsBlood Jltygegz132/8404 11:58 AM EDT Mdxji7424 11:58 AM NIKXujevysffov77.5 ??C (99.5 ??F)04/26/2023 9:26 AM ESTRespiratory Rate--Oxygen Alguwpsmoc57%04/26/2023 9:26 AM ESTInhaled Oxygen Concentration--Vyfhlf09 kg (119 lb 0.8 oz)07/17/2023 11:58 AM KONPaogxy299.8 cm (5' 2.5 )04/26/2023 9:26 AM ESTBody Mass Index21.4302 9:26 AM EST Plan of Treatment Health MaintenanceDue DateLast DoneCommentsAnxiety Sxjbhbgiv90/27/2011Depression Wwtleapux32/27/2011HIV Coyughrtc18/27/2011Hepatitis C Ssiicuybd15/27/2011 DTaP,Tdap,Td Vaccine (1 - Tdap)11/19/2011Hepatitis B Vaccine (1 of 3 - 19+ 3- dose series)11/19/2011Cervical Cancer Bxkaflter57/27/2014HPV Vaccine (1 - 3-dose SCDM series)11/19/2019Covid-19 Vaccine ( - 2024- season)2024Influenza Vaccine (#1)2024 Insurance Care Teams Team MemberRelationshipSpecialtyStart DateEnd Date Kasey Lowe MD [address] [place] [address] PCP - GeneralFamily Medicine06/07/23 Kasey Lowe MD [address] [place] [address] ReferringFamily Medicine04/21/23 Kasey Lowe MD [address] [place] [address] ReferringFamily Medicine06/07/23
--- OUTSIDE RECORDS SUMMARY | 2025-02-02 11:14 | XMS_ITS | Encounter Summary ---
Author Organization [facility] Address [address] [place] [address] Care Team Providers Care Systems Support Engineer Name Role Phone Kasey Lowe MD Primary Care Provider [phone] Encounter Details DateTypeDepartmentCare Team (Latest Contact Info)Yywpqhbyina01/18/2024Clinisync Result Encounter [facility] External Department Unsolicited Ju De La Garza MD [address] [facility] [address] [place] [address] Social History Tobacco UseTypesPacks/DayYears UsedDateSmoking Tobacco: Some DaysSmokeless Tobacco: NeverAlcohol UseStandard Drinks/WeekCommentsYes0 (1 standard drink = 0.6 oz pure alcohol)CommentsUnknownSex and Gender InformationValueDate RecordedSex Assigned at NmhufFkummf04/15/2024 9:55 AM ESTLegal SexFemale 06/06/2022 11:14 PM EDTGender ZmwlhyrhUxgiqu29/15/2024 9:55 AM ESTSexual ExknmkukpedFagsnmyq40/15/2024 9:55 AM ESTdocumented as of this encounter Plan of Treatment Not on file documented as of this encounter Procedures Procedure NamePriorityDate/TimeAssociated DiagnosisCommentsFL MODIFIED BARIUM QFZLFYY6706/10/2023 11:12 AM EDT documented in this encounter Results * FL MODIFIED BARIUM SWALLOW (06/10/2023 11:12 AM EDT)Anatomical Region LateralityModalityRadiographic ImagingSpecimen (Source)Anatomical Location / LateralityCollection Method / VolumeCollection TimeReceived Time06/10/2023 11:12 AM EDT Narrative 06/10/2023 11:14 AM EDT [facility] ?[address] ? [place] [address] ? Fluoroscopy Report ? Signed ? Patient: MOLLY EWING E ?MR#: [id number] ?? : 1990 ?Acct:[id number] ?? Age/Sex: 32 / F ?ADM Date: 06/10/23 ?? Loc: [place] ? Attending Dr: Ju De La Garza M.D. ? Ordering Physician: Ju De La Garza M.D. ?? Date of Service: 06/10/23 ?? Procedure(s): FL barium swallow ?? Accession Number(s): [id number] ? cc: Kasey Lowe M.D.; Ju De La Garza M.D. ? [facility] ? [address] [facility] ? [place] [address] ? Patient Name: ?? MOLLY EWING ? MRN: [facility]:[id number] ? date: 1990 ?Sex: F ?? Assigned Patient Location: [place] ?? Current Patient Location: [place] ?? Accession/Order Number: [id number] ?? Exam Date: 06/10/2023 ??09:50 ?Report Date: 06/10/2023 ??11:12 ? At the request of: ?? JU ??DONG ? Procedure: ??FL barium swallow ? EXAMINATION: FL barium swallow, FL cineradiography ? HISTORY: dysphagia R13.14 ? COMPARISON: No relevant comparison available. ? TECHNIQUE: A swallowing evaluation was performed with fluoroscopy in the usual ? manner. Standard level fluoroscopic mode of operation utilized. ? FINDINGS: ?? ORAL PHASE: Normal deglutition. ?? PHARYNGEAL PHASE: Normal swallowing. ?? ASPIRATION: None. ?? STRUCTURE: Normal. No visible obstruction, stricture, or dilatation. ?? OTHER: Negative. ? FL/FL barium swallow ?? IMPRESSION: ? Normal exam ? Electronically authenticated by: DARSHANA ??WEST ?? Date: 06/10/2023 ??11:12 ? Dictated By: ?Darshana Ann M.D. ? Signed By: ?06/10/23 1114 ? DD/ 1112 ? TD/TT: ? Archivist: Procedure Note Radiology, Radiologist, MD - 06/10/[address] [address] Fluoroscopy Report Signed Patient: MOLLY EWING EMR#: [id number] : 1990Acct:[id number] Age/Sex: 32 / FADM Date: 06/10/23 Loc: [place] Attending Dr: Ju De La Garza M.D. Ordering Physician: Ju De La Garza M.D. Date of Service: 06/10/23 Procedure(s): FL barium swallow Accession Number(s): [id number] cc: Kasey Lowe M.D.; Ju De La Garza M.D. [place] [id number] Patient Name: MOLLY EWING MRN: [id number] date: 1990 Sex: F Assigned Patient Location: [place] Current Patient Location: [place] Accession/Order Number: [id number] Exam Date: 06/10/2023 09:50 Report Date: 06/10/2023 11:12 At the request of: JU DE LA GARZA Procedure: FL barium swallow EXAMINATION: FL barium swallow, FL cineradiography HISTORY: dysphagia R13.14 COMPARISON: No relevant comparison available. TECHNIQUE: A swallowing evaluation was performed with fluoroscopy in theusual manner. Standard level fluoroscopic mode of operation utilized. FINDINGS: ORAL PHASE: Normal deglutition. PHARYNGEAL PHASE: Normal swallowing. ASPIRATION: None. STRUCTURE: Normal. No visible obstruction, stricture, or dilatation. OTHER: Negative. FL/FL barium swallow IMPRESSION: Normal exam Electronically authenticated by: DARSHANA ANN Date: 06/10/2023 11:12 Dictated By: Darshana Ann M.D. Signed By:06/10/23 1114 DD/ 1112 TD/TT: Archivist: Authorizing ProviderResult TypeResult StatusHilary Lizzie MENEZESG XR PROCEDURES Final Result documented in this encounter Visit Diagnoses Not on filedocumented in this encounter Care Teams Team MemberRelationshipSpecialtyStart DateEnd Date Kasey Lowe MD PCP - GeneralFamily Medicine2/26/24documented as of this encounter
--- OUTSIDE RECORDS SUMMARY | 2025-02-02 11:14 | XMS_ITS | Clinical Summary ---
Author Organization [facility] Address [address] [place] [address] Phone Care Team Providers Care Cork Slabs Sawyer Name Role Phone Generic Provider, No Assigned Pcp MD Primary Car e Provider Unavailable Social History Tobacco UseTypesPacks/DayYears UsedDateSmoking Tobacco: Never Assessed CommentsUnknownSex and Gender InformationValueDate RecordedSex Assigned at Not on fileLegal CxaXjtcfd42/02/2024 3:35 PM EDTGender IdentityNot on fileSexual OrientationNot on file Last Filed Vital Signs Vital SignReadingTime TakenCommentsBlood Pressure--Pulse--Temperature-- Respiratory Rate--Oxygen Saturation--Inhaled Oxygen Concentration--Zgzgke50.4 kg (120 lb)09/13/2023 11:22 AM UXWMkkqsy286 cm (5' 3 )09/13/2023 11:22 AM EDTBody Mass Index21.2606 11:22 AM EDT Plan of Treatment Health MaintenanceDue DateLast DoneCommentsHIV Jceemealx99/27/1993Lipid Panel 1990TSH Level1992MMR Vaccines (1 of 1 - Standard series)1993 Hepatitis C Faxmabziq11/27/2011Hepatitis B Vaccines (1 of 3 - 19+ 3-dose series) 11/19/2011Cervical Cancer Htafhyxcw23/27/2014HPV/Xxgyhe7711/18/2013Pap Smear 2013DTaP/Tdap/Td Vaccines (1 - Tdap)2014HPV Vaccines (1 - 3-dose standard series)11/19/2019Yearly Adult Fgwlzysw15/20/899682//2023Influenza Vaccine (#1)5COVID-19 Vaccine (2024- season)2024Zoster Vaccines (1 of 2)2042HIB VaccinesAged OutNo longer eligible based on patient's age to complete this topicHepatitis A VaccinesAged OutNo longer eligible based on patient's age to complete this topicIPV VaccinesAged OutNo longer eligible based on patient's age to complete this topicMeningococcal VaccineAged OutNo longer eligible based on patient's age to complete this topic Pneumococcal Vaccine: Pediatrics and At-Risk Adult PatientsAged OutNo longer eligible based on patient's age to complete this topicRotavirus VaccinesAged Out No longer eligible based on patient's age to complete this topic Insurance Care Teams Team MemberRelationshipSpecialtyStart DateEnd Date Generic Provider, No Assigned Pcp, [place] [address] PCP - GeneralGeneral Practice09/03/23
--- OUTSIDE RECORDS SUMMARY | 2025-02-02 11:20 | XMS_ITS | CCD ---
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 flow immunoassay.Scl-70 AntibodyNegativeNegativeKettering Memorial HospitalS-A Antibody InterpretationNegativeNegativeKettering Memorial HospitalS-B Antibody InterpretationNegativeNegativeFayette County Memorial HospitalPlasma epinephrine measurement (mass/volume)on 07-17-2023 EPINEPHrine (P) [Mass/Vol]309 pmol/L<=330[facility] Comment on above:INTERPRETIVE INFORMATION:EpinephrineSeated (15 min) less than or equal to 330 pmol/LSupine (30 min)less than or equal to 265 pmol/LPlasma norepinephrine measurement (mass/volume)on 90-81-1415Seysitcyyelewr (P) [Mass/Vol]3139 pmol/F8604-3964RfwnmxaihFayette County Memorial HospitalComment on above: INTERPRETIVE INFORMATION: NorepinephrineSeated (15 min) 1050 - 4800 pmol/LSupine (30 min) 680 - 3100 pmol/LRheumatoid fact SerPl-aCncon 38-65-5419Ywipdsybyp factor Qn[IU]/mLNormal<16Ad[facility] County Regional Medical CenterComment on above:Order Comment: Specimen Type: BLOOD SPECIMEN Ordering Facility: [facility] Address: [address] [place], [place] [address]Performed By: #### 27544-6, 94969- 9, 91009-8, 82408-7, 55853-2, 26234-8, 80334-0, 46898-8 #### [facility] CLIA [id number] [address] [place], [place] [address] [address] [place] OF AMERICARibonucleoprotein extractable nuclear Ab Qn (S)on 09-07-8023SIEA-TEMPERING MACHINE OPERATOR QUALNegativeNormalNegative [facility] Regional Medical CenterComment on above:Order Comment: Specimen Type: BLOOD SPECIMEN Ordering Facility: [facility] Address: [address] [place], [place] [address]Performed By: #### 86746-6, 40358- 9, 23927-9, 50209-8, 73999-2, 68663-2, 36409-0, 66075-2 #### [facility] CLIA [id number] [address] [place] [address] [place] OF AMERICARIBOSOMAL TEMPERING MACHINE OPERATOR QUALNegative NormalNegativeAdams County Regional Medical CenterComment on above:Order Comment: Specimen Type: BLOOD SPECIMEN Ordering Facility: [facility] Address: [address] [place], [place] [address]Result Comment: Anti-Ribosomal RNA (Ribosomal P) antibody is used as an aid in diagnosis of systemic autoimmune diseases especially systemic lupus erythematosus and mixed connective tissue disease. Cross-reactivity with Anti-clemons antibody is not uncommon. Clinical correlation is required. Test Methodology: Multiplex flow immunoassay.Performed By: #### 23905-5, 38203- 9, 43592-1, 73264-0, 77475-7, 70061-2, 23147-4, 18367-5 #### [facility] CLIA [id number] [address] [place], [place] [address] [place] OF AMERICARibosomal P Ab [Units/volume] in Serumon 37-11-5570Pvpxhpsuj P Ab Qn (S)NegativeNegative [facility] HospitalComment on above:Anti-Ribosomal RNA (Ribosomal P) antibody is used as an aid in diagnosis of systemic autoimmune diseases especially systemic lupus erythematosus and mixed connective tissue disease. Cross-reactivity with Anti-clemons antibody is not uncommon. Clinical correlation is required. Test Methodology: Multiplex flow immunoassay.SCL-70 extractable nuclear IgG IA Qn (S)on 26-30-0369CBIQPTVSEUZ AB QUALNegativeNormalNegative [facility] Medical CenterComcorewell health ludington hospital on above:Order Comment: Specimen Type: BLOOD SPECIMEN Ordering Facility: [facility] Address: [address] [place], [place] [address]Performed By: #### 90378-4, 75228- 9, 06406-7, 52720-2, 38534-2, 07393-6, 13879-9, 24595-1 #### [facility] CLIA [id number] [address] [place] [address] [place] OF AMERICASCLERODERMA IGG AB<0.2Normal <1.0Ad[facility] County Regional Medical CenterComment on above:Order Comment: Specimen Type: BLOOD SPECIMEN Ordering Facility: [facility] Address: [address] [place], [place] [address]Result Comment: Scl-70/Scleroderma antibody test is used as an aid in diagnosis of systemic sclerosis especially the diffuse cutaneous form. A negative result cannot rule out systemic sclerosis. The final interpretation should consider clinical picture and other test results such as anti-centromereantibody. Test Methodology: Multiplex flow immunoassay.Performed By: #### 42695-1, 89265-7, 02512-2, 00073-4, 27949-6, 95278-1, 76968-1, 17228-1 #### [facility] CLIA [id number] [address] [place] [address] [place] [address] [place] OF AMERICASerum Lizzeth-1 extractable nuclear antibody assay (units/volume)on 40-40-2210Wc-1 extractable nuclear Ab Qn (S)<0.2 AI<1.0Kettering Memorial Hospitalerum Sjogrens syndrome-A extractable nuclear antibody assay (units/volume)on 85-90-2238Vicollof syndrome- A extractable nuclear Ab Qn (S)<0.2 AI<1.0[facility] Comment on above:Test Methodology: Multiplex flow immunoassay.Serum Sjogrens syndrome-B extractable nuclear antibody assay (units/volume)on 07-17-2023 Sjogrens syndrome-B extractable nuclear Ab Qn (S)<0.2 AI<1.0[facility] HospitalComment on above:Anti-SSB (anti-La) antibody is used as an aid in diagnosis of a variety of systemic autoimmune diseases, especially for Sjogren's syndrome and systemic lupus erythematosus. Clinical correlation is required. Test Methodology: Multiplex flow immunoassay.Serum Clemons extractable nuclear antigen (KENDRA) antibody assay (units/volume)on 46-05-2952Ysulh extractable nuclear Ab Qn (S)<0.2 AI<1.0K[facility] Memorial Hospitalerum centromere protein B antibody assay (units/volume)on 48-20-6476Ktwhlsormq protein B Ab Qn (S)<0.2 AI<1.0[facility] HospitalComment on above:Anti-centromere antibody is used as in aid in diagnosis of systemic sclerosis. Clinical correlationis required. Test Methodology: Multiplex flow immunoassay.Serum or plasma chromatin antibody assay (units/volume)on 09-67-3127Eesspazff Ab Qn<0.2 AI<1.0[facility] HospitalComment on above:Test Methodology: Multiplex flow immunoassay.Serum or plasma dopamine measurement (mass/volume)on 79-71-3829QFZayawu [Mass/Vol]<130 pmol/L<=240[facility] Comment on above:INTERPRETIVE INFORMATION: DopamineSeated (15 min) less than or equal to 240 pmol/LSupine (30 min) less than or equal to 240 pmol/LSerum or plasma free metanephrine measurement (mass/volume)on 88-30-5721Fjywkobyuwjq Free [Mass/Vol]66 pg/bR97-25KlgqvuclpFayette County Memorial HospitalComment on above: Reference Ranges:Hypertensive adult > or = 18 yrs old: 12-72 pg/mLNormotensive adult > or = 18 yrs old: 12-67 pg/mLNormotensive children < 18 yrs old: 10-95 pg/mLSerum or plasma rheumatoid factor measurement (units/volume)on 07-17-2023 Rheumatoid factor Qn[IU]/mL<16K[facility] Memorial Hospitaljogrens syndrome-A extractable nuclear Ab Qn (S)on 49-84-9366TVI ANTIBODY QUALNegative NormalNegativeAdams County Regional Medical CenterComment on above:Order Comment: Specimen Type: BLOOD SPECIMEN Ordering Facility: [facility] Address: [address] [place], [place] [address]Performed By: #### 99952-8, 50559- 9, 35290-1, 29577-6, 72116-4, 53456-2, 54513-7, 71257-4 #### [facility] CLIA [id number] [address] [place], [place] [address]Sjogrens syndrome-B extractable nuclear Ab Qn (S)on 64-23-6108QIK ANTIBODY QUALNegativeNormal NegativeCorey Hospital on above:Order Comment: Specimen Type: BLOOD SPECIMEN Ordering Facility: [facility] Address: [address] [place], [place] [address]Performed By: #### 50462-2, 56700- 9, 95376-1, 77038-6, 11483-5, 38409-6, 65957-6, 42744-6 #### [facility] CLIA [id number] [address] [place] [address] [place] AMERICASmith extractable nuclear IgG Qn (S)on 28-77-1748YZ ANTIBODY QUALNegativeNormalNegativeCorey Hospital on above:Order Comment: Specimen Type: BLOOD SPECIMEN Ordering Facility: [facility] Address: [address] [place], [place] [address]Result Comment: Anti-Sm (Clemons) antibody is used as an aid in diagnosis of systemic lupus erythematosus and its presence is associated with renal disease. A negative result cannot rule out systemic lupus erythematosus. Clinical correlation is required. Test Methodology: Multiplex flow immunoassay.Performed By: #### 28243-7, 12676- 9, 77507-1, 74154-5, 20949-6, 93277-9, 06360-9, 20873-9 #### [facility] CLIA [id number] [address] [place] [address] [place] AMERICAcCP IgG SerPl-aCncon 45-59-4919Drhcwe citrullinated peptide IgG Qn<15Normal<20[facility] on above:Order Comment: Specimen Type: BLOOD SPECIMEN Ordering Facility: [facility] Address: [address] [place], [place] [address]Performed By: #### 04839-2, 09861- 9, 04155-5, 70714-4, 97752-8, 48431-3, 88493-2, 14591-0 #### [facility] CLIA [id number] [address] [place] [address] [place] AMERICABasophils Auto (Bld) [#/Vol] on 05-54-4355Rgqgcvnam (Bld) [#/Vol]0.0 10 3/uL0.0-0.1FKettering Health HamiltonBasophils/100 WBC Auto (Bld)on 18-91-3585Prvslifli/100 WBC (Bld)0.7 % 0.2-2.0[facility] HospitalEosinophils/100 WBC Auto (Bld)on 38-44-5853Okqudqagrrw/100 WBC (Bld)2.5 %0.9-7.0[facility] Erythrocyte distribution width Auto (RBC) [Ratio]on 20-66-7112Hhawghveshq distribution width (RBC) [Ratio]12.0 %11.0-15.0[facility] Estimated glomerular filtration rate (GFR) non- Americanon 07-05-2023 GFR/1.73 sq M.predicted among non-blacks MDRD (S/P/Bld) [Vol rate/Area] mL/min/{1.73_m2}>=60[facility] HospitalHematocrit Auto (Bld) [Volume fraction]on 66-83-7284Wvewawdmpa (Bld) [Volume fraction]33.7 %36.0-48.0 [facility] HospitalHemoglobin [Mass/volume] in Bloodon 07-05-2023 Hemoglobin (Bld) [Mass/Vol]11.3 g/dL12.0-16.0[facility] - Chemistry and Chemistry - challengeon 13-55-2270Eilgzhf [Mass/Vol] 10.0 mg/dL8.5-10.1FKettering Health HamiltonChloride [Moles/Vol]105 mmol/R89-318UtsttwmmaFayette County Memorial HospitalCO2 [Moles/Vol]28.1 mmol/L21.0-32.0 [facility] HospitalCreatinine [Mass/Vol]0.57 mg/dL0.55-1.02 [facility] HospitalGFR/1.73 sq M.predicted MDRD (S/P/Bld) [Vol rate/Area]mL/min/{1.73_m2}>=60[facility] HospitalGlucose [Mass/Vol]102 mg/iT60-016YruafxoezFayette County Memorial HospitalPotassium [Moles/Vol] 3.9 mmol/L3.5-5.1FBarnesville Hospitalodium [Moles/Vol]140 mmol/L 136-145F[facility] HospitalUrea nitrogen [Mass/Vol]9.0 mg/dL 7.0-18.0[facility] HospitalUrea nitrogen/Creatinine [Mass ratio] 15.8 mg/mgFayette County Memorial HospitalLaboratory - Hematology and Cell countson 13-20-8804Xazmiqvd granulocytes/100 WBC (Bld)0.3 %0.0-0.5FKettering Health HamiltonLeukocytes [#/volume] corrected for nucleated erythrocytes in Blood by Automated counon 74-07-3882PNO corrected for nucl RBC Auto (Bld) [#/Vol]6.1 10 3/uL4.0-11.0[facility] Lymphocytes Auto (Bld) [#/Vol]on 82-37-8528Npcxkxdarur (Bld) [#/Vol]2.2 10 3/uL 1.2-3.8[facility] HospitalLymphocytes/100 WBC Auto (Bld)on 13-83-3733Lplcnkjjgig/100 WBC (Bld)35.4 %20.5-60.0[facility] HospitalH Auto (RBC) [Entitic mass]on 37-86-7444YGP (RBC) [Entitic mass]29.3 pg 26.7-34.0[facility] HospitalMCHC Auto (RBC) [Mass/Vol]on 01-63-0815ODFM (RBC) [Mass/Vol]33.5 g/dL29.9-35.2FKettering Health HamiltonMCV Auto (RBC) [Entitic vol]on 28-47-8524SWO (RBC) [Entitic vol]87.3 fL 81.0-99.0[facility] HospitalMonocytes Auto (Bld) [#/Vol]on 93-99-1507Fhezystja (Bld) [#/Vol]0.7 10 3/uL0.3-0.8[facility] HospitalMonocytes/100 WBC Auto (Bld)on 48-79-6747Ewaxsaqwa/100 WBC (Bld)12.0 % 1.7-12.0[facility] HospitalNeutrophils Auto (Bld) [#/Vol]on 03-96-7014Waaufshycok (Bld) [#/Vol]3.0 10 3/uL1.4-6.5FKettering Health HamiltonNeutrophils/100 WBC Auto (Bld)on 19-32-7414Hbviejubphe/100 WBC (Bld)49.1 % 43.0-75.0[facility] HospitalNo Panel Informationon 07-05-2023 Eosinophils # (Auto)0.2 10 3/uL0.0-0.7FKettering Health HamiltonImmature Granulocyte # (Auto)0.02 10 3/uL0.00-0.03[facility] Troponin I High Sensitivity<4.0 pg/mL4.0-51.3FKettering Health Hamilton Comment on above:CUT-OFF POINTS HAVE BEEN ESTABLISHED BASED ON THE FOURTHIVERSAL DEFINITION OF MYOCARDIAL INFARCTION. THE UPPERREFERENCE LIMIT (URL) OF TROPONIN, DEFINED THE 99THPERCENTILE OF cTnI DISTRIBUTION IN A REFERENCE POPULATION,HAS BEEN CONFIRMED THE DECISION THRESHOLD FOR MIDIAGNOSIS.99TH PERCENTILE = 51.4 PG/MLNOTE: HIGH-SENSITIVITY TROPONIN ASSAY IS NOT INTENDED TO BEUSED IN ISOLATION BUT SHOULD BE INTERPRETED IN CONJUNCTIONWITH OTHER DIAGNOSTIC AND CLINICAL INFORMATION.Platelet mean volume Auto (Bld) [Entitic vol]on 87-36-4774Nnjhvgec mean volume (Bld) [Entitic vol] 11.1 fL9.5-13.5FKettering Health HamiltonPlatelets Auto (Bld) [#/Vol]on 13-46-2723Jhnnuxfrh (Bld) [#/Vol]208 10 3/cX355-325YhytpkyfkFayette County Memorial HospitalRBC Auto (Bld) [#/Vol]on 86-22-8203EZY (Bld) [#/Vol]3.86 10 6/uL4.20-5.40 [facility] Hospitalerum or plasma anion gap determinationon 73-83-8733Vzjsj gap [Moles/Vol]10.8 mmol/LFKettering Health Hamilton Basophils Auto (Bld) [#/Vol]on 25-19-6457Iiwxesryf (Bld) [#/Vol]0.0 10 3/uL 0.0-0.1FKettering Health HamiltonBasophils/100 WBC Auto (Bld)on 85-59-0839Fatlasaqh/100 WBC (Bld)0.5 %0.2-2.0[facility] Eosinophils/100 WBC Auto (Bld)on 55-03-8193Ibpwamxkhlf/100 WBC (Bld)1.5 %0.9-7.0 [facility] HospitalErythrocyte distribution width Auto (RBC) [Ratio]on 22-90-1178Mggzizwexgw distribution width (RBC) [Ratio]11.9 %11.0-15.0 [facility] HospitalEstimated glomerular filtration rate (GFR) non- Americanon 03-50-6390FUQ/1.73 sq M.predicted among non-blacks MDRD (S/P/Bld) [Vol rate/Area]mL/min/{1.73_m2}>=60[facility] Hematocrit Auto (Bld) [Volume fraction]on 21-99-0996Ppkxmbxpdp (Bld) [Volume fraction]35.8 %36.0-48.0[facility] HospitalHemoglobin [Mass/volume] in Bloodon 38-03-2414Jmsinkvgpn (Bld) [Mass/Vol]12.2 g/dL12.0-16.0 [facility] HospitalIron binding capacity [Mass/volume] in Serum or Plasmaon 00-74-0122Icbc binding capacity [Mass/Vol]422.0 ug/dL250.0-450.0 [facility] HospitalIron saturation [Mass Fraction] in Serum or Plasmaon 63-82-5278Inis saturation [Mass fraction]10.9 %[facility] HospitalLaboratory - Chemistry and Chemistry - challengeon 07-04-2023 Calcium [Mass/Vol]10.0 mg/dL8.5-10.1FKettering Health HamiltonChloride [Moles/Vol]105 mmol/J68-685OyengqjkrFayette County Memorial HospitalCO2 [Moles/Vol]27.1 mmol/L21.0-32.0[facility] HospitalCreatinine [Mass/Vol]0.55 mg/dL 0.55-1.02[facility] HospitalFree T4 [Mass/Vol]0.85 ng/dL0.76-1.46 [facility] HospitalGFR/1.73 sq M.predicted MDRD (S/P/Bld) [Vol rate/Area]mL/min/{1.73_m2}>=60[facility] HospitalGlucose [Mass/Vol]108 mg/lU77-225ZoozhtfopFayette County Memorial HospitalIron [Mass/Vol]46.0 ug/dL50.0-170.0[facility] HospitalPotassium [Moles/Vol]4.0 mmol/L 3.5-5.1FBarnesville Hospitalodium [Moles/Vol]141 mmol/E994-929 [facility] HospitalTSH Qn1.348 m[IU]/L0.358-3.740F[facility] HospitalUrea nitrogen [Mass/Vol]11.0 mg/dL7.0-18.0[facility] HospitalUrea nitrogen/Creatinine [Mass ratio]20.0 mg/mgFayette County Memorial HospitalLaboratory - Hematology and Cell countson 07-04-2023 Immature granulocytes/100 WBC (Bld)0.1 %0.0-0.5FKettering Health Hamilton Leukocytes [#/volume] corrected for nucleated erythrocytes in Blood by Automated counon 76-22-2214CMU corrected for nucl RBC Auto (Bld) [#/Vol]8.3 10 3/uL 4.0-11.0[facility] HospitalLymphocytes Auto (Bld) [#/Vol]on 06-86-5621Mkjwwhyggjg (Bld) [#/Vol]1.6 10 3/uL1.2-3.8[facility] HospitalLymphocytes/100 WBC Auto (Bld)on 90-83-8455Xgwkmzdjqzi/100 WBC (Bld)19.2 % 20.5-60.0[facility] HospitalMCH Auto (RBC) [Entitic mass]on 43-07-0686DSE (RBC) [Entitic mass]29.6 pg26.7-34.0[facility] HospitalMCHC Auto (RBC) [Mass/Vol]on 17-89-8580KWEY (RBC) [Mass/Vol]34.1 g/dL 29.9-35.2FKettering Health HamiltonMCV Auto (RBC) [Entitic vol]on 80-96-1668YQU (RBC) [Entitic vol]86.9 fL81.0-99.0[facility] HospitalMonocytes Auto (Bld) [#/Vol]on 99-84-1718Zxvyovssx (Bld) [#/Vol]0.5 10 3/uL0.3-0.8[facility] HospitalMonocytes/100 WBC Auto (Bld)on 11-95-5897Xmtdwpvqp/100 WBC (Bld)6.2 %1.7-12.0[facility] Neutrophils Auto (Bld) [#/Vol]on 33-70-9802Jkzhsmznxcw (Bld) [#/Vol]6.0 10 3/uL 1.4-6.5FKettering Health HamiltonNeutrophils/100 WBC Auto (Bld)on 65-63-7148Jbsuxiykrzc/100 WBC (Bld)72.5 %43.0-75.0[facility] HospitalNo Panel Informationon 95-46-6826Hpiaqgsxxhr # (Auto)0.1 10 3/uL0.0-0.7 [facility] HospitalImmature Granulocyte # (Auto)0.01 10 3/uL 0.00-0.03[facility] HospitalPlatelet mean volume Auto (Bld) [Entitic vol]on 33-88-7351Oghkexsc mean volume (Bld) [Entitic vol]11.0 fL 9.5-13.5FKettering Health HamiltonPlatelets Auto (Bld) [#/Vol]on 12-72-6917Eoypxgkwr (Bld) [#/Vol]251 10 3/dR919-937IytlwgxkgFayette County Memorial HospitalRBC Auto (Bld) [#/Vol]on 05-47-4953AUI (Bld) [#/Vol]4.12 10 6/uL4.20-5.40 [facility] Hospitalerum or plasma anion gap determinationon 83-07-5287Pnpup gap [Moles/Vol]12.9 mmol/LFKettering Health Hamilton papilloma virus 16 DNA [Presence] in Cervix by Probe with signal amplification on 81-60-3159NHP 16 DNA Probe+sig amp Ql (Cvx)NegativeNegativeOhioHealth Grady Memorial Hospital papilloma virus 16+18+31+33+35+39+45+51+52+56+58+59+66+68 DNA [Presence] in [place] 94-92-8696FTM 16+18+31+33+35+39+45+51+52+56+58+59+66+68 DNA Probe+sig amp Ql (Cvx)PositiveNegativeFayette County Memorial Hospital Comment on above:This nucleic acid amplification test detects fourteen high-risk HPV types (16,18,31,33,35,39,45,51,52,56,58,59,66,68)without differentiation.No Panel Informationon 67-84-4529ONW Genotype 18/45 (PCR)NegativeNegativeFayette County Memorial HospitalComment on above:Performed at: =G - [facility] [address] [id number] Director: Cyndi Ramírez MD, Phone: [phone] at: - [facility] [address] [id number] Director: Cyndi Ramírez MD, Phone: [phone] High Risk Other CommentNote.[facility] HospitalComment on above: TESTS RESULT FLAG UNITS REF RANGE LAB DIAGNOSIS: 02 NEGATIVE FOR INTRAEPITHELIAL LESION OR MALIGNANCY.Specimen adequacy: 02 Satisfactory forevaluation. Endocervical and/or squamous metaplastic cells (endocervical component) are present.Performed by: 02 Brittany Romero, Funeral Arrangement Director (ASC). 02Note: Note 02 The Pap smear is a screening test designed to aid in the detection of premalignant and malignant conditions of the uterine cervix. It is not a diagnostic procedure and should not be used as the sole means of detectingcervical cancer. Both false-positive and false- negative reports do occur.Test Methodology: Note 02 This liquid based ThinPrep(R) pap test was screened with the use of an image guided system.HPV Genotype Reflex Note 02 Criteria met, see HPV Genotype results. FLAG LEGEND: L-Low Normal,H-High Normal,LL-Alert Low,HH-Alert High <-Panic Low,>- Panic High,A-Abnormal,AA-Critical Abnormal Performed at:[address] [facility] [address] [place] [address] Cyndi Ramírez MD, Idbjdokry Lab Test Patient AgeNote.[facility] HospitalComment on above:TESTS RESULT FLAG UNITS REF RANGE LAB Clinician Provided Cytology Information Source.............Cervix;Endocervix No. of containers..01 ThinPrep VialAge Saman COCHRAN Yesica... 3065 FLAG LEGEND: L-Low Normal,H-High Normal,LL-Alert Low,HH-Alert High <-Panic Low,>-Panic High,A- Abnormal,AA-Critical Abnormal Performed a t:01 =[address] [address] Cyndi Ramírez MD, rf videography Hypopharynx and Esophagus Views for swallowing function W speech and W barium contrast Radha 46-13-[place] [address] Fluoroscopy Report Signed Patient: MOLLY OLIVEIRA MR#: [id number] : 1990 Acct:[id number] Age/Sex: 32 / F ADM Date: 06/10/23 Loc: [place] Attending Dr: Althea Umana M.D. Ordering Physician: Althea Umana M.D. Date of Service: 06/10/23 Procedure(s): CA barium swallow Accession Number(s): [id number] cc: Doreen Mejia M.D.; Althea Umana M.D. [address] [address] Patient Name: MOLLY OLIVEIRA MRN: [id number] date: 1990 Sex: F Assigned Patient Location: [place] Current Patient Location: [place] Accession/Order Number: [id number] Exam Date: 06/10/2023 09:50 Report Date: 06/10/2023 11:12 At the request of: ALTHEA UMANA Procedure: CA barium swallow EXAMINATION: FL barium swallow, FL cineradiography HISTORY: dysphagia R13.14 COMPARISON: No relevant comparison available. TECHNIQUE: A swallowing evaluation was performed with fluoroscopy in the usual manner. Standard level fluoroscopic mode of operation utilized. FINDINGS: ORAL PHASE: Normal deglutition. PHARYNGEAL PHASE: Normal swallowing. ASPIRATION: None. STRUCTURE: Normal. No visible obstruction, stricture, or dilatation. OTHER: Negative. FL/FL barium swallow IMPRESSION: Normal exam Electronically authenticated by: DARSHANA ANN Date: 06/10/2023 11:12 Dictated By: Darshana Ann M.D. Signed By: 06/10/234 DD/ 11 TD/TT: Storm Chaser:ЕЛЕНАadiologte, Radiologist, - 06/10/2023 [place] [address] Fluoroscopy Report Signed Patient: MOLLY OLIVEIRA MR#: [id number] : 1990 Acct:[id number] Age/Sex: 32 / F ADM Date: 06/10/23 Loc: [place] Attending Dr: Althea Umana M.D. Ordering Physician: Althea Umana M.D. Date of Service: 06/10/23 Procedure(s): FL barium swallow Accession Number(s): [id number] cc: Doreen Mejia M.D.; Althea Umana M.D. [facility] [place] [address] Patient Name: MOLLY OLIVEIRA MRN: [id number] date: 1990 Sex: F Assigned Patient Location: [place] Current Patient Location: [place] Accession/Order Number: [id number] Exam Date: 06/10/2023 09:50 Report Date: 06/10/2023 11:12 At the request of: ALTHEA UMANA Procedure: FL barium swallow EXAMINATION: FL barium swallow, FL cineradiography HISTORY: dysphagia R13.14 COMPARISON: No relevant comparison available. TECHNIQUE: A swallowing evaluation was performed with fluoroscopy in the usual manner. Standard level fluoroscopic mode of operation utilized. FINDINGS: ORAL PHASE: Normal deglutition. PHARYNGEAL PHASE: Normal swallowing. ASPIRATION: None. STRUCTURE: Normal. No visible obstruction, stricture, or dilatation. OTHER: Negative. FL/FL barium swallow IMPRESSION: Normal exam Electronically authenticated by: DARSHANA ANN Date: 06/10/2023 11:12 Dictated By: Darshana Ann M.D. Signed By: 06/10/234 DD/ 1112 TD/TT: Storm Chaser: YAMILE HealthcareRadiology Study observation (narrative)Pershing Memorial HospitalRF videography Hypopharynx and Esophagus Views for swallowing function W speech and W barium contrast POOrdered By: Radiologist Radiology on 94-57-3960[facility] Work Phone: mm [facility] BIon 62-05-[place], [place] [address] Mammography Report Signed Patient: MOLLY OLIVEIRA MR#: [id number] : 1990 Acct:[id number] Age/Sex: 32 / F ADM Date: 05/22/23 Loc: MAMMO Attending Dr: Josh Rojas D.O. Ordering Physician: Josh Rojas D.O. Results: Date of Service: 05/22/23 Follow Up: Procedure(s): MM tomosynthesis diagnostic BI Accession Number(s): [id number] cc: Doreen Mejia M.D.; Josh Rojas D.O. Patient Name: MOLLY OLIVEIRA MR#: [id number] : 1990 Exam Date: 05/22/2023 Ordering Doctor: [...] breast cancer at age 42. LOCATION: [facility] BREAST COMPOSITION: Extremely dense, which lowers the [...] DOES NOT EXCLUDE THE POSSIBILITY OF BREAST CANCER. A CLINICALLY SUSPICIOUS PALPABLE LUMP SHOULD BE BIOPSIED. Dictated by: Darshana Ann MD on 05/22/2023 at 13:39 Approved by: Darshana Ann MD on 05/22/2023 at 13:42 Dictated By: Darshana Ann M.D. Signed By: 05/22/23 1344 DD/ 1343 TD/TT: Storm Chaser:TBHRadiology, Radiologist, - 05/22/2023 [place] [address] Mammography Report Signed Patient: MOLLY OLIVEIRA MR#: [id number] : 1990 Acct:[id number] Age/Sex: 32 / F ADM Date: 05/22/23 Loc: MAMMO Attending Dr: Josh Rojas D.O. Ordering Physician: Josh Rojas D.O. Results: Date of Service: 05/22/23 Follow Up: Procedure(s): MM tomosynthesis diagnostic BI Accession Number(s): [id number] cc: Doreen Mejia M.D.; Josh Rojas D.O. Patient Name: MOLLY OLIVEIRA MR#: [id number] : 1990 Exam Date: 05/22/2023 Ordering Doctor: [...] breast cancer at age 42. LOCATION: [facility] BREAST COMPOSITION: Extremely dense, which lowers the [...] DOES NOT EXCLUDE THE POSSIBILITY OF BREAST CANCER. A CLINICALLY SUSPICIOUS PALPABLE LUMP SHOULD BE BIOPSIED. Dictated by: Darshana Ann MD on 05/22/2023 at 13:39 Approved by: Darshana Ann MD on 05/22/2023 at 13:42 Dictated By: Darshana Ann M.D. Signed By: 05/22/23 1344 DD/ 1343 TD/TT: Storm Chaser: YAMILE Layered TechnologiesNo Panel InformationOrdered By: Radiologist Radiology on 23-43-9886AYLC [employer] Work Phone: No Panel Informationon 55-73-8013Iydcismhs Study observation (narrative)YAMILE Layered TechnologiesUS BREAST BI LIMITEDon 99-81-3675[place], [place] [address] Ultrasound Report Signed Patient: MOLLY OLIVEIRA MR#: [id number] : 1990 Acct:[id number] Age/Sex: 32 / F ADM Date: 05/22/23 Loc: MAMMO Attending Dr: Josh Rojas D.O. Ordering Physician: Josh Rojas D.O. Date of Service: 05/22/23 Procedure(s): US breast BI limited Accession Number(s): [id number] cc: Doreen Mejia M.D.; Josh Rojas D.O. Patient Name: MOLLY OLIVEIRA MR#: [id number] : 1990 Exam Date: 05/22/2023 Ordering Doctor: [...] breast cancer at age 42. LOCATION: [facility] BREAST COMPOSITION: Extremely dense, which lowers the [...] DOES NOT EXCLUDE THE POSSIBILITY OF BREAST CANCER. A CLINICALLY SUSPICIOUS PALPABLE LUMP SHOULD BE BIOPSIED. Dictated by: Darshana Ann MD on 05/22/2023 at 13:39 Approved by: Darshana Ann MD on 05/22/2023 at 13:42 Dictated By: Darshana Ann M.D. Signed By: 05/22/23 1344 DD/ 1343 TD/TT: Storm Chaser:TBHRadiology, RadiologistMD - 05/22/2023 [facility] [place] [id number] Ultrasound Report Signed Patient: MOLLY OLIVEIRA MR#: [id number] : 1990 Acct:[id number] Age/Sex: 32 / F ADM Date: 05/22/23 Loc: MAMMO Attending Dr: Josh Rojas D.O. Ordering Physician: Josh Rojas D.O. Date of Service: 05/22/23 Procedure(s): US breast BI limited Accession Number(s): [id number] cc: Doreen Mejia M.D.; Josh Rojas D.O. Patient Name: MOLLY OLIVEIRA MR#: [id number] : 1990 Exam Date: 05/22/2023 Ordering Doctor: [...] breast cancer at age 42. LOCATION: [facility] BREAST COMPOSITION: Extremely dense, which lowers the [...] DOES NOT EXCLUDE THE POSSIBILITY OF BREAST CANCER. A CLINICALLY SUSPICIOUS PALPABLE LUMP SHOULD BE BIOPSIED. Dictated by: Darshana Ann MD on 05/22/2023 at 13:39 Approved by: Darshana Ann MD on 05/22/2023 at 13:42 Dictated By: Darshana Ann M.D. Signed By: 05/22/23 1344 DD/ 1343 TD/TT: Storm Chaser: YAMILE HealthcareLaboratory - Hematology and Cell countson 13-38-0084JRG (Bld) [Velocity]3 mm/h<=20[facility] HospitalNo Panel Informationon 14-71-4244Gucvchz C-Reactive Protein0.19 mg/L0.00-3.00F[facility] HospitalComment on above:Relative Risk for Future Cardiovascular Event Low <1.00 Average 1.00 - 3.00 High >3.00Performed at: [facility] [address] [id number] Director: Ryan Richardson PhD,Phone: [phone] or plasma free cefuroxime measurement (mass/volume)on 62-69-6053Uidprzblqv free [Mass/Vol]NegativeNegativeFayette County Memorial HospitalComment on above: Performed at: - [address] [id number] Director: Ryan Richardson PhD, Phone: [phone] 54-70-0530RCNMBrstbd Visit (ENWSTR) MOLLY OLIVEIRA ([id number]) 1990 F Date Time Provider Department 04/26/23 [...] having palpitations again. She takes care of [employer], denies any work related stress REVIEW OF [...] HISTORY: Lives with She takes care of [employer] PHYSICAL EXAM: BP 140/80 Pulse 103 Temp [...] only significant if they (more content not included)...Normal [facility] THYROIDon 93-59-0458JR THYROIDEXAMINATION: THYROID ULTRASOUND HISTORY: Dysphagia. Weight loss TECHNIQUE: [...] Data System (TI- RADS) established by the [place] [employer] to help provide guidance regarding management of thyroid nodules based on their appearance. These are offered inan attempt to assist the referring physician in their decision process and help address the currentover diagnosis of thyroid cancer. These guidelines are considered recommendations and guidance and do not represent rules or absolute standards of care ELECTRONICALLY SIGNED BY: Farhad Christopher MDNormalNot AvailableCT ABDOMEN PELVIS W IV CONTRASTon 22-24-8060AB ABDOMEN PELVIS W IV CONTRASTExamination: CT ABDOMEN PELVIS W IV CONTRAST Indication: [...] reasonably achievable. ELECTRONICALLY SIGNED BY: True Barton MDNormalNot Available Vital Signs Date TimeVital SignValuePerforming WdkxikmbyLiwpvump37-94-2941 09:38-0500Body .02 [employer] DO Work Phone: [phone] [place], [place] 3875411-03-2025 09:38-0500 Body mass index (BMI) [Ratio]26 kg/u4Uzufggyty Contapps DO Work Phone: [phone] [place], [place] 3875411-03-2025 09:38-0500 Body frzytd99.67 kgAlexandmelo Contapps DO Work Phone: [phone] [place], [place] 3875410-28-2025 14:55-0400 Body ichszu441.02 DorisHOTEL [employer] DO Work Phone: [phone] [place], [place] 3875410-28-2025 14:55-0400 Body mass index (BMI) [Ratio]26 kg/r0Ncazcpqjv [employer] DO Work Phone: [phone]10-28-2025 14:55-0400 Body uhofvg40.67 kgAlexandmelo Keister DO Work Phone: [facility]10-28-2025 14:55-0400 Diastolic blood dskchoih72 mm[Hg]Bob Keister DO Work Phone: [facility]10-28-2025 14:55-0400 Heart rate84 /minAlexander Keister DO Work Phone: [phone] [place], [place] 3875410-28-2025 14:55-0400 Systolic blood yetmdpas500 mm[Hg]Bob Paulsonister DO Work Phone: [phone] [place], [place] 3875410-22-2025 19:00-0400 Diastolic blood nvizwkkn34 mm[Hg]Bob Paulsonister DO Work Phone: [phone]10-22-2025 19:00-0400 Heart rate98 /minAlexandmelo Keister DO Work Phone: [phone])800-[address] [place], [place] 3875410-22-2025 19:00-0400 Respiratory rate18 /minAlexandmelo Keister DO Work Phone: [facility]10-22-2025 19:00-0400 SaO2% (BldA) [Mass fraction]100 %Bob Paulsonister DO Work Phone: [facility]10-22-2025 19:00-0400 Systolic blood wkiswcow753 mm[Hg]Bob Paulsonister DO Work Phone: [phone] [place], [place] 3875410-22-2025 16:57-0400 Body lnmybbjvzsy57.9 [degF]Bob Paulsonister DO Work Phone: [phone]10-22-2025 16:50-0400 Body nyhnbq856.48 cmAlexander Keister DO Work Phone: [facility]10-22-2025 16:50-0400 Body .1 kgAlexander Keister DO Work Phone: [facility]04-01-2025 09:40-0400 Body .02 cmFayette County Memorial Hospital04-01-2025 09:40-0400Body mass index (BMI) [Ratio]24.4 kg/w2MyqdkrhgcFayette County Memorial Hospital04-01-2025 09:40-0400Body ofmyxz08.59 kgFayette County Memorial Hospital04-01-2025 09:40-0400Diastolic blood sfdyjbjr35 mm[Hg][facility] 06-23-2024 09:40-0400Heart rate62 /[facility] 06-23-2024 09:40-0400Respiratory rate18 /[facility] 06-23-2024 09:40-9416QlW9% (BldA) [Mass fraction]99 %[facility]04-01-2025 09:40-0400Systolic blood mm[Hg][facility]03-11-2025 09:38-0400Body oxlqqe203.02 [facility]03-11-2025 09:38-0400Body mass index (BMI) [Ratio]24 kg/m2 [facility]03-11-2025 09:38-0400Body qesqtoeuett09.4 [degF][facility]03-11-2025 09:38-0400Body ppfker57.68 kg [facility]03-11-2025 09:38-0400Diastolic blood zhunpfoh74 mm[Hg][facility]03-11-2025 09:38-0400Heart rate78 /min [facility]03-11-2025 09:38-0400Systolic blood dpzeqgxm993 mm[Hg][facility]11-05-2024 10:41-0500Body .02 [facility]11-05-2024 10:41-0500Body mass index (BMI) [Ratio]23.9 kg/l9FbyzjkehtFayette County Memorial Hospital11-05-2024 10:41-0500Body yegwqa06.23 kgFayette County Memorial Hospital11-05-2024 10:41-0500Diastolic blood hhjiafjs05 mm[Hg][facility]11-05-2024 10:41-0500 Heart rate62 /[facility]11-05-2024 10:41-0500Systolic blood gtynqrak780 mm[Hg][facility]10-29-2024 10:44-0400 Body pekmnv310.02 cmFayette County Memorial Hospital10-29-2024 10:44-0400Body mass index (BMI) [Ratio]24.6 kg/d8QlfwbfneqFayette County Memorial Hospital10-29-2024 10:44-0400Body ewcsnb14.04 kgFayette County Memorial Hospital10-29-2024 10:44-0400Diastolic blood xgooript97 mm[Hg][facility] 01-21-2024 10:44-0400Heart rate63 /[facility] 01-21-2024 10:44-0400Systolic blood nqwvnrci798 mm[Hg][facility]10-17-2024 09:10-0400Body szjacs215.02 cmFayette County Memorial Hospital10-17-2024 09:10-0400Body mass index (BMI) [Ratio]24.4 kg/z2TeljikbtrFayette County Memorial Hospital10-17-2024 09:10-0400Body osqjgn53.59 kgFayette County Memorial Hospital10-17-2024 09:10-0400Diastolic blood vijkzfyj77 mm[Hg] [facility]10-17-2024 09:10-0400Heart rate66 /[facility]10-17-2024 09:10-0400Respiratory rate18 /[facility]10-17-2024 09:10-0400Systolic blood ijjyuded494 mm[Hg] [facility]06-24-2024 11:57-0400Body mcqrea500.64 cmMD Doreen Mejia Work Phone: [facility]06-24-2024 11:57-0400 Body mass index (BMI) [Ratio]19.7 kg/m2MD Doreen Mejia Work Phone: [facility]06-24-2024 11:57-0400 Body yxkjch96.33 kgMD Doreen Mejia Work Phone: [phone]06-24-2024 11:57-0400 Diastolic blood fzegzsds27 mm[Hg]MD Doreen Mejia Work Phone: [phone]06-24-2024 11:57-0400 Heart rate69 /minMD Doreen Mejia Work Phone: [phone]06-24-2024 11:57-0400 Systolic blood rjpvxneu756 mm[Hg]MD Doreen Mejia Work Phone: [phone])[address]05-17-2024 09:26-0400 Body lwkqej917.02 cmMD Doreen Mejia Work Phone: [phone] [place], [place] 4979505-17-2024 09:26-0400 Body mass index (BMI) [Ratio]21 kg/m2MD Doreen Mejia Work Phone: [phone]05-17-2024 09:26-0400 Body pulcna79.97 kgMD Doreen Mejia Work Phone: [phone])[address]05-17-2024 09:26-0400 Diastolic blood nayjdeiw88 mm[Hg]MD Doreen Mejia Work Phone: [phone]05-17-2024 09:26-0400 Heart rate77 /minMD Doreen Mejia Work Phone: [phone]05-17-2024 09:26-0400 Respiratory rate18 /minMD Doreen Mejia Work Phone: [phone])[address]05-17-2024 09:26-0400 SaO2% (BldA) [Mass fraction]99 %MD Doreen Mejia Work Phone: [phone]05-17-2024 09:26-0400 Systolic blood xzqbmdny771 mm[Hg]MD Doreen Mejia Work Phone: [phone] [address]04-24-2024 11:58-0400 Body mass index (BMI) [Ratio]21.43 kg/m2Ranjith Miguel MD Work Phone: [phone]04-24-2024 11:58-0400Body kg Ranjith Miguel MD Work Phone: [phone]04-24-2024 11:58-0400Diastolic blood mm[Hg]Ranjith Miguel MD Work Phone: [phone]04-24-2024 11:58-0400Heart rate74 /min Ranjith Miguel MD Work Phone: [phone]04-24-2024 11:58-0400Systolic blood rrnkvtyw129 mm[Hg]Ranjith Miguel MD Work Phone: [facility]04-19-2024 09:13-0400Body lbfkoh497.02 cmMD Doreen Mejia Work Phone: [phone]48[facility]04-19-2024 09:13-0400 Body mass index (BMI) [Ratio]21 kg/m2MD Doreen Mejia Work Phone: [phone]04-19-2024 09:13-0400 Body xvnzub80.97 kgMD Doreen Mejia Work Phone: [phone]04-19-2024 09:13-0400 Diastolic blood whsqroey85 mm[Hg]MD Doreen Mejia Work Phone: [phone]-[facility]04-19-2024 09:13-0400 Heart rate83 /minMD Doreen Mejia Work Phone: [phone]04-19-2024 09:13-0400 Respiratory rate18 /minMD Doreen Mejia Work Phone: [phone]04-19-2024 09:13-0400 SaO2% (BldA) [Mass fraction]97 %MD Doreen Mejia Work Phone: [facility]04-19-2024 09:13-0400 Systolic blood mm[Hg]MD Doreen Mejia Work Phone: [phone]04-15-2024 13:06-0400 Body khwxca430.02 cmMD Doreen Mejia Work Phone: [phone]04-15-2024 13:06-0400 Body mass index (BMI) [Ratio]20.5 kg/m2MD Doreen Mejia Work Phone: [phone] [place], [place] [address]04-15-2024 13:06-0400 Body luxyinzvdrj07.6 [degF]MD Doreen Mejia Work Phone: [phone]04-15-2024 13:06-0400 Body iixqhq19.38 kgMD Doreen Mejia Work Phone: [phone])[address]04-15-2024 13:06-0400 Diastolic blood mm[Hg]MD Doreen Mejia Work Phone: [phone]04-15-2024 13:06-0400 Heart rate86 /minMD Doreen Mejia Work Phone: [phone]04-15-2024 13:06-0400 Systolic blood mm[Hg]MD Doreen Mejia Work Phone: [phone]03-21-2024 09:45-0400 Diastolic blood lofudmyv20 mm[Hg]MD Doreen Mejia Work Phone: [phone])[address]03-21-2024 09:45-0400 Heart jpuc044 /minMD Doreen Mejia Work Phone: [phone]03-21-2024 09:45-0400 Systolic blood uddtoruh897 mm[Hg]MD Doreen Mejia Work Phone: [phone]03-21-2024 09:39-0400 Body xwoedz454.02 cmMD Doreen Mejia Work Phone: [phone]03-21-2024 09:39-0400 Body mass index (BMI) [Ratio]20.5 kg/m2MD Doreen Mejia Work Phone: [phone] [place], [place] [address]03-21-2024 09:39-0400 Body .61 kgMD Doreen Mejia Work Phone: [facility]03-21-2024 09:39-0400 Respiratory rate18 /minMD Doreen Mejia Work Phone: [facility]03-21-2024 09:39-0400 SaO2% (BldA) [Mass fraction]99 %MD Doreen Mejia Work Phone: [phone])[phone] [place], [place] [address]03-11-2024 09:32-0400 Body .02 cmMD Doreen Mejia Work Phone: [phone]03-11-2024 09:32-0400 Body mass index (BMI) [Ratio]20.5 kg/m2MD Doreen Mejia Work Phone: [phone]03-11-2024 09:32-0400 Body .73 kgMD Doreen Mejia Work Phone: [phone]03-11-2024 09:32-0400 Diastolic blood ryttfbzi71 mm[Hg]MD Doreen Mejia Work Phone: [phone]03-11-2024 09:32-0400 Heart qskp639 /minMD Doreen Mejia Work Phone: [phone]03-11-2024 09:32-0400 Systolic blood ldmojljq519 mm[Hg]MD Doreen Mejia Work Phone: [phone]02-16-2024 10:15-0500 Body fpqicv087.02 cmF[facility] Hospital02-16-2024 10:01-0500Body mass index (BMI) [Ratio]19.1 kg/j1DzxkejbtnFayette County Memorial Hospital02-16-2024 10:01-0500Body guctfb06.12 kgF[facility] County Memorial Hospital02-16-2024 10:01-0500Diastolic blood mm[Hg][facility] 05-10-2023 10:01-0500Heart rate98 /minF[facility] Hospital 05-10-2023 10:01-0500Systolic blood docjztgr226 mm[Hg][facility]02-05-2024 09:15-0500Body ufjhjg074.02 cmDoreen Mejia Other [employer] Other 02-05-2024 09:15-0500Body mass index (BMI) [Ratio] 18.63 kg/k3Qvmzdn Mejia Other [employer] Other 02-05-2024 09:15-0500Body uhuauv94.72 kgDoreen Jackie Other [employer] Other 02-05-2024 09:15-0500Diastolic blood gdndezxq95 mm[Hg] Doreen Jackie Other [employer] Other 02-05-2024 09:15-0500Systolic blood dkuejctf255 mm[Hg] Doreenguy Mejia Other [employer] Other 01-24-2024 14:00-0500Body nzniik564.02 cmMichlele Jones Other [facility]01-24-2024 14:00-0500 Body mass index (BMI) [Ratio]18.78 kg/i1UuuekwrvMichelle Jones Other [employer] [facility] [employer] Other 01-24-2024 14:00-0500Body bxwnip81.08 kgMichelle Floresrbacher Other [facility]01-24-2024 14:00-0500 Diastolic blood gesffbsa26 mm[Hg]Michelle Jones Other [facility]01-24-2024 14:00-0500 Systolic blood eaxcaljz527 mm[Hg]Michelle Jones Other [facility]01-08-2024 10:15-0500 Body ugytaf237.02 cmMarandavandana Mejia Other [facility]01-08-2024 10:15-0500 Body mass index (BMI) [Ratio]17.68 kg/u4BwghdcDoreen Mejia Other [employer] Other 01-08-2024 10:15-0500Body vzybgfiawqf55.1 [degF]Doreen Mejia Other [place] [employer] Other 01-08-2024 10:15-0500Body .27 kgFloridalmamaged Jackie Other [place] [employer] Other 01-08-2024 10:15-0500Body hppmfy18.26 kgFayette County Memorial Hospital01-08-2024 10:15-0500Diastolic blood mtvqykju86 mm[Hg] Doreen Mejia Other [facility]01-08-2024 10:15-0500 Systolic blood odewtyjg227 mm[Hg]Doreen Mejia Other [facility]01-05-2024 13:15-0500 Body jwucog655.02 cmDoreen Jackie Other [facility] Encounters Encounter DateEncounter TypeCare ProviderFacilityStart: 01-25-2025 End: 19-44-5119ukthlixvagKgldevcyi A Keister DO Work Phone: [phone]-Fgrbuyjmk Health OrthopedicsStart: 01-25-2025 End: 25-32-1255Tmezbby encounter procedureThchantale Katz MDCritical [facility] Hospital [facility] Work Phone: Start: 01-19-2025 End: 26-20-8363pctwrpirrfArxkddjyw A Keister DO Work Phone: [facility] ClinicStart: 01-19-2025 End: 08-31-4237Chhsqqa encounter procedureDoreen Mejia MDProMedica [facility]lower [facility] Work Phone: Start: 01-18-2025 End: 49-34-6205qxjnkhycifSxwhgwjpb A Kecarson DO Work Phone: [phone]-Chdjmumcn Health OrthopedicsStart: 01-18-2025 End: 59-76-8236Temncot encounter procedureSkip Katz MD-[facility] Work Phone: Start: 06-77-3494Htj-patient / Non-visitCatherine Adam [facility] Work Phone: Start: 01-13-2025 End: 51-29-5130Zopskfukn department patient visitAlexamonty Paulsoncarson DO Work Phone: [phone]-Juicpkdnh Room Work Phone: Start: 06-23-2024 End: 43-99-8414fkygyfmhafFcbxedscoLima City Hospital Work Phone: Start: 06-23-2024 End: 33-30-1093Gqsbfuy encounter procedureBaldemarvcu medical center Physician [facility] Work Phone: Start: 06-02-2024 End: 54-16-4415tudozfwyzeMmzxobapbSelect [facility] Work Phone: Start: 06-02-2024 End: 84-40-2750Wrzhkwd encounter procedureUn[facility] Phys[facility] Work Phone: Start: [id number] encounter statusK[facility] Hospitaltart: 01-28-2024 End: 19-02-5661soyrpkppgcGuuxzargcLima City Hospital Work Phone: Start: 01-28-2024 End: 49-96-2596Rbosmglll for general adult medical examination without abnormal findingsKettering Memorial Hospitaltart: 01-28-2024 End: 91-79-0283Nbkqbkr encounter [facility]Un[facility] Work Phone: Start: 01-21-2024 End: 90-21-1922krzrwwrdwwIrcwaudwqLima City Hospital Work Phone: Start: 01-21-2024 End: 33-57-4133Bjqstbg [facility] Work Phone: Start: 01-09-2024 End: 27-92-0946dgsyqgduqaOoirrrnopLima City Hospital Work Phone: Start: 01-09-2024 End: 20-70-2041Rrdxnpc [facility] Cardiology Work Phone: Start: 09-16-2023 End: 50-50-7803wmaavqrhixDY Marcia E Braun Work Phone: [facility] Work Phone: Start: 09-16-2023 End: 88-28-8303Mvftlbq encounter procedureMD Doreen Mjeia Work Phone: [facility] Work Phone: Start: 09-13-2023 End: 24-16-0629Ohmidrxphf hospital visit by physicianRoma GrossEbgsgq70715 Allen StreetComment on above:Abnormal weight lossStart: 09-13-2023 End: 21-46-9324pkcvdzcmwyRYQVBSalem City Hospitaltart: 44-30-7286Srqsjgzqh encounterSmarcio Orozco MD Work Phone: EndocrinologyComment on above:ResultsStart: 08-12-2023 Non-patient / Non-visitMD Doreen Mejia Work Phone: [facility] Work Phone: Start: 08-09-2023 End: 40-91-9534ucfazhfnvoNI Marcia E Braun Work Phone: [facility] Work Phone: Start: 08-09-2023 End: 34-24-3754Zbkvebj encounter procedureMD Doreen Mejia Work Phone: [facility] Cardiology Work Phone: Start: 07-29-2023 End: 75-23-2531uwcqpgvkmgYR Doreen Mejia Work Phone: [facility] Work Phone: Start: 07-29-2023 End: 63-45-2569Sriwakf encounter procedureMD Doreen Mejia Work Phone: [facility]-Electrodiagnostics Work Phone: Start: 07-17-2023 End: 69-08-8943chvwjpyfumYQWZ MODELFacility:[facility] Hospitaltart: 02-59-8047Plg-patient / Non-visitMD Doreen Mejia Work Phone: [facility] Work Phone: Start: 07-17-2023 End: 62-12-1771Uciuyur encounter procedureAlla Model GRACIA Work Phone: RheumatologyComment on above:Sicca, unspecified type (HCC) (Primary Dx); Malaise and fatigueStart: 07-12-2023 End: 01-30-6629eghdthbivgVZ Marcia E Braun Work Phone: [facility] Work Phone: Start: 07-12-2023 End: 82-66-7286Mmytixb encounter procedureMD Doreen Mejia Work Phone: [facility] Cardiology Work Phone: Start: 07-09-2023 End: 54-31-1372mxzrsryljuNKSVJP H TIMMISNot AvailableStart: 07-08-2023 End: 46-00-9906hyqakgrnqjQK Marcia E Braun Work Phone: [facility] Work Phone: Start: 07-08-2023 End: 87-84-9647Mipvtat encounter procedureMD Doreen Mejia Work Phone: [facility] Work Phone: Start: 23-62-9862Dwm-patient / Non-visitMD Doreen Mejia Work Phone: [facility] Work Phone: Start: 67-76-6871Pwb-patient / Non-visitMD Doreen Mejia Work Phone: [facility] Work Phone: Start: 06-21-2023 End: 38-41-2059rlnealmgbgDW Doreen Bettencourt Mejia Work Phone: [facility] Work Phone: Start: 06-21-2023 End: 56-25-3890Vskfphs encounter procedureMD Doreen Mejia Work Phone: [facility]-Electrodiagnostics Work Phone: Start: 06-13-2023 End: 98-20-2956rpwgwpfdpjWN Doreen Mejia Work Phone: [facility] Work Phone: Start: 06-13-2023 End: 44-24-6259Qhyflzh encounter procedureMD Doreen Mejia Work Phone: [facility] Cardiology Work Phone: Start: 06-11-2023 End: 49-06-1259pjwywswfheSLGUB FAZIONot AvailableStart: 70-49-2332Xmk-patient / Non-visitMD Doreen Mejia Work Phone: [facility] Work Phone: Start: 06-10-2023 End: 05-00-0588Ycxnjoybf Result EncounterHicary Umana MD Work Phone: noms External Department UnsolicitedStart: 06-10-2023 End: 21-62-5955Takiihnkk Result EncounterAlthea Umana MD Work Phone: noms External Department UnsolicitedStart: 06-03-2023 End: 30-68-5604Ouovdou encounter procedureMD Doreen Mejia Work Phone: [facility] GroupPro[facility] Work Phone: Start: 05-28-2023 End: 98-71-2713vcyphpdnkkTGVULR H TIMMISNot AvailableStart: 05-23-2023 End: 76-14-0807dtqkmpckqlROZNX M ALLENNot AvailableStart: 05-22-2023 End: 90-31-7087Ganjusqof Result EncounterCorey Crystal DO Work Phone: noms External Department UnsolicitedStart: 05-22-2023 End: 09-36-6414Wjnscxtmn Result EncounterCorey Crystal DO Work Phone: noms External Department UnsolicitedStart: 05-20-2023 Non-patient / Non-visitMD Doreen Mejia Work Phone: [facility] Professional [employer] Work Phone: Start: 05-13-2023 End: 44-68-2557rodhtejgzmKWFYZ FAZIONot AvailableStart: 05-10-2023 End: 42-37-3244gtkesarybfZjjeylnftLima City Hospital Work Phone: Start: 05-10-2023 End: 24-45-7735Jmryfaz encounter procedureMargie Physician GroupProMedica Flower [facility] Work Phone: Start: 05-03-2023 End: 99-10-9478ljiewkysxwGzxqtv Braun Other [facility] Other Start: 80-00-0861Cdkadvmou encounterMarvandana MejiaMercy Health Springfield Regional Medical Centertart: 04-29-2023 End: 46-49-6484cndbsqudgpKecyso Braun Other [employer] Other Start: 42-65-6295Fyaixg outpatient visit 15 minutes Doreen MejiaSophie [facility] Emergency Hospitaltart: 04-26-2023 End: 63-49-3633nrjvurplrlMFFOVRH ANGELINA HARTARAMFacility:[facility] Hospitaltart: 04-23-2023 End: 38-99-9061daaqzqjsuyJifbaoew Rohrbacher Other [employer] Other Start: 10-36-7391Gkgintvsb encounterMichelle OrtegaAvita Health System Galion Hospitaltart: 04-22-2023 End: 07-78-6392saigggdfnaENNIXDLA Maged ROBERTNot AvailableStart: 04-20-2023 End: 63-91-2158dxjfhetknkZztxme Braun Other no[employer] Other Start: 28-36-9612Jibqelnnh encounterFloridalmamaged MejiaMercy Health Springfield Regional Medical Centertart: 04-17-2023 End: 42-04-3932bbetzkngcmVgepey Braun Other [employer] Other Start: 69-64-8064Diaori outpatient visit 15 minutes Michelle FloresmayPaulaLakeHealth Beachwood Medical Center ClinicStart: 50-44-1130Peqscwxiv encounter Doreen MejiaBarney Children's Medical Center ClinicStart: 04-17-2023 End: 81-47-7528Ymhzfje encounter procedureFirelands Physician Group-Start: 04-15-2023 End: 77-51-4531vuldaayocsBynhha Braun Other no[employer] Other Start: 29-74-7796Vzytdxhqq encounterMarcimaged MejiaSophie Cleveland Emergency Hospitaltart: 04-11-2023 End: 93-41-3504pdvbaactiaQlvchb Mejia Other no[employer] Other Start: 10-92-9955Uiaoiuszg encounterMarcia Malachi [facility] ClinicStart: 04-10-2023 End: 03-88-4412itxvinctkxLWIUGV JACKIENot AvailableStart: 04-09-2023 End: 14-18-1066uwqhkykpetUjzkxr Mejia Other no[employer] Other Start: 85-57-9026Viinhqret encounterMarcia Malachi [facility] ClinicStart: 04-02-2023 End: 67-11-5239zkawbirckpUvgjxs Mejia Other no[employer] Other Start: 28-73-6314Adzpnevpk encounterMarcia Malachi [facility] ClinicStart: 04-01-2023 End: 80-29-3471fggflpwjntYxvuam Mejia Other no[employer] Other Start: 50-93-4318Wqvbee outpatient visit 25 minutes Doreen Ly [facility] ClinicStart: 04-01-2023 End: 89-59-7398Hbywjhd encounter procedureFirelands Physician Group-[facility] Work Phone: Start: 03-29-2023(Televisit) TelevisitMarcia Malachi Steen [facility] ClinicStart: 03-29-2023 End: 82-50-5372gjdlxqxycsYdutzh Mejia Other no[employer] Other Start: 03-29-2023 End: 50-89-8405Bayvjlw encounter procedureFirelands Physician Group-[facility] Work Phone: Start: 01-17-2023 End: 46-25-6985mvugetegjhAfvzmz Mejia Other no[employer] Other Start: 79-93-4976Yggofofwr encounterDoreen Ly [facility] ClinicStart: 05-04-2020 End: 47-59-5946esvabfludbOO MOISSE Melissa CAROLINAFacility:H1 Procedures DateProcedureProcedure DetailPerforming ClinicianStart: 49-94-9736Dkefv X-ray of left wristAlexander Keister DO Work Phone: Start: 71-33-4807Xaychmdi tomography of abdomen and pelvis with contrastAlexander Keister DO Work Phone: Start: 35-25-1182ED cervical spine without contrast Bob Mendez DO Work Phone: Start: 43-24-3325US of facial bones without contrast Bob Paulsonister DO Work Phone: Start: 94-33-4660UQ of head without contrastAlexander Keister DO Work Phone: Start: 61-79-4634CY of thorax with contrastAlexander Keister DO Work Phone: Start: 50-03-2441Cqvgm X-ray of left wristAlexander Keister DO Work Phone: Start: 92-05-6257Z-ray of right knee, four views Bob Mendez DO Work Phone: Start: 87-22-7432Drtdzcc mri w/wo contrast & further seqLinda Polo Hardin MD Work Phone: Start: 80-00-7100RL videography Hypopharynx and Esophagus Views for swallowing function W speech and W barium contrast Melissa Umana MD Work Phone: Start: 88-99-9888DF TOMOSYNTHESIS DIAGNOSTIC BICorey Crystal DO Work Phone: Start: 60-66-6563RH BREAST BI LIMITEDCorey Crystal DO Work Phone: Plan of Treatment DateCare ActivityDetailAuthorStart: 23-47-2160Uzjmfm Vaccines (1 of 2)Zoster Vaccines (1 of 2)[facility] CenterStart: 01-50-7732Obefc X-ray of left wristXR wrist LT 2Premier Healthtart: 79-96-5425VC Wrist - left 2 [facility]tart: 60-72-4004Yesnktlrh vaccinationInfluenza Vaccine (Season Ended)[facility]art: 07-17-2023 End: 35-92-0740Jxorzscb kinase [Enzymatic activity/volume] in Serum or Plasma [facility] HospitalComment on above:Expected: 07/17/2023, Expires: 10/16/2023Start: 07-17-2023 End: 74-78-1626Mcrmpk citrullinated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
[2025-02-02 11:53] LABS: Cholesterol 202 mg/dL (<=200); Glucose 87 mg/dL (74-106); HDL Cholesterol 63 mg/dL (40-60); Triglycerides 63 mg/dL (<=150); VLDL CHOLESTEROL 12.6 mg/dL
== END 2025-02-02 11:06 | disposition home or self-care (01) ==
LOC: LAB 11:10
PROVIDERS: PCP Family Medicine; Visit Provider Family Medicine
DX: Z00.00 Encounter for general adult medical examination without abnormal findings (principal)
CPT/HCPCS: 36415; 80061; 82947